=== PATIENT | male | born 1975 | race Caucasian/White ===

== ENCOUNTER 2020-04-09 08:43 | Outpatient (REF) | payer OTHER, SELFPAY ==
--- NOTE | 2020-04-09 | MR_ITS ---
EXAMINATION: MR HAND WITHOUT CONTRAST, RIGHT CLINICAL INFORMATION: Complex regional pain syndrome. COMPARISON: Radiographs dated 03/24/2010 TECHNIQUE: Multiplanar MR imaging was obtained through the right hand without contrast on a 1.5 Ada magnet. FINDINGS: At the 2nd, 3rd, and 4th MCP joints, there are small marginal osteophytes in addition to small foci of subchondral cystic change, favored to be degenerative in nature. Cartilage loss is suspected at the 3rd metacarpal head and, to a lesser extent, at the 2nd metacarpal head. Mild osteoarthritis is also suspected in the CMC joint and thumb interphalangeal joint, characterized by nonuniform chondral thinning and small marginal osteophytes. The other interphalangeal joints appear relatively well preserved, though mild degrees of osteoarthritis would be difficult to exclude on these images. There are no appreciable findings of erosions. No joint effusions or significant active periostitis. Joint capsules are normal in appearance. The ligaments appear intact. Intrinsic hand musculature is normal in signal intensity. Tendons are intact without tears, tendinosis, or tenosynovitis. There is scar tissue in the skin in the palmar aspect of the hand superficial to the flexor tendons to the long finger at the level of the metacarpals distally. No fluid collections. No discrete mass lesions are identified in this region. 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 No evidence of synovitis or active inflammation. No significant marrow signal abnormality to correlate with possible active complex regional pain syndrome. Scar tissue is suspected in the skin at the palmar aspect of the hand, superficial to the long finger flexor tendons.
== END 2020-04-09 08:44 | disposition home or self-care (01) ==
LOC: HO.MRI 08:43
PROVIDERS: Visit Provider Physician Assistant Medical
DX: G90.511 Complex regional pain syndrome I of right upper limb (principal)
CPT/HCPCS: 73218

== ENCOUNTER → 2020-04-14 09:39 | Outpatient (REF) | payer OTHER, SELFPAY ==
--- NOTE | 2020-04-14 | NM_ITS ---
EXAMINATION: NM THREE-PHASE BONE SCAN BOTH HANDS CLINICAL INFORMATION: Complex regional pain syndrome right hand. Right hand and wrist swelling and pain COMPARISON: None TECHNIQUE: Following intravenous administration of 35 mCi of 99m Tc MDP in left antecubital vein, three-phase bone scan of both hands were obtained. In addition whole body PET CT scan was obtained. FINDINGS: On first phase bone scan there is slight increased perfusion to left wrist. On second phase of bone scan there is symmetrical blood pool activity seen in both hands and wrists. On third phase bone scan no abnormal focal increased or decreased activity seen in either hand. On third phase whole body imaging there is no abnormal activity seen within the brain, neck, entire spine, chest or the pelvis. Both upper and lower extremities are unremarkable. NM/NM bone 3 phase IMPRESSION: Unremarkable three-phase bone scan both hands. Unremarkable whole body bone scan on third phase bone scan.
== END ==
LOC: HO.NUCMED 09:39
PROVIDERS: PCP Internal Medicine Medical Oncology; Visit Provider Physician Assistant Medical
DX: G90.511 Complex regional pain syndrome I of right upper limb (principal); G56.01 Carpal tunnel syndrome, right upper limb
CPT/HCPCS: 78315; A9503

== ENCOUNTER 2020-04-18 20:04 | Emergency (ER) | payer OTHER, SELFPAY ==
[2020-04-18 20:05] VITALS: BP 157/95; PULSE 89; RESP 18; TEMP 37.1; O2SAT 97; BMI 33.5
[2020-04-18 21:26] VITALS: BP 159/102; PULSE 88; RESP 16; O2SAT 98
--- NOTE | 2020-04-18 21:36 | ED_ITS ---
HPI - Headache General Chief Complaint: Headache Stated Complaint: High blood pressure Time Seen by Provider: 04/18/20 21:36 Source: patient Mode of arrival: ambulatory Limitations: no limitations History of Present Illness HPI Narrative: Patient has history of hypertension on hydralazine and Lopressor usually well controlled today since 930 patient noticed having gradual onset headache mostly in the occipital area at work checked his blood pressure was 175/120 at 10 am, later on blood pressure decreased to 150s but headache continues patient took his morning hydralazine and Lopressor. Patient denies any nausea/vomiting no weakness no focal deficit MD elicited complaint: headache Related Data Allergies Allergy/AdvReac Type Severity Reaction Status Date / Time No Known Allergies Allergy Unverified 01/24/20 15:15 Review of Systems Review of Systems: REVIEW OF SYSTEMS: Pertinent positives and negatives are stated above in the history. GEN: no fevers, chills, fatigue HEENT: no nasal congestion, sore throat, ear pain NEURO: no , dizziness, focal weakness PULM: no cough, shortness of breath CV: no chest pain, palpitations, LE edema ABD: no abdominal pain, nausea, vomiting, diarrhea : no dysuria, urgency, frequency SKIN: no rash ROS otherwise negative x 10 PMFSH Social History Social History Advance Directives: No Advance Directives Information Provided: Yes Physical Exam Vital Signs: Vital Signs: Last Vital Signs Temp 98.3 F 04/18/20 22:29 Pulse 86 04/18/20 22:29 Resp 22 H 04/18/20 22:29 BP 147/97 H 04/18/20 22:29 Pulse Ox 97 04/18/20 22:29 Body Mass Index 33.5 Appearance: Alert. Oriented X3. No acute distress. Eyes: Pupils equal, round and reactive to light. ENT: Pharynx normal. Neck: Normal inspection. Neck supple. CVS: Normal heart rate and rhythm. Pulses normal. Respiratory: No respiratory distress. Breath sounds normal. Abdomen: Soft and nontender. Skin: Skin warm and dry. Normal skin color. Normal skin turgor. Extremities: No lower extremity edema. Good range of movement Neuro: Oriented X 3. No motor deficit. No sensory deficit. MDM - Headache MDM Narrative Medical decision making narrative: Patient with gradual onset headache with history of headaches in the past but not that severe blood pressure elevated earlier but after arrival it was 157/95 patient denies any nausea vomiting head CT plain was negative lumbar puncture was tried but was traumatic 2 times as his back is very stiff will do CTA to rule out any aneurysm patient is unlikely subarachnoid bleed as onset is gradual and with a history of headaches Differential Diagnosis Differential diagnosis: Likely tension headache and subarachnoid hemorrhage Medical Records Attestation: I reviewed the patient's medical records. Lab Data Attestation: I reviewed the patient's lab results. Result diagrams: 04/18/20 22:28 04/18/20 22:28 Labs: Lab Results 04/18/20 04/18/20 04/18/20 Range/Units 22:28 22:28 22:28 WBC 9.8 (4.8-10.8) X10*3/uL RBC 4.95 (4.60-5.80) X10*6/uL Hgb 15.0 (14.0-18.0) g/dl Hct 43.8 (42-52) % MCV 88.5 (80-98) fL MCH 30.3 (27.0-33.0) pg MCHC 34.2 (31.0-36.0) g/dl RDW 12.3 (11.0-16.0) % Plt Count 240 (160-400) X10*3/uL MPV 11.8 (9.4-12.4) fL Immature Gran % (Auto) 0.3 (0.0-0.4) % Neut % (Auto) 49.5 (45-73) % Lymph % (Auto) 36.9 (20-40) % [place] % (Auto) 9.6 (2-11) % Eos % (Auto) 3.0 (0-4) % Baso % (Auto) 0.7 (0-2) % Lymph # (Auto) 3.6 (1.2-4.9) X10*3/uL [place] # (Auto) 0.9 (0.1-1.2) X10*3/uL Eos # (Auto) 0.3 (0.0-0.4) X10*3/uL Baso # (Auto) 0.1 (0.0-0.2) X10*3/uL Abs Immat Gran (auto) 0.03 (0.00-0.03) X10*3/uL Absolute Neuts (auto) 4.9 (2.0-8.3) X10*3/uL Absolute Nucleated RBC 0.000 (0.0-0.012) X10*3/uL Nucleated RBC % (auto) 0.0 (0.0-0.2) /100WBC PT 12.4 (10.8-13.0) SEC INR 1.0 (0.9-1.1) Sodium 139 (135-145) mmol/L Potassium 3.9 (3.3-5.1) mmol/l Chloride 102 (96-108) mmol/L Carbon Dioxide 27 (22-29) mmol/L Anion Gap 14 (12-20) BUN 15 (9-16) mg/dL Creatinine 1.19 (0.5-1.4) mg/dL Estim Creat Clear Calc 90.7 Estimated GFR > 60 Random Glucose 144 H (60-115) mg/dL Calcium 9.1 (8.4-10.2) mg/dL Troponin I High Sens (<3.5-35.0) ng/L COVID-19 (JULITO) (Negative) COVID-19 Clin Com 04/18/20 04/18/20 Range/Units 22:28 22:28 WBC (4.8-10.8) X10*3/uL RBC (4.60-5.80) X10*6/uL Hgb (14.0-18.0) g/dl Hct (42-52) % MCV (80-98) fL MCH (27.0-33.0) pg MCHC (31.0-36.0) g/dl RDW (11.0-16.0) % Plt Count (160-400) X10*3/uL MPV (9.4-12.4) fL Immature Gran % (Auto) (0.0-0.4) % Neut % (Auto) (45-73) % Lymph % (Auto) (20-40) % [place] % (Auto) (2-11) % Eos % (Auto) (0-4) % Baso % (Auto) (0-2) % Lymph # (Auto) (1.2-4.9) X10*3/uL [place] # (Auto) (0.1-1.2) X10*3/uL Eos # (Auto) (0.0-0.4) X10*3/uL Baso # (Auto) (0.0-0.2) X10*3/uL Abs Immat Gran (auto) (0.00-0.03) X10*3/uL Absolute Neuts (auto) (2.0-8.3) X10*3/uL Absolute Nucleated RBC (0.0-0.012) X10*3/uL Nucleated RBC % (auto) (0.0-0.2) /100WBC PT (10.8-13.0) SEC INR (0.9-1.1) Sodium (135-145) mmol/L Potassium (3.3-5.1) mmol/l Chloride (96-108) mmol/L Carbon Dioxide (22-29) mmol/L Anion Gap (12-20) BUN (9-16) mg/dL Creatinine (0.5-1.4) mg/dL Estim Creat Clear Calc Estimated GFR Random Glucose (60-115) mg/dL Calcium (8.4-10.2) mg/dL Troponin I High Sens 3.9 (<3.5-35.0) ng/L COVID-19 ([facility]O) Negative (Negative) COVID-19 Clin Com See Note
--- NOTE | 2020-04-18 21:41 | CT_ITS ---
EXAMINATION: CT HEAD WITHOUT CONTRAST CLINICAL INFORMATION: Headache with hypertension?sah COMPARISON: MRI dated 01/06/2012 TECHNIQUE: Contiguous axial imaging was performed from the skull base to vertex without intravenous administration of contrast. This CT examination was performed using dose optimization techniques as appropriate, variously including the following: *Automated exposure control *Adjustment of mA and/or kV according to patient size (this includes techniques or standardized protocols for targeted exams where dose is matched to indication/reason for exam; i.e. extremities or head) *Use of iterative reconstruction technique DLP: 830 mGy-cm FINDINGS: There is no evidence of acute intracranial hemorrhage or territorial infarction. No abnormal mass effect or midline shift is seen. Wilks to white matter differentiation is well preserved. No extra-axial fluid collections are identified. The ventricles are normal in size. There is no abnormal attenuation within the brain parenchyma. The osseous structures and soft tissues are normal. The mastoid air cells and visualized portions of the paranasal sinuses are well aerated. CT/CT head/brain wo con IMPRESSION: No acute intracranial pathology.
--- NOTE | 2020-04-18 22:19 | ECG_ITS ---
Test Reason : HEADACHE Blood Pressure : / mmHG Vent. Rate : 081 BPM Atrial Rate : 081 BPM P-R Int : 160 ms QRS Dur : 080 ms QT Int : 380 ms P-R-T Axes : 009 008 011 degrees QTc Int : 441 ms Normal sinus rhythm Cannot rule out Anterior infarct (cited on or before 18-APR-2020) Abnormal ECG When compared with ECG of 23-OCT-2018 20:50, No significant change was found Referred By: Qamar Jeter Electronically Signed By:HCI HENNING
[2020-04-18 22:29] VITALS: BP 147/97; PULSE 86; RESP 22; TEMP 36.8; O2SAT 97
[2020-04-18] MEDS: Acetaminophen 325 MG TABLET 650 MG PO (22:37)
[2020-04-18] MEDS: hydrALAZINE HCl 20 MG/ML VIAL 10 MG IVPUSH (22:38)
[2020-04-18 22:42] LABS: MANUAL DIFF FLAG NO
[2020-04-18 22:44] LABS: Basophils Absolute Auto 0.1 X10*3/uL (0.0-0.2); Basophils Percent Auto 0.7 % (0-2); Eosinophils Absolute Auto 0.3 X10*3/uL (0.0-0.4); Hematocrit 43.8 % (42-52); Imm Gran Abs Auto 0.03 X10*3/uL (0.00-0.03); Imm Gran Pct Auto 0.3 % (0.0-0.4); Lymphocytes Absolute Auto 3.6 X10*3/uL (1.2-4.9); Lymphocytes Percent Auto 36.9 % (20-40); Mean Corpuscular HGB Conc 34.2 g/dl (31.0-36.0); Mean Corpuscular Hemoglobin 30.3 pg (27.0-33.0); Mean Corpuscular Volume 88.5 fL (80-98); Mean Platelet Volume 11.8 fL (9.4-12.4); Monocytes Absolute Auto 0.9 X10*3/uL (0.1-1.2); Monocytes Percent Auto 9.6 % (2-11); Neutrophils Absolute Auto 4.9 X10*3/uL (2.0-8.3); Neutrophils Percent Auto 49.5 % (45-73); Platelet Count 240 X10*3/uL (160-400); Red Blood Count 4.95 X10*6/uL (4.60-5.80); Red Cell Distribution Width 12.3 % (11.0-16.0); White Blood Count 9.8 X10*3/uL (4.8-10.8)
[2020-04-18 22:50] LABS: Prothrombin Time 12.4 SEC (10.8-13.0)
[2020-04-18 23:06] LABS: Anion Gap 14 (12-20); Blood Urea Nitrogen 15 mg/dL (9-16); Calcium 9.1 mg/dL (8.4-10.2); Carbon Dioxide 27 mmol/L (22-29); Chloride 102 mmol/L (96-108); Creatinine Clr Calc Pharmacy 90.7; Estimated Glomerular Filt Rate > 60; Glucose Random 144 mg/dL (60-115); Potassium 3.9 mmol/l (3.3-5.1); Sodium 139 mmol/L (135-145)
[2020-04-18 23:11] LABS: Troponin-I High Sensitivity 3.9 ng/L (<3.5-35.0)
[2020-04-18 23:18] LABS: COVID-19 Test Negative (Negative); IDNOW Serial# 9DD0AD1C
[2020-04-18] MEDS: ondansetron HCL 4 MG/2 ML VIAL IVPUSH (23:25)
[2020-04-18] MEDS: Morphine Sulfate 4 MG/ML CARTRIDGE IVPUSH (23:26)
--- NOTE | 2020-04-19 00:04 | CT_ITS ---
EXAMINATION: CT ANGIOGRAM BRAIN, HEAD CLINICAL INFORMATION: Headache. Question of aneurysm. COMPARISON: CT head dated 04/18/2020 and MRI brain dated 05/14/2015 TECHNIQUE: Test bolus sequences followed by intravenous administration 85 mL of Omnipaque 350 intravenous contrast. Helical imaging was performed in the axial plane from the skull base to the vertex. Delayed postcontrast imaging of the head was also performed. The data was processed at the certified surgical technologist workstation for generation of MIP sequences. Three-dimensional volume rendered reformatted images were also generated at an offline 3-D workstation. This CT examination was performed using dose optimization techniques as appropriate, variously including the following: *Automated exposure control *Adjustment of mA and/or kV according to patient size (this includes techniques or standardized protocols for targeted exams where dose is matched to indication/reason for exam; i.e. extremities or head) *Use of iterative reconstruction technique DLP: 2820 mGy-cm FINDINGS: CTA HEAD: There is normal opacification of the major intracranial vessels. No acute proximal large vessel occlusion, or focal flow-limiting stenosis. There is a 3.3 x 2.8 x 1.9 mm aneurysm emanating from the inferior aspect of the left carotid terminus. No abnormal parenchymal enhancement or regional oligemia is visualized. HEAD (delayed): No intracranial mass, intercerebral edema, hemorrhage, or midline shift is evident. The ventricles and sulci are stable in size and configuration. No extra-axial collections are appreciated. No pathologic intracranial enhancement. The paranasal sinuses are well-aerated and clear. 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 No segmental occlusion or high-grade stenosis within the intracranial arterial vasculature
[2020-04-19] MEDS: iohexoL 350 MG/ML 100 ML INFUS..BTL 85 ML IV (00:31)
[2020-04-19] MEDS: Morphine Sulfate 4 MG/ML CARTRIDGE IVPUSH (01:04)
--- NOTE | 2020-04-19 01:09 | PC.NURSE ---
pt A&O, NO SOB OR CHEST PAIN. PT CONTINUES TO HAVE A HEADACHE. MEDICATED PER EMAR. MED GIVEN LATE DUE TO PT BEING IN CT-SCAN.
[2020-04-19 01:11] VITALS: BP 138/88; PULSE 75; RESP 16
[2020-04-19] MEDS: Ketorolac Tromethamine 30 MG/ML VIAL IVPUSH (02:21)
[2020-04-19] MEDS: Metoclopramide HCl 10 MG/2 ML VIAL IVPUSH (02:22)
[2020-04-19] MEDS: diphenhydrAMINE HCL 50 MG/ML VIAL 25 MG IVPUSH (02:22)
[2020-04-19] MEDS: 0.9 % Sodium Chloride 1,000 ML 999 ML IVCONT (02:30)
[2020-04-19 03:37] VITALS: RESP 16
== END 2020-04-19 03:44 | disposition home or self-care (01) ==
PROVIDERS: Emergency Provider Internal Medicine
DX: R51.9 Headache, unspecified (principal); I10 Essential (primary) hypertension; Z20.828 Contact with and (suspected) exposure to other viral communicable diseases; Z79.899 Other long term (current) drug therapy
CPT/HCPCS: 36415; 70450; 70496; 80048; 84484; 85025; 85610; 87635; 93005; 96361; 96374; 96375; 96376; 99284; J1200; J1885; J2270; J2405; J2765; Q9967

== ENCOUNTER 2020-07-22 07:23 | Outpatient (REF) | payer OTHER, SELFPAY ==
--- NOTE | ~2020-07-22 | XR_ITS ---
EXAMINATION: XR SHOULDER, RIGHT CLINICAL INFORMATION: Pain COMPARISON: None TECHNIQUE: Three views of the right shoulder. FINDINGS: Bone alignment is normal. No fracture or dislocation is seen. The glenohumeral joint is normal. There is arthritis at the acromioclavicular joint. Soft tissues are unremarkable. XR/XR shoulder RT min 2V IMPRESSION: Arthritis at the acromioclavicular joint.
== END 2020-07-22 07:24 | disposition home or self-care (01) ==
LOC: HO.HOSX 07:23
PROVIDERS: Visit Provider Orthopaedic Surgery
DX: M19.011 Primary osteoarthritis, right shoulder (principal); M89.8X1 Other specified disorders of bone, shoulder; S46.819A Strain of other muscles, fascia and tendons at shoulder and upper arm level, unspecified arm, initial encounter; X58.XXXA Exposure to other specified factors, initial encounter; Y93.9 Activity, unspecified; Y92.9 Unspecified place or not applicable; Y99.9 Unspecified external cause status
CPT/HCPCS: 73030

== ENCOUNTER 2020-10-24 07:34 | Outpatient (REF) | payer OTHER, SELFPAY ==
[2020-10-24 09:14] LABS: MANUAL DIFF FLAG NO
[2020-10-24 09:20] LABS: Basophils Absolute Auto 0.1 X10*3/uL (0.0-0.2); Basophils Percent Auto 1.3 % (0-2); Eosinophils Absolute Auto 0.3 X10*3/uL (0.0-0.4); Hematocrit 48.8 % (42-52); Hemoglobin 15.7 g/dl (14.0-18.0); Imm Gran Abs Auto 0.03 X10*3/uL (0.00-0.03); Imm Gran Pct Auto 0.5 % (0.0-0.4); Lymphocytes Absolute Auto 1.8 X10*3/uL (1.2-4.9); Lymphocytes Percent Auto 28.5 % (20-40); Mean Corpuscular HGB Conc 32.2 g/dl (31.0-36.0); Mean Corpuscular Hemoglobin 28.6 pg (27.0-33.0); Mean Corpuscular Volume 88.9 fL (80-98); Mean Platelet Volume 12.1 fL (9.4-12.4); Monocytes Absolute Auto 0.7 X10*3/uL (0.1-1.2); Neutrophils Absolute Auto 3.4 X10*3/uL (2.0-8.3); Neutrophils Percent Auto 53.7 % (45-73); Platelet Count 193 X10*3/uL (160-400); Red Blood Count 5.49 X10*6/uL (4.60-5.80); Red Cell Distribution Width 12.4 % (11.0-16.0); White Blood Count 6.4 X10*3/uL (4.8-10.8)
[2020-10-24 09:56] LABS: Alanine Aminotransferase 34 U/L (0-40); Albumin Level 4.1 g/dL (3.5-5.0); Alkaline Phosphatase 65 U/L (39-117); Anion Gap 12 (12-20); Aspartate Amino Transferase 22 U/L (5-37); Bilirubin Total 0.5 mg/dL (0.0-1.0); Blood Urea Nitrogen 17 mg/dL (9-16); Calcium 9.2 mg/dL (8.4-10.2); Carbon Dioxide 27 mmol/L (22-29); Chloride 105 mmol/L (96-108); Cholesterol 237 mg/dL; Estimated Glomerular Filt Rate > 60; Glucose Fasting 118 mg/dL (60-99); HDL Cholesterol 41 mg/dL; LDL Cholesterol Calculated 162 mg/dl; Potassium 4.4 mmol/L (3.3-5.1); Sodium 140 mmol/L (135-145); Total Protein 7.2 g/dL (6.5-8.0); Triglycerides 173 mg/dL
[2020-10-24 10:01] LABS: PSA,Total (Free>4and<10) 0.38 ng/mL (0.00-4.00)
== END 2020-10-24 07:35 | disposition home or self-care (01) ==
LOC: HO.LAB 07:34
PROVIDERS: PCP Internal Medicine Medical Oncology; Visit Provider Internal Medicine Medical Oncology
DX: Z00.00 Encounter for general adult medical examination without abnormal findings (principal); I10 Essential (primary) hypertension; E78.5 Hyperlipidemia, unspecified
CPT/HCPCS: 36415; 80053; 80061; 84153; 85025

== ENCOUNTER 2021-01-16 11:48 | Emergency (ER) | payer OTHER, SELFPAY ==
--- NOTE | 2021-01-16 | ECG_ITS ---
Test Reason : CP Blood Pressure : / mmHG Vent. Rate : 079 BPM Atrial Rate : 079 BPM P-R Int : 152 ms QRS Dur : 078 ms QT Int : 364 ms P-R-T Axes : 014 010 -01 degrees QTc Int : 417 ms Normal sinus rhythm Cannot rule out Anterior infarct (cited on or before 18-APR-2020) Abnormal ECG When compared with ECG of 18-APR-2020 22:23, No significant change was found Referred By: Generic ED Physician Electronically Signed By:PAOLA MARTINEZ
--- NOTE | ~2021-01-16 | XR_ITS ---
EXAMINATION: XR CHEST CLINICAL INFORMATION: Chest pain COMPARISON: 10/23/2018 TECHNIQUE: Frontal view of the chest was obtained. FINDINGS: Low lung volumes but no focal consolidation or mass. Normal pulmonary vascularity. No pleural effusion or pneumothorax. Normal heart size. Degenerative changes of the right acromioclavicular joint. XR/XR chest 1V IMPRESSION: Low lung volumes but no acute pulmonary disease.
[2021-01-16 11:51] VITALS: BP 177/104; PULSE 85; RESP 16; TEMP 37.1; O2SAT 97; BMI 33.6
[2021-01-16 12:20] LABS: MANUAL DIFF FLAG NO
[2021-01-16 12:26] LABS: Basophils Absolute Auto 0.1 X10*3/uL (0.0-0.2); Basophils Percent Auto 0.8 % (0-2); Eosinophils Absolute Auto 0.2 X10*3/uL (0.0-0.4); Eosinophils Percent Auto 2.3 % (0-4); Hematocrit 45.2 % (42-52); Hemoglobin 15.1 g/dl (14.0-18.0); Imm Gran Abs Auto 0.04 X10*3/uL (0.00-0.03); Imm Gran Pct Auto 0.5 % (0.0-0.4); Lymphocytes Absolute Auto 2.2 X10*3/uL (1.2-4.9); Lymphocytes Percent Auto 26.9 % (20-40); Mean Corpuscular HGB Conc 33.4 g/dl (31.0-36.0); Mean Corpuscular Hemoglobin 29.5 pg (27.0-33.0); Mean Corpuscular Volume 88.5 fL (80-98); Mean Platelet Volume 11.9 fL (9.4-12.4); Monocytes Absolute Auto 0.8 X10*3/uL (0.1-1.2); Monocytes Percent Auto 9.8 % (2-11); Neutrophils Percent Auto 59.7 % (45-73); Platelet Count 208 X10*3/uL (160-400); Red Blood Count 5.11 X10*6/uL (4.60-5.80); Red Cell Distribution Width 13.2 % (11.0-16.0); White Blood Count 8.3 X10*3/uL (4.8-10.8)
[2021-01-16 12:35] LABS: COVID-19 Test Negative (Negative); IDNOW Serial# 08D9AD1C
[2021-01-16 12:42] LABS: Anion Gap 15 (12-20); Blood Urea Nitrogen 15 mg/dL (9-16); Calcium 9.7 mg/dL (8.4-10.2); Carbon Dioxide 23 mmol/L (22-29); Chloride 105 mmol/L (96-108); Creatinine Clr Calc Pharmacy 84.5; Estimated Glomerular Filt Rate > 60; Glucose Random 105 mg/dL (60-115); Potassium 5.1 mmol/L (3.3-5.1); Sodium 138 mmol/L (135-145)
[2021-01-16 12:44] LABS: Troponin-I High Sensitivity < 3.5 ng/L (<3.5-35.0)
--- NOTE | 2021-01-16 14:19 | ED.CHESTPAIN ---
HPI - Chest Pain General Chief Complaint: Chest Pain Stated Complaint: CHEST PAIN Time Seen by Provider: 01/16/21 14:18 Source: patient Mode of arrival: ambulatory Limitations: no limitations History of Present Illness MD complaint: chest pain Onset (ago): day(s) (yesterday ) Timing of current episode: episodic Prior episodes: No Onset: during rest Pain location: left chest Pain radiation: none Severity: moderate Quality: burning Relieving factors: nothing Exacerbating factors: nothing Associated symptoms: dyspnea Treatment prior to arrival: none Related Data Home Medications Medication Instructions Recorded Confirmed atenolol 100 mg tablet mg PO 07/22/20 atorvastatin 20 mg tablet 20 mg PO DAILY 07/22/20 Previous Rx's Medication Instructions Recorded ibuprofen 800 mg tablet 800 mg PO TID PRN 30 Days #90 tab 07/22/20 Allergies Allergy/AdvReac Type Severity Reaction Status Date / Time No Known Allergies Allergy Verified 07/22/20 10:24 Review of Systems Review of Systems: Constitutional : No Weight loss, No Fever, No Chills ENT/Mouth : No sore throat, No Rhinorrhea Eyes: No Eye Pain, No Swelling Cardiovascular : pos Chest Pain, pos SOB, no Dyspnea on Exertion, No Orthopnea, No Edema, No Palpitations Respiratory : No Cough, No Sputum Gastrointestinal : no Nausea, No Vomiting, No Diarrhea, No abdominal Pain, No Hematochezia, No Melena Genitourinary : No Dysuria, No Urinary Frequency Musculoskeletal : No joint pain, No Myalgias, No Joint Swelling Skin : No Skin Lesions, No rash Neuro : No Weakness, No Numbness, No Dizziness, No Headache Psych : No Anxiety/Panic, No Depression Heme/Lymph: No Bruising, No Lymphadenopathy Endocrine : No Polyuria, No Polydipsia All other systems reviewed and are negative [facility] Past Medical History Attestation statement: The following information was validated with the patient. Medical History High cholesterol Hypertension Surgical History (Updated 07/22/20 @ 10:26 by KERRY Herrmann) History of carpal tunnel surgery of right wrist Family History Family History Mother No problems noted. Father No problems noted. 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 Oriented X3. No acute distress. Eyes: Pupils equal, round and reactive to light. ENT: Pharynx normal. Neck: Normal inspection. Neck supple. CVS: Normal heart rate and rhythm. Pulses normal. Respiratory: No respiratory distress. Breath sounds normal. Abdomen: Soft and non-tender. Skin: Skin warm and dry. Normal skin color. Normal skin turgor. Extremities: No lower extremity edema. No calf ttp Neuro: Oriented X 3. No motor deficit. No sensory deficit. 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 He is PERC negative. Seems atypical for ACS though he has had some event based off his poor R wave progression - he is aware. He is in no distress his pain is atypical for dissection - troponin x 2, CXR, EKG if negative start on ASA and refer to cardiology / PCP for outpatient stress test. Lab Data Result diagrams: 01/16/21 12:02 01/16/21 12:02 Labs: Lab Results 01/16/21 01/16/21 01/16/21 Range/Units 12:02 12:02 12:02 WBC 8.3 (4.8-10.8) X10*3/uL RBC 5.11 (4.60-5.80) X10*6/uL Hgb 15.1 (14.0-18.0) g/dl Hct 45.2 (42-52) % MCV 88.5 (80-98) fL MCH 29.5 (27.0-33.0) pg MCHC 33.4 (31.0-36.0) g/dl RDW 13.2 (11.0-16.0) % Plt Count 208 (160-400) X10*3/uL MPV 11.9 (9.4-12.4) fL Immature Gran % (Auto) 0.5 H (0.0-0.4) % Neut % (Auto) 59.7 (45-73) % Lymph % (Auto) 26.9 (20-40) % [place] % (Auto) 9.8 (2-11) % Eos % (Auto) 2.3 (0-4) % Baso % (Auto) 0.8 (0-2) % Lymph # (Auto) 2.2 (1.2-4.9) X10*3/uL [place] # (Auto) 0.8 (0.1-1.2) X10*3/uL Eos # (Auto) 0.2 (0.0-0.4) X10*3/uL Baso # (Auto) 0.1 (0.0-0.2) X10*3/uL Abs Immat Gran (auto) 0.04 H (0.00-0.03) X10*3/uL Absolute Neuts (auto) 5.0 (2.0-8.3) X10*3/uL Absolute Nucleated RBC 0.000 (0.0-0.012) X10*3/uL Nucleated RBC % (auto) 0.0 (0.0-0.2) /100WBC Sodium 138 (135-145) mmol/L Potassium 5.1 (3.3-5.1) mmol/L Chloride 105 (96-108) mmol/L Carbon Dioxide 23 (22-29) mmol/L Anion Gap 15 (12-20) BUN 15 (9-16) mg/dL Creatinine 1.28 (0.5-1.4) mg/dL Estim Creat Clear Calc 84.5 Estimated GFR > 60 Random Glucose 105 (60-115) mg/dL Calcium 9.7 (8.4-10.2) mg/dL Troponin I High Sens < 3.5 (<3.5-35.0) ng/L COVID-19 ([facility]) (Negative) COVID-19 Clin Com 01/16/21 01/16/21 Range/Units 12:02 14:47 WBC (4.8-10.8) X10*3/uL RBC (4.60-5.80) X10*6/uL Hgb (14.0-18.0) g/dl Hct (42-52) % MCV (80-98) fL MCH (27.0-33.0) pg MCHC (31.0-36.0) g/dl RDW (11.0-16.0) % Plt Count (160-400) X10*3/uL MPV (9.4-12.4) fL Immature Gran % (Auto) (0.0-0.4) % Neut % (Auto) (45-73) % Lymph % (Auto) (20-40) % [place] % (Auto) (2-11) % Eos % (Auto) (0-4) % Baso % (Auto) (0-2) % Lymph # (Auto) (1.2-4.9) X10*3/uL [place] # (Auto) (0.1-1.2) X10*3/uL Eos # (Auto) (0.0-0.4) X10*3/uL Baso # (Auto) (0.0-0.2) X10*3/uL Abs Immat Gran (auto) (0.00-0.03) X10*3/uL Absolute Neuts (auto) (2.0-8.3) X10*3/uL Absolute Nucleated RBC (0.0-0.012) X10*3/uL Nucleated RBC % (auto) (0.0-0.2) /100WBC Sodium (135-145) mmol/L Potassium (3.3-5.1) mmol/L Chloride (96-108) mmol/L Carbon Dioxide (22-29) mmol/L Anion Gap (12-20) BUN (9-16) mg/dL Creatinine (0.5-1.4) mg/dL Estim Creat Clear Calc Estimated GFR Random Glucose (60-115) mg/dL Calcium (8.4-10.2) mg/dL Troponin I High Sens < 3.5 (<3.5-35.0) ng/L COVID-19 (JULITO) Negative (Negative) COVID-19 Clin Com See Note ECG Data ECG #1: Attestation: I personally reviewed and interpreted this ECG as follows: ECG interpretation date: 01/16/21 ECG interpretation time: 14:22 Ischemic changes: acute STEMI Interpretation: Rate: 79 Rhythm: NSR [place]: left Normal P waves. Normal JOSE. Poor R wave progression ST T wave : normal no LINDSEY qTC: normal prior studies: no change from prior The study has been interpreted contemporaneously by me. . Discharge Plan Discharge Clinical Impression: Chest pain Qualifiers: Chest pain type: unspecified Qualified Code(s): R07.9 - Chest pain, unspecified Patient Disposition: Home, Self-Care Instructions: Chest Pain (ED) Additional Instructions: return to ED for any worsening symptoms or concerns take a baby 81mg ASA daily Prescriptions: No Action ibuprofen 800 mg tablet 800 mg PO TID PRN (Reason: pain) 30 Days Qty: 90 RF: 0 Referrals: Ramone Blevins MD [Primary Care Provider] - 2 days (needs outpatient stress test) Abelino Mohamud MD [Physician] - 1 week (call for chest pain and outpatient stress test) Stand Alone Forms: Work/School Release Interventions: ED Discharge Assessment Last Done: 01/16/21 15:26 Discharge Date/Time: 01/16/21 15:26
[2021-01-16 14:40] VITALS: BP 156/98; PULSE 70; RESP 18; O2SAT 99
[2021-01-16 15:17] LABS: Troponin-I High Sensitivity < 3.5 ng/L (<3.5-35.0)
== END 2021-01-16 15:26 | disposition home or self-care (01) ==
PROVIDERS: Emergency Provider Emergency Medicine; PCP Internal Medicine Medical Oncology
DX: R07.9 Chest pain, unspecified (principal); I10 Essential (primary) hypertension; Z20.822 Contact with and (suspected) exposure to COVID-19; Z79.899 Other long term (current) drug therapy
CPT/HCPCS: 36415; 71045; 80048; 84484; 85025; 87635; 93005; 99283; 99284

== ENCOUNTER 2021-09-22 08:17 | Day surgery (SDC) | payer OTHER, SELFPAY ==
[2021-09-16 13:36] VITALS: BMI 34.8
--- NOTE | 2021-09-21 09:15 | HO.ANESPROP2 ---
Documented by User: Maxine Rose NP 09/21/21 09:16 HPI - Anesthesia Eval Consult details Narrative: 46yo M for Upper Endoscopy and Colonoscopy [facility] Active Problems Active Problems: All Active Problems (Updated 09/16/21 @ 13:33 by Mary Price RN) Periscapular pain (Acute) Trapezius muscle strain (Acute) Past Medical History Medical History GERD (gastroesophageal reflux disease) High cholesterol Hypertension Family History Family History Mother No problems noted. Father No problems noted. 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[employer] Allergies Allergy/AdvReac Type Severity Reaction Status Date / Time No Known Allergies Allergy Verified 07/22/20 10:24 Home Medications Medication Instructions Recorded Confirmed Last Taken Type atenolol 100 mg tablet 100 mg PO BID 07/22/20 09/22/21 History gabapentin 300 mg capsule 300 mg PO DAILY 09/16/21 09/16/21 Unknown History pantoprazole 20 mg tablet,delayed 20 mg PO DAILY 09/16/21 09/16/21 Unknown History release rosuvastatin 20 mg tablet 20 mg PO DAILY 09/16/21 09/16/21 Unknown History lisinopril 5 mg PO DAILY 09/22/21 09/22/21 Unknown History Exam Exam Date and Time: September 21, 2021 0915 Height,Weight and Vital Signs: Height 5 ft 9 in Weight 107.048 kg Assessment and Plan Assessment Anesthesia Assessment: Chart Reviewed Documented by User: Lauren Correa MD 09/22/21 09:08 [facility] Active Problems Active Problems: All Active Problems (Updated 09/16/21 @ 13:33 by Mary Price RN) Periscapular pain (Acute) Trapezius muscle strain (Acute) ADONIS. On CPAP Past Medical History Medical History GERD (gastroesophageal reflux disease) High cholesterol Hypertension Family History Family History Mother No problems noted. Father No problems noted. Family history of problems with anesthesia: No Surgical History Surgical History History of carpal tunnel surgery of right wrist Hx of excision of mass History of Problems with Anesthesia: Yes (During carpal tunnel surgery, presumably under MAC, had to be woken up because he stopped breathing and anesthesia converted to GA) Social History Social History Alcohol intake: former Patient Tobacco Use Status: Current someday Tobacco user Tobacco use type: Cigarette Cigarettes Per Day: 5 Years Smoked: last smoked 2-3 weeks ago Use of substances other than those prescribed or required for medical reasons: No Are you DNR?: No Advance Directives: No Advance Directives Information Provided: Yes Current occupational status: employed 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[employer] Allergies Allergy/AdvReac Type Severity Reaction Status Date / Time No Known Allergies Allergy Verified 07/22/20 10:24 Home Medications Medication Instructions Recorded Confirmed Last Taken Type atenolol 100 mg tablet 100 mg PO BID 07/22/20 09/22/21 History gabapentin 300 mg capsule 300 mg PO DAILY 09/16/21 09/16/21 Unknown History pantoprazole 20 mg tablet,delayed 20 mg PO DAILY 09/16/21 09/16/21 Unknown History release rosuvastatin 20 mg tablet 20 mg PO DAILY 09/16/21 09/16/21 Unknown History lisinopril 5 mg PO DAILY 09/22/21 09/22/21 Unknown History Exam Height,Weight and Vital Signs: Height 5 ft 9 in Weight 107.048 kg Vital Signs Temp Pulse Resp BP Pulse Ox 09/22/21 09:04 98.5 F 61 17 145/99 H 95 Airway Mallampati Class: II (Large neck circumference ) TM Dist: >3cm Neck ROM: Full Loose/Missing/Broken Teeth: Yes (Broken crown top right ) Heart: RRR Lungs: CTAB Assessment and Plan Assessment Anesthesia Assessment: Anesthesia Plan Discussed Final Anesthetic Review Family History of Problems with Anesthesia: No History of Problems with Anesthesia: Yes (During carpal tunnel surgery, presumably under MAC, had to be woken up because he stopped breathing and anesthesia converted to GA) NPO: Yes ASA Class: III Final Preanesthetic Review: No Changes in Pt Med Stat, Meds/Allgs Chart Reviewed, Consent Obtained/Reviewed and Anes Risks/Benef Reviewed Patient Risk: Intermediate Procedure Risk: Low Assessment/Block/Sedation in SS: Assess/Block/Sedation-SS Anesthetic Plan Anesthetic Plan: MAC: Disposition: Standard PACU
[2021-09-22 08:29] VITALS: BMI 33.5
[2021-09-22 09:04] VITALS: BP 145/99; PULSE 61; RESP 17; TEMP 36.9; O2SAT 95
[2021-09-22] MEDS: Lactated Ringers 1,000 ML 100 ML IVCONT (09:07)
--- NOTE | 2021-09-22 09:16 | MHC.SHP ---
Pre-Procedural Eval Section A Date of Service: 09/22/21 Section B Chief Complaint: screening,reflux disease Details of Present Illness: see H&P no changes Relevant Family History (Specify if Yes): No Relevant Social History: None Present Medications: None Medical History: No relevant PMH History of Previous Operations: No relevant previous surgery Allergies: Allergies Allergy/AdvReac Type Severity Reaction Status Date / Time No Known Allergies Allergy Verified 07/22/20 10:24 Review of Systems Sugical H&P ROS: Negative: Constitution, Cardiovascular, Respiratory, Neurological, Psychiatric, Hem-Onc, Allergic/Immunologic, Gastrointestinal, Genitourinary, Musculoskeletal, Integumentary, Endocrine and Eyes/Ears/Nose/Throat Exam Surgical H&P Exam: Normal: HEENT, Normal: Heart, Normal: Lungs, Normal: Extremities, Normal: Abdomen, Normal: Skin and Normal: Neurological Plan Diagnosis/Plan: Unchanged I have reviewed the history and physical and performed a pertinent physical examination on my patient. No changes have occurred unless specified.
--- NOTE | 2021-09-22 09:55 | P.BOP_ITS ---
Brief Operative Note Date of Service: 09/22/21 Pre-op diagnosis: gerd, screening Post-op diagnosis: same Procedure: egd/colonoscopy Surgeon: Dayday Bryant Anesthesia: MAC Was an Process Design Engineer used for this Procedure?: No Estimated blood loss (mL): 5 Pathology: other (see req) Condition: stable Disposition: PACU
[2021-09-22 09:57] VITALS: BP 136/79; PULSE 80; RESP 16; TEMP 36.8; O2SAT 97
[2021-09-22 10:12] VITALS: BP 132/82; PULSE 70; RESP 18; O2SAT 97
[2021-09-22 10:26] VITALS: BP 157/98; PULSE 61; RESP 16; TEMP 36.8; O2SAT 97
--- NOTE | 2021-09-22 21:22 | OP_ITS ---
SURGEON: Dayday Bryant MD INDICATIONS: Colon cancer screening and gastroesophageal reflux disease. PREOPERATIVE DIAGNOSIS: POSTOPERATIVE DIAGNOSIS: PROCEDURE PERFORMED: ESTIMATED BLOOD LOSS: COMPLICATIONS: ANESTHESIA: ASSISTANTS: SPECIMENS: PROCEDURES PERFORMED: 1. Colonoscopy to the terminal ileum. 2. Upper endoscopy with biopsy. MEDICATIONS: Monitored anesthesia care. DESCRIPTION OF PROCEDURE: History and physical performed. The risks and benefits of the procedure were explained to the patient. Informed consent was obtained. The patient was placed in the left lateral decubitus position. A digital rectal exam was performed and was found to be normal. The Olympus pediatric video colonoscope was introduced into the rectum and advanced to the cecum without difficulty. The cecum was identified by transillumination, palpation, and identification of ileocecal valve. Examination was performed. The scope was removed. He was repositioned for upper endoscopy. The Olympus video gastroscope was introduced into the esophagus, stomach, and duodenum. Examination was performed. The scope was removed. He tolerated both procedures well and was taken to recovery area in stable condition. FINDINGS: Colonoscopy: The terminal ileum was examined and appeared normal. The visualized colonic mucosa was within normal limits without evidence of masses or ulcers. No polyps were identified. Retroflexed examination showed internal hemorrhoids. The quality of the prep was good. Upper endoscopy: 1. Esophagus: The esophagus was normal. There was no esophagitis. 2. Stomach: The stomach showed no evidence of masses, ulcers, or polyps. 3. Duodenum: The bulb and second portion were normal. Biopsies were obtained from the EG junction and antrum. IMPRESSION: 1. Normal screening colonoscopy. 2. Gastroesophageal reflux disease. RECOMMENDATIONS: 1. Follow up the biopsy results. 2. Repeat colonoscopy is recommended in 10 years for average risk individuals. MD SHARLENE Rondon/CHRISTEN / [id number]
== END 2021-09-22 11:04 | disposition home or self-care (01) ==
PROVIDERS: PCP Internal Medicine Medical Oncology; Visit Provider Internal Medicine Gastroenterology
PROC: (CPT 45378; principal; 2021-09-22 09:30)
DX: Z12.11 Encounter for screening for malignant neoplasm of colon (principal); K64.8 Other hemorrhoids; K21.9 Gastro-esophageal reflux disease without esophagitis; K22.70 Barrett's esophagus without dysplasia; I10 Essential (primary) hypertension; E78.5 Hyperlipidemia, unspecified; L30.9 Dermatitis, unspecified; Z79.899 Other long term (current) drug therapy; F17.210 Nicotine dependence, cigarettes, uncomplicated
CPT/HCPCS: 45378; 43239; 88305; 88342; J2250

== ENCOUNTER 2022-05-16 20:43 | Emergency (ER) | payer OTHER, SELFPAY ==
--- NOTE | ~2022-05-16 | XR_ITS ---
EXAMINATION: XR CHEST CLINICAL INFORMATION: Dyspnea. COMPARISON: Chest radiograph 01/16/2021. TECHNIQUE: Frontal view of the chest was obtained. FINDINGS: Normal appearance of the cardiomediastinal silhouette. Increased focal opacity in the medial right upper lobe in the region of the first sternochondral junction. Streaky opacities in the retrocardiac region. Otherwise, clear lungs. No pleural effusion or pneumothorax. No acute osseous abnormalities. The visualized upper abdomen is within normal limits. XR/XR chest 1V IMPRESSION: Increased asymmetric focal opacity in the region of the right first sternocostal junction. Uncertain if this represents projectional artifact from the osseous structures or an underlying airspace opacity/nodule. Recommend correlation with a chest CT. Streaky opacities in the retrocardiac region are in favor to represent subsegmental atelectasis.
--- NOTE | ~2022-05-16 | CT_ITS ---
EXAMINATION: CT HEAD WITHOUT CONTRAST CLINICAL INFORMATION: Headache. Elevated blood pressure. COMPARISON: 04/19/2020 TECHNIQUE: Contiguous axial imaging was performed from the skull base to vertex without intravenous contrast. This CT examination was performed using dose optimization techniques as appropriate, variously including the following: * Automated exposure control * Adjustment of mA and/or kV according to patient size (this includes techniques or standardized protocols for targeted exams where dose is matched to indication/reason for exam; i.e. extremities or head) Use of iterative reconstruction technique DLP: 733 mGy-cm. FINDINGS: There is no evidence of acute intracranial hemorrhage or territorial infarction. No abnormal mass effect or midline shift is seen. Wilks to white matter differentiation is well preserved. No extra-axial fluid collections are identified. No hydrocephalus. No significant volume loss. Patchy periventricular and deep white matter hypoattenuation is consistent with mild small vessel ischemic changes. The osseous structures and soft tissues are normal. Partial opacification of the left ethmoid air cells. The mastoid air cells and visualized portions of the paranasal sinuses are otherwise well aerated. CT/CT head/brain wo IV con IMPRESSION: No acute intracranial pathology.
[2022-05-16 20:50] VITALS: BP 170/117; PULSE 97; RESP 22; TEMP 36.6; O2SAT 97; BMI 34.0
--- NOTE | 2022-05-16 20:54 | ECG_ITS ---
Test Reason : DYSPNEA Blood Pressure : / mmHG Vent. Rate : 088 BPM Atrial Rate : 088 BPM P-R Int : 160 ms QRS Dur : 090 ms QT Int : 364 ms P-R-T Axes : 020 018 007 degrees QTc Int : 440 ms Normal sinus rhythm Normal ECG When compared with ECG of 16-JAN-2021 11:55, No significant change was found Referred By: Generic ED Physician Electronically Signed By:Michael Weiss
[2022-05-16 21:17] LABS: MANUAL DIFF FLAG NO
[2022-05-16 21:22] LABS: Basophils Absolute Auto 0.1 X10*3/uL (0.0-0.2); Basophils Percent Auto 1.1 % (0-2); Eosinophils Absolute Auto 0.5 X10*3/uL (0.0-0.4); Eosinophils Percent Auto 4.5 % (0-4); Hematocrit 43.3 % (42.0-52.0); Hemoglobin 14.1 g/dl (14.0-18.0); Imm Gran Abs Auto 0.02 X10*3/uL (0.00-0.03); Imm Gran Pct Auto 0.2 % (0.0-0.4); Lymphocytes Absolute Auto 2.9 X10*3/uL (1.2-4.9); Lymphocytes Percent Auto 27.2 % (20-40); Mean Corpuscular HGB Conc 32.6 g/dl (31.0-36.0); Mean Corpuscular Volume 88.9 fL (80.0-98.0); Mean Platelet Volume 10.8 fL (9.4-12.4); Monocytes Absolute Auto 1.2 X10*3/uL (0.1-1.2); Monocytes Percent Auto 11.1 % (2-11); Neutrophils Absolute Auto 5.9 x10*3/uL (2.0-8.3); Neutrophils Percent Auto 55.9 % (45-73); Platelet Count 223 X10*3/uL (160-400); Red Blood Count 4.87 X10*6/uL (4.60-5.80); Red Cell Distribution Width 11.9 % (11.0-16.0); White Blood Count 10.6 X10*3/uL (4.8-10.8)
[2022-05-16 21:44] LABS: Troponin-I High Sensitivity 4.1 ng/L (<3.5-35.0)
[2022-05-16 21:45] LABS: Alanine Aminotransferase 26 U/L (0-40); Albumin Level 4.4 g/dL (3.5-5.0); Alkaline Phosphatase 89 U/L (39-117); Anion Gap 12 (12-20); Aspartate Amino Transferase 19 U/L (5-37); Bilirubin Total 0.3 mg/dL (0.0-1.0); Blood Urea Nitrogen 15 mg/dL (9-16); Calcium 9.5 mg/dL (8.4-10.2); Carbon Dioxide 30 mmol/L (22-29); Chloride 103 mmol/L (96-108); Creatinine Clr Calc Pharmacy 77.6; Estimated Glomerular Filt Rate 55; Glucose Random 143 mg/dL (60-115); Potassium 4.1 mmol/L (3.3-5.1); Sodium 141 mmol/L (135-145); Total Protein 7.6 g/dL (6.5-8.0)
[2022-05-16 21:55] LABS: Influenza A PCR NEGATIVE (Negative); Influenza B PCR NEGATIVE (Negative); Resp Syncy Virus RNA Qual PCR NEGATIVE (Negative); SARS COV2 PCR INHOUSE NEGATIVE (Negative)
--- NOTE | 2022-05-16 21:59 | ED.GENADULT ---
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 During the ED interview patient is anxious about his upcoming surgery in 2 days and that is what is causing his low blood pressure, patient also is taking [id number] medication for coughing that also might have raising his blood pressure. Related Data Home Medications Medication Instructions Recorded Confirmed atenolol 100 mg tablet 100 mg PO BID 07/22/20 gabapentin 300 mg capsule 300 mg PO DAILY 09/16/21 09/16/21 pantoprazole 20 mg tablet,delayed 20 mg PO DAILY 09/16/21 09/16/21 release rosuvastatin 20 mg tablet 20 mg PO DAILY 09/16/21 09/16/21 lisinopril 5 mg PO DAILY 09/22/21 09/22/21 Previous Rx's Medication Instructions Recorded ibuprofen 800 mg tablet 800 mg PO TID PRN pain 30 days #90 07/22/20 tabs codeine 6.3 mg-guaifenesin 100 10 ml PO Q4-6H PRN cough #150 mL 05/17/22 mg/5 mL oral liquid lorazepam 1 mg tablet (Ativan) 1 mg PO BID PRN anxiety #4 tabs 05/17/22 lorazepam 1 mg tablet (Ativan) 1 mg PO BID PRN anxiety #4 tabs 05/17/22 Allergies Allergy/AdvReac Type Severity Reaction Status Date / Time No Known Allergies Allergy Verified 05/16/22 20:54 Review of Systems Review of Systems: All other systems are reviewed and are negative Constitutional: Reports as per HPI and Reports no additional constitutional complaints Eyes: Reports as per HPI and Reports no additional eye complaints Reports system reviewed and no additional complaints, except as documented Cardiovascular: Reports as per HPI and Reports no additional cardiovascular complaints Respiratory: Reports as per HPI and Reports no additional respiratory complaints Gastrointestinal: Reports as per HPI and Reports no additional gastrointestinal complaints Genitourinary: Reports no additional female genitourinary complaints Musculoskeletal: Reports no additional musculoskeletal complaints Skin/Breast: Reports system reviewed and no additional complaints, except as docu Psychiatric: Reports no additional psychiatric complaints Endocrine: Reports no additional endocrine complaints Hematologic/Lymphatic: Reports no additional hematologic/lymphatic complaints Allergic/Immunologic: Reports no additional allergic/immunologic complaints Reports system reviewed and no additional complaints, except as documented and Reports Abnormal speech present [facility] Past Medical History Medical History GERD (gastroesophageal reflux disease) High cholesterol Hypertension Surgical History History of carpal tunnel surgery of right wrist Hx of excision of mass Family History Family History Mother No problems noted. Father No problems noted. 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 Blood pressure normal. Heart rate normal. Respiration rate normal. Temperature normal. Oxygen saturation normal. Appearance: Alert. Oriented X3. No acute distress. Head: Normal external exam. Normocephalic. Atraumatic. No Aparicio signs noted. No raccoon eyes noted Eyes: PERRLA. EOMI. Conjunctiva and sclera normal. Eyelids normal. ENT: TM's Normal. Pharynx normal. Uvula midline. Moist mucous membranes. No trismus noted. No drooling noted. No muffled voice noted. Neck: Normal inspection. Neck supple. FROM. No adenopathy. Thyroid Normal. No meningeal signs. No neck mass noted. CVS: Normal heart rate and rhythm. Heart sound normal. No murmurs noted. Pulses normal throughout. Respiratory: No respiratory distress. Painless inspiration. Breath sounds normal. No wheezes/rales/rhonchi noted. Chest nontender. No accessory muscle usage noted or decreased air movement noted. Abdomen: Soft and nontender. Bowel sounds normal in all 4 quadrants. No distention noted. No organomegaly noted. No visible injury noted. Back: No CVA tenderness. Full range of motion noted. Skin: Skin warm and dry. Normal skin color. Normal skin turgor. No rashes/lesions/lacerations noted. Extremities: No lower extremity edema. Extremities exhibit normal range of motion. Extremities nontender. Neuro: Oriented X 3. Cranial nerve exam: II-XII are grossly intact No motor deficit. No sensory deficit. Reflexes normal. Course Course Course Narrative: High blood pressure and headache with normal neuro exam and unremarkable head CT, patient has history of and is sensation blood pressure controlled with 3 different medication patient feels anxious because the upcoming hand surgery patient feels better with Ativan. Reevaluation(s) Reevaluation #1: Headache is better blood pressure is under better control patient was asked to take his blood pressure medication when he gets home, will prescribe couple pills of Ativan to help anxiety before the surgery which seem overwhelming the patient and causing patient's symptoms. patient responded well to Ativan. Time: 23:58 Medications Administered Discontinued Medications Generic Name Dose Route Start Last Admin Trade Name Freq PRN Reason Stop Dose Admin Acetaminophen 650 mg 05/16/22 22:37 05/16/22 22:58 Acetaminophen 325 Mg Tablet PO 05/16/22 22:38 650 mg ONCE ONE Administration Guaifenesin/Codeine Phosphate 10 ml 05/16/22 21:57 05/16/22 22:22 Guaifen/Codeine Sf 200/20/10ml 10 Ml Liquid PO 05/16/22 21:58 10 ml ONCE ONE Administration Lorazepam 1 mg 05/16/22 21:57 05/16/22 22:22 Lorazepam 1 Mg Tablet PO 05/16/22 21:58 1 mg ONCE ONE Administration Medical Decision Making Differential Diagnosis Differential Diagnoses: The differential diagnosis associated with the presentation includes (Uncontrolled essential hypertension, hypertensive urgency, hypertensive emergency, anxiety, acute bronchitis and cough.) Lab Data MDM Lab Attestation statement: I reviewed the patient's lab results. 05/16/22 21:12 05/16/22 21:12 Labs: Lab Results 05/16/22 05/16/22 05/16/22 Range/Units 21:12 21:12 21:12 WBC 10.6 (4.8-10.8) X10*3/uL RBC 4.87 (4.60-5.80) X10*6/uL Hgb 14.1 (14.0-18.0) g/dl Hct 43.3 (42.0-52.0) % MCV 88.9 (80.0-98.0) fL MCH 29.0 (27.0-33.0) pg MCHC 32.6 (31.0-36.0) g/dl RDW 11.9 (11.0-16.0) % Plt Count 223 (160-400) X10*3/uL MPV 10.8 (9.4-12.4) fL Immature Gran % (Auto) 0.2 (0.0-0.4) % Neut % (Auto) 55.9 (45-73) % Lymph % (Auto) 27.2 (20-40) % [place] % (Auto) 11.1 H (2-11) % Eos % (Auto) 4.5 H (0-4) % Baso % (Auto) 1.1 (0-2) % Lymph # (Auto) 2.9 (1.2-4.9) X10*3/uL [place] # (Auto) 1.2 (0.1-1.2) X10*3/uL Eos # (Auto) 0.5 H (0.0-0.4) X10*3/uL Baso # (Auto) 0.1 (0.0-0.2) X10*3/uL Abs Immat Gran (auto) 0.02 (0.00-0.03) X10*3/uL Absolute Neuts (auto) 5.9 (2.0-8.3) x10*3/uL Absolute Nucleated RBC 0.000 (0.0-0.012) X10*3/uL Nucleated RBC % (auto) 0.0 (0.0-0.2) /100WBC Sodium 141 (135-145) mmol/L Potassium 4.1 (3.3-5.1) mmol/L Chloride 103 (96-108) mmol/L Carbon Dioxide 30 H (22-29) mmol/L Anion Gap 12 (12-20) BUN 15 (9-16) mg/dL Creatinine 1.37 (0.5-1.4) mg/dL Estim Creat Clear Calc 77.6 Estimated GFR 55 Random Glucose 143 H D (60-115) mg/dL Calcium 9.5 (8.4-10.2) mg/dL Total Bilirubin 0.3 (0.0-1.0) mg/dL AST 19 (5-37) U/L ALT 26 (0-40) U/L Alkaline Phosphatase 89 D (39-117) U/L Troponin I High Sens 4.1 (<3.5-35.0) ng/L Total Protein 7.6 (6.5-8.0) g/dL Albumin 4.4 (3.5-5.0) g/dL Influenza Type A (PCR) (Negative) Influenza Type B (PCR) (Negative) RSV RNA Qual (PCR) (Negative) SARS-CoV-2 RNA (RT-PCR) (Negative) 05/16/22 Range/Units 21:12 WBC (4.8-10.8) X10*3/uL RBC (4.60-5.80) X10*6/uL Hgb (14.0-18.0) g/dl Hct (42.0-52.0) % MCV (80.0-98.0) fL MCH (27.0-33.0) pg MCHC (31.0-36.0) g/dl RDW (11.0-16.0) % Plt Count (160-400) X10*3/uL MPV (9.4-12.4) fL Immature Gran % (Auto) (0.0-0.4) % Neut % (Auto) (45-73) % Lymph % (Auto) (20-40) % [place] % (Auto) (2-11) % Eos % (Auto) (0-4) % Baso % (Auto) (0-2) % Lymph # (Auto) (1.2-4.9) X10*3/uL [place] # (Auto) (0.1-1.2) X10*3/uL Eos # (Auto) (0.0-0.4) X10*3/uL Baso # (Auto) (0.0-0.2) X10*3/uL Abs Immat Gran (auto) (0.00-0.03) X10*3/uL Absolute Neuts (auto) (2.0-8.3) x10*3/uL Absolute Nucleated RBC (0.0-0.012) X10*3/uL Nucleated RBC % (auto) (0.0-0.2) /100WBC Sodium (135-145) mmol/L Potassium (3.3-5.1) mmol/L Chloride (96-108) mmol/L Carbon Dioxide (22-29) mmol/L Anion Gap (12-20) BUN (9-16) mg/dL Creatinine (0.5-1.4) mg/dL Estim Creat Clear Calc Estimated GFR Random Glucose (60-115) mg/dL Calcium (8.4-10.2) mg/dL Total Bilirubin (0.0-1.0) mg/dL AST (5-37) U/L ALT (0-40) U/L Alkaline Phosphatase (39-117) U/L Troponin I High Sens (<3.5-35.0) ng/L Total Protein (6.5-8.0) g/dL Albumin (3.5-5.0) g/dL Influenza Type A (PCR) NEGATIVE (Negative) Influenza Type B (PCR) NEGATIVE (Negative) RSV RNA Qual (PCR) NEGATIVE (Negative) SARS-CoV-2 RNA (RT-PCR) NEGATIVE (Negative) Independent Interpretation I performed an independent interpretation of an: EKG (Normal sinus rhythm at 88 beats per minutes, normal intervals, normal axis deviation, no ST-T changes, no significant change from old EKG.) and Plain X-Ray (No acute pathology.) Radiology Impression Discussion of test interpretation with radiology: I have reviewed the radiologist's reading. Discharge Plan Discharge Clinical Impression: Anxiety, Hypertension Patient Disposition: Home, Self-Care Instructions: Anxiety (ED) Prescriptions: New lorazepam [Ativan] 1 mg tablet 1 mg PO BID PRN (Reason: anxiety) Qty: 4 0RF codeine-guaifenesin 6.3-100 mg/5 mL liquid 10 ml PO Q4-6H PRN (Reason: cough) Qty: 150 0RF lorazepam [Ativan] 1 mg tablet 1 mg PO BID PRN (Reason: anxiety) Qty: 4 0RF No Action pantoprazole 20 mg Tablet,Delayed Release (Dr/Ec) 20 mg PO DAILY gabapentin 300 mg Capsule 300 mg PO DAILY rosuvastatin 20 mg Tablet 20 mg PO DAILY lisinopril 5 mg PO DAILY ibuprofen 800 mg tablet 800 mg PO TID PRN (Reason: pain) 30 Days Qty: 90 0RF Referrals: Ramone Blevins MD [Primary Care Provider] - Stand Alone Forms: Work/School Release
[2022-05-16] MEDS: LORazepam 1 MG TABLET PO (22:22)
[2022-05-16] MEDS: guaiFEN/Codeine SF 200/20/10ML 10 ML LIQUID PO (22:22)
[2022-05-16] MEDS: Acetaminophen 325 MG TABLET 650 MG PO (22:58)
[2022-05-16 23:34] VITALS: BP 166/102; PULSE 96; RESP 16; TEMP 36.6; O2SAT 98
== END 2022-05-17 00:12 | disposition home or self-care (01) ==
PROVIDERS: Emergency Provider Emergency Medicine; PCP Internal Medicine Medical Oncology
DX: R06.02 Shortness of breath (principal); I10 Essential (primary) hypertension; R51.9 Headache, unspecified; F17.210 Nicotine dependence, cigarettes, uncomplicated; Z20.822 Contact with and (suspected) exposure to COVID-19; Z20.828 Contact with and (suspected) exposure to other viral communicable diseases; Z71.6 Tobacco abuse counseling
CPT/HCPCS: 0241U; 36415; 70450; 71045; 80053; 84484; 85025; 93005; 99285

== ENCOUNTER 2022-06-14 12:06 | Outpatient (REF) | payer OTHER, SELFPAY | END 2022-06-14 12:07 | disposition home or self-care (01) | LOC: HO.LNP 12:06 | PROVIDERS: Visit Provider Internal Medicine Medical Oncology | DX: L08.9 Local infection of the skin and subcutaneous tissue, unspecified (principal); S60.851A Superficial foreign body of right wrist, initial encounter | CPT/HCPCS: 87070; 87077; 87186; 87205 ==

== ENCOUNTER 2022-09-24 06:09 | Outpatient (REF) | payer OTHER, SELFPAY ==
[2022-09-24 08:24] LABS: HBS Num1 > 1000.00 mIU/mL (0-7.99); HBc Num1 0.06 S/CO (0.00-0.79); HBsAGNum1 0.36 S/CO (0.00-0.99); HIV AB/AG Nonreactive (Nonreactive); HIV Num 1 0.06 S/CO (0.00-0.99); Hepatitis B Core Antibody Nonreactive (Nonreactive); Hepatitis B Surface Antigen Negative (Negative); ~HepC Num1 0.08 S/CO (0.00-0.79); ~Hepatitis A Antibody IgM Nonreactive (Nonreactive); ~Hepatitis B Surface Antibody REACTIVE (Nonreactive); ~Hepatitis C Antibody Nonreactive (Nonreactive)
== END 2022-09-24 06:10 | disposition home or self-care (01) ==
LOC: HO.LAB 06:09
PROVIDERS: PCP Internal Medicine Medical Oncology; Visit Provider Internal Medicine Medical Oncology
DX: Z20.6 Contact with and (suspected) exposure to human immunodeficiency virus [HIV] (principal); Z20.5 Contact with and (suspected) exposure to viral hepatitis
CPT/HCPCS: 36415; 86704; 86706; 86709; 86803; 87340; 87389

== ENCOUNTER → 2022-09-27 11:02 | Outpatient (BNVA) | payer OTHER, SELFPAY | PROVIDERS: PCP Internal Medicine Medical Oncology; Visit Provider Urology | DX: N48.89 Other specified disorders of penis (principal) | CPT/HCPCS: 51798 ==

== ENCOUNTER 2022-10-22 09:22 | Outpatient (REF) | payer OTHER, SELFPAY ==
[2022-10-22 13:04] LABS: HBS Num1 > 1000.00 mIU/mL (0-7.99); HBc Num1 0.05 S/CO (0.00-0.79); HBsAGNum1 0.41 S/CO (0.00-0.99); HIV AB/AG Nonreactive (Nonreactive); HIV Num 1 0.07 S/CO (0.00-0.99); Hepatitis A Antibody IgM 0.16 Index (0-0.79); Hepatitis B Core Antibody Nonreactive (Nonreactive); Hepatitis B Surface Antigen Negative (Negative); ~HepC Num1 0.06 S/CO (0.00-0.79); ~Hepatitis A Antibody IgM Nonreactive (Nonreactive); ~Hepatitis B Surface Antibody REACTIVE (Nonreactive); ~Hepatitis C Antibody Nonreactive (Nonreactive)
== END 2022-10-22 09:23 | disposition home or self-care (01) ==
LOC: HO.LAB 09:22
PROVIDERS: PCP Internal Medicine Medical Oncology; Visit Provider Internal Medicine Medical Oncology
DX: Z11.4 Encounter for screening for human immunodeficiency virus [HIV] (principal); Z20.6 Contact with and (suspected) exposure to human immunodeficiency virus [HIV]; Z20.5 Contact with and (suspected) exposure to viral hepatitis
CPT/HCPCS: 36415; 86704; 86706; 86709; 86803; 87340; 87389

== ENCOUNTER 2022-11-16 10:33 | Emergency (ER) | payer OTHER, SELFPAY ==
--- NOTE | ~2022-11-16 | XR_ITS ---
EXAMINATION: XR CHEST CLINICAL INFORMATION: Left anterior chest pain. COMPARISON: Chest 05/16/2022 TECHNIQUE: 2 views of the chest were obtained. FINDINGS: No significant abnormality is noted involving the heart, lungs, mediastinum, bony thorax or soft tissues. XR/XR chest 2V IMPRESSION: Unremarkable chest examination.
--- NOTE | 2022-11-16 10:35 | ECG_ITS ---
Test Reason : cp Blood Pressure : / mmHG Vent. Rate : 076 BPM Atrial Rate : 076 BPM P-R Int : 174 ms QRS Dur : 080 ms QT Int : 376 ms P-R-T Axes : 017 005 011 degrees QTc Int : 423 ms Normal sinus rhythm Anterior infarct , age undetermined Abnormal ECG When compared with ECG of 16-MAY-2022 21:01, No significant change was found Referred By: Generic ED Physician Electronically Signed By:SADI SAM MD
[2022-11-16 10:38] VITALS: BP 145/94; PULSE 74; RESP 16; TEMP 36.8; O2SAT 96; BMI 34.2
--- NOTE | 2022-11-16 10:49 | ED_ITS ---
HPI - Chest Pain General Chief Complaint: Chest Pain Stated Complaint: Chest pain Time Seen by Provider: 11/16/22 10:49 Source: patient Mode of arrival: ambulatory Limitations: no limitations History of Present Illness HPI narrative: 47-year-old male who presents emergency department for evaluation of left-sided chest pain. 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 Patient points to a small area on his left upper, anterior chest when asked to localize the pain. He states that the pain feels like a pressure-like sensation which comes on and then eases up, lasting approximately 5 seconds but recurring frequently. He had no other associated symptoms such as lightheadedness, dizziness, diaphoresis, nausea, vomiting, shortness of breath, radiation of the pain to his neck, jaw, arms or back. This is 1st episode of this type of pain. 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 When he got back to the fire station he checked his blood pressure twice and they were elevated at 150 3/99 and 163/101. Patient does have essential hypertension he states that he did take his morning medications and his systolic morning blood pressure was 138. Patient does take 3 medications for his hypertension including atenolol, amlodipine and lisinopril. Given his chest pain is elevated blood pressures, he was advised to go to the emergency department for evaluation. Patient states he has not been ill in any other way, he denied fever, chills, rhinorrhea, shortness of breath, dyspnea on exertion, cough. Related Data Home Medications Medication Instructions Recorded Confirmed atenolol 100 mg tablet 100 mg PO BID 07/22/20 gabapentin 300 mg capsule 300 mg PO DAILY 09/16/21 09/16/21 pantoprazole 20 mg tablet,delayed 20 mg PO DAILY 09/16/21 09/16/21 release rosuvastatin 20 mg tablet 20 mg PO DAILY 09/16/21 09/16/21 lisinopril 5 mg PO DAILY 09/22/21 09/22/21 emtricitabine 200 mg-tenofovir 1 tab PO DAILY 09/27/22 disoproxil fumarate 300 mg tablet raltegravir 400 mg tablet 400 mg PO BID 09/27/22 ([facility]) Previous Rx's Medication Instructions Recorded ibuprofen 800 mg tablet 800 mg PO TID PRN pain 30 days #90 07/22/20 tabs codeine 6.3 mg-guaifenesin 100 10 ml PO Q4-6H PRN cough #150 mL 05/17/22 mg/5 mL oral liquid lorazepam 1 mg tablet (Ativan) 1 mg PO BID PRN anxiety #4 tabs 05/17/22 lorazepam 1 mg tablet (Ativan) 1 mg PO BID PRN anxiety #4 tabs 05/17/22 Allergies Allergy/AdvReac Type Severity Reaction Status Date / Time No Known Allergies Allergy Verified 09/27/22 11:04 Review of Systems Review of Systems: Yes all other systems are reviewed and are negative [facility] Past Medical History [facility] Narrative: Past medical history: Hypertension, hyperlipidemia. Surgical history: Right wrist carpal tunnel release. Social history: He denies tobacco use. He drinks alcohol once a week. Denies drug use. Medical History GERD (gastroesophageal reflux disease) High cholesterol Hypertension Surgical History History of carpal tunnel surgery of right wrist Hx of excision of mass Family History Family History Mother No problems noted. Father No problems noted. 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 Physical Exam Vital Signs: Vital Signs: Last Vital Signs Temp 98.2 F 11/16/22 10:38 Pulse 68 11/16/22 13:32 Resp 14 11/16/22 13:32 BP 138/102 H 11/16/22 13:32 Pulse Ox 97 11/16/22 13:32 O2 Del Method Room Air 11/16/22 13:32 BMI result Body Mass Index 34.2 Const: General: cooperative and no acute distress Orien tation/consciousness: oriented to person and oriented to place Limitations: no limitations HEENT: Head: Yes normal to inspection, Yes normocephalic and Yes atraumatic Ears: external ears normal General nose exam: Normal external nose present Face and sinus: Yes normal facial exam Mouth: Normal oral and palatal mucosa present Throat: Yes posterior oropharynx normal Eyes: General: appearance normal, both eyes and all related structures Neck: Neck: Yes normal visual inspection, Yes no lymphadenopathy, Yes trachea midline and Yes supple Chest: Chest palpation & inspection: normal inspection of the chest and normal palpation of entire chest wall Resp: Effort & Inspection: normal respiratory effort and able to speak in complete sentences Auscultation: clear to auscultation bilaterally Cardio: Rate: regular rate Rhythm: regular rhythm Heart sounds: S1 normal heart sound present, S2 normal heart sound present and no murmurs GI: Inspection: Yes normal to inspection Palpation (GI): Soft to palpation, nontender and no guarding Auscultation: normal bowel sounds : General: Yes no CVA tenderness Back/Spine/Pelvis: Back: no CVA tenderness Skin: General skin exam: no rashes or lesions noted Neuro: General: oriented to person and oriented to place Cognition (Neuro): normal cognition Motor exam (neuro): 5/5 motor strength present throughout Extrem: General: Yes normal to inspection Psych: Appearance: grossly normal Speech and movement: Normal speech and movement present Affect: normal affect Attitude: cooperative Medications Administered Discontinued Medications Generic Name Dose Route Start Last Admin Trade Name Kwadwo PRN Reason Stop Dose Admin Acetaminophen 975 mg 11/16/22 11:18 11/16/22 11:37 Acetaminophen 325 Mg Tablet PO 11/16/22 11:19 975 mg ONCE STA Administration Aspirin 324 mg 11/16/22 11:18 11/16/22 11:37 Aspirin 81 Mg Tab.Chew PO 11/16/22 11:19 324 mg ONCE ONE Administration Ketorolac Tromethamine 30 mg 11/16/22 12:42 11/16/22 13:02 Ketorolac Tromethamine 15 Mg/Ml Vial IVPUSH 11/16/22 12:43 30 mg ONCE STA Administration Medical Decision Making Medical Decision Making MDM Narrative: 47-year-old male history of hypertension hyperlipidemia who presents emergency department for evaluation of left anterior chest pain which started this morning at 08:00 hours while he was at work, with minimal exertion. The pain is in a very defined small area of his chest, the pain is a pressure-like sensation which lasts 5 seconds but has been returning repeatedly and often. Pain is 7/10 at its worse with no significant associated symptoms. This is 1st episode of this type pain. Patient did document 2 elevated blood pressures at work and was advised to come to the emergency department for evaluation. Blood pressure in t he emergency department elevated 145/94. His exam was otherwise unremarkable. I ordered the following tests on the patient: CBC, CMP, PT/INR, PTT, troponin, chest x-ray x2, IV insertion. I also ordered cardiac and O2 saturation monitoring. Patient was given aspirin 324 mg to chew , Tylenol 975 mg orally and Toradol 30 mg IV 1532: The patient is feeling better at this time, he states he is pain-free Laboratory evaluation was unremarkable pain Times zero troponin was below detectable limits in 3 hour repeat troponin was also below detectable, this is reassuring suggesting that did not have myocardial injury as the cause of his chest pain Patient was advised to take ibuprofen and Tylenol for his pain. He was given a work note not return to work until , 11/18/2022. Differential Diagnosis Differential Diagnoses: The differential diagnosis associated with the presentation includes Differential diagnosis includes was not limited to myocardial infarction, myocardial ischemia, musculoskeletal pain, pneumothorax, pneumonia, electrolyte abnormality, anemia Admission/Observation Consideration of admission/observation: Escalation of care including admission/observation considered Lab Data MDM Lab Attestation statement: I reviewed the patient's lab results. My interpretation patient's laboratory evaluation is as follows: CBC and CMP were normal except for an elevated glucose of 132. First high sensitive troponin I was below detectable limits, 3 hour repeat was also below detectable limits. 11/16/22 11:33 11/16/22 11:33 Labs: Lab Results 11/16/22 11/16/22 11/16/22 Range/Units 11:33 11:33 11:33 WBC 7.8 (4.8-10.8) X10*3/uL RBC 5.00 (4.60-5.80) X10*6/uL Hgb 14.7 (14.0-18.0) g/dl Hct 43.9 (42.0-52.0) % MCV 87.8 (80.0-98.0) fL MCH 29.4 (27.0-33.0) pg MCHC 33.5 (31.0-36.0) g/dl RDW 12.3 (11.0-16.0) % Plt Count 202 (160-400) X10*3/uL MPV 11.3 (9.4-12.4) fL Immature Gran % (Auto) 0.3 (0.0-0.4) % Neut % (Auto) 60.6 (45-73) % Lymph % (Auto) 27.6 (20-40) % [place] % (Auto) 9.1 (2-11) % Eos % (Auto) 1.8 (0-4) % Baso % (Auto) 0.6 (0-2) % Lymph # (Auto) 2.2 (1.2-4.9) X10*3/uL [place] # (Auto) 0.7 (0.1-1.2) X10*3/uL Eos # (Auto) 0.1 (0.0-0.4) X10*3/uL Baso # (Auto) 0.1 (0.0-0.2) X10*3/uL Abs Immat Gran (auto) 0.02 (0.00-0.03) X10*3/uL Absolute Neuts (auto) 4.7 (2.0-8.3) x10*3/uL Absolute Nucleated RBC 0.000 (0.0-0.012) X10*3/uL Nucleated RBC % (auto) 0.0 (0.0-0.2) /100WBC PT 12.1 (10.0-13.1) SEC INR 1.1 (0.9-1.1) APTT 29.3 (26.0-36.4) SEC Sodium 137 (135-145) mmol/L Potassium 4.0 (3.3-5.1) mmol/L Chloride 106 (96-108) mmol/L Carbon Dioxide 21 L (22-29) mmol/L Anion Gap 14 (12-20) BUN 15 (9-16) mg/dL Creatinine 1.08 (0.5-1.4) mg/dL Estim Creat Clear Calc 98.7 Estimated GFR > 60 Random Glucose 132 H (60-115) mg/dL Calcium 9.7 (8.4-10.2) mg/dL Total Bilirubin 0.6 (0.0-1.0) mg/dL AST 29 (5-37) U/L ALT 49 H (0-40) U/L Alkaline Phosphatase 70 (39-117) U/L Troponin I High Sens (<3.5-35.0) ng/L Total Protein 7.9 (6.5-8.0) g/dL Albumin 4.2 (3.5-5.0) g/dL 11/16/22 11/16/22 Range/Units 11:33 14:36 WBC (4.8-10.8) X10*3/uL RBC (4.60-5.80) X10*6/uL Hgb (14.0-18.0) g/dl Hct (42.0-52.0) % MCV (80.0-98.0) fL MCH (27.0-33.0) pg MCHC (31.0-36.0) g/dl RDW (11.0-16.0) % Plt Count (160-400) X10*3/uL MPV (9.4-12.4) fL Immature Gran % (Auto) (0.0-0.4) % Neut % (Auto) (45-73) % Lymph % (Auto) (20-40) % [place] % (Auto) (2-11) % Eos % (Auto) (0-4) % Baso % (Auto) (0-2) % Lymph # (Auto) (1.2-4.9) X10*3/uL [place] # (Auto) (0.1-1.2) X10*3/uL Eos # (Auto) (0.0-0.4) X10*3/uL Baso # (Auto) (0.0-0.2) X10*3/uL Abs Immat Gran (auto) (0.00-0.03) X10*3/uL Absolute Neuts (auto) (2.0-8.3) x10*3/uL Absolute Nucleated RBC (0.0-0.012) X10*3/uL Nucleated RBC % (auto) (0.0-0.2) /100WBC PT (10.0-13.1) SEC INR (0.9-1.1) APTT (26.0-36.4) SEC Sodium (135-145) mmol/L Potassium (3.3-5.1) mmol/L Chloride (96-108) mmol/L Carbon Dioxide (22-29) mmol/L Anion Gap (12-20) BUN (9-16) mg/dL Creatinine (0.5-1.4) mg/dL Estim Creat Clear Calc Estimated GFR Random Glucose (60-115) mg/dL Calcium (8.4-10.2) mg/dL Total Bilirubin (0.0-1.0) mg/dL AST (5-37) U/L ALT (0-40) U/L Alkaline Phosphatase (39-117) U/L Troponin I High Sens < 2.7 < 2.7 (<3.5-35.0) ng/L Total Protein (6.5-8.0) g/dL Albumin (3.5-5.0) g/dL Independent Interpretation I performed an independent interpretation of an: EKG Interpretation: My independent interpretation patient's 12 EKG done at 10:41 hours is as follow s: Normal sinus rhythm with a rate of 76, normal IA interval, QRS duration QTC interval, inverted T-wave in lead 3 and V1, poor R-wave progression from V1 to V3. Compared to EKG dated 05/16/2022 the inverted T-wave in 3 is old, inverted T- wave in V1 is new. The patient has small R-waves V1 through V3 which are consistent with today's EKG suggesting that is not had any acute/subacute anterior wall MO. My independent interpretation patient's two view chest x-ray is as follows: No acute disease Radiology Impression Discussion of test interpretation with radiology: I have reviewed the radiologist's reading. Radiologist Impression: XR chest 2V IMPRESSION: Unremarkable chest examination. Dictated By:Zafar Guardado MD Independent Historian Clinical information obtained from an independent historian. History obtained from or confirmed by: Spouse Prescription Management I considered prescription management with: Pain Medication Chronic Conditions Patient?s care impacted by: Hypertension Discharge Plan Discharge Clinical Impression: Chest pain Prescriptions: No Action pantoprazole 20 mg Tablet,Delayed Release (Dr/Ec) 20 mg PO DAILY gabapentin 300 mg Capsule 300 mg PO DAILY rosuvastatin 20 mg Tablet 20 mg PO DAILY lisinopril 5 mg PO DAILY lorazepam [Ativan] 1 mg tablet 1 mg PO BID PRN (Reason: anxiety) Qty: 4 0RF codeine-guaifenesin 6.3-100 mg/5 mL liquid 10 ml PO Q4-6H PRN (Reason: cough) Qty: 150 0RF lorazepam [Ativan] 1 mg tablet 1 mg PO BID PRN (Reason: anxiety) Qty: 4 0RF atenolol 100 mg tablet 100 mg PO BID ibuprofen 800 mg tablet 800 mg PO TID PRN (Reason: pain) 30 Days Qty: 90 0RF Isentress 400 mg tablet 400 mg PO BID emtricitabine-tenofovir (TDF) 200-300 mg tablet 1 tab PO DAILY
--- NOTE | 2022-11-16 11:00 | PC.NURSE ---
pt aox4, coming from work via [employer] work connection after left sided chest pain since this morning and elevated BP. Pt reports recent significant work stressors ([employer]) and reports anxiety because of it. EKG done, radiation monitor on (NSR). pt speaking with doctor now.
--- OUTSIDE RECORDS SUMMARY | 2022-11-16 11:21 | XMS_ITS | Continuity of Care Document ---
Author Name Unknown Organization [facility] mushtaq Address [address] [place] [address] [address] [place] [address]- Care Team Providers Care Muck Boss Name Role Phone Flor SAINI ([place])Beka Primary Care Physician [place] [facility] [place] 07/02/22 - 07/09/22 [facility] [address] [place], [place] [address] Attending Physician: Rob Ching MD Referring Physician: Flor SAINI ([place]) Beka Allergies, Adverse Reactions, Alerts No Known Allergies Medications Amlodipine By Mouth, Daily, 0 Refills, Maintenance, 11/25/21 14:03:00 EDT, Partial fill upon patient request if the prescription is for a schedule II opioid drug. Start Date: 11/25/21 Status: Ordered Atenolol By Mouth, Daily, 0 Refills, Maintenance, 11/25/21 14:03:00 EDT, Partial fill upon patient request if the prescription is for a schedule II opioid drug. Start Date: 11/25/21 Status: Ordered benzonatate 200 mg oral capsule 0 Refills, Maintenance, 05/18/22 8:28:00 EST, Partial fill upon patient request if the prescriptionis for a schedule II opioid drug. Start Date: 05/18/22 Status: Ordered Lisinopril By Mouth, Daily, 0 Refills, Maintenance, 11/25/21 14:02:00 EDT, Partial fill upon patient request if the prescription is for a schedule II opioid drug. Start Date: 11/25/21 Status: Ordered LORazepam 1 mg oral tablet 0 Refills, Maintenance, 05/18/22 8:28:00 EST, Partial fill upon patient request if the prescriptionis for a schedule II opioid drug. Start Date: 05/18/22 Status: Ordered Pantoprazole Daily, 0 Refills, Maintenance, 05/13/22 13:05:00 EST Start Date: 05/13/22 Status: Ordered pregabalin 25 mg oral capsule 1 capsule = 25 mg, By Mouth, 3 times a day, 0 Refills, Maintenance, 05/18/22 8:30:00 EST, Partial fill upon patient request if the prescription is for a schedule II opioid drug. Start Date: 05/18/22 Status: Ordered Rosuvastatin By Mouth, Daily, 0 Refills, Maintenance, 11/25/21 14:08:00 EDT, Partial fill upon patient request if the prescription is for a schedule II opioid drug. Start Date: 11/25/21 Status: Ordered Problem List Condition Confirmation Course Effective Dates Status Health St atus Informant Obese class I Confirmed Active Vital Signs Most recent to oldest [Reference Range]: 1 Height 175.26 cm (07/02/22 10:15 AM) Pulse Rate [55-90 bpm] 65 bpm (07/02/22 10:15 AM) Blood Pressure [90-138/55-84 mm Hg] 134/ 94mm Hg (07/02/22 10:15 AM) Blood pressure sites Arm, left (07/02/22 10:15 AM) Social History Social History Type Response Tobacco Use: 4 or less cigar ettes(less than 1/4 pack)/day in last 30 days. Sex Patient Care team information Care Team Personnel Name: Flor SAINI ([place]) , Beka [place] Position: Reference Physician Member Role: PCP Address: Address: [address] [place] [phone] [place] Care Team Related Persons Name: EDUAR ALTMAN Address: [address] [place] [address]
--- OUTSIDE RECORDS SUMMARY | 2022-11-16 11:21 | XMS_ITS | Continuity of Care Document ---
Author Name Unknown Organization [facility] Address [address] [place] [address] [address] [place] [address]- Care Team Providers Care Machine Ii Trimmer Name Role Phone Flor SAINI ([place]), Beka [place] Primary Care Physician [place] [facility] [place]04[place]22 - 07/08/22 [facility] [address] [place], [place] [address] Attending Physician: Not on Staff, Attending MD Allergies, Adverse Reactions, Alerts No Known Allergies [...] atus Informant Obese class I Confirmed Active Social History Social History Type Response Tobacco Use: 4 or less cigar ettes(less than 1/4 pack)/day in last 30 days. Sex Patient Care team information Care Team Personnel Name: Flor SAINI ([place]) , Beka [place] Position: Reference Physician Member Role: PCP Address: Address: [address] [place] [phone] [place] Care Team Related Persons Name: EDUAR ALTMAN Address: home [address] [place] [address]
--- OUTSIDE RECORDS SUMMARY | 2022-11-16 11:21 | XMS_ITS | Continuity of Care Document ---
Author Name Unknown Organization [facility] mushtaq Address [address] [place] [address] [address] [place] [address]- Care Team Providers Care Supervisor Tree Trimming Name Role Phone Flor SAINI ([place]), Beka [place] Primary Care Physician Encounter [facility] [place] Date(s): 03/11/22 - 04/10/22 [facility] [address] [place], [place] [address] Attending Physician: AdmSharda morrell Admitting Physician: AdmtrSharda Referring Physician: Admtr, Ar8 Allergies, Adverse Reactions, Alerts No Known Allergies [...] opioid drug. Start Date: 11/25/21 Status: Ordered Gabapentin By Mouth, 0 Refills, Maintenance, 11/25/21 14:02:00 EDT, Partial fill upon patient request if the prescription is for a schedule II opioid drug. Start Date: 11/25/21 Status: Ordered Lisinopril By Mouth, Daily, 0 Refills, Maintenance, 11/25/21 14:02:00 EDT, Partial fill upon patient request if the prescription is for a schedule II opioid drug. Start Date: 11/25/21 Status: Ordered Rosuvastatin By Mouth, Daily, 0 [...] information Care Team Personnel Name: Flor SAINI ([place]) , Beka [place] Position: Reference Physician Member Role: PCP Address: Address: [address] [place] [phone] [place] Care Team Related Persons Name: EDUAR ALTMAN Address: home [address] [place] [address]
--- OUTSIDE RECORDS SUMMARY | 2022-11-16 11:21 | XMS_ITS | Continuity of Care Document ---
Author Name Unknown Organization [facility] Address [address] [place] [address] [address] [place] [address]- Care Team Providers Care Orientor Name Role Phone Flor SAINI ([place]), Beka [place] Primary Care Physician Encounter [facility] [place] Date(s): 06/02/22 - 08/11/22 [facility] [address] [place], [place] [address] Attending Physician: Rob Ching MD Allergies, Adverse Reactions, Alerts No Known [...] Reference Physician Member Role: PCP Address: Address: [address] [place] [phone] [place] Care Team Related Persons Name: EDUAR ALTMAN Address: home [address] [place] [address]
--- OUTSIDE RECORDS SUMMARY | 2022-11-16 11:21 | XMS_ITS | Continuity of Care Document ---
Author Name Unknown Organization [facility] Address [address] [place] [address] [address] [place] [address]- Care Team Providers Care Poem Writer Name Role Phone Flor SAINI ([place]), Beka [place] Primary Care Physician [place] [facility] [place] 05/31/22 - 06/07/22 [facility] [address] [place], [place] [address] Attending Physician: Demetrius Elam MD Allergies, Adverse Reactions, Alerts No Known [...] oldest [Reference Range]: 1 Height 175.26 cm (05/31/22 2:00 PM) Social History Social History Type Response Tobacco Use: 4 or less cigar ettes(less than 1/4 pack)/day in last 30 days. Sex Patient Care team information Care Team Personnel Name: Flor SAINI ([place]) , Beka [place] Position: Reference Physician Member Role: PCP Address: Address: [address] [place] [phone] [place] Care Team Related Persons Name: EDUAR ALTMAN Address: home [address] [place] [address]
--- OUTSIDE RECORDS SUMMARY | 2022-11-16 11:21 | XMS_ITS | Continuity of Care Document ---
Author Name Unknown Organization [facility] mushtaq Address [address] [place] [address] [address] [place] [address]- Care Team Providers Care Electrical Instrument Technician Name Role Phone Flor SAINI ([place]), Beka [place] Primary Care Physician [place] [facility] [place]22 [facility] [address] [place], [place] [address] Allergies, Adverse Reactions, Alerts No Known Allergies [...] 30 days. Sex Patient Care team information Personnel Name: Flor SAINI ([place]) , Beka [place] Address: Address: [address] [place] [phone] [place]
--- OUTSIDE RECORDS SUMMARY | 2022-11-16 11:21 | XMS_ITS | Continuity of Care Document ---
Author Name Unknown Organization [facility] mus[facility] Address [address] [place] [address] [address] [place] [address]- Care Team Providers Care Hotel Recreational Facilities Manager Name Role Phone Flor SAINI ([place])Beka Primary Care Physician Encounter [facility] [place] Date(s): 03/11/22 - 03/18/22 [facility] [address] [place], [place] [address] Attending Physician: Rob Ching MD Referring Physician: Flor SAINI ([place]) Beka Allergies, Adverse Reactions, Alerts No Known [...] oldest [Reference Range]: 1 Height 175.26 cm (03/11/22 10:31 AM) Pulse Rate [55-90 bpm] 77 bpm (03/11/22 10:31 AM) Blood Pressure [90-138/55-84 mm Hg] 149/ 104mm Hg *H* (03/11/22 10:31 AM) Blood pressure sites Arm, left (03/11/22 10:31 AM) Social History Social History Type Response Tobacco Use: 4 or less cigar ettes(less than 1/4 pack)/day in last 30 days. Sex Patient Care team information Care Team Personnel Name: Flor SAINI ([place]) , Beka [place] Position: Reference Physician Member Role: PCP Address: Address: [address] [place] [phone] [place] Care Team Related Persons Name: ANUPAMA EDUAR Address: [address] [place] [address]
--- OUTSIDE RECORDS SUMMARY | 2022-11-16 11:21 | XMS_ITS | Continuity of Care Document ---
Author Name Unknown Organization [facility] Address [address] [place] [address] [address] [place] [address]- Care Team Providers Care Marriage Therapist Name Role Phone Flor SAINI ([place]), Beka [place] Primary Care Physician Encounter [facility] Date(s): 10/13/21 - 11/12/21 [facility] [address] [place], [place] [address] Allergies, Adverse Reactions, Alerts No Known Allergies
--- OUTSIDE RECORDS SUMMARY | 2022-11-16 11:21 | XMS_ITS | Continuity of Care Document ---
Author Name Unknown Organization [facility] Address [address] [place] [address] [address] [place] [address]- Care Team Providers Care Manager Pe Name Role Phone Flor SAINI ([place]), Beka [place] Primary Care Physician En[place] [facility] [place] Date(s): 07/02/22 - 08/01/22 [facility] [address] [place], [place] [address] Attending Physician: Sharda Golden Admitting Physician: Sharda Golden Referring Physician: AdmtrSharda Allergies, Adverse Reactions, Alerts No Known Allergies [...] information Care Team Personnel Name: Flor SAINI ([place]) , Beka [place] Position: Reference Physician Member Role: PCP Address: Address: [address] [place] [phone] [place] Care Team Related Persons Name: EDUAR ALTMAN Address: home [address] [place] [address]
--- OUTSIDE RECORDS SUMMARY | 2022-11-16 11:21 | XMS_ITS | Continuity of Care Document ---
Author Name Unknown Organization [facility] Address [address] [place] [address] [address] [place] [address]- Care Team Providers Care Embossing Machine Operator Helper Name Role Phone Flor SAINI ([place]), Beka [place] Primary Care Physician En[place] [facility] [place](s): 03/22/22 - 05/26/22 [facility] [address] [place], [place] [address] Attending Physician: Rob Ching [...] information Care Team Personnel Name: Flor SAINI ([place]) , Beka [place] Position: Reference Physician Member Role: PCP Address: Address: [address] [place] [phone] [place] Care Team Related Persons Name: EDUAR ALTMAN Address: home [address] [place] [address]
--- OUTSIDE RECORDS SUMMARY | 2022-11-16 11:21 | XMS_ITS | Continuity of Care Document ---
Author Name Unknown Organization [facility] Address [address] [place] [address] [address] [place] [address]- Care Team Providers Care Helicopter Repairer Name Role Phone Flor SAINI ([place]), Beka [place] Primary Care Physician [place] [facility] [place] 06/14/22 - 07/14/22 [facility] [address] [place], [place] [address] Allergies, Adverse Reactions, Alerts No Known Allergies [...] information Care Team Personnel Name: Flor SAINI (LA) , Beka [place] Position: Reference Physician Member Role: PCP Address: Address: [address] [place] [phone] [place] Care Team Related Persons Name: EDUAR ALTMAN Address: home [address] [place] [address]
--- OUTSIDE RECORDS SUMMARY | 2022-11-16 11:22 | XMS_ITS | Continuity of Care Document ---
Author Name Unknown Organization [facility] Address [address] [place] [address] [address] [place] [address]- Care Team Providers Care Civil Design Technician Name Role Phone Flor SAINI ([place])Beka Primary Care Physician En[place] [facility] [place] Date(s): 11/25/21 - 12/02/21 [facility] [address] [place], [place] [address] Attending Physician: Rob Ching MD Referring Physician: Flor SAINI ([place]) Beka Allergies, Adverse Reactions, Alerts No Known [...] Date: 11/25/21 Status: Ordered Problem List Condition Effective Dates Status Health Status Inform ant Obese class I(Confirmed) Active Vital Signs Most recent to oldest [Reference Range]: 1 Height 175.26 cm (11/25/21 9:34 AM) Weight 104.09 kg (11/25/21 9:34 AM) Body Mass Index [18.5-24.99] 33.89 *>HHI* (11/25/21 9:34 AM) Temperature [96.8-100.4 DegF] 98.6 DegF (11/25/21 9:34 AM) Temperature Route Temporal (11/25/21 9:34 AM) Weight Obtained Via Standing scale (11/25/21 9:34 AM) Social History Social History Type Response Tobacco Use: 4 or less cigar ettes(less than 1/4 pack)/day in last 30 days. Sex
--- OUTSIDE RECORDS SUMMARY | 2022-11-16 11:22 | XMS_ITS | Continuity of Care Document ---
Author Name Unknown Organization [facility] Address [address] [place] [address] [address] [place] [address]- Care Team Providers Care Supervisor Metal Hanging Name Role Phone Flor SAINI ([place]), Beka [place] Primary Care Physician [place] [facility] [place] 04/22/22 - 05/22/22 [facility] [address] [place], [place] [address] Allergies, Adverse Reactions, Alerts [...] information Care Team Personnel Name: Flor SAINI ([place]) , Beka [place] Position: Reference Physician Member Role: PCP Address: Address: [address] [place] [phone] [place] Care Team Related Persons Name: EDUAR ALTMAN Address: home [address] [place] [address]
--- OUTSIDE RECORDS SUMMARY | 2022-11-16 11:22 | XMS_ITS | Continuity of Care Document ---
Author Name Unknown Organization [facility] Address [address] [place] [address] [address] [place] [address]- Care Team Providers Care Marzipan Maker Name Role Phone Flor SAINI ([place]), Beka [place] Primary Care Physician [place] [facility] [place] - 07/01/[address] [place] [address]- Allergies, Adverse Reactions, Alerts No Known Allergies [...] information Care Team Personnel Name: Flor SAINI ([place]) , Beka [place] Position: Reference Physician Member Role: PCP Address: Address: [address] [place] [phone] [place] Care Team Related Persons Name: EDUAR ALTMAN Address: home [address] [place] [address]
--- OUTSIDE RECORDS SUMMARY | 2022-11-16 11:22 | XMS_ITS | Continuity of Care Document ---
Author Name Unknown Organization [facility] Address [address] [place] [address] [address] [place] [address]- Care Team Providers Care Loading Rack Supervisor Name Role Phone Flor SAINI ([place]), Beka [place] Primary Care Physician [place] [facility] [place] 05/12/22 [facility] [address] [place], [place] [address] Attending Physician: Rob Ching MD Allergies, Adverse [...] oldest [Reference Range]: 1 Height 175.26 cm (05/05/22 8:42 AM) Weight 104 kg (05/05/22 8:42 AM) Body Mass Index [18.5-24.99 kg/m2] 33.86 kg/m2 *>HHI* (05/05/22 8:42 AM) Social History Social History Type Response Tobacco Use: 4 or less cigar ettes(less than 1/4 pack)/day in last 30 days. Sex Patient Care team information Care Team Personnel Name: Flor SAINI ([place]) , Beka [place] Position: Reference Physician Member Role: PCP Address: Address: [address] [place] [phone] [place] Care Team Related Persons Name: EDUAR ALTMAN Address: home [address] [place] [address]
--- OUTSIDE RECORDS SUMMARY | 2022-11-16 11:22 | XMS_ITS ---
Author Name Dayday Bryant Jr Address [address] [place] [address] Organization [facility] Address [address] [place] [address] Care Team Providers Care Supervisor Taping Name Role Phone Dayday Bryant Jr Unavailable [phone] PROBLEMS Type Condition ICD9-CM Code [id number] Code Onset Dates Condition Status SNOMED Code Problem Gastroesophageal reflux disease, unspecified whether esophagitis present K21.9 Active [id number] Problem Gastroesophageal reflux K21.9 Active Problem Colon cancer screening Z12.11 Active [id number] ALLERGIES No Known Allergies ENCOUNTERS Encounter Location Date Diagnosis [facility] [address] [facility] [address] [place] [phone] September, [facility] [place] Out[facility] [address] [place], [place] [id number] September, Colon cancer screening Z12.11 and Gastroesophageal reflux K21.9 [facility] [address] [place] [phone] Aug, Gastroesophageal reflux disease, unspecified whether esophagitis present K21.9 and Colon cancer screening Z12.11 IMMUNIZATIONS Vaccine Route Administration Date Status Influenza Unknown 2021 Administered SOCIAL HISTORY Qualifiers Date Current Smoker REASON FOR REFERRAL FUNCTIONAL STATUS PLAN OF CARE Activity Details VITAL SIGNS Weight 236 lbs 2021-08-13 Height 69 in 2021-08-13 BMI 34.85 kg/m2 2021-08-13 Temperature 96.0 degrees Fahrenheit Blood pressure systolic 000 mm Hg Blood pressure diastolic 00 mm Hg 2021-08 MEDICATIONS Medication Instructions Dosage Frequency Start Date End Date Duration Status MiraLax (colon prep) 8.3 ounce ((238) grams orally begin at 5:00 p.m. the day before the procedure mixed with Gatorade or Crystal Light Aug, 1 day Active amLODIPine Besy-Benazepril HCl 5-10 MG as directed Active Rosuvastatin Calcium 20 MG Orally Once a day 1 tablet 24h 30 day(s) Active Atenolol-Chlorth alidone 100-25 MG Orally Once a day 1 tablet 24h 30 day(s) Active Pantoprazole Sodium 20 MG Orally Once a day 1 tablet 24h 30 day(s) Active Gabapentin 300 MG Orally Once a day 1 capsule 24h 30 day(s) Active PROCEDURES Procedure Date Ordered Result Body Site UPPER GI ENDOSCOPY, BIOPSY September 22, 2021 DIAGNOSTIC COLONOSCOPY September 22, 2021 RESULTS Name Result Date Reference Range Pathology 2021-09-22 REASON FOR VISIT pathology, gerd,screening, Patient presents today for colon screening , AND GERD Insurance Providers Health Insurance Type Health Plan Insurance Address Health Plan Insurance Phone Health Plan Insurance Name Health Plan Coverage Dates Member ID Patient Relationship to Subscriber Patient Address Patient Phone Patient Name Patient Date of Subscriber ID Subscriber Name Subscriber Date of Group No [place] [employer] [address] [facility] [id number] [place] [employer] self SOFÍA ALTMAN [id number]
--- OUTSIDE RECORDS SUMMARY | 2022-11-16 11:22 | XMS_ITS | Continuity of Care Document ---
Author Name Unknown Organization [facility] Address [address] [place] [address] [address] [place] [address]- Care Team Providers Care Finance Specialist Name Role Phone Flor SAINI ([place]), Beka [place] Primary Care Physician Encounter [facility] [place] Date(s): 06/15/22 - 07/15/22 [facility] [address] [place], [place] [address] Allergies, Adverse Reactions, Alerts No Known [...] Physician Member Role: PCP Address: Address: [address] [place] [phone] [place] Care Team Related Persons Name: EDUAR ALTMAN Address: home [address] [place] [address]
--- OUTSIDE RECORDS SUMMARY | 2022-11-16 11:22 | XMS_ITS | Continuity of Care Document ---
Author Name Unknown Organization [facility] Address [address] [place] [address] [address] [place] [address]- Care Team Providers Care Grout Pump Operator Name Role Phone Flor SAINI ([place]), Beka [place] Primary Care Physician [facility] [place] Date(s): 11/25/21 - 12/25/21 [facility] [address] [place], [place] [address] Attending Physician: Sharda Golden Admitting Physician: AdmSharda morrell Referring Physician: Admtr ArLalita Allergies, Adverse Reactions, Alerts No Known Allergies [...] Status Inform ant Obese class I(Confirmed) Active Social History Social History Type Response Tobacco Use: 4 or less cigar ettes(less than 1/4 pack)/day in last 30 days. Sex
[2022-11-16] MEDS: Acetaminophen 325 MG TABLET 975 MG PO (11:37)
[2022-11-16] MEDS: Aspirin 81 MG TAB.CHEW 324 MG PO (11:37)
[2022-11-16 11:39] LABS: MANUAL DIFF FLAG NO
--- NOTE | 2022-11-16 11:39 | PC.NURSE ---
labs drawn, medicated per jul. NSR on monitor
[2022-11-16 11:41] LABS: Basophils Absolute Auto 0.1 X10*3/uL (0.0-0.2); Basophils Percent Auto 0.6 % (0-2); Eosinophils Absolute Auto 0.1 X10*3/uL (0.0-0.4); Eosinophils Percent Auto 1.8 % (0-4); Hematocrit 43.9 % (42.0-52.0); Hemoglobin 14.7 g/dl (14.0-18.0); Imm Gran Abs Auto 0.02 X10*3/uL (0.00-0.03); Imm Gran Pct Auto 0.3 % (0.0-0.4); Lymphocytes Absolute Auto 2.2 X10*3/uL (1.2-4.9); Lymphocytes Percent Auto 27.6 % (20-40); Mean Corpuscular HGB Conc 33.5 g/dl (31.0-36.0); Mean Corpuscular Hemoglobin 29.4 pg (27.0-33.0); Mean Corpuscular Volume 87.8 fL (80.0-98.0); Mean Platelet Volume 11.3 fL (9.4-12.4); Monocytes Absolute Auto 0.7 X10*3/uL (0.1-1.2); Monocytes Percent Auto 9.1 % (2-11); Neutrophils Absolute Auto 4.7 x10*3/uL (2.0-8.3); Neutrophils Percent Auto 60.6 % (45-73); Platelet Count 202 X10*3/uL (160-400); Red Cell Distribution Width 12.3 % (11.0-16.0); White Blood Count 7.8 X10*3/uL (4.8-10.8)
[2022-11-16 11:51] LABS: INTERNATIONAL NORM RATIO 1.1 (0.9-1.1); Prothrombin Time 12.1 SEC (10.0-13.1)
[2022-11-16 11:54] LABS: Alanine Aminotransferase 49 U/L (0-40); Albumin Level 4.2 g/dL (3.5-5.0); Alkaline Phosphatase 70 U/L (39-117); Anion Gap 14 (12-20); Aspartate Amino Transferase 29 U/L (5-37); Bilirubin Total 0.6 mg/dL (0.0-1.0); Blood Urea Nitrogen 15 mg/dL (9-16); Calcium 9.7 mg/dL (8.4-10.2); Carbon Dioxide 21 mmol/L (22-29); Chloride 106 mmol/L (96-108); Creatinine Clr Calc Pharmacy 98.7; Estimated Glomerular Filt Rate > 60; Glucose Random 132 mg/dL (60-115); Partial Thromboplastin Time 29.3 SEC (26.0-36.4); Sodium 137 mmol/L (135-145); Total Protein 7.9 g/dL (6.5-8.0)
[2022-11-16 12:03] LABS: Troponin-I High Sensitivity < 2.7 ng/L (<3.5-35.0)
[2022-11-16] MEDS: Ketorolac Tromethamine 15 MG/ML VIAL 30 MG IVPUSH (13:02)
[2022-11-16 13:32] VITALS: BP 138/102; PULSE 68; RESP 14; O2SAT 97
[2022-11-16 15:04] LABS: Troponin-I High Sensitivity < 2.7 ng/L (<3.5-35.0)
== END 2022-11-16 16:16 | disposition home or self-care (01) ==
PROVIDERS: Emergency Provider Emergency Medicine Emergency Medical Services; PCP Internal Medicine Medical Oncology
DX: R07.9 Chest pain, unspecified (principal); I10 Essential (primary) hypertension; E78.5 Hyperlipidemia, unspecified; F17.210 Nicotine dependence, cigarettes, uncomplicated; Z79.899 Other long term (current) drug therapy
CPT/HCPCS: 36415; 71046; 80053; 84484; 85025; 85610; 85730; 93005; 96374; 99284; 99285; J1885

== ENCOUNTER → 2022-11-16 10:35 | Outpatient (BNV) | payer OTHER, SELFPAY | PROVIDERS: Emergency Provider Emergency Medicine Emergency Medical Services; PCP Internal Medicine Medical Oncology; Visit Provider Internal Medicine Cardiovascular Disease | DX: R94.31 Abnormal electrocardiogram [ECG] [EKG] (principal) | CPT/HCPCS: 93010 ==

== ENCOUNTER 2023-09-28 08:05 | Outpatient (REF) | payer OTHER, SELFPAY ==
[2023-09-28 08:29] LABS: MANUAL DIFF FLAG NO
[2023-09-28 08:52] LABS: Basophils Absolute Auto 0.1 X10*3/uL (0.0-0.2); Basophils Percent Auto 0.9 % (0-2); Eosinophils Absolute Auto 0.2 X10*3/uL (0.0-0.4); Hematocrit 41.7 % (42.0-52.0); Hemoglobin 13.5 g/dl (14.0-18.0); Imm Gran Abs Auto 0.04 X10*3/uL (0.00-0.03); Imm Gran Pct Auto 0.5 % (0.0-0.4); Lymphocytes Absolute Auto 2.6 X10*3/uL (1.2-4.9); Lymphocytes Percent Auto 32.1 % (20-40); Mean Corpuscular HGB Conc 32.4 g/dl (31.0-36.0); Mean Corpuscular Hemoglobin 29.3 pg (27.0-33.0); Mean Corpuscular Volume 90.7 fL (80.0-98.0); Mean Platelet Volume 11.3 fL (9.4-12.4); Monocytes Percent Auto 12.3 % (2-11); Neutrophils Absolute Auto 4.1 x10*3/uL (2.0-8.3); Neutrophils Percent Auto 51.2 % (45-73); Platelet Count 195 X10*3/uL (160-400); Red Cell Distribution Width 12.7 % (11.0-16.0); White Blood Count 7.9 X10*3/uL (4.8-10.8)
[2023-09-28 09:25] LABS: Alanine Aminotransferase 53 U/L (0-40); Albumin Level 4.3 g/dL (3.5-5.0); Alkaline Phosphatase 88 U/L (39-117); Anion Gap 12 (12-20); Aspartate Amino Transferase 25 U/L (5-37); Bilirubin Total 0.3 mg/dL (0.0-1.0); Blood Urea Nitrogen 20 mg/dL (9-16); Calcium 9.6 mg/dL (8.4-10.2); Carbon Dioxide 28 mmol/L (22-29); Chloride 106 mmol/L (96-108); Cholesterol 144 mg/dL (<200); Estimated Glomerular Filt Rate > 60; Glucose Fasting 149 mg/dL (60-99); HDL Cholesterol 36 mg/dL (>40); LDL Cholesterol Calculated 67 mg/dL (<100); Potassium 4.1 mmol/L (3.3-5.1); Sodium 142 mmol/L (135-145); Total Protein 7.5 g/dL (6.5-8.0); Triglycerides 207 mg/dL (<150)
[2023-10-03 15:48] LABS: Testosterone, Total 264 ng/dL (250-1100)
== END 2023-09-28 08:06 | disposition home or self-care (01) ==
LOC: HO.LAB 08:05
PROVIDERS: PCP Internal Medicine Medical Oncology; Visit Provider Internal Medicine Medical Oncology
DX: N48.9 Disorder of penis, unspecified (principal); E78.5 Hyperlipidemia, unspecified; N52.9 Male erectile dysfunction, unspecified; E11.9 Type 2 diabetes mellitus without complications
CPT/HCPCS: 36415; 80053; 80061; 84403; 85025

== ENCOUNTER 2023-11-30 09:04 | Outpatient (REF) | payer BC, SELFPAY ==
[2023-11-30 09:27] LABS: MANUAL DIFF FLAG NO
[2023-11-30 10:40] LABS: Basophils Absolute Auto 0.1 X10*3/uL (0.0-0.2); Eosinophils Absolute Auto 0.2 X10*3/uL (0.0-0.4); Eosinophils Percent Auto 2.6 % (0-4); Hematocrit 46.3 % (42.0-52.0); Imm Gran Abs Auto 0.03 X10*3/uL (0.00-0.03); Imm Gran Pct Auto 0.4 % (0.0-0.4); Lymphocytes Absolute Auto 2.8 X10*3/uL (1.2-4.9); Mean Corpuscular HGB Conc 32.4 g/dl (31.0-36.0); Mean Corpuscular Hemoglobin 29.2 pg (27.0-33.0); Mean Corpuscular Volume 90.1 fL (80.0-98.0); Monocytes Absolute Auto 0.7 X10*3/uL (0.1-1.2); Monocytes Percent Auto 8.8 % (2-11); Neutrophils Absolute Auto 4.1 x10*3/uL (2.0-8.3); Neutrophils Percent Auto 52.2 % (45-73); Platelet Count 231 X10*3/uL (160-400); Red Blood Count 5.14 X10*6/uL (4.60-5.80); White Blood Count 7.9 X10*3/uL (4.8-10.8)
[2023-11-30 11:13] LABS: Estimated Average Glucose 140 mg/dL; Hemoglobin A1c % 6.5 % (<6.0)
[2023-11-30 12:18] LABS: Alanine Aminotransferase 40 U/L (0-40); Albumin Level 4.5 g/dL (3.5-5.0); Alkaline Phosphatase 76 U/L (39-117); Anion Gap 14 (12-20); Aspartate Amino Transferase 23 U/L (5-37); Bilirubin Total 0.5 mg/dL (0.0-1.0); Blood Urea Nitrogen 21 mg/dL (9-16); Calcium 9.6 mg/dL (8.4-10.2); Carbon Dioxide 27 mmol/L (22-29); Chloride 105 mmol/L (96-108); Cholesterol 149 mg/dL (<200); Estimated Glomerular Filt Rate > 60; Glucose Fasting 121 mg/dL (60-99); HDL Cholesterol 38 mg/dL (>40); LDL Cholesterol Calculated 90 mg/dL (<100); Potassium 4.5 mmol/L (3.3-5.1); Sodium 141 mmol/L (135-145); Triglycerides 108 mg/dL (<150)
== END 2023-11-30 09:05 | disposition home or self-care (01) ==
LOC: HO.LAB 09:04
PROVIDERS: PCP Internal Medicine Medical Oncology; Visit Provider Internal Medicine Medical Oncology
DX: E78.5 Hyperlipidemia, unspecified (principal); E66.01 Morbid (severe) obesity due to excess calories; E11.9 Type 2 diabetes mellitus without complications
CPT/HCPCS: 36415; 80053; 80061; 83036; 85025

== ENCOUNTER 2024-02-20 09:42 | Outpatient (REF) | payer BC, SELFPAY ==
--- NOTE | ~2024-02-20 | XR_ITS ---
EXAMINATION: XR CHEST CLINICAL INFORMATION: Chest pain COMPARISON: 11/16/22 TECHNIQUE: 2 views of the chest were obtained. FINDINGS: No significant abnormality is noted involving the heart, lungs, mediastinum, bony thorax or soft tissues. XR/XR chest 2V IMPRESSION: Unremarkable examination. Electronically signed by: Sander Mcknight MD 03/12/2024 02:05 PM [facility]
== END 2024-02-20 09:43 | disposition home or self-care (01) ==
LOC: HO.XRAY 09:42
PROVIDERS: PCP Internal Medicine Medical Oncology; Visit Provider Internal Medicine Medical Oncology
DX: R07.9 Chest pain, unspecified (principal)
CPT/HCPCS: 71046

== ENCOUNTER 2024-06-19 12:35 | Outpatient (REF) | payer BC, SELFPAY ==
[2024-06-19 12:53] LABS: MANUAL DIFF FLAG NO
[2024-06-19 13:30] LABS: Basophils Absolute Auto 0.1 X10*3/uL (0.0-0.2); Basophils Percent Auto 0.6 % (0-2); Eosinophils Absolute Auto 0.2 X10*3/uL (0.0-0.4); Eosinophils Percent Auto 1.9 % (0-4); Hemoglobin 15.6 g/dl (14.0-18.0); Imm Gran Abs Auto 0.02 X10*3/uL (0.00-0.03); Imm Gran Pct Auto 0.2 % (0.0-0.4); Lymphocytes Absolute Auto 2.7 X10*3/uL (1.2-4.9); Lymphocytes Percent Auto 28.8 % (20-40); Mean Corpuscular HGB Conc 32.5 g/dl (31.0-36.0); Mean Corpuscular Hemoglobin 29.3 pg (27.0-33.0); Mean Corpuscular Volume 90.1 fL (80.0-98.0); Mean Platelet Volume 11.6 fL (9.4-12.4); Monocytes Percent Auto 10.2 % (2-11); Neutrophils Absolute Auto 5.4 x10*3/uL (2.0-8.3); Neutrophils Percent Auto 58.3 % (45-73); Platelet Count 210 X10*3/uL (160-400); Red Blood Count 5.33 X10*6/uL (4.60-5.80); Red Cell Distribution Width 12.3 % (11.0-16.0); White Blood Count 9.3 X10*3/uL (4.8-10.8)
--- OUTSIDE RECORDS SUMMARY | 2024-06-19 13:38 | XMS_ITS | Encounter Summary ---
Author Name [facility] [place] [facility] [place] Address [address] [place] [address] Care Team Providers Care Bruise Trimmer Name Role Phone YANCYSONIA Primary Care Provider Unavailkaycee e Insurance Providers: All historical and current Section Date Range: From patient's date of to the date document was created. This section includes the names of all active insurance providers for the patient. Insurance Provider Type of Coverage Plan Name Start of Policy Coverage End of Policy Coverage Group Number Member ID Insurance Provider's Telephone Number Policy Huitron's Name Patient's Relationship to [facility] May 09, 2023 [id number] [phone] JAMAAL ALTMAN SE PATIENT [place] PRESCRIPT ION [facility] Nov 07, 2023 [id number] [phone] SOFÍA ALTMAN JR PATIENT [place] PREFERRED PROVIDER ORGANIZAT ION (PPO) [facility] Nov 06, 2016 [id number] JAMAAL ALTMAN SE PATIENT [employer] POINT OF SERVICE [facility] Nov 06, 2016 [id number] [phone] JAMAAL ALTMAN SE PATIENT CIGNA BEHAVIORAL HEALTH MENTAL HEALTH [facility] Nov 06, 2016 [id number] JAMAAL ALTMAN SE PATIENT [facility] Nov 06, 2016 [id number] [address] ALTMAN SE PATIENT [facility] Nov 06, 2009 [id number] JAMAAL ALTMAN SE PATIENT Selected Encounter This section includes the information on record at [place] for the Encounter. Date/Time Encounter Type Encounter Description Reason Provider Source Feb 03, 2024 09:00 AM PSYTX W PT 45 MINUTES [facility] - IND ICD-10-CM F43.12 Post-traumatic stress disorder, chronic WEISMOORE,MATTIE E IHE Encounter Template Text not used by [place] Assessments - Encounter Diagnoses This section includes the primary and secondary diagnoses documented for the Encounter. Date/Time Primary/Secondary Diagnosis Diagnosis Name Provider Source Feb 16, 2024 07:18 AM PRIMARY Post-traumatic stress disorder, chronic WEISMOORE,MATTIE E [place] [facility] [place] [facility] Feb 16, 2024 07:18 AM SECONDARY Major depressive disorder, recurrent, unspecified WEISMOORE,MATTIE E [place] [facility] [place] [facility] Plan of Treatment: Future Appointments (+ 6 months) and Future Tests (+/- 45 days) The Plan of Treatment section includes future care activities for the patient from all [place] treatmentfacilities. This section includes future appointments and future orders which are active, pending or scheduled. Future Appointments This section includes appointments that were scheduled to occur 6 months from the date of the Encounter, up to a maximum of 20 appointments. The data comes from all [place] treatment facilities. Appointment Date/Time Appointment Type Appointme nt Facility Name Feb 17, 2024 09:00 AM AMBULATORY [place]ATRY [place] [facility] [place] [facility] Feb 28, 2024 08:00 AM AMBULATORY [place]ICINE [place] [facility] [place] [facility] Mar 16, 2024 08:30 AM AMBULATORY [place] [facility] [place] [facility] Apr 27, 2024 08:30 AM AMBULATORY - [place]CHIATRY [place] [facility] [place] [facility] May 31, 2024 10:30 AM [facility] [place] [facility] Jun 28, 2024 10:30 AM [facility]ULATORY [facility] [place] [facility] Jul 05, 2024 09:00 AM [facility]ULATORY [facility]INE [facility] [place] [facility] Jul 06, 2024 08:30 AM AMBULATORY - PS[facility]IATRY [facility] [place] Jul 06, 2024 09:00 AM AMBULATORY [facility] MEDICINE [facility] [place] [facility] Jul 13, 2024 08:30 AM AMBULATORY - PS[facility]CHIATRY [facility] Jul 20, 2024 08:30 AM AMBULATORY - [facility]IATRY [facility] [place] [facility] Jul 27, 2024 08:30 AM AMBULATORY - PS[facility]CHIATRY [facility] [place] [facility] Lab Results: +/- 30 days of the encounter This section includes the Chemistry and Hematology Lab Results on record with [facility] for the patient. Radiology Reports and Pathology Reports are provided separately, in subsequent sections. Lab Results This section contains the Chemistry/Hematology Results that were resulted 30 days before or 30 daysafter the date of the Encounter. Date/Time Source Result Type Result - Unit Interpretation Reference Range Comment Feb 23, 2024 09:43 AM [place] [facility] [place] [facility] VITAMIN D (25-OH) Specimen Type: SERUM No comment entered. Ordering Provider: SADIE MORSE Report Released Date/Time: Jul 26, 2023 09:13 AM Reporting Lab: [place] [facility] [place] [address] [address] Performing Lab: [place] [facility] [place] [address] [address] VITAMIN D (25-OH) 30 ng/mL 20-50 Feb 23, 2024 09:43 AM [place] [facility] [place] [facility] MAGNESIUM Specimen Type: SERUM No comment entered. Ordering Provider: SADIE MORSE Report Released Date/Time: Jul 26, 2023 09:13 AM Reporting Lab: [place] [facility] [place] [address] [address] Performing Lab: [place] [facility] [place] [address] [address] MAGNESIUM 1.9 mg/dL 1.6-2.6 Feb 23, 2024 09:43 AM [facility] [place] [facility] CALCIUM Specimen Type: SERUM No comment entered. Ordering Provider: SADIE MORSE Report Released Date/Time: Jul 26, 2023 09:13 AM Reporting Lab: [place] [facility] [place] [facility] [address] [facility] [address] Performing Lab: [place] [facility] [place] [facility] [address] [facility] [address] CALCIUM 9.5 mg/dL 8.5-10.2 Feb 23, 2024 09:43 AM [facility] [place] [facility] PO4 Specimen Type: SERUM No comment entered. Ordering Provider: SADIE MORSE Report Released Date/Time: Jul 26, 2023 09:13 AM Reporting [facility]: [facility] [place] [address] [address] Performing Lab: [place] [facility] [place] [facility] [address] [facility] [address] PO4 3.2 mg/dL 2.5-5.0 Feb 23, 2024 09:43 AM [facility] PTH INTACT Specimen Type: SERUM No comment entered. Ordering Provider: SADIE MORSE Report Released Date/Time: Jul 26, 2023 09:13 AM Reporting Lab: [facility] [place] [address] [address] Performing Lab: [place] [facility] [place] [facility] [address] [facility] [address] PTH INTACT 45.0 pg/mL 10-65 Feb 23, 2024 09:43 AM [facility] [place] [facility] ALKALINE PHOSPHATASE Specimen Type: SERUM No comment entered. Ordering Provider: SADIE MORSE Report Released Date/Time: Jul 26, 2023 09:13 AM Reporting Lab: [facility] [place] [facility] [address] [facility] [address] Performing Lab: [place] [facility] [place] [address] [address] ALKALINE PHOSPHATASE 75 U/L 40-150 Feb 23, 2024 09:43 AM [facility] ALBUMIN Specimen Type: SERUM No comment entered. Ordering Provider: SADIE MORSE Report Released Date/Time: Jul 26, 2023 09:13 AM Reporting Lab: [facility] [address] [facility] [address] Performing Lab: [facility] [address] [facility] [address] ALBUMIN 4.1 g/dL 3.5-5.0 Feb 23, 2024 09:43 AM [facility] MICROALBUMIN CREATININE RATIO PANEL Specimen Type: URINE No comment entered. Ordering Provider: SADIE MORSE Report Released Date/Time: Jul 26, 2023 09:13 AM Reporting Lab: [facility] [address] [address] Performing Lab: [facility] [address] [facility] [address] MICROALBUMIN/C REATININE RATIO 11.5 mg/g 0-29.9 MICROALBUMIN,Q UANTITATIVE 1.8 mg/dL RR UNAVAIL CREATININE URINE 156.12 mg/dL Feb 23, 2024 09:43 AM [facility] LIPID PANEL, NON FASTING Specimen Type: SERUM No comment entered. Ordering Provider: SADIE MORSE Report Released Date/Time: Jul 26, 2023 09:13 AM Reporting Lab: [facility] [address] [facility] [address] Performing Lab: [facility] [address] [address] CHOLESTEROL 190 mg/dL TRIGLYCERIDE 99 mg/dL 0-150 LDL calculated 125 mg/dL 0-129 CHOL/HDL 4.2 HDL CHOLESTEROL 45 mg/dL 40-60 Feb 23, 2024 09:43 AM [facility] BASIC METABOLIC PANEL (non-fasting) Specimen Type: SERUM No comment entered. Ordering Provider: SADIE MORSE Report Released Date/Time: Jul 26, 2023 09:13 AM Reporting Lab: [facility] [place] [address] [address] Performing Lab: [facility] [address] [address] UREA NITROGEN 18 mg/dL 7-25 GLUCOSE 149 mg/dL H 65-100 SODIUM 139 mmol/L 135-145 POTASSIUM 4.4 mmol/L 3.5-5.0 CHLORIDE 104 mmol/L 100-110 CO2 26 meq/L 20-30 CREATININE, Serum 1.12 mg/dL 0.50-1.40 eGFR(CKD-EPI 2020) 80 mL/min >60 Feb 23, 2024 09:43 AM [facility] FERRITIN Specimen Type: SERUM No comment entered. Ordering Provider: SADIE MORSE Report Released Date/Time: Jan 31, 2024 09:44 AM Reporting Lab: [facility] [address] [address] Performing Lab: [facility] [address] [address] FERRITIN 275 ng/mL 20-300 Feb 23, 2024 09:43 AM [facility] IRON & TIBC PANEL Specimen Type: SERUM No comment entered. Ordering Provider: SADIE MORSE Report Released Date/Time: Jan 31, 2024 09:44 AM Reporting Lab: [facility] [address] [address] Performing Lab: [facility] [address] [address] TIBC 385 ug/dL 204-475 IRON 105 ug/dL 40-160 Transferrin Saturation 27.2 20.0-50.0 Transferrin (TRF) 292 mg/dL 200-360 Feb 23, 2024 09:43 AM [facility] CBC Specimen Type: BLOOD No comment entered. Ordering Provider: SADIE MORSE Report Released Date/Time: Jan 31, 2024 09:44 AM Reporting Lab: [facility]ITAL[facility] [address] [address] Performing Lab: [facility] [place] [facility] [address] [facility] [address] WBC 7.44 10*3/uL 4.50-11.00 RBC 5.25 10*6/uL 4.23-5.66 HGB 15.1 g/dL 12.8-17 HCT 45.4 39.2-50.4 MCV 86.5 fL 82-99 MCHC 33.3 g/dL 30.8-35.1 PLT 208 10*3/uL 140-360 RDW-CV 12.6 12.0-16.0 MCH 28.8 pg 26.2-32.6 Social History: Smoking Status (Most current) and Tobacco Use (All prior to encounter date) This section includes the most current, and the historical, smoking and tobacco- related health factors from the [place] facility where the Encounter took place. Current Smoking Status This section includes the most current smoking, or tobacco-related health factor, from the [place] facility where the Encounter took place. Date/Time Current Smoking Status Comment [facility] Jun 08, 2023 09:30 AM VA-TOBACCO USER EVERY DAY [place] [facility] Tobacco Use History This section includes a history of the smoking, or tobacco-related health factors, that were collected on or before the date of the Encounter. The data comes from the [place] facility where the Encounter took place. Date/Time Smoking Status/Tobac co Use Comment Facility Jun 08, 2023 09:30 AM VA-TOBACCO USE ADVICE [place] [facility] [place] [facility] Jun 08, 2023 09:30 AM VA-TOBACCO USE PRODUCTION FINISHER NO [place] [facility] [place] [facility] Jun 08, 2023 09:30 AM VA-TOBACCO USE MED NO [facility] [place] [facility] Jun 08, 2023 09:30 AM VA-TOBACCO USE [place] 30 MIN OF WAKEUP [place] [facility] [place] [facility] Jun 08, 2023 09:30 AM VA-TOBACCO USER EVERY DAY [place] [facility] [place] [facility] Jun 23, 2022 09:00 AM VA-TOBACCO FORMER USER [place] [facility] [place] [facility] Jun 23, 2022 09:00 AM VA-TOBACCO QUIT < 1 YEAR [place] [facility] [place] [facility] May 18, 2021 11:00 AM VA-TOBACCO USE > 15 LESS THAN 30 YEARS [facility] [place] [facility] May 18, 2021 11:00 AM VA-TOBACCO USE ADVICE [facility] [place] [facility] May 18, 2021 11:00 AM VA-TOBACCO USE PRODUCTION FINISHER NO [facility] [place] [facility] May 18, 2021 11:00 AM VA-TOBACCO USE MED NO [facility] [place] [facility] May 18, 2021 11:00 AM VA-TOBACCO USE [place] 30 MIN OF WAKEUP [facility] [place] [facility] May 18, 2021 11:00 AM VA-TOBACCO USER SOME DAYS [facility] [place] [facility] Jul 31, 2018 08:47 AM VA-TOBACCO DOESNT USE WI 30 MIN WAKEUP [facility] [place] [facility] Jul 31, 2018 08:47 AM VA-TOBACCO USE > 15 LESS THAN 30 YEARS [facility] [place] [facility] Jul 31, 2018 08:47 AM VA-TOBACCO USE ADVICE [facility] [place] [facility] Jul 31, 2018 08:47 AM VA-TOBACCO USE PRODUCTION FINISHER NO [facility] [place] [facility] Jul 31, 2018 08:47 AM VA-TOBACCO USE MED NO [facility] [place] [facility] Jul 31, 2018 08:47 AM VA-TOBACCO USER SOME DAYS [facility] [place] [facility] Jan 30, 2018 09:19 AM QUIT TOBACCO USE IN PAST YEAR a month ago [facility] [place] [facility] Jul 28, 2017 09:31 AM CURRENT SMOKER 2 cigarettes per day [facility] [place] [facility] Dec 08, 2016 08:49 AM CURRENT SMOKER [facility] [place] [facility] Dec 08, 2016 08:49 AM V1-PT NOT INTERESTED IN QUIT TOBACCO USE [facility] [place] [facility] Jun 11, 2016 10:00 AM CURRENT SMOKER [facility] [place] [facility] Dec 10, 2015 10:39 AM V1-PT NOT INTERESTED IN QUIT TOBACCO USE [facility] [place] [facility] Feb 06, 2015 08:34 AM CURRENT SMOKER 1 1/2 Packs per week [facility] Feb 06, 2015 08:34 AM V1-PT NOT INTERESTED IN QUIT TOBACCO USE [facility] Jul 04, 2013 09:37 AM CURRENT SMOKER pack per week [facility] Jun 24, 2011 08:10 AM V1-PT DECLINES REF TO TOBACCO CESS PRGM [facility] Jun 24, 2011 08:10 AM V1-PT READY TO QUIT TOBACCO USE [facility] Mar 31, 2011 10:12 AM V1-PT DECLINES REF TO TOBACCO CESS PRGM [facility] Mar 31, 2011 10:12 AM V1-PT DECLINES TOBACCO CESSATION MEDS [facility] Mar 31, 2011 10:12 AM V1-PT NOT INTERESTED IN QUIT TOBACCO USE [facility] September 25, 2010 11:03 AM CURRENT SMOKER [facility] September 25, 2010 11:03 AM QUIT TOBACCO USE IN PAST YEAR [facility] Encounter Notes: All associated encounter notes This section contains the clinical notes associated to the Encounter. Date/Time Encounter Note(s) Provider Source Feb 03, 2024 09:58 AM PSYCHOLOGY NOTE: LOCAL TITLE: PSYCHOLOGY NOTE STANDARD TITLE: PSYCHOLOGY NOTE DATE OF NOTE: FEB 03, 2024@09:58 ENTRY DATE: FEB 03, 2024@09:58:59 AUTHOR: NOHEMI MACKEY COSIGNER: URGENCY: STATUS: COMPLETED [facility] Individual Therapy Note Procedure: The patient was seen for a 50-minute F2F individual psychotherapy session focused on treatment of symptoms PTSD and depression. [place] identified with 2 identifiers: [X] Patient Name [X] Visual recognition The Outpatient Individual Psychotherapy Services Agreement was reviewed with this provider on 02/03/2024. Agreed to weekly therapy utilizing aspects of CBT and ACT to cope with recent unexpected life events before re-considering trauma- focused therapy. Problem: Difficulty managing PTSD and depressive symptoms Objectives: 1) will engage in individual, weekly psychotherapy to increase his ability to tolerate distressing emotional experiences and to engage in behaviors that are consistent with his values. 2) [place] will learn about and consider trauma-focused therapy to directly address PTSD symptoms if/when clinically appropriate. Progress: [place] spoke about recent interactions and further information learned related to his investing in an intimate relationship with another person. connected with emotional responses, his personal values, and his needs. He considered how he has been setting limits and taking care of himself as well as ways in which he is considering the perspectives of others. committed to continue to invest in listening to his needs and values as well as allowing safe space for his emotional reactions. Assessment: arrived on time for session and was dressed appropriately with appropriate hygiene. He maintained appropriate eye contact and was alert. spoke clearly and coherently. His thoughts were linear and related. His affect was congruent to content and appropriate in range. There was no evidence of AH/VH or delusions. There was no evidence of SI or HI. was reminded of emergency resources through this [facility] and the [facility] number. Thus, current assessment of risk for suicide and homicide is low. DSM 5 Diagnostic Impressions: PTSD, Chronic Major Depressive Disorder, recurrent Plan: 's next visit is scheduled for Saturday, February 10, 2024 at 9am F2F ~~~ PCT Psychotherapy Tracking Today's psychotherapy session was part of a standardized episode of Other PTSD Psychotherapy (e.g. supportive therapy): Other: flexible mix of CBT/ACT/trauma processing /es/ Nohemi Mackey, PhD Clinical Psychologist, [facility] Signed: 02/03/2024 11:52 NOHEMI MACKEY [place] [facility]
--- OUTSIDE RECORDS SUMMARY | 2024-06-19 13:39 | XMS_ITS ---
Author Name [facility] [place] Address [address] [place] [address] Care Team Providers Care Staple Side Laster Name Role Phone PANCHO HAINESA Primary Care Provider Unavailkaycee barton Insurance Providers: All historical and current Section Date Range: From patient's date of to the date document was created. This section includes the names of all active insurance providers for the patient. Insurance Provider Type of Coverage Plan Name Start of Policy Coverage End of Policy Coverage Group Number Member ID Insurance Provider's Telephone Number Policy Huitron's Name Patient's Relationship to Policy Huitron BCBS [facility] CE ORGANIZAT ION [facility] FIRE DEPT May 09, 2023 [id number] [phone] JAMAAL ALTMAN SE PATIENT [place] PRESCRIPT ION [place] Nov 07, 2023 [id number] [phone] SOFÍA ALTMAN JR PATIENT SILVERNA PREFERRED PROVIDER ORGANIZAT ION (PPO) [facility] Nov 06, 2016 [id number] [phone] JAMAAL ALTMAN SE PATIENT CIGNA POINT OF SERVICE [facility] Nov 06, 2016 [id number] JAMAAL ALTMAN SE PATIENT CIGNA BEHAVIORAL HEALTH MENTAL HEALTH [facility] Nov 06, 2016 [id number] JAMAAL ALTMAN SE PATIENT [facility] PRES[facility]ON [facility] Nov 06, 2016 [id number] JAMAAL ALTMAN SE PATIENT [facility] ORGAN Nov 06, 2009 [id number] JAMAAL ALTMAN SE PATIENT Selected Encounter This section includes the information on record at [place] for the Encounter. Date/Time Encounter Type Encounter Description Reason Pro vider Source September 16, 2023 09:00 AM Outpatient Encounter [facility] Encounter Template Text not used by [place] Plan of Treatment: Future Appointments (+ 6 months) and Future Tests (+/- 45 days) The Plan of Treatment section includes future care activities for the patient from all [place] treatmentfacilities. This section includes future appointments and future orders which are active, pending or scheduled. Future Appointments This section includes appointments that were scheduled to occur 6 months from the date of the Encounter, up to a maximum of 20 appointments. The data comes from all [place] treatment facilities. Appointment Date/Time Appointment Type Appointme nt Facility Name September 22, 2023 09:00 AM AMBULATORY [facility]IATRY [facility] [place] [facility] October 06, 2023 09:00 AM AMBULATORY [facility]IATRY [facility] [place] [facility] Oct 28, 2023 09:00 AM AMBULATORY - PS[facility]CHIATRY [facility] [place] [facility] Nov 24, 2023 09:30 AM AMBULATORY - MEDICINE [facility] [place] [facility] Nov 25, 2023 09:00 AM AMBULATORY - PS[facility]CHIATRY [facility] [place] [facility] Dec 02, 2023 09:00 AM AMBULATORY - PS[facility]CHIATRY [facility] [place] [facility] Dec 08, 2023 09:00 AM AMBULATORY - REHAB MEDICIN E [facility] [place] [facility] Dec 09, 2023 09:00 AM AMBULATORY - PS[facility]CHIATRY [facility] [place] [facility] Dec 16, 2023 08:30 AM AMBULATORY - MEDICINE [facility] [place] [facility] Dec 23, 2023 09:00 AM AMBULATORY - PS[facility]CHIATRY [facility] [place] [facility] Jan 06, 2024 09:00 AM AMBULATORY - PS[facility]CHIATRY [facility] [place] [facility] Jan 20, 2024 09:00 AM AMBULATORY - PSYCHIATRY [facility] [place] [facility] Feb 03, 2024 09:00 AM AMBULATORY - PS[facility]CHIATRY [facility] [place] [facility] Feb 17, 2024 09:00 AM AMBULATORY - PS[facility]CHIATRY [facility] [place] [facility] Feb 28, 2024 08:00 AM AMBULATORY - MEDICINE [place] [facility] [place] [facility] Mar 16, 2024 08:30 AM AMBULATORY - PSYCHIATRY [place] [facility] [place] [facility] Social History: Smoking Status (Most current) and Tobacco Use (All prior to encounter date) This section includes the most current, and the historical, smoking and tobacco- related health factors from the [place] facility where the Encounter took place. Current Smoking Status This section includes the most current smoking, or tobacco-related health factor, from the [place] facility where the Encounter took place. Date/Time Current Smoking Status Comment Facil it Jun 08, 2023 09:30 AM VA-TOBACCO USE [place] 30 [facility] Tobacco Use History This section includes a history of the smoking, or tobacco-related health factors, that were collected on or before the date of the Encounter. The data comes from the [place] facility where the Encounter took place. Date/Time Smoking Status/Tobac co Use Comment Facility Jun 08, 2023 09:30 AM VA-TOBACCO USE ADVICE [place] [facility] [place] [facility] Jun 08, 2023 09:30 AM VA-TOBACCO USE PERMANENT MOLD SUPERVISOR NO [facility] [place] [facility] Jun 08, 2023 09:30 AM VA-TOBACCO USE MED NO [place] [facility] [place] [facility] Jun 08, 2023 09:30 AM VA-TOBACCO USE WI 30 MIN OF WAKEUP [place] [facility] [place] [facility] Jun 08, 2023 09:30 AM VA-TOBACCO USER EVERY DAY [facility] [place] [facility] Jun 23, 2022 09:00 AM VA-TOBACCO FORMER USER [facility] [place] [facility] Jun 23, 2022 09:00 AM VA-TOBACCO QUIT < 1 YEAR [facility] [place] [facility] May 18, 2021 11:00 AM VA-TOBACCO USE > 15 LESS THAN 30 YEARS [facility] [place] [facility] May 18, 2021 11:00 AM VA-TOBACCO USE ADVICE [facility] [place] [facility] May 18, 2021 11:00 AM VA-TOBACCO USE PERMANENT MOLD 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 NO [facility] [place] [facility] May 18, 2021 11:00 AM VA-TOBACCO USE MED NO [facility] [place] [facility] May 18, 2021 11:00 AM VA-TOBACCO USE WI 30 MIN OF WAKEUP [place] [facility] [place] [facility] May 18, 2021 11:00 AM VA-TOBACCO USER SOME DAYS [facility] [place] [facility] Jul 31, 2018 08:47 AM VA-TOBACCO DOESNT USE WI 30 MIN WAKEUP [place] [facility] [place] [facility] Jul 31, 2018 08:47 AM VA-TOBACCO USE > 15 LESS THAN 30 YEARS [facility] [place] [facility] Jul 31, 2018 08:47 AM VA-TOBACCO USE ADVICE [place] [facility] [place] [facility] Jul 31, 2018 08:47 AM VA-TOBACCO USE PERMANENT MOLD 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 NO [place] [facility] [place] [facility] Jul 31, 2018 08:47 AM VA-TOBACCO USE MED NO [place] [facility] [place] [facility] Jul 31, 2018 08:47 AM VA-TOBACCO USER SOME DAYS [facility] [place] [facility] Jan 30, 2018 09:19 AM QUIT TOBACCO USE IN PAST YEAR a month ago [facility] [place] [facility] Jul 28, 2017 09:31 AM CURRENT SMOKER 2 cigarettes per day [facility] [place] [facility] Dec 08, 2016 08:49 AM CURRENT SMOKER [facility] [place] [facility] Dec 08, 2016 08:49 AM V1-PT NOT INTERESTED IN QUIT TOBACCO USE [facility] [place] [facility] Jun 11, 2016 10:00 AM CURRENT SMOKER [facility] [place] [facility] Dec 10, 2015 10:39 AM V1-PT NOT INTERESTED IN QUIT TOBACCO USE [facility] [place] [facility] Feb 06, 2015 08:34 AM CURRENT SMOKER 1 1/2 Packs per week [facility] Feb 06, 2015 08:34 AM V1-PT NOT INTERESTED IN QUIT TOBACCO USE [facility] Jul 04, 2013 09:37 AM CURRENT SMOKER pack per week [facility] Jun 24, 2011 08:10 AM V1-PT DECLINES REF TO TOBACCO CESS PRGM [facility] Jun 24, 2011 08:10 AM V1-PT READY TO QUIT TOBACCO USE [facility] Mar 31, 2011 10:12 AM V1-PT DECLINES REF TO TOBACCO CESS PRGM [facility] Mar 31, 2011 10:12 AM V1-PT DECLINES TOBACCO CESSATION MEDS [facility] Mar 31, 2011 10:12 AM V1-PT NOT INTERESTED IN QUIT TOBACCO USE [facility] September 25, 2010 11:03 AM CURRENT SMOKER [facility] September 25, 2010 11:03 AM QUIT TOBACCO USE IN PAST YEAR [facility] Encounter Notes: All associated encounter notes This section contains the clinical notes associated to the Encounter. Date/Time Encounter Note(s) Provider Source September 16, 2023 09:18 AM ADMINISTRATIVE NOT E: LOCAL TITLE: ADMINISTRATIVE NOTE STANDARD TITLE: ADMINISTRATIVE NOTE DATE OF NOTE: SEPTEMBER 16, 2023@09:18 ENTRY DATE: SEPTEMBER 16, 2023@09:18:37 AUTHOR: NOHEMI MACKEY EXP COSIGNER: URGENCY: STATUS: COMPLETED [place] cancelled today's individual therapy appointment via [employer] given an unexpected work conflict. Called and spoke to him. Expressed understanding and encouraged him to call insurance writer directly when cancelling as she is not alerted through that system. Confirmed he plans to attend appointment scheduled for next week. No evidence of imminent risk. thanked insurance writer for the call. /ever/ Nohemi Mackey, PhD Clinical Psychologist, [facility] Signed: 09/16/2023 09:20 NOHEMI MACKEY [facility]
--- OUTSIDE RECORDS SUMMARY | 2024-06-19 13:39 | XMS_ITS | Encounter Summary ---
Author Name [facility] [place] Address [address] [place] [address] Care Team Providers Care Spinner Hand Name Role Phone YANCYSONIA Primary Care Provider [...] Huitron's Name Patient's Relationship to Policy [facility] FIRE DEPT May 09, 2023 [id number] JAMAAL ALTMAN SE PATIENT [place] PRESCRIPT ION BCBS [facility] Nov 07, 2023 [id number] SOFÍA ALTMAN JR PATIENT SILVERNA PREFERRED PROVIDER ORGANIZAT ION (PPO) [facility] Nov 06, 2016 [id number] JAMAAL ALTMAN SE PATIENT CIGNA POINT OF SERVICE [facility] Nov 06, 2016 [id number] [phone] JAMAAL ALTMAN SE PATIENT CIGNA BEHAVIORAL HEALTH MENTAL HEALTH [facility] Nov 06, 2016 [id number] JAMAAL ALTMAN SE PATIENT [facility] PRESCRIPT ION [facility] Nov 06, 2016 [id number] JAMAAL ALTMAN SE PATIENT [facility]GAN Nov 06, 2009 [id number] JAMAAL ALTMAN SE PATIENT Selected Encounter This section includes the information on record at [place] for the Encounter. Date/Time Encounter Type Encounter Description Reason Provider Source Nov 25, 2023 09:00 AM PSYTX W PT 30 MINUTES [facility] - IND ICD-10-CM F43.12 Post-traumatic stress disorder, chronic MATTIE MACKEY IHMemo Encounter Template Text not used by [place] Assessments - Encounter Diagnoses This section includes the primary and secondary diagnoses documented for the Encounter. Date/Time Primary/Secondary Diagnosis Diagnosis Name Provider Source Dec 28, 2023 12:06 PM PRIMARY Post-traumatic stress disorder, chronic MATTIE MACKEY [place] [facility] [place] [facility] Plan of Treatment: Future Appointments (+ 6 months) and Future Tests (+/- 45 days) The Plan of Treatment section includes future care activities for the patient from all [place] treatmentfacilities. This section includes future appointments and future orders which are active, pending or scheduled. Future Appointments This section includes appointments that were scheduled to occur 6 months from the date of the Encounter, up to a maximum of 20 appointments. The data comes from all [place] treatment facilities. Appointment Date/Time Appointment Type Appointme nt Facility Name Dec 02, 2023 09:00 AM AMBULATORY - PS[place]CHIATRY [place] [facility] [place] [facility] Dec 08, 2023 09:00 AM AMBULATORY - REHAB MEDICIN E [facility] [place] [facility] Dec 09, 2023 09:00 AM AMBULATORY - PSYCHIATRY [place] [facility] [place] [facility] Dec 16, 2023 08:30 AM AMBULATORY - MEDICINE [place] [facility] [place] [facility] Dec 23, 2023 09:00 AM AMBULATORY - PSYCHIATRY [place] [facility] [place] [facility] Jan 06, 2024 09:00 AM [facility] Jan 20, 2024 09:00 AM [facility] Feb 03, 2024 09:00 AM AMBULATORY - [facility] Feb 17, 2024 09:00 AM AMBULATORY - PS[place]CHIATRY [place] [facility] [place] [facility] Feb 28, 2024 08:00 AM AMBULATORY - MEDICINE [facility] Mar 16, 2024 08:30 AM AMBULATORY - [facility]CHIATRY [facility] Apr 27, 2024 08:30 AM AMBULATORY - PSYCHIATRY [facility] Active, Pending, and Scheduled Orders This section includes a listing of several types of active, pending, and scheduled orders, including clinic medications orders, diagnostic test orders, procedure orders and consult orders; where the start date of the order is 45 days before the date of the Encounter or 45 days after the date of theEncounter. The data comes from all [place] treatment facilities. Test Date/Time Test Type Test Details Facility Name Nov 09, 2023 12:00 AM Laboratory - Chemistry Order BASIC METABOLIC PANEL (fasting) BLOOD (SST[facility]SERUM) [facility] Nov 09, 2023 12:00 AM Laboratory - Chemistry Order HEMOGLOBIN A1C PANEL BLOOD (LAV-BLOOD) [facility] Nov 09, 2023 12:00 AM Laboratory - Chemistry Order LIPID PANEL FASTING BLOOD (SST-SERUM) [facility] Social History: Smoking Status (Most current) and Tobacco Use (All prior to encounter date) This section includes the most current, and the historical, smoking and tobacco- related health factors from the [place] facility where the Encounter took place. Current Smoking Status This section includes the most current smoking, or tobacco-related health factor, from the [place] facility where the Encounter took place. Date/Time Current Smoking Status Comment Josr mylesy Jun 08, 2023 09:30 AM VA-TOBACCO USER EVERY DAY [facility] Tobacco Use History This section includes a history of the smoking, or tobacco-related health factors, that were collected on or before the date of the Encounter. The data comes from the [place] facility where the Encounter took place. 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 [facility] [place] [facility] Jun 08, 2023 09:30 AM VA-TOBACCO USE MED NO [facility] [place] [facility] Jun 08, 2023 09:30 AM VA-TOBACCO USE WI 30 MIN OF WAKEUP [facility] [place] [facility] Jun 08, 2023 09:30 AM VA-TOBACCO USER EVERY DAY [facility] [place] [facility] Jun 23, 2022 09:00 AM VA-TOBACCO FORMER USER [facility] [place] [facility] Jun 23, 2022 09:00 AM VA-TOBACCO QUIT < 1 YEAR [facility] [place] [facility] May 18, 2021 11:00 AM VA-TOBACCO USE > 15 LESS THAN 30 YEARS [place] [facility] [facility] May 18, 2021 11:00 AM VA-TOBACCO USE ADVICE [facility] [place] [facility] May 18, 2021 11:00 AM 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 [facility] [place] [facility] May 18, 2021 11:00 AM VA-TOBACCO USE MED NO [facility] [place] [facility] May 18, 2021 11:00 AM VA-TOBACCO USE WI 30 MIN OF WAKEUP [place] [facility] [facility] May 18, 2021 11:00 AM VA-TOBACCO USER SOME DAYS [facility] [place] [facility] Jul 31, 2018 08:47 AM VA-TOBACCO DOESNT USE WI 30 MIN WAKEUP [facility] [place] [facility] Jul 31, 2018 08:47 AM VA-TOBACCO USE > 15 LESS THAN 30 YEARS [facility] [place] [facility] Jul 31, 2018 08:47 AM VA-TOBACCO USE ADVICE [facility] [place] [facility] Jul 31, 2018 08:47 AM 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 [facility] [place] [facility] Jul 31, 2018 08:47 AM VA-TOBACCO USE MED NO [facility] [place] [facility] Jul 31, 2018 08:47 AM VA-TOBACCO USER SOME DAYS [facility] [place] [facility] Jan 30, 2018 09:19 AM QUIT TOBACCO USE IN PAST YEAR a month ago [facility] [place] [facility] Jul 28, 2017 09:31 AM CURRENT SMOKER 2 cigarettes per day [facility] [place] [facility] Dec 08, 2016 08:49 AM CURRENT SMOKER [facility] [place] [facility] Dec 08, 2016 08:49 AM V1-PT NOT INTERESTED IN QUIT TOBACCO USE [facility] [place] [facility] Jun 11, 2016 10:00 AM CURRENT SMOKER [facility] [place] [facility] Dec 10, 2015 10:39 AM V1-PT NOT INTERESTED IN QUIT TOBACCO USE [facility] [place] [facility] Feb 06, 2015 08:34 AM CURRENT SMOKER 1 1/2 Packs per week [facility] [place] [facility] Feb 06, 2015 08:34 AM V1-PT NOT INTERESTED IN QUIT TOBACCO USE [facility] [place] [facility] Jul 04, 2013 09:37 AM CURRENT SMOKER pack per week [facility] [place] [facility] Jun 24, 2011 08:10 AM V1-PT DECLINES REF TO TOBACCO CESS PRGM [facility] [place] [place] [facility] Jun 24, 2011 08:10 AM V1-PT READY TO QUIT TOBACCO USE [facility] [place] [facility] Mar 31, 2011 10:12 AM V1-PT DECLINES REF TO TOBACCO CESS PRGM [facility] [place] [facility] Mar 31, 2011 10:12 AM V1-PT DECLINES TOBACCO CESSATION MEDS [facility] [place] [facility] Mar 31, 2011 10:12 AM V1-PT NOT INTERESTED IN QUIT TOBACCO USE [facility] [place] [facility] September 25, 2010 11:03 AM CURRENT SMOKER [facility] [place] [facility] September 25, 2010 11:03 AM QUIT TOBACCO USE [facility] PAST [facility] [place] [facility] Encounter Notes: All associated encounter notes This section contains the clinical notes associated to the Encounter. Date/Time Encounter Note(s) Provider Source Nov 25, 2023 09:29 AM PSYCHOLOGY NOTE: LOCAL TITLE: PSYCHOLOGY NOTE STANDARD TITLE: PSYCHOLOGY NOTE DATE OF NOTE: NOV 25, 2023@09:29 ENTRY DATE: NOV 25, 2023@09:29:06 AUTHOR: NOHEMI MACKEY COSIGNER: URGENCY: STATUS: COMPLETED Outpatient [facility] Clinic Individual Therapy Note Procedure: The patient was seen for a 18-minute F2F individual psychotherapy session focused on treatment of symptoms PTSD and depression. Sunbury identified with 2 identifiers: [X] Patient Name [X] Visual recognition The Outpatient Individual Psychotherapy Services Agreement was reviewed with this provider on 10/28/2023. Agreed to meet for 12 weekly individual therapy appointments utilizing Cognitive Processing Therapy to process childhood trauma. Problem: Difficulty managing PTSD and depressive symptoms Objectives: 1) will engage in individual, weekly psychotherapy to increase his ability to tolerate distressing emotional experiences and to engage in behaviors that are consistent with his values. 2) Sunbury will learn about and consider trauma-focused therapy to directly address PTSD symptoms if/when clinically appropriate. Progress: indicated he was feeling ill following the shingles vaccine yesterday, thus agreed to an abbreviated session today. Sunbury discussed his reaction and how he will care for himself rather than push through the day given the extent of physical symptoms he is experiencing. Agreed that in the future, will call to cancel when feeling this ill as an important act of self- care, while also validating his investment in the thereapeutic process. Sunbury spoke about his concern for his mother given recent behaviors of calling repeatedly while he was away on a camping trip with his . Sunbury considered how he approached this and how he wants to do so moving forward, encompassing both his pain about their past interactions and his concerns about her well-being. committed to prioritize caring for himself today and in the next week. Agreed to begin CPT in next session. Assessment: Benigno arrived on time for session and was dressed appropriately with appropriate hygiene. He maintained appropriate eye contact and was alert. Sunbury spoke clearly and coherently. His thoughts were linear and related. His affect was congruent to content and appropriate in range. There was no evidence of AH/VH or delusions. There was no evidence of SI or HI. Benigno was reminded of emergency resources through this [place] and the Veterans Crisis Line number. Thus, current assessment of risk for suicide and homicide is low. DSM 5 Diagnostic Impressions: PTSD, Chronic Major Depressive Disorder, recurrent Plan: Sunbury's next visit is scheduled for Saturday, December 02, 2023 at 9am F2F. ~~~ PCT Psychotherapy Tracking Today's psychotherapy session was part of a standardized episode of Other PTSD Psychotherapy (e.g. supportive therapy): Other: CBT /es/ Nohemi Mackey, PhD Clinical Psychologist, [facility] Health Clinic Signed: 11/25/2023 09:33 NOHEMI MACKEY [place] [facility]
--- OUTSIDE RECORDS SUMMARY | 2024-06-19 13:39 | XMS_ITS | Encounter Summary ---
Author Name [facility] [facility] [place] Address [address] [place] [address] Care Team Providers Care Toll Transmission Worker Name Role Phone YANCYSONIA Primary Care Provider [...] Huitron's Name Patient's Relationship to Policy [facility]GAN[facility] FIRE DEPT May 09, 2023 [id number] JAMAAL ALTMAN SE PATIENT [place] PRESCRIPT ION BCBS [facility] Nov 07, 2023 [id number] [phone] SOFÍA ALTMAN JR PATIENT S[place] PREFERRED PROVIDER ORGANIZAT ION (PPO) [facility] Nov 06, 2016 [id number] JAMAAL ALTMAN SE PATIENT [employer]IGNA POINT OF SERVICE [facility] Nov 06, 2016 [id number] 0001 JAMAAL ALTMAN SE PATIENT [facility] BEHAVIORAL HE[facility] MENTAL HEALTH [facility] Nov 06, 2016 [id number] 0001 JAMAAL ALTMAN SE PATIENT [facility] Nov 06, 2016 [id number] JAMAAL ALTMAN SE PATIENT [facility] ORGAN Nov 06, 2009 [id number] JAMAAL ALTMAN SE PATIENT Selected Encounter This section includes the information on record at [place] for the Encounter. Date/Time Encounter Type Encounter Description Reason Provider Source Feb 17, 2024 09:00 AM PSYTX W PT 45 MINUTES [facility] [place] ICD-10-CM F43.12 Post-traumatic stress disorder, chronic WEISMOORE,MATTIE E IHE Encounter Template Text not used by [place] Assessments - Encounter Diagnoses This section includes the primary and secondary diagnoses documented for the Encounter. Date/Time Primary/Secondary Diagnosis Diagnosis Name Provider Source Mar 04, 2024 12:10 PM PRIMARY Post-traumatic stress disorder, chronic WEISMOORE,MATTIE E [place] [facility] [place] [facility] Mar 04, 2024 12:10 PM SECONDARY Major depressive disorder, recurrent, unspecified WEISMOORE,MATTIE E IN CNT [facility] [place] [facility] Plan of Treatment: Future Appointments (+ 6 months) and Future Tests (+/- 45 days) The Plan of Treatment section includes future care activities for the patient from all [place] treatmentfacilities. This section includes future appointments and future orders which are active, pending or scheduled. Future Appointments This section includes appointments that were scheduled to occur 6 months from the date of the Encounter, up to a maximum of 20 appointments. The data comes from all [place] treatment facilities. Appointment Date/Time Appointment Type Appointme nt Facility Name Feb 28, 2024 08:00 AM AMBULATORY - [facility]IC[facility] [place] [facility] Mar 16, 2024 08:30 AM AMBULATORY - PSYCHIATRY [place] [facility] [place] [facility] Apr 27, 2024 08:30 AM AMBULATORY - PSYCHIATRY [place] [facility] [place] [facility] May 31, 2024 10:30 AM AMBULATORY - [facility] [place] [facility] Jun 28, 2024 10:30 AM AMBULATORY - [...] AMBULATORY - PSYCHIATRY [place] [facility] [place] [facility] Lab Results: +/- 30 days of the [...] Range Comment Feb 23, 2024 09:43 AM [facility] VITAMIN D (25-[place]) Specimen Type: SERUM No comment entered. Ordering Provider: SADIE MORSE Report Released Date/Time: Jul 26, 2023 09:13 AM Reporting Lab: [facility] [place] [facility] [address] [facility] [address] Performing Lab: [facility] [place] [place] [address] [address] VITAMIN D (25-OH) 30 ng/mL 20-50 Feb 23, 2024 09:43 AM [facility] CALCIUM Specimen Type: SERUM No comment entered. Ordering Provider: SADIE MORSE Report Released Date/Time: Jul 26, 2023 09:13 AM Reporting Lab: [facility] [place] [place] [facility] [address] [facility] [address] Performing Lab: [facility] [address] [address] CALCIUM 9.5 mg/dL 8.5-10.2 Feb 23, 2024 09:43 AM [facility] MAGNESIUM Specimen Type: SERUM No comment entered. Ordering Provider: SADIE MORSE Report Released Date/Time: Jul 26, 2023 09:13 AM Reporting Lab: [facility] [place] [facility] [address] [facility] [address] Performing Lab: [facility] [place] [facility] [address] [facility] [address] MAGNESIUM 1.9 mg/dL 1.6-2.6 Feb 23, 2024 09:43 AM [facility] [place] [facility] PO4 Specimen Type: SERUM No comment entered. Ordering Provider: SADIE MORSE Report Released Date/Time: Jul 26, 2023 09:13 AM Reporting Lab: [facility] [place] [place] [facility] [address] [facility] [address] Performing Lab: [facility] [place] [facility] [address] [facility] [address] PO4 3.2 mg/dL 2.5-5.0 Feb 23, 2024 09:43 AM [facility] PTH INTACT Specimen Type: SERUM No comment entered. Ordering Provider: SADIE MORSE Report Released Date/Time: Jul 26, 2023 09:13 AM Reporting Lab: [facility] [place] [facility] [address] [facility] [address] Performing Lab: [facility] [place] [facility] [address] [facility] [address] PTH INTACT 45.0 pg/mL -65 Feb 23, 2024 09:43 AM [facility] ALBUMIN Specimen Type: SERUM No comment entered. Ordering Provider: SADIE MORSE Report Released Date/Time: Jul 26, 2023 09:13 AM Reporting Lab: [facility] [place] [place] [facility] [address] [facility] [address] Performing Lab: [facility] [address] [facility] [address] ALBUMIN 4.1 g/dL 3.5-5.0 Feb 23, 2024 09:43 AM [facility] ALKALINE PHOSPHATASE Specimen Type: SERUM No comment entered. Ordering Provider: SADIE MORSE Report Released Date/Time: Jul 26, 2023 09:13 AM Reporting Lab: [facility] [place] [place] [facility] [address] [facility] [address] Performing Lab: [facility]ITALRSH[facility]ALS HOSPITALN [facility] [address] [facility] [address] ALKALINE PHOSPHATASE 75 U/L 40-150 Feb 23, 2024 09:43 AM [facility] FERRITIN Specimen Type: SERUM No comment entered. Ordering Provider: SADIE MORSE Report Released Date/Time: Jan 31, 2024 09:44 AM Reporting Lab: [facility]ITALRSH[facility]OSPITALN [facility]USE[facility] [address] [facility] [address] Performing Lab: [facility] CENTERUSE[address] [address] FERRITIN 275 ng/mL 20-300 Feb 23, 2024 09:43 AM [facility] MICROALBUMIN CREATININE RATIO PANEL Specimen Type: URINE No comment entered. Ordering Provider: SADIE MORSE Report Released Date/Time: Jul 26, 2023 09:13 AM Reporting Lab: [facility]ITALN [facility]ENTER[facility] [address] [facility] [address] Performing Lab: [facility]ITALN [facility]ENTERUSETS [address] [address] MICROALBUMIN/C REATININE RATIO 11.5 mg/g 0-29.9 MICROALBUMIN,Q UANTITATIVE 1.8 mg/dL RR UNAVAIL CREATININE URINE 156.12 mg/dL Feb 23, 2024 09:43 AM [facility] LIPID PANEL, NON FASTING Specimen Type: SERUM No comment entered. Ordering Provider: SADIE MORSE Report Released Date/Time: Jul 26, 2023 09:13 AM Reporting Lab: [facility]ITAL[facility] WESTTRN [facility]ENTER[facility] [address] [facility] [address] Performing Lab: [facility]ITALRSHOALS HOSPITALN [facility]ENTERUSETS [address] [address] CHOLESTEROL 190 mg/dL TRIGLYCERIDE 99 mg/dL 0-150 LDL calculated 125 mg/dL 0-129 CHOL/HDL 4.2 HDL CHOLESTEROL 45 mg/dL 40-60 Feb 23, 2024 09:43 AM [facility] IRON & TIBC PANEL Specimen Type: SERUM No comment entered. Ordering Provider: SADIE MORSE Report Released Date/Time: Jan 31, 2024 09:44 AM Reporting Lab: [facility] [address] [facility] [address] Performing Lab: [facility] [address] [facility] [address] TIBC 385 ug/dL 204-475 IRON 105 ug/dL 40-160 Transferrin Saturation 27.2 20.0-50.0 Transferrin (TRF) 292 mg/dL 200-360 Feb 23, 2024 09:43 AM [facility] BASIC METABOLIC PANEL (non-fasting) Specimen Type: SERUM No comment entered. Ordering Provider: SADIE MORSE Report Released Date/Time: Jul 26, 2023 09:13 AM Reporting Lab: [facility] [address] [facility] [address] Performing Lab: [address] [address] UREA NITROGEN 18 mg/dL 7-25 GLUCOSE 149 mg/dL H 65-100 SODIUM 139 mmol/L 135-145 POTASSIUM 4.4 mmol/L 3.5-5.0 CHLORIDE 104 mmol/L 100-110 CO2 26 meq/L 20-30 CREATININE, Serum 1.12 mg/dL 0.50-1.40 eGFR(CKD-EPI 2020) 80 mL/min >60 Feb 23, 2024 09:43 AM [facility] CBC Specimen Type: BLOOD No comment entered. Ordering Provider: SADIE MORSE Report Released Date/Time: Jan 31, 2024 09:44 AM Reporting Lab: [facility] [address] [facility] [address] Performing Lab: [address] [address] WBC 7.44 10*3/uL 4.50-11.00 RBC 5.25 10*6/uL [...] and tobacco- related health factors from the [place] facility where the Encounter took place. Current Smoking Status This section includes the most current smoking, or tobacco-related health factor, from the [place] facility where the Encounter took place. Date/Time Current Smoking Status Comment [facility] Jun 08, 2023 09:30 AM VA-TOBACCO USER EVERY DAY IN [place] [facility] Tobacco Use History This section includes a history of the smoking, or tobacco-related health factors, that were collected on or before the date of the Encounter. The data comes from the [place] facility where the Encounter took place. Date/Time Smoking Status/Tobac co Use Comment Facility Jun 08, 2023 09:30 AM VA-TOBACCO USE ADVICE IN [place] [facility] Jun 08, 2023 09:30 AM VA-TOBACCO USE COMPUTATOR NO [facility] [place] [facility] Jun 08, 2023 09:30 AM VA-TOBACCO USE MED NO IN [place] [place] [facility] Jun 08, 2023 09:30 AM VA-TOBACCO USE WI 30 MIN OF WAKEUP IN [facility] [place] [facility] Jun 08, 2023 09:30 AM VA-TOBACCO USER EVERY DAY [facility] [place] [facility] Jun 23, 2022 09:00 AM VA-TOBACCO FORMER USER [facility] [place] [facility] Jun 23, 2022 09:00 AM VA-TOBACCO QUIT < 1 YEAR [facility] [place] [facility] May 18, 2021 11:00 AM VA-TOBACCO USE > 15 LESS THAN 30 YEARS IN [facility] [place] [facility] May 18, 2021 11:00 AM VA-TOBACCO USE ADVICE [facility] [place] [facility] May 18, 2021 11:00 AM VA-TOBACCO USE COMPUTATOR NO [facility] [place] [facility] May 18, 2021 11:00 AM VA-TOBACCO USE MED NO [facility] [place] [facility] May 18, 2021 11:00 AM VA-TOBACCO USE WI 30 MIN OF WAKEUP [facility] [place] [facility] May 18, 2021 11:00 AM VA-TOBACCO USER SOME DAYS [facility] [place] [facility] Jul 31, 2018 08:47 AM VA-TOBACCO DOESNT USE WI 30 MIN WAKEUP IN [facility] [place] [facility] Jul 31, 2018 08:47 AM VA-TOBACCO USE > 15 LESS THAN 30 YEARS [facility] [place] [facility] Jul 31, 2018 08:47 AM VA-TOBACCO USE ADVICE [facility] [place] [facility] Jul 31, 2018 08:47 AM VA-TOBACCO USE COMPUTATOR NO [facility] [place] [facility] Jul 31, 2018 08:47 AM VA-TOBACCO USE MED NO [facility] [place] [facility] Jul 31, 2018 08:47 AM VA-TOBACCO USER SOME DAYS [facility] [place] [facility] Jan 30, 2018 09:19 AM QUIT TOBACCO USE IN PAST YEAR a month ago [facility] [place] [facility] Jul 28, 2017 09:31 AM CURRENT SMOKER 2 cigarettes per day [facility] [place] [facility] Dec 08, 2016 08:49 AM CURRENT SMOKER [facility] [place] [facility] Dec 08, 2016 08:49 AM V1-PT NOT INTERESTED IN QUIT TOBACCO USE [facility] [place] [facility] Jun 11, 2016 10:00 AM CURRENT SMOKER [facility] [place] [facility] Dec 10, 2015 10:39 AM V1-PT NOT INTERESTED IN QUIT TOBACCO USE [facility] [place] [facility] Feb 06, 2015 08:34 AM CURRENT SMOKER 1 1/2 Packs per week [facility] [place] [facility] Feb 06, 2015 08:34 AM V1-PT NOT INTERESTED IN QUIT TOBACCO USE [facility] Jul 04, 2013 09:37 AM CURRENT SMOKER pack per week [facility] Jun 24, 2011 08:10 AM V1-PT DECLINES REF TO TOBACCO CESS PRGM [facility] Jun 24, 2011 08:10 AM V1-PT READY TO QUIT TOBACCO USE [facility] Mar 31, 2011 10:12 AM V1-PT DECLINES REF TO TOBACCO CESS PRGM [facility] Mar 31, 2011 10:12 AM V1-PT DECLINES TOBACCO CESSATION MEDS [facility] Mar 31, 2011 10:12 AM V1-PT NOT INTERESTED IN QUIT TOBACCO USE [facility] September 25, 2010 11:03 AM CURRENT SMOKER [facility] September 25, 2010 11:03 AM QUIT TOBACCO USE IN PAST YEAR [facility] Encounter Notes: All associated encounter notes This section contains the clinical notes associated to the Encounter. Date/Time Encounter Note(s) Provider Source Feb 17, 2024 09:59 AM PSYCHOLOGY NOTE: LOCAL TITLE: PSYCHOLOGY NOTE STANDARD TITLE: PSYCHOLOGY NOTE DATE OF NOTE: FEB 17, 2024@09:59 ENTRY DATE: FEB 17, 2024@09:59:32 AUTHOR: NOHEMI MACKEY COSIGNER: URGENCY: STATUS: COMPLETED [facility] Individual Therapy Note Procedure: The patient was seen for a 50-minute F2F individual psychotherapy session focused on treatment of symptoms PTSD and depression. identified with 2 identifiers: [X] Patient Name [...] that are consistent with his values. 2) will learn about and consider trauma-focused therapy to directly address PTSD symptoms if/when clinically appropriate. Progress: spoke about recent interactions with his and his choice to spontaneously take a camping trip last week. [place] considered what he needed from that experience and what he learned through reflection. [place] reflection upon the pain related to his 's infidelity and his personal values. He discussed his choice to invest in strengthening his marriage. [place] committed to continue to invest in listening [...] emergency resources through this [facility] and the [facility] number. Thus, current assessment of risk for suicide and homicide is low. DSM 5 Diagnostic Impressions: PTSD, Chronic Major Depressive Disorder, recurrent Plan: [place]'s next visit is scheduled for Friday, March 01, 2024 at 9am F2F ~~~ PCT Psychotherapy Tracking Today's psychotherapy session was part of a standardized episode of Other PTSD Psychotherapy (e.g. supportive therapy): Other: mix of CBT/ACT /es/ Nohemi Mackey, PhD Clinical Psychologist, [facility] Signed: 02/17/2024 10:11 NOHEMI MACKEY IN [facility]
--- OUTSIDE RECORDS SUMMARY | 2024-06-19 13:39 | XMS_ITS ---
Author Name Department of Vetera ns Affairs (MD) Organization Department of Veter[facility] Affairs ([place]) Address [address] [place] [address] Care Team Providers Care Skein Yarn Dyer Name Role Phone PANCHO HAINESA Primary Care [...] Name Patient's Relationship to Policy Huitron BCBS [facility] CE ORGANIZAT ION [facility] FIRE DEPT May 09, 2023 [id number] [phone] JAMAAL ALTMAN SE PATIENT [place] PRESCRIPT ION [place] Nov 07, 2023 [id number] [phone] SOFÍA ALTMAN JR PATIENT SILVERNA PREFERRED PROVIDER ORGANIZAT ION (PPO) [facility] Nov 06, 2016 [id number] [phone] JAMAAL ALTMAN SE PATIENT CIGNA POINT OF SERVICE [facility] Nov 06, 2016 [id number] 0001 JAMAAL ALTMAN SE PATIENT [employer] BEHAVIORAL HEALTH MENTAL HEALTH [facility] Nov 06, 2016 [id number] 0001 JAMAAL ALTMAN SE PATIENT CIGNA PHARMACY PRESCRIPT ION [facility] Nov 06, 2016 [id number] JAMAAL ALTMAN SE PATIENT [facility] ORGAN Nov 06, 2009 [id number] JAMAAL ALTMAN SE PATIENT Selected Encounter This section includes the information on record at MD for the Encounter. Date/Time Encounter Type Encounter Description Reason Pro vider Source Apr 20, 2024 08:30 AM Outpatient Encounter [facility] Encounter Template Text not used by MD Plan of Treatment: Future Appointments (+ 6 months) and Future Tests (+/- 45 days) The Plan of Treatment section includes future care activities for the patient from all MD treatmentfacilities. This section includes future appointments and future orders which are active, pending or scheduled. Future Appointments This section includes appointments that were scheduled to occur 6 months from the date of the Encounter, up to a maximum of 20 appointments. The data comes from all MD treatment facilities. Appointment Date/Time Appointment Type Appointme nt Facility Name Apr 27, 2024 08:30 AM AMBULATORY - PSYCHIATRY [facility] [place] [facility] May 31, 2024 10:30 AM AMBULATORY - MEDICINE [facility] [place] [facility] Jun 28, 2024 10:30 AM AMBULATORY - MEDICINE [facility] [place] [facility] Jul 05, 2024 09:00 AM AMBULATORY - MEDICINE [facility] [place] [facility] Jul 06, 2024 08:30 AM AMBULATORY - PSYCHIATRY [facility] [place] [facility] Jul 06, 2024 09:00 AM AMBULATORY - MEDICINE [facility] [place] [facility] Jul 13, 2024 08:30 AM AMBULATORY - PSYCHIATRY [facility] [place] [facility] Jul 20, 2024 08:30 AM AMBULATORY - PSYCHIATRY [facility] [place] [facility] Jul 27, 2024 08:30 AM AMBULATORY - PSYCHIATRY [facility] [place] [facility] September 13, 2024 01:30 PM AMBULATORY - MEDICINE [facility] [place] [facility] Active, Pending, and Scheduled Orders This section includes a listing of several types of active, pending, and scheduled orders, including clinic medications orders, diagnostic test orders, procedure orders and consult orders; where the start date of the order is 45 days before the date of the Encounter or 45 days after the date of theEncounter. The data comes from all MD treatment facilities. Test Date/Time Test Type Test Details Facility Name May 31, 2024 10:51 AM Consult Order [facility] Cons Textiles And Clothing Teacher's Choice [facility] [place] [facility] May 31, 2024 11:15 AM Consult Order PHARMACY/N HM OUTPT Cons [employer] Teacher's Choice [facility] [place] [facility] Social History: Smoking Status (Most current) and Tobacco Use (All prior to encounter date) This section includes the most current, and the historical, smoking and tobacco- related health factors from the MD facility where the Encounter took place. Current Smoking Status This section includes the most current smoking, or tobacco-related health factor, from the VA facility where the Encounter took place. Date/Time Current Smoking Status Comment [facility] it Jun 08, 2023 09:30 AM [facility] Tobacco Use History This section includes a history of the smoking, or tobacco-related health factors, that were collected on or before the date of the Encounter. The data comes from the MD facility where the Encounter took place. Date/Time Smoking Status/Tobac co Use Comment Facility Jun 08, 2023 09:30 AM VA-TOBACCO USE ADVICE [facility] [place] [facility] Jun 08, 2023 09:30 AM VA-TOBACCO USE HAT MODEL NO MD [facility] [place] [facility] Jun 08, 2023 09:30 AM VA-TOBACCO USE MED NO MD [facility] [place] [facility] Jun 08, 2023 09:30 AM VA-TOBACCO USE WI 30 MIN OF WAKEUP [facility] [place] [facility] Jun 08, 2023 09:30 AM VA-TOBACCO USER EVERY DAY [facility] [place] [facility] Jun 23, 2022 09:00 AM VA-TOBACCO FORMER USER [facility] [place] [facility] Jun 23, 2022 09:00 AM VA-TOBACCO QUIT < 1 YEAR [facility] [place] [facility] May 18, 2021 11:00 AM VA-TOBACCO USE > 15 LESS THAN 30 YEARS [facility] [place] [facility] May 18, 2021 11:00 AM VA-TOBACCO USE ADVICE [facility] [place] [facility] May 18, 2021 11:00 AM VA-TOBACCO USE HAT MODEL NO [facility] [place] [facility] May 18, 2021 11:00 AM VA-TOBACCO USE MED NO [facility] [place] [facility] May 18, 2021 11:00 AM VA-TOBACCO USE WI 30 MIN OF WAKEUP [facility] [place] [facility] May 18, 2021 11:00 AM VA-TOBACCO USER SOME DAYS [facility] [place] [facility] Jul 31, 2018 08:47 AM VA-TOBACCO DOESNT USE WI 30 MIN WAKEUP [facility] [place] [facility] Jul 31, 2018 08:47 AM VA-TOBACCO USE > 15 LESS THAN 30 YEARS [facility] [place] [facility] Jul 31, 2018 08:47 AM VA-TOBACCO USE ADVICE MD [facility] [place] [facility] Jul 31, 2018 08:47 AM VA-TOBACCO USE HAT MODEL NO MD [facility] [place] [facility] Jul 31, 2018 08:47 AM VA-TOBACCO USE MED NO [facility] [place] [facility] Jul 31, 2018 08:47 AM VA-TOBACCO USER SOME DAYS [facility] [place] [facility] Jan 30, 2018 09:19 AM QUIT TOBACCO USE IN PAST YEAR a month ago [facility] [place] [facility] Jul 28, 2017 09:31 AM CURRENT SMOKER 2 cigarettes per day [facility] [place] [facility] Dec 08, 2016 08:49 AM CURRENT SMOKER [facility] [place] [facility] Dec 08, 2016 08:49 AM V1-PT NOT INTERESTED IN QUIT TOBACCO USE [facility] [place] [facility] Jun 11, 2016 10:00 AM CURRENT SMOKER [facility] [place] [facility] Dec 10, 2015 10:39 AM V1-PT NOT INTERESTED IN QUIT TOBACCO USE [facility] Feb 06, 2015 08:34 AM CURRENT SMOKER 1 1/2 Packs per week [facility] Feb 06, 2015 08:34 AM V1-PT NOT INTERESTED IN QUIT TOBACCO USE [facility] Jul 04, 2013 09:37 AM CURRENT SMOKER pack per week [facility] Jun 24, 2011 08:10 AM V1-PT DECLINES REF TO TOBACCO CESS PRGM [facility] Jun 24, 2011 08:10 AM V1-PT READY TO QUIT TOBACCO USE [facility] Mar 31, 2011 10:12 AM V1-PT DECLINES REF TO TOBACCO CESS PRGM [facility] Mar 31, 2011 10:12 AM V1-PT DECLINES TOBACCO CESSATION MEDS [facility] Mar 31, 2011 10:12 AM V1-PT NOT INTERESTED IN QUIT TOBACCO USE [facility] September 25, 2010 11:03 AM CURRENT SMOKER [facility] September 25, 2010 11:03 AM QUIT TOBACCO USE IN PAST YEAR [facility] Encounter Notes: All associated encounter notes This section contains the clinical notes associated to the Encounter. Date/Time Encounter Note(s) Provider Source Apr 20, 2024 08:36 AM ADMINISTRATIVE NOT E: LOCAL TITLE: ADMINISTRATIVE NOTE STANDARD TITLE: ADMINISTRATIVE NOTE DATE OF NOTE: APR 20, 2024@08:36 ENTRY DATE: APR 20, 2024@08:37:02 AUTHOR: NOHEMI MACKEY EXP COSIGNER: URGENCY: STATUS: COMPLETED Saw that [place] cancelled the appointment for this morning. Called and spoke with him. He apologized for an unexpected work conflict. Agreed to meet next week on Tuesday, April 27, 2024 at 8:30am F2F. Also discussed appointment scheduling and agreed to plan for May. No evidence of immminent risk. [place] thanked rfp writer for the call. /ever/ Nohemi Mackey, PhD Clinical Psychologist, [facility] Signed: 04/20/2024 08:38 NOHEMI MACKEY [facility]
--- OUTSIDE RECORDS SUMMARY | 2024-06-19 13:39 | XMS_ITS ---
Author Name [facility] [place] Organization [place] Address [address] [place] [address] Care Team Providers Care Police Officer Name Role Phone PANCHO HAINESA Primary Care [...] Name Patient's Relationship to Policy Huitron BCBS [facility] CE ORGANIZAT ION [facility] FIRE DEPT May 09, 2023 [id number] JAMAAL ALTMAN SE PATIENT [place] PRESCRIPT ION [place] Nov 07, 2023 [id number] [phone] SOFÍA ALTMAN JR PATIENT SILVERNA PREFERRED PROVIDER ORGANIZAT ION (PPO) [facility] Nov 06, 2016 [id number] [phone] JAMAAL ALTMAN SE PATIENT CIGNA POINT OF SERVICE [facility] Nov 06, 2016 [id number] 0001 JAMAAL ALTMAN SE PATIENT CIGNA BEHAVIORAL HEALTH MENTAL HEALTH [facility] Nov 06, 2016 [id number] JAMAAL ALTMAN SE PATIENT CIGNA PHARMACY PRESCRIPT ION [facility] Nov 06, 2016 [id number] JAMAAL ALTMAN SE PATIENT [facility] ORGAN Nov 06, 2009 [id number] JAMAAL ALTMAN SE PATIENT Selected Encounter This section includes the information on record at PA for the Encounter. Date/Time Encounter Type Encounter Description Reason Pro vider Source May 22, 2024 11:37 AM Outpatient Encounter [facility] Encounter Template Text not used by PA Plan of Treatment: Future Appointments (+ 6 months) and Future Tests (+/- 45 days) The Plan of Treatment section includes future care activities for the patient from all PA treatmentfacilities. This section includes future appointments and future orders which are active, pending or scheduled. Future Appointments This section includes appointments that were scheduled to occur 6 months from the date of the Encounter, up to a maximum of 20 appointments. The data comes from all PA treatment facilities. Appointment Date/Time Appointment Type Appointme nt Facility Name May 31, 2024 10:30 AM AMBULATORY - MEDICINE [facility] [place] [facility] Jun 28, 2024 10:30 AM AMBULATORY - MEDICINE [facility] [place] [facility] Jul 05, 2024 09:00 AM AMBULATORY - MEDICINE [facility] [place] [facility] Jul 06, 2024 08:30 AM AMBULATORY - PSYCHIATRY [facility] [place] [facility] Jul 06, 2024 09:00 AM AMBULATORY - MEDICINE [facility] [place] [facility] Jul 13, 2024 08:30 AM AMBULATORY - PSYCHIATRY [facility] [place] [facility] Jul 20, 2024 08:30 AM AMBULATORY - PSYCHIATRY [facility] [place] [facility] Jul 27, 2024 08:30 AM AMBULATORY - PSYCHIATRY [facility] [place] [facility] September 13, 2024 01:30 PM AMBULATORY - MEDICINE [facility] [place] [facility] Active, Pending, and Scheduled Orders This section includes a listing of several types of active, pending, and scheduled orders, including clinic medications orders, diagnostic test orders, procedure orders and consult orders; where the start date of the order is 45 days before the date of the Encounter or 45 days after the date of theEncounter. The data comes from all PA treatment facilities. Test Date/Time Test Type Test Details Facility Name May 31, 2024 10:51 AM Consult Order [facility] Cons Environmental Field Professional's Choice [facility] May 31, 2024 11:15 AM Consult Order PHARMACY/N HM OUTPT Cons Environmental Field Professional's Choice [facility] Lab Results: +/- 30 days of the encounter This section includes the Chemistry and Hematology Lab Results on record with PA for the patient. Radiology Reports and Pathology Reports are provided separately, in subsequent sections. Lab Results This section contains the Chemistry/Hematology Results that were resulted 30 days before or 30 daysafter the date of the Encounter. Date/Time Source Result Type Result - Unit Interpretation Reference Range Comment May 23, 2024 09:30 AM [facility] HEMOGLOBIN A1C PANEL Specimen Type: BLOOD Comment: Values obtained from A1C measurements can vary. For atypical A1C assays, a reported value of 7.0 could actually be between 6.72 and 7.28 if measured by a reference method. A reported value of 9.0 could actually be between 8.73 and 9.27. Ref: http://www.ngs p.org/CAPdata. asp Ordering Provider: SONIA HAINES Report Released Date/Time: May 17, 2024 12:47 PM Reporting Lab: [address] [id number] Performing Lab: [address] [address] HEMOGLOBIN A1C 7.1 H 4.0-5.6 May 23, 2024 09:30 AM [facility] BASIC METABOLIC PANEL (non-fasting) Specimen Type: SERUM No comment entered. Ordering Provider: SONIA HAINES Report Released Date/Time: May 18, 2024 11:38 AM Reporting Lab: [address] [id number] Performing Lab: [place] [facility] [place] [facility] [address] [address] UREA NITROGEN 16 mg/dL 7-25 GLUCOSE 174 mg/dL H 65-100 SODIUM 139 mmol/L 135-145 POTASSIUM 4.3 mmol/L 3.5-5.0 CHLORIDE 103 mmol/L 100-110 CO2 24 meq/L 20-30 CREATININE, Serum 1.15 mg/dL 0.50-1.40 eGFR(CKD-EPI 2020) 77 mL/min >60 Social History: Smoking Status (Most current) and Tobacco Use (All prior to encounter date) This section includes the most current, and the historical, smoking and tobacco- related health factors from the PA facility where the Encounter took place. Current Smoking Status This section includes the most current smoking, or tobacco-related health factor, from the PA facility where the Encounter took place. Date/Time Current Smoking Status Comment [facility] Jun 08, 2023 09:30 AM VA-TOBACCO USER EVERY DAY [facility] Tobacco Use History This section includes a history of the smoking, or tobacco-related health factors, that were collected on or before the date of the Encounter. The data comes from the PA facility where the Encounter took place. Date/Time Smoking Status/Tobac co Use Comment Facility Jun 08, 2023 09:30 AM VA-TOBACCO USE ADVICE [facility] [place] [facility] Jun 08, 2023 09:30 AM VA-TOBACCO USE CAR AUDIO INSTALLER NO [facility] [place] [facility] Jun 08, 2023 09:30 AM VA-TOBACCO USE MED NO [facility] [place] [facility] Jun 08, 2023 09:30 AM VA-TOBACCO USE WI 30 MIN OF WAKEUP [facility] [place] [facility] Jun 08, 2023 09:30 AM VA-TOBACCO USER EVERY DAY [facility] [place] [facility] Jun 23, 2022 09:00 AM VA-TOBACCO FORMER USER [facility] [place] [facility] Jun 23, 2022 09:00 AM VA-TOBACCO QUIT < 1 YEAR [facility] [place] [facility] May 18, 2021 11:00 AM VA-TOBACCO USE > 15 LESS THAN 30 YEARS [facility] [place] [facility] May 18, 2021 11:00 AM VA-TOBACCO USE ADVICE [facility] [place] [facility] May 18, 2021 11:00 AM VA-TOBACCO USE CAR AUDIO INSTALLER NO [facility] [place] [facility] May 18, 2021 11:00 AM VA-TOBACCO USE MED NO [facility] [place] [facility] May 18, 2021 11:00 AM VA-TOBACCO USE WI 30 MIN OF WAKEUP [facility] [place] [facility] May 18, 2021 11:00 AM VA-TOBACCO USER SOME DAYS [facility] [place] [facility] Jul 31, 2018 08:47 AM VA-TOBACCO DOESNT USE WI 30 MIN WAKEUP [facility] [place] [facility] Jul 31, 2018 08:47 AM VA-TOBACCO USE > 15 LESS THAN 30 YEARS [facility] [place] [facility] Jul 31, 2018 08:47 AM VA-TOBACCO USE ADVICE [facility] [place] [facility] Jul 31, 2018 08:47 AM VA-TOBACCO USE CAR AUDIO INSTALLER NO [facility] [place] [facility] Jul 31, 2018 08:47 AM VA-TOBACCO USE MED NO [facility] [place] [facility] Jul 31, 2018 08:47 AM VA-TOBACCO USER SOME DAYS [facility] [place] [facility] Jan 30, 2018 09:19 AM QUIT TOBACCO USE IN PAST YEAR a month ago [facility] [place] [facility] Jul 28, 2017 09:31 AM CURRENT SMOKER 2 cigarettes per day [facility] [place] [facility] Dec 08, 2016 08:49 AM CURRENT SMOKER [facility] [place] [facility] Dec 08, 2016 08:49 AM V1-PT NOT INTERESTED IN QUIT TOBACCO USE [facility] [place] [facility] Jun 11, 2016 10:00 AM CURRENT SMOKER [facility] [place] [facility] Dec 10, 2015 10:39 AM V1-PT NOT INTERESTED IN QUIT TOBACCO USE [facility] [place] [facility] Feb 06, 2015 08:34 AM CURRENT SMOKER 1 1/2 Packs per week [facility] [place] [facility] Feb 06, 2015 08:34 AM V1-PT [...] the Encounter. Date/Time Encounter Note(s) Provider Source May 22, 2024 11:37 AM ADMINISTRATIVE NOT E: LOCAL TITLE: ADMINISTRATIVE NOTE STANDARD TITLE: ADMINISTRATIVE NOTE DATE OF NOTE: MAY 22, 2024@11:37 ENTRY DATE: MAY 22, 2024@11:37:54 AUTHOR: JEMIMA WALL EXP COSIGNER: URGENCY: STATUS: COMPLETED Care Tech left voicemail message informing that his appointment with BOOGIE/KAREEM/JAY/MARCELLA on 05/25/2024 at 0830 has been cancelled by clinic. was also reminded of his follow-up appointment on 06/01/2024 @ 0830. Letter sent. Thank you. 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 SEXUAL TRAUMA/WOMEN'S PSYCHOLOGIST for JEMIMA DE [facility]
--- OUTSIDE RECORDS SUMMARY | 2024-06-19 13:39 | XMS_ITS | Encounter Summary ---
Author Name [place] Address [address] [place] [address] Care Team Providers Care Sand Technologist Name Role Phone YANCYSONIA Primary Care Provider [...] Huitron's Name Patient's Relationship to Policy [facility] FIRE DEPT May 09, 2023 [id number] JAMAAL ALTMAN SE PATIENT [place] PRESCRIPT ION BCBS [facility] Nov 07, 2023 [id number] SOFÍA ALTMAN JR PATIENT SILVERNA PREFERRED PROVIDER ORGANIZAT ION (PPO) [facility] Nov 06, 2016 [id number] 0001 JAMAAL ALTMAN SE PATIENT CIGNA POINT OF SERVICE [facility] Nov 06, 2016 [id number] 0001 JAMAAL ALTMAN SE PATIENT CIGNA BEHAVIORAL HEALTH MENTAL HEALTH [facility] Nov 06, 2016 [id number] 0001 JAMAAL ALTMAN SE PATIENT [facility] PRES[facility]ON [facility] Nov 06, 2016 [id number] JAMAAL ALTMAN SE PATIENT [facility] ORGAN Nov 06, 2009 [id number] JAMAAL ALTAMN SE PATIENT Selected Encounter This section includes the information on record at [place] for the Encounter. Date/Time Encounter Type Encounter Description Reason Provider Source Oct 28, 2023 09:00 AM PSYTX W PT 45 MINUTES [facility] - IND ICD-10-CM F43.12 Post-traumatic stress disorder, chronic WEISMOORE,MATTIE E IHE Encounter Template Text not used by [place] Assessments - Encounter Diagnoses This section includes the primary and secondary diagnoses documented for the Encounter. Date/Time Primary/Secondary Diagnosis Diagnosis Name Provider Source Nov 24, 2023 04:14 PM PRIMARY Post-traumatic stress disorder, chronic WEISMOORE,MATTIE E [facility] [place] [facility] Nov 24, 2023 04:14 PM SECONDARY Major depressive disorder, recurrent, unspecified WEISMOORE,MATTIE E [facility] Plan of Treatment: Future Appointments (+ 6 months) and Future Tests (+/- 45 days) The Plan of Treatment section includes future care activities for the patient from all [place] treatmentfacilities. This section includes future appointments and future orders which are active, pending or scheduled. Future Appointments This section includes appointments that were scheduled to occur 6 months from the date of the Encounter, up to a maximum of 20 appointments. The data comes from all [place] treatment facilities. Appointment Date/Time Appointment Type Appointme nt Facility Name Nov 24, 2023 09:30 AM AMBULATORY - MEDICINE [facility] [place] [facility] Nov 25, 2023 09:00 AM AMBULATORY - PSYCHIATRY [place] [facility] [place] [facility] Dec 02, 2023 09:00 AM [facility] Dec 08, 2023 09:00 AM AMBULATORY - REHAB [facility]ICIN E [facility] Dec 09, 2023 09:00 AM AMBULATORY - PSYCHIATRY [facility] [place] [facility] Dec 16, 2023 08:30 AM AMBULATORY - MEDICINE [facility] [place] [facility] Dec 23, 2023 09:00 AM AMBULATORY - PSYCHIATRY [facility] [place] [facility] Jan 06, 2024 09:00 AM AMBULATORY - PSYCHIATRY [facility] [place] [facility] Jan 20, 2024 09:00 AM AMBULATORY - PSYCHIATRY [facility] [place] [facility] Feb 03, 2024 09:00 AM AMBULATORY - PSYCHIATRY [facility] [place] [facility] Feb 17, 2024 09:00 AM AMBULATORY - PSYCHIATRY [place] [facility] [place] [facility] Feb 28, 2024 08:00 AM AMBULATORY - MEDICINE [place] C [facility] [place] [facility] Mar 16, 2024 08:30 AM AMBULATORY - PSYCHIATRY [place] [facility] [place] [facility] Apr 27, 2024 08:30 AM AMBULATORY - PSYCHIATRY [place] [facility] [place] [facility] Active, Pending, and Scheduled Orders This section includes a listing of several types of active, pending, and scheduled orders, including clinic medications orders, diagnostic test orders, procedure orders and consult orders; where the start date of the order is 45 days before the date of the Encounter or 45 days after the date of theEncounter. The data comes from all [place] treatment [facility]. Test Date/Time Test Type Test Details Facility Name Nov 09, 2023 12:00 AM Laboratory - Chemistry Order BASIC METABOLIC PANEL (fasting) BLOOD (SST-SERUM) [facility] [place] [facility] Nov 09, 2023 12:00 AM Laboratory - Chemistry Order LIPID PANEL FASTING BLOOD (SST-SERUM) [facility] [place] [facility] Nov 09, 2023 12:00 AM Laboratory - Chemistry Order HEMOGLOBIN A1C PANEL BLOOD (LAV-BLOOD) [facility] Social History: Smoking Status (Most current) and Tobacco Use (All prior to encounter date) This section includes the most current, and the historical, smoking and tobacco- related health factors from the [place] facility where the Encounter took place. Current Smoking Status This section includes the most current smoking, or tobacco-related health factor, from the [place] facility where the Encounter took place. Date/Time Current Smoking Status Comment [facility] it Jun 08, 2023 09:30 AM VA-TOBACCO USER EVERY DAY [place] [facility] [facility] Tobacco Use History This section includes a history of the smoking, or tobacco-related health factors, that were collected on or before the date of the Encounter. The data comes from the [place] facility where the Encounter took place. Date/Time Smoking Status/Tobac co Use Comment Facility Jun 08, 2023 09:30 AM VA-TOBACCO USE ADVICE [facility] [place] [facility] Jun 08, 2023 09:30 AM VA-TOBACCO USE AUDIO TECHNICIAN NO [facility] [place] [facility] Jun 08, 2023 09:30 AM VA-TOBACCO USE MED NO [place] [facility] [place] [facility] Jun 08, 2023 09:30 AM VA-TOBACCO USE WI 30 MIN OF WAKEUP [place] [facility] [place] [facility] Jun 08, 2023 09:30 AM VA-TOBACCO USER EVERY DAY [facility] [place] [facility] Jun 23, 2022 09:00 AM VA-TOBACCO FORMER USER [facility] [place] [facility] Jun 23, 2022 09:00 AM VA-TOBACCO QUIT < 1 YEAR [facility] [place] [facility] May 18, 2021 11:00 AM VA-TOBACCO USE > 15 LESS THAN 30 YEARS [facility] [place] [facility] May 18, 2021 11:00 AM VA-TOBACCO USE ADVICE [facility] [place] [facility] May 18, 2021 11:00 AM VA-TOBACCO USE AUDIO TECHNICIAN NO [facility] [place] [facility] May 18, 2021 11:00 AM VA-TOBACCO USE MED NO [place] [facility] [place] [facility] May 18, 2021 11:00 AM VA-TOBACCO USE WI 30 MIN OF WAKEUP [facility] [place] [facility] May 18, 2021 11:00 AM VA-TOBACCO USER SOME DAYS [place] [facility] [place] [facility] Jul 31, 2018 08:47 AM VA-TOBACCO DOESNT USE WI 30 MIN WAKEUP [place] [facility] [place] [facility] Jul 31, 2018 08:47 AM VA-TOBACCO USE > 15 LESS THAN 30 YEARS [place] [facility] [place] [facility] Jul 31, 2018 08:47 AM VA-TOBACCO USE ADVICE [facility] [place] [facility] Jul 31, 2018 08:47 AM VA-TOBACCO USE AUDIO TECHNICIAN NO [place] [facility] [place] [facility] Jul 31, 2018 08:47 AM VA-TOBACCO USE MED NO [facility] [place] [place] [facility] Jul 31, 2018 08:47 AM VA-TOBACCO USER SOME DAYS [place] [facility] [place] [facility] Jan 30, 2018 09:19 AM QUIT TOBACCO USE IN PAST YEAR a month ago [facility] [place] [facility] Jul 28, 2017 09:31 AM CURRENT SMOKER 2 cigarettes per day [place] [facility] [place] [facility] Dec 08, 2016 08:49 AM CURRENT SMOKER [facility] [place] [facility] Dec 08, 2016 08:49 AM V1-PT NOT INTERESTED IN QUIT TOBACCO USE [facility] [place] [facility] Jun 11, 2016 10:00 AM CURRENT SMOKER [place] [facility] [place] [facility] Dec 10, 2015 10:39 AM V1-PT NOT INTERESTED IN QUIT TOBACCO USE [facility] [place] [facility] Feb 06, 2015 08:34 AM CURRENT SMOKER 1 1/2 Packs per week [place] [facility] [place] [facility] Feb 06, 2015 08:34 AM V1-PT NOT INTERESTED IN QUIT TOBACCO USE [place] [facility] [place] [facility] Jul 04, 2013 09:37 AM CURRENT SMOKER pack per week [place] [facility] [place] [facility] Jun 24, 2011 08:10 AM V1-PT DECLINES REF TO TOBACCO CESS [facility] [place] [facility] Jun 24, 2011 08:10 AM V1-PT READY TO QUIT TOBACCO USE [place] [facility] [place] [facility] Mar 31, 2011 10:12 AM V1-PT DECLINES REF TO TOBACCO CESS PRGM [place] [facility] [place] [facility] Mar 31, 2011 10:12 AM V1-PT DECLINES TOBACCO CESSATION MEDS [place] [facility] [place] [facility] Mar 31, 2011 10:12 AM V1-PT NOT INTERESTED IN QUIT TOBACCO USE [facility] September 25, 2010 11:03 AM CURRENT SMOKER [facility] September 25, 2010 11:03 AM QUIT TOBACCO USE IN PAST YEAR [facility] Encounter Notes: All associated encounter notes This section contains the clinical notes associated to the Encounter. Date/Time Encounter Note(s) Provider Source Oct 28, 2023 10:04 AM PSYCHOLOGY NOTE: LOCAL TITLE: PSYCHOLOGY NOTE STANDARD TITLE: PSYCHOLOGY NOTE DATE OF NOTE: OCT 28, 2023@10:04 ENTRY DATE: OCT 28, 2023@10:04:22 AUTHOR: NOHEMI MACKEY COSIGNER: URGENCY: STATUS: COMPLETED Outpatient [facility] Individual Therapy Note Procedure: The patient was seen for a 50-minute F2F individual psychotherapy session focused on treatment of symptoms PTSD and depression. Orange identified with 2 identifiers: [X] Patient Name [X] Visual recognition The Outpatient Individual Psychotherapy Services Agreement was reviewed with this provider on 10/28/2023. Agreed to meet for 12 weekly individual therapy appointments utilizing Cognitive Processing Therapy to process childhood trauma. Problem: Difficulty managing PTSD and depressive symptoms Objectives: 1) Orange will engage in individual, weekly psychotherapy to increase his ability to tolerate distressing emotional experiences and to engage in behaviors that are consistent with his values. 2) Orange will learn about and consider trauma-focused therapy to directly address PTSD symptoms if/when clinically appropriate. Progress: Orange spoke about his recent experiences with his mother. He reflected on the pain he feels related to her behaviors and his hopes to feel cared about and treated with the same kindness she extends to other family members. considered how her behavior may not change and that he needs to further process what happened in order to move forward in his life. spoke about his upcoming schedule and work related stressors, requesting to begin CPT in next session. Agreed to do so. Orange committed to prioritize studying for a work exam that will potentially advance his career. Assessment: Orange arrived on time for session and was [...] emergency resources through this [facility] and the Veterans Crisis Line number. Thus, current assessment of risk for suicide and homicide is low. DSM 5 Diagnostic Impressions: PTSD, Chronic Major Depressive Disorder, recurrent Plan: 's next visit is scheduled for November at 2pm F2F. ~~~ PCT Psychotherapy Tracking Today's psychotherapy session was part of a standardized episode of Other PTSD Psychotherapy (e.g. supportive therapy): Other: CBT with plan to start CPT in next session /es/ Nohemi Mackey, PhD Clinical Psychologist, Mental Health Clinic Signed: 10/28/2023 10:12 NOHEMI MACKEY [place] [facility]L [facility]
--- OUTSIDE RECORDS SUMMARY | 2024-06-19 13:39 | XMS_ITS | Encounter Summary ---
Author Name [place] Address [address] [place] [address] Care Team Providers Care Repairer General Name Role Phone PANCHO HAINESA Primary Care [...] Name Patient's Relationship to Policy Huitron BCBS [facility] CE ORGANIZAT ION [facility] FIRE DEPT May 09, 2023 [id number] JAMAAL ALTMAN SE PATIENT [place] PRESCRIPT ION [place] Nov 07, 2023 [id number] [phone] SOFÍA ALTMAN JR PATIENT SILVERNA PREFERRED PROVIDER ORGANIZAT ION (PPO) [facility] Nov 06, 2016 [id number] [phone] JAMAAL ALTMAN SE PATIENT CIGNA POINT OF SERVICE [facility] Nov 06, 2016 [id number] JAMAAL ALTMAN SE PATIENT CIGNA BEHAVIORAL HEALTH MENTAL HEALTH [facility] Nov 06, 2016 [id number] 0001 JAMAAL ALTMAN SE PATIENT [facility] PRESCRIPT ION [facility] Nov 06, 2016 [id number] JAMAAL ALTMAN SE PATIENT [facility] ORGAN Nov 06, 2009 [id number] JAMAAL ALTMAN SE PATIENT Selected Encounter This section includes the information on record at [place] for the Encounter. Date/Time Encounter Type Encounter Description Reason Pro vider Source Jun 08, 2024 08:30 AM Outpatient Encounter [facility] Encounter Template Text not used by [place] Plan of Treatment: Future Appointments (+ 6 months) and Future Tests (+/- 45 days) The Plan of Treatment section includes future care activities for the patient from all [place] treatmentfacilities. This section includes future appointments and future orders which are active, pending or scheduled. Future Appointments This section includes appointments that were scheduled to occur 6 months from the date of the Encounter, up to a maximum of 20 appointments. The data comes from all [place] treatment facilities. Appointment Date/Time Appointment Type Appointme nt Facility Name Jun 28, 2024 10:30 AM AMBULATORY - MEDICINE [place] [facility] Jul 05, 2024 09:00 AM AMBULATORY - MEDICINE [place] C [place] [facility] Jul 06, 2024 08:30 AM AMBULATORY - PSYCHIATRY [place] [facility] [place] [facility] Jul 06, 2024 09:00 AM AMBULATORY - MEDICINE [place] C [place] [facility] Jul 13, 2024 08:30 AM AMBULATORY - PSYCHIATRY [place] [facility] [place] [facility] Jul 20, 2024 08:30 AM AMBULATORY - PSYCHIATRY [facility] [place] [facility] Jul 27, 2024 08:30 AM AMBULATORY - PSYCHIATRY [place] [facility] [place] [facility] September 13, 2024 01:30 PM AMBULATORY - MEDICINE [place] C [facility] [facility] Nov 29, 2024 09:00 AM AMBULATORY - MEDICINE [place] C [place] [facility] Active, Pending, and Scheduled Orders This section includes a listing of several types of active, pending, and scheduled orders, including clinic medications orders, diagnostic test orders, procedure orders and consult orders; where the start date of the order is 45 days before the date of the Encounter or 45 days after the date of theEncounter. The data comes from all [place] treatment facilities. 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 Radiology Reports and Pathology Reports are provided separately, in subsequent sections. Lab Results This section contains the Chemistry/Hematology Results that were resulted 30 days before or 30 daysafter the date of the Encounter. Date/Time Source Result Type Result - Unit Interpretation Reference Range Comment May 23, 2024 09:30 AM [facility] HEMOGLOBIN A1C PANEL Specimen Type: BLOOD Comment: [...] May 17, 2024 12:47 PM Reporting Lab: [address] [id number] Performing Lab: [address] [address] HEMOGLOBIN A1C 7.1 H 4.0-5.6 May 23, 2024 09:30 AM [facility] BASIC METABOLIC PANEL (non-fasting) Specimen Type: SERUM No comment entered. Ordering Provider: SNOIA HAINES Report Released Date/Time: May 18, 2024 11:38 AM Reporting Lab: [address] [address] Performing Lab: [place] [facility] [address] [facility] [address] UREA NITROGEN 16 mg/dL 7-25 GLUCOSE 174 [...] and tobacco- related health factors from the [place] facility where the Encounter took place. Current Smoking Status This section includes the most current smoking, or tobacco-related health factor, from the [place] facility where the Encounter took place. Date/Time Current Smoking Status Comment [facility] May 31, 2024 10:30 AM VA-TOBACCO USE [place] RY DAY CIGARETTES [place] [facility] Tobacco Use History This section includes a history of the smoking, or tobacco-related health factors, that were collected on or before the date of the Encounter. The data comes from the [place] facility where the Encounter took place. Date/Time Smoking Status/Tobac co Use Comment Facility May 31, 2024 10:30 AM VA-TOBACCO USE EVERY DAY CIGARETTES [place] [facility] Jun 08, 2023 09:30 AM VA-TOBACCO USE > 15 LESS THAN 30 YEARS [place] [facility] [facility] Jun 08, 2023 09:30 AM VA-TOBACCO USE ADVICE [place] [facility] [facility] Jun 08, 2023 09:30 AM VA-TOBACCO USE SATELLITE INSTALLER NO [place] [facility] [facility] Jun 08, 2023 09:30 AM VA-TOBACCO USE MED NO [place] [facility] Jun 08, 2023 09:30 AM VA-TOBACCO USE [place] 30 MIN OF WAKEUP [place] [facility] Jun 08, 2023 09:30 AM VA-TOBACCO USER EVERY DAY [place] [facility] [facility] Jun 23, 2022 09:00 AM VA-TOBACCO FORMER USER [place] [facility] [place] [facility] Jun 23, 2022 09:00 AM VA-TOBACCO QUIT < 1 YEAR [place] [facility] [place] [facility] May 18, 2021 11:00 AM VA-TOBACCO USE > 15 LESS THAN 30 YEARS [place] [facility] [place] [facility] May 18, 2021 11:00 AM VA-TOBACCO USE ADVICE [place] [facility] [place] [facility] May 18, 2021 11:00 AM VA-TOBACCO USE SATELLITE INSTALLER NO [facility] [facility] May 18, 2021 11:00 AM VA-TOBACCO USE MED NO [place] [facility] [place] [facility] May 18, 2021 11:00 AM VA-TOBACCO USE [place] 30 MIN OF WAKEUP [place] [facility] May 18, 2021 11:00 AM VA-TOBACCO USER SOME DAYS [place] [facility] [place] [facility] Jul 31, 2018 08:47 AM VA-TOBACCO DOESNT USE [place] 30 MIN WAKEUP [place] [facility] Jul 31, 2018 08:47 AM VA-TOBACCO USE > 15 LESS THAN 30 YEARS [place] [facility] [place] [facility] Jul 31, 2018 08:47 AM VA-TOBACCO USE ADVICE [place] [facility] [facility] Jul 31, 2018 08:47 AM VA-TOBACCO USE 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 INSTALLER NO [place] [facility] Jul 31, 2018 08:47 AM VA-TOBACCO USE MED NO [place] [facility] Jul 31, 2018 08:47 AM VA-TOBACCO USER SOME DAYS [place] [facility] [place] [facility] Jan 30, 2018 09:19 AM QUIT TOBACCO USE IN PAST YEAR a month ago [place] [facility] [place] [facility] Jul 28, 2017 09:31 AM CURRENT SMOKER 2 cigarettes per day [facility] [facility] Dec 08, 2016 08:49 AM CURRENT SMOKER [facility] [facility] Dec 08, 2016 08:49 AM V1-PT NOT INTERESTED IN QUIT TOBACCO USE [facility] [place] [facility] Jun 11, 2016 10:00 AM CURRENT SMOKER [place] [facility] [facility] Dec 10, 2015 10:39 AM V1-PT NOT INTERESTED IN QUIT TOBACCO USE [facility] Feb 06, 2015 08:34 AM CURRENT SMOKER 1 1/2 Packs per week [facility] Feb 06, 2015 08:34 AM V1-PT NOT INTERESTED IN QUIT TOBACCO USE [facility] Jul 04, 2013 09:37 AM CURRENT SMOKER pack per week [facility] Jun 24, 2011 08:10 AM V1-PT DECLINES REF TO TOBACCO CESS PRGM [facility] Jun 24, 2011 08:10 AM V1-PT READY TO QUIT TOBACCO USE [facility] Mar 31, 2011 10:12 AM V1-PT DECLINES REF TO TOBACCO CESS PRGM [facility] Mar 31, 2011 10:12 AM V1-PT DECLINES TOBACCO CESSATION MEDS [facility] Mar 31, 2011 10:12 AM V1-PT NOT INTERESTED IN QUIT TOBACCO USE [facility] September 25, 2010 11:03 AM CURRENT SMOKER [facility] September 25, 2010 11:03 AM QUIT TOBACCO USE IN PAST YEAR [facility] Encounter Notes: All associated encounter notes This section contains the clinical notes associated to the Encounter. Date/Time Encounter Note(s) Provider Source Jun 14, 2024 09:31 AM ADMINISTRATIVE NOT E: LOCAL TITLE: ADMINISTRATIVE NOTE STANDARD TITLE: ADMINISTRATIVE NOTE DATE OF NOTE: JUN 14, 2024@09:31 ENTRY DATE: JUN 14, 2024@09:31:21 AUTHOR: ONHEMI MACKEY EXP COSIGNER: URGENCY: STATUS: COMPLETED Called and spoke to to reschedule individual therapy appointments given signwriter's unexpected FMLA. indicated a preference to resume in a few weeks F2F rather than sooner appointments given caretaking for his mother. Agreed to four weekly individual therapy appointments F2F on Fridays at 8:30am beginning 07/06/24. No evidence of imminent risk. Confirmed has signwriter's phone number and will call to reschedule if needed. thanked signwriter for the call. /ever/ Nohemi Mackey, PhD Clinical Psychologist, Mental Health Clinic Signed: 06/14/2024 09:32 NOHEMI MACKEY [place] [facility] [facility]
--- OUTSIDE RECORDS SUMMARY | 2024-06-19 13:39 | XMS_ITS ---
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 Name Role Phone Ramone Blevins Primary Care Provider Allergies Allergen (clinical drug ingredient) Drug/Non Drug Allergy documented on EMR Reaction Allergy Type Onset Date Status No Known Drug Allergy Unknown Drug Allergy Active Reason For Referral Reason consult and treatmen t severe left arm and hand pain Diagnosis 1 Pain of left upper e xtremity (M79.602) Diagnosis 2 Hand pain, left (M79 .642) Referral Organization Ramone Blevins III, MD Referring Provider First Name Ramone Referring Provider Last Name Felicity Referring Provider Speciality Internal M edicine Referred Provider [facility] [place] Referred Provider Specialty Physical Med icine General Notes Bebe Aguilar CMA 06/19 09:33:37 AM > ref/demo/progress [facility] Referral Priority Routine REASON FOR VISIT Left arm pain x 6 days, Bilateral hand pain x 2 weeks, Left shoulder pain projects down the back x 6 days Medications Medication SIG (Take, Route, Frequency, Duration) Notes Start Date End Date Status Atenolol 100 MG 1 tablet Orally Twic e a day BIB Active Mounjaro 2.5 MG/0.5ML as directed Subcutaneous weeky disp one months supply please 05/21/2024 Active Pantoprazole Sodium 40 MG 1 tablet Orally Once a day 03/11/2020 Active Rosuvastatin Calcium 20 MG 1 tablet Orally Once a day Active metFORMIN HCl 500 MG 2 tablet in the morning Orally Twice a day Active Benzonatate 200 MG 1 capsule Orally Three times a day 10/20/2023 Active Social History Tobacco Use: Social History Observation Description Date Details (start date - stop date) Never Smoker NA - NA Sex Assigned At : Social History Observation Description Sex Assigned At Male Tobacco Use/Smoking Question Answer Notes Patient is a nonsmoker Alcohol Screen Question Answer Notes Did you have a drink containing alcohol in the p ast year? No Points 0 Interpretation Negative Problems Problem Type SNOMED Code ICD Code Onset Dates Problem Status W/U Status Risk Notes Problem [id number] Left arm pain (M79.602 ) Active confirmed The cause is unclear. I have referred him to physiatry for definitive diagnosis and recommendations patient's for treatment. Vital Signs Temperature 98.2 degrees Fahrenheit 06/18/19 25 Blood pressure systolic 139 mm Hg 06/18/19 25 Blood pressure diastolic 76 mm Hg 025 Heart Rate 65 /min 06/18/2024 Height 58 in 06/18/2024 Weight 236 lbs 06/18/2024 BMI 49.32 kg/m2 06/18/2024 Encounters Encounter Location Date Provider Diagnosis Ramone Blevins III, MD [address] [place] [address] [place] [address] 06/18/2024 Ramone Blevins Left arm pain M79.60 2 ; Hyperlipidemia, unspecified E78.5 ; Sciatica, unspecified laterality M54.30 ; Essential hypertension I10 ; Sleep apnea G47.30 and Morbid obesity E66.01 Assessments Encounter Date Diagnosis (ICD Code) Assessment Notes Treatment Notes Treatment Clinical Notes 06/18/2024 Left arm pain (ICD-10 - M79.602) The cause is unclear. I have referred him to physiatry for definitive diagnosis and recommendations patient's for treatment. 06/18/2024 Hyperlipidemia, unspecified (ICD-10 - E78.5) The most recent fasting lipid profile shows good control of his lipids. No change in his medications was necessary today.He was unable to have blood work prior to today and will have it done in the next week. 06/18/2024 Sciatica, unspecified laterality (ICD-10 - M54.30) His sciatica has not been bothering him lately and no change in his regimen is necessary. 06/18/2024 Essential hypertension (ICD-10 - I10) His blood pressure has been stable and current medications was continued without change. 06/18/2024 Sleep apnea (ICD-10 - G47.30) He is not using the CPAP. He says it makes a=no significant difference in the quality of his day. [facility]. 06/18/2024 Morbid obesity (ICD-10 - E66.01) He has lost 4 pounds. She continues to lose weight at this rate he will do well. We discussed the use of injectable semaglutide at length. Plan Of Treatment Medication Medication Name Sig Start Date Stop Date Notes Atenolol 100 MG 1 tablet Orally Twic e a day BIB Mounjaro 2.5 MG/0.5ML as directed Subcutaneous weeky 05/21/2024 disp one months supply please Pantoprazole Sodium 40 MG 1 tablet Orally Once a day 03/11/2020 Rosuvastatin Calcium 20 MG 1 tablet Orally Once a day metFORMIN HCl 500 MG 2 tablet in the mor eloy Orally Twice a day Benzonatate 200 MG 1 capsule Orally Thr ee times a day 10/20/2023 Referrals Referral Date Details 06/18/2024 06/18/2024, consult and treatment severe left arm and hand pain, [facility] Next Appt Details Follow Up: 14 day recheck, I n two weeks, Reason: OV no tests, To monitor the patient's left hand and arm pain Provider Name:Ramone Blevins, 07/02/2024 03:45:00 PM, [address] [place] [address] [address], [place], [address], Provider Name:Ramone Blevins, 09/28/2024 10:00:00 AM, [address] [place] [address] [address], [place], [address], Progress Notes * Robby GUZMAN JrDOB: [birth year] (49 yo M)Acc No.[id number]:06/18/2024 Progress Notes Patient:?Robby GUZMAN Jr Provider:?Ramone Blevins MD :[id number]???Age:49 Y???Sex:Male Jax e:06/18/2024 Address:[address] [place] [address] [address] [id number] Subjective: * Chief Complaints: * ???Left arm pain x 6 daysBil ateral hand pain x 2 weeksLeft shoulder pain projects down the back x 6 days * HPI: ???COVID-19 Screening:?Questions?Have you had any new onset fever, chills, cough, congestion, sore throat, shortness of breath, muscle aches??No ???:?The patient, a 49-year-old male, presented with severe pain in his left hand and arm, which he has been experiencing for the past week. The pain has been constant and has increased in intensity, causing significant discomfort. The patient reported that the pain is located in his palm and runs up his arm to his elbow. He also reported some pain in his shoulder blade area. The patient has been using a brace for relief. He has not sustained any injury to his hand or arm and is unsure of the cause of the pain. The patient also reported that his right hand is weak, which has led him to use his left hand more frequently. He believes this could be contributing to his current symptoms. The patient has been dealing with issues in his left hand for some time and has sought treatment through the [place]. However, he has not found relief from his symptoms. Pain Scale is 10. He does not wish to continue therapy at the [facility].? He has? requested a referral to another facility. I have referred him to [facility] in [place], [place]. * ROS:?General/Constitutional:?Admits?pain,?Left arm from dorsum of hand to shoulder.?Chills?denies.?Fatigue?admits.?Fever?denies.?ENT:?Decreased hearing?denies.?Respiratory:?Cough?denies.?Cardiovascular:?Chest pain with exertion?denies.?Dyspnea on exertion?denies.?Shortness of breath?denies.?Gastrointestinal:?Constipation?occasional.?Decreased appetite?denies.?Diarrhea?denies.?Heartburn?occasional.?Nausea?denies.?Rectal bleeding?denies.?Vomiting?denies.?Hematology:?bruising?denies.?petechiae?denies.?Swollen glands?none have been noted.?Genitourinary:?Frequent urination?once a night.?Musculoskeletal:?Muscle aches?Left arm.?Painful joints?denies.?Sciatica?denies.?Weakness?denies.?Skin:?Itching?denies.?Rash?denies.?Skin lesion(s)?denies.?Neurologic:?Difficulty speaking?denies.?Dizziness?denies.?Headache?denies.?Low back pain?denies.?Psychiatric:?Depressed mood?denies.? * Medical History:? * Surgical History:?Carpal manolo el release, Right hand Upper endoscopy [facility] Dayday Manny negative olonoscopy [facility] Manny negative 2Carpal tunel, right hand 05/2022No history * Hospitalization/Major Diagno stic Procedure:?No history * Family History:?Father: kirstie e 62 yrs, stomach ulcer, myocardial infarction, epilepsy, vascular stent in place.?Mother: alive 56 yrs, unknown.?5 brother(s) , 2 sister(s) - healthy. 1 son(s) - healthy. .? He is not aware of any family history of substance use disorder or addiction or mental illness. 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 Smoking: The patient admitted to smoking when he is stressed. * Medications:?TakingBenzonata te 200 MG Capsule 1 capsule Orally Three times a day metFORMIN HCl 500 MG Tablet 2 tablet in the morning Orally Twice a day Rosuvastatin Calcium 20 MG Tablet 1 tablet Orally Once a day Atenolol 100 MG Tablet 1 tablet Orally Twice a day , Notes to Pharmacist: BIBPantoprazole Sodium 40 MG Tablet Delayed Release 1 tablet Orally Once a day Mounjaro 2.5 MG/0.5ML Solution Auto-injector as directed Subcutaneous rell , stop date 11/05/2024, Notes to Pharmacist: disp one months supply pleaseMedication List reviewed and reconciled with the patientTaking Benzonatate 200 MG Capsule 1 capsule Orally Three times a day Taking metFORMIN HCl 500 MG Tablet 2 tablet in the morning Orally Twice a day Taking Rosuvastatin Calcium 20 MG Tablet 1 tablet Orally Once a day Taking Atenolol 100 MG Tablet 1 tablet Orally Twice a day , Notes to Pharmacist: BIBTaking Pantoprazole Sodium 40 MG Tablet Delayed Release 1 tablet Orally Once a day Taking Mounjaro 2.5 MG/0.5ML Solution Auto-injector as directed Subcutaneous rell , stop date 11/05/2024, Notes to Pharmacist: disp one months supply pleaseMedication List reviewed and reconciled with the patient * Allergies:?No Known Drug All ergyno[Allergies Verified] Objective: * Vitals:?Ht: 58, Wt: 236, BMI :49.32, BP: 139/76, HR: 65, Temp: 98.2, Ht-cm: 147.32, Wt-k.05. * Examination: ???General Examination: ?GENERAL APPEARANCE:?pleasant, well nourished, well developed, in no acute distress, calm and relaxed, morbidly obese, man.?HEAD:?atraumatic, normocephalic.?EYES:?eomi, perrla, anicteric, conjugate.?EARS:?normal.?NOSE:?septum intact.?ORAL CAVITY:?normal, unremarkable.?NECK/THYROID:?no jugular venous distention, no carotid bruit, thyroid normal.?LYMPH NODES:?no enlarged lymph nodes,spleen normal.?SKIN:?no suspicious lesions, anicteric.?HEART:?no clicks, gallops, murmurs, or rubs, regular rhythm, S1, S2 normal, no s3, or vascular bruits.?LUNGS:?clear to auscultation .?BREASTS:??no masses palpable bilaterally.?ABDOMEN:?bowel sounds normal, no ascites, no organomegaly, no mass, morbid obesity.?RECTAL EXAM:?not examined.?MUSCULOSKELETAL:?Pain to range of motion of left wrist elbow and shoulder, range of motion of the strength normal,, No pain is generated by range of motion of the neck.?PERIPHERAL PULSES:?normal.?NEUROLOGIC:?alert and oriented, cranial nerves 2-12 grossly intact, deep tendon reflexes 2+ symmetrical, motor strength normal upper and lower extremities, sensory exam intact.?PSYCH:?alert, oriented.? Assessment: * Assessment: 1.?Left arm pain - M79.602 ( Primary)???Notes :The cause is unclear.? I have referred him to physiatry for definitive diagnosis and recommendations patient's for treatment.???2.?Hyperlipidemia, unspecified - E78.5???Notes :The most recent fasting lipid profile shows good control of his lipids. No change in his medications was necessary today.He was unable to have blood work prior to today and will have it done in the next week.???3.?Sciatica, unspecified laterality - M54.30???Notes :His sciatica has not been bothering him lately and no change in his regimen is necessary.???4.?Essential hypertension - I10???Notes :His blood pressure has been stable and current medications was continued without change.???5.?Sleep apnea - G47.30???Notes :He is not using the CPAP. He says it makes a=no significant difference in the quality of his day. [facility]???6.?Morbid obesity - E66.01???Notes :He has lost 4 pounds. She continues to lose weight at this rate he will do well. We discussed the use of injectable semaglutide at length.??? Plan: * Treatment: * Procedure Codes:? * Preventive Medicine:? ??Counseling:?Care goal follow-up plan:?Counseling for abnormal BMI given?Yes ?Above Normal BMI Follow-up?Dietary management education, guidance, and counseling, Dietary needs education, Exercise promotion: strength training, Exercise promotion: stretching, Feeding regime, Giving encouragement to exercise, Lifestyle education regarding diet, Nutrition / feeding management, Nutrition therapy, Prescribed activity/exercise education, Prescribed diet education, Prescribed dietary intake, Special diet education, Weight monitoring , Intervention, Order not done: Medical or Other reason not done * Follow Up:?14 day recheck, I n two weeks (Reason: OV no tests, To monitor the patient's left hand and arm pain) * Images: * Sign off status: Completed true * Provider:?Ramone Blevins MD Date:?06/09 Generated for Riddhi bryan/Kristopher/eTransmitting on:?06/19/2024 01:39 PM EST History and Physical Notes * HPI (History of Present Illness) Category Sub-Category Detail Notes COVID-19 Screening Questions Have you had any new onset fever, chills, cough, congestion, sore throat, shortness of breath, muscle aches?: No Examination Category Sub-Category Detail Notes General Examination GENERAL APPEARANCE: pleasant , well nourished, well developed, in no acute distress, calm and relaxed, morbidly obese, man HEAD: atraumatic, normocep halic EYES: eomi, perrla, anicte baldo, conjugate EARS: normal NOSE: septum intact NECK/THYROID: no jugular venous di stention, no carotid bruit, thyroid normal HEART: no clicks, gallops, murmurs, or rubs, regular rhythm, S1, S2 normal, no s3, or vascular bruits LUNGS: clear to auscultatio n ABDOMEN: bowel sounds normal, no ascites, no organomegaly, no mass, morbid obesity NEUROLOGIC: alert and oriented, cranial nerves 2-12 grossly intact, deep tendon reflexes 2+ symmetrical, motor strength normal upper and lower extremities, sensory exam intact SKIN: no suspicious lesion s, anicteric PERIPHERAL PULSES: normal BREASTS: no masses palpable b ilaterally MUSCULOSKELETAL: Pain to range of mot ion of left wrist elbow and shoulder, range of motion of the strength normal,, No pain is generated by range of motion of the neck LYMPH NODES: no enlarged lymph no chalino,spleen normal RECTAL EXAM: not examined PSYCH: alert, oriented ORAL CAVITY: normal, unremarkable Consultation Request Notes Referral Date Referring Provider Referred Provider Not ever 06/18/2024 [facility] left [facility] and hand pain
--- OUTSIDE RECORDS SUMMARY | 2024-06-19 13:39 | XMS_ITS | Encounter Summary ---
Author Name [facility] [place] [facility] [place] Address [address] [place] [address] Care Team Providers Care Podiatry Teacher Name Role Phone YANCYSONIA Primary Care Provider [...] Huitron's Name Patient's Relationship to Policy Huitron BCCOX [place] CE ORGANIZAT ION [facility] DEPT May 09, 2023 [id number] JAMAAL ALTMAN SE PATIENT [place] PRESCRIPT ION BCBS [facility] Nov 07, 2023 [id number] [phone] SOFÍA ALTMNA JR PATIENT SIL[place]NA PREFERRED PROVIDER ORGANIZAT ION (PPO) [facility] Nov 06, 2016 [id number] JAMAAL ALTMAN SE PATIENT CIGNA POINT OF SERVICE [facility] Nov 06, 2016 [id number] JAMAAL ALTMAN SE PATIENT [facility] MENTAL HEALTH [facility] Nov 06, 2016 [id number] JAMAAL ALTMAN SE PATIENT [facility] Nov 06, 2016 [id number] JAMAAL ALTMAN SE PATIENT [facility]GAN Nov 06, 2009 [id number] JAMAAL ALTMAN SE PATIENT Selected Encounter This section includes the information on record at CT for the Encounter. Date/Time Encounter Type Encounter Description Reason Provider Source Jun 24, 2023 09:00 AM PSYTX W PT 30 MINUTES [facility] - IND ICD-10-CM F43.12 Post-traumatic stress disorder, chronic WEISMOORE,MATTIE E IHE Encounter Template Text not used by CT Assessments - Encounter Diagnoses This section includes the primary and secondary diagnoses documented for the Encounter. Date/Time Primary/Secondary Diagnosis Diagnosis Name Provider Source Jul 09, 2023 09:18 AM PRIMARY Post-traumatic stress disorder, chronic WEISMOORE,MATTIE E [facility] [place] [facility] Jul 09, 2023 09:18 AM SECONDARY Major depressive disorder, recurrent, unspecified WEISMOORE,MATTIE E [facility] [place] [facility] Plan of Treatment: Future Appointments (+ 6 months) and Future Tests (+/- 45 days) The Plan of Treatment section includes future care activities for the patient from all CT treatmentfacilities. This section includes future appointments and future orders which are active, pending or scheduled. Future Appointments This section includes appointments that were scheduled to occur 6 months from the date of the Encounter, up to a maximum of 20 appointments. The data comes from all CT treatment facilities. Appointment Date/Time Appointment Type Appointme nt Facility Name Jul 11, 2023 11:30 AM AMBULATORY - REHAB MEDICIN E [facility] [place] [facility] Jul 12, 2023 01:00 PM AMBULATORY - REHAB MEDICIN E [facility] [place] [facility] Jul 15, 2023 09:00 AM AMBULATORY - PSYCHIATRY [facility] [place] [facility] Jul 22, 2023 09:00 AM AMBULATORY - PSYCHIATRY [facility] [place] [facility] Jul 22, 2023 11:30 AM AMBULATORY - REHAB MEDICIN E [facility] [place] [facility] Jul 26, 2023 09:00 AM AM[facility]ULATORY [facility] MEDICINE [facility] [place] [facility] Aug 05, 2023 09:00 AM AMBULATORY - PSYCHIATRY [facility] [place] Aug 11, 2023 09:45 AM [facility]ULATORY [facility] MEDICINE [facility] [place] [facility] Aug 11, 2023 11:00 AM AMBULATORY - PSYCHIATRY [facility] [place] Sep 06, 2023 09:00 AM AMBULATORY - REHAB MEDICIN E [facility] [place] [facility] September 08, 2023 11:00 AM AMBULATORY - PSYCHIATRY [facility] [place] [facility] September 22, 2023 09:00 AM AMBULATORY - PSYCHIATRY [facility] [place] October 06, 2023 09:00 AM AMBULATORY - PSYCHIATRY [facility] [place] [facility] Oct 28, 2023 09:00 AM AMBULATORY - PSYCHIATRY [facility] [place] [facility] Nov 24, 2023 09:30 AM AM[facility]ULATORY [facility] MEDICINE [facility] [place] [facility] Nov 25, 2023 09:00 AM AMBULATORY - PSYCHIATRY [facility] [place] [facility] Dec 02, 2023 09:00 AM AMBULATORY - PS[facility]CHIATRY [facility] [place] [facility] Dec 08, 2023 09:00 AM AMBULATORY - REHAB MEDICIN E [facility] [place] [facility] Dec 09, 2023 09:00 AM AMBULATORY - PSYCHIATRY [facility] [place] [facility] Dec 16, 2023 08:30 AM AMBULATORY - MEDICINE [facility] [place] [facility] Lab Results: +/- 30 days [...] Result - Unit Interpretation Reference Range Comment Jul 19, 2023 08:44 AM [facility] [place] [facility] MICROALBUMIN CREATININE RATIO PANEL Specimen Type: URINE No comment entered. Ordering Provider: SADIE MORSE Report Released Date/Time: Jul 15, 2023 01:11 PM Reporting Lab: [address] [address] Performing Lab: [address] [address] MICROALBUMIN/C REATININE RATIO 5.0 mg/g 0-29.9 MICROALBUMIN,Q UANTITATIVE 1.4 mg/dL RR UNAVAIL CREATININE URINE 281.21 mg/dL Jul 19, 2023 08:38 AM [facility] IRON & TIBC PANEL Specimen Type: SERUM No comment entered. Ordering Provider: SADIE MORSE Report Released Date/Time: Jul 04, 2023 08:48 AM Reporting Lab: [address] [address] Performing Lab: [address] [address] TIBC 345 ug/dL 204-475 IRON 119 ug/dL 40-160 Transferrin Saturation 34.5 20.0-50.0 Jul 19, 2023 08:38 AM [facility] FERRITIN Specimen Type: SERUM No comment entered. Ordering Provider: SADIE MORSE Report Released Date/Time: Jul 04, 2023 08:48 AM Reporting Lab: [address] [address] Performing Lab: [address] [address] FERRITIN 339 ng/mL H 20-300 Jul 19, 2023 08:38 AM [facility] BASIC METABOLIC PANEL (non-fasting) Specimen Type: SERUM No comment entered. Ordering Provider: SADIE MORSE Report Released Date/Time: Jul 04, 2023 08:48 AM Reporting Lab: [address] [address] Performing Lab: [address] [place] [address] UREA NITROGEN 17 mg/dL 7-25 GLUCOSE 138 mg/dL H 65-100 SODIUM 139 mmol/L 135-145 POTASSIUM 4.2 mmol/L 3.5-5.0 CHLORIDE 103 mmol/L 100-110 CO2 25 meq/L 20-30 CREATININE, Serum 1.19 mg/dL 0.50-1.40 eGFR(CKD-EPI 2020) 74 mL/min >60 Jul 19, 2023 08:38 AM [facility] CBC Specimen Type: BLOOD No comment entered. Ordering Provider: SADIE MORSE Report Released Date/Time: Jul 04, 2023 08:48 AM Reporting Lab: [address] [address] Performing Lab: [address] [address] WBC 9.57 10*3/uL 4.50-11.00 RBC 5.03 10*6/uL 4.23-5.66 HGB 14.6 g/dL 12.8-17 HCT 44.5 39.2-50.4 MCV 88.5 fL 82-99 MCHC 32.8 g/dL 30.8-35.1 PLT 233 10*3/uL 140-360 RDW-CV 12.3 12.0-16.0 MCH 29.0 pg 26.2-32.6 Jun 24, 2023 10:15 AM [facility] MICROALBUMIN CREATININE RATIO PANEL Specimen Type: URINE No comment entered. Ordering Provider: SADIE MORSE Report Released Date/Time: Jun 07, 2023 09:51 AM Reporting Lab: [address] [address] Performing Lab: [address] [address] MICROALBUMIN/C REATININE RATIO 5.4 mg/g 0-29.9 MICROALBUMIN,Q UANTITATIVE 0.8 mg/dL RR UNAVAIL CREATININE URINE 148.98 mg/dL Jun 07, 2023 09:36 AM [facility] PTH INTACT Specimen Type: SERUM No comment entered. Ordering Provider: SADIE MORSE Report Released Date/Time: Dec 29, 2022 10:59 AM Reporting Lab: [facility] [place] [facility] [address] [facility] [address] Performing Lab: [facility] [place] [facility] [address] [facility] [address] PTH INTACT 62.5 pg/mL 10-65 Jun 07, 2023 09:36 AM [facility] [place] [facility] PO4 Specimen Type: SERUM No comment entered. Ordering Provider: SADIE MORSE Report Released Date/Time: Dec 29, 2022 10:59 AM Reporting Lab: [facility] [place] [facility] [address] [facility] [address] Performing Lab: [facility] [place] [facility] [address] [facility] [address] PO4 3.4 mg/dL 2.5-5.0 Jun 07, 2023 09:36 [facility] CHOLESTEROL Specimen Type: SERUM No comment entered. Ordering Provider: SADIE MORSE Report Released Date/Time: Dec 29, 2022 10:59 AM Reporting Lab: [facility] [place] [facility] [address] [facility] [address] Performing Lab: [facility] [place] [facility] [address] [facility] [address] CHOLESTEROL 263 mg/dL H Jun 07, 2023 09:36 AM [facility] HDL CHOLESTEROL Specimen Type: SERUM No comment entered. Ordering Provider: SADIE MORSE Report Released Date/Time: Dec 29, 2022 10:59 AM Reporting Lab: [facility] [place] [facility] [address] [facility] [address] Performing Lab: [facility] [place] [facility] [address] [facility] [address] HDL CHOLESTEROL 37 mg/dL L 40-60 Jun 07, 2023 09:36 AM [facility] [place] [facility] VITAMIN D (25-OH) Specimen Type: SERUM No comment entered. Ordering Provider: SADIE MORSE Report Released Date/Time: Dec 29, 2022 10:59 AM Reporting Lab: [address] [address] Performing Lab: [address] [address] VITAMIN D (25-OH) 26 ng/mL 20-50 Jun 07, 2023 09:36 AM [facility] MAGNESIUM Specimen Type: SERUM No comment entered. Ordering Provider: SADIE MORSE Report Released Date/Time: Dec 29, 2022 10:59 AM Reporting Lab: [address] [address] Performing Lab: [address] [address] MAGNESIUM 1.9 mg/dL 1.6-2.6 Jun 07, 2023 09:36 AM [facility] CALCIUM Specimen Type: SERUM No comment entered. Ordering Provider: SADIE MORSE Report Released Date/Time: Dec 29, 2022 10:59 AM Reporting Lab: [address] [address] Performing Lab: [address] [address] CALCIUM 9.7 mg/dL 8.5-10.2 Jun 07, 2023 09:36 AM [facility] BASIC METABOLIC PANEL (non-fasting) Specimen Type: SERUM No comment entered. Ordering Provider: SADIE MORES Report Released Date/Time: Dec 29, 2022 10:59 AM Reporting Lab: [address] [address] Performing Lab: [address] [address] UREA NITROGEN 15 mg/dL 7-25 GLUCOSE 145 mg/dL H 65-100 SODIUM 139 mmol/L 135-145 POTASSIUM 4.5 mmol/L 3.5-5.0 CHLORIDE 102 mmol/L 100-110 CO2 27 meq/L 20-30 CREATININE, Serum 1.20 mg/dL 0.50-1.40 eGFR(CKD-EPI 2020) 73 mL/min >60 Jun 07, 2023 09:35 AM [facility] FERRITIN Specimen Type: SERUM No comment entered. Ordering Provider: SADIE MORSE Report Released Date/Time: Jun 06, 2023 01:31 PM Reporting Lab: [facility] [address] Performing Lab: [facility] [address] FERRITIN 352 ng/mL H 20-300 Jun 07, 2023 09:35 AM [facility] IRON & TIBC PANEL Specimen Type: SERUM No comment entered. Ordering Provider: SADIE MORSE Report Released Date/Time: Jun 06, 2023 01:31 PM Reporting Lab: [facility] [address] [facility]forming [facility]: [facility] [address] TIBC 335 ug/dL 204-475 IRON 72 ug/dL 40-160 Transferrin Saturation 21.5 20.0-50.0 Jun 07, 2023 09:35 AM [facility] CBC Specimen Type: BLOOD No comment entered. Ordering Provider: SADIE MORSE Report Released Date/Time: Jun 06, 2023 01:31 PM Reporting Lab: [facility] [address] Performing Lab: [facility] [address] WBC 8.63 10*3/uL 4.50-11.00 RBC 5.26 10*6/uL 4.23-5.66 HGB 15.1 g/dL 12.8-17 HCT 46.9 39.2-50.4 MCV 89.2 fL 82-99 MCHC 32.2 g/dL 30.8-35.1 PLT 249 10*3/uL 140-360 RDW-CV 12.4 12.0-16.0 MCH 28.7 pg 26.2-32.6 Social History: Smoking Status (Most current) and Tobacco Use (All prior to encounter date) This section includes the most current, and the historical, smoking and tobacco- related health factors from the CT facility where the Encounter took place. Current Smoking Status This section includes the most current smoking, or tobacco-related health factor, from the [place] facility where the Encounter took place. Date/Time Current Smoking Status Comment Facil it Jun 08, 2023 09:30 AM VA-TOBACCO USER EVERY DAY [facility] [place] [facility] Tobacco Use History This section includes a history of the smoking, or tobacco-related health factors, that were collected on or before the date of the Encounter. The data comes from the [place] facility where the Encounter took place. Date/Time Smoking Status/Tobac co Use Comment Facility Jun 08, 2023 09:30 AM VA-TOBACCO USE ADVICE [facility] [place] [facility] Jun 08, 2023 09:30 AM VA-TOBACCO USE DEVELOPMENT ARCHITECT NO [facility] [place] [facility] Jun 08, 2023 09:30 AM VA-TOBACCO USE MED NO [facility] [place] [facility] Jun 08, 2023 09:30 AM VA-TOBACCO USE WI [address] [facility] [place] [facility] Jun 08, 2023 09:30 AM VA-TOBACCO USER EVERY DAY [facility] [place] [facility] Jun 23, 2022 09:00 AM VA-TOBACCO FORMER USER [facility] [place] [facility] Jun 23, 2022 09:00 AM VA-TOBACCO QUIT < 1 YEAR [facility] [place] [facility] May 18, 2021 11:00 AM VA-TOBACCO USE > 15 LESS THAN 30 YEARS [facility] [place] [facility] May 18, 2021 11:00 AM VA-TOBACCO USE ADVICE [facility] [place] [facility] May 18, 2021 11:00 AM VA-TOBACCO USE DEVELOPMENT ARCHITECT NO [facility] [place] [facility] May 18, 2021 11:00 AM VA-TOBACCO USE MED NO [facility] [place] [facility] May 18, 2021 11:00 AM VA-TOBACCO USE [place] [address] [facility] [place] [facility] May 18, 2021 11:00 AM VA-TOBACCO USER SOME DAYS [facility] [place] [facility] Jul 31, 2018 08:47 AM VA-TOBACCO DOESNT USE WI [address] [facility] [place] [facility] Jul 31, 2018 08:47 AM VA-TOBACCO USE > [address]ESS THAN [address] [facility] [place] [facility] Jul 31, 2018 08:47 AM [facility] [place] [facility] Jul 31, 2018 08:47 AM VA-TOBACCO USE DEVELOPMENT ARCHITECT NO [facility] [place] [facility] Jul 31, 2018 08:47 AM VA-TOBACCO USE MED NO [facility] [place] [facility] Jul 31, 2018 08:47 AM VA-TOBACCO USER SOME DAYS [facility] [place] [facility] Jan 30, 2018 09:19 AM QUIT TOBACCO USE IN PAST YEAR a month ago [facility] [place] [facility] Jul 28, 2017 09:31 AM CURRENT SMOKER [address] [facility] [place] [facility] Dec 08, 2016 08:49 AM CURRENT SMOKER [facility] [place] [facility] Dec 08, 2016 08:49 AM V1-PT NOT INTERESTED IN QUIT TOBACCO USE [facility] [place] [facility] Jun 11, 2016 10:00 AM CURRENT SMOKER [facility] [place] [facility] Dec 10, 2015 10:39 AM V1-PT NOT INTERESTED IN QUIT TOBACCO USE [facility] [place] [facility] Feb 06, 2015 08:34 AM CURRENT SMOKER 1 1/[address] [facility] [place] [facility] Feb 06, 2015 08:34 AM V1-PT NOT INTERESTED IN QUIT TOBACCO USE [facility] [place] [facility] Jul 04, 2013 09:37 AM CURRENT SMOKER pack per week [facility] [place] [facility] Jun 24, 2011 08:10 AM V1-PT DECLINES REF TO TOBACCO CESS PRGM [facility] [place] [facility] Jun 24, 2011 08:10 AM V1-PT READY TO QUIT TOBACCO USE [facility] Mar 31, 2011 10:12 AM V1-PT DECLINES REF TO TOBACCO CESS PRGM [facility] Mar 31, 2011 10:12 AM V1-PT DECLINES TOBACCO CESSATION MEDS [facility] Mar 31, 2011 10:12 AM V1-PT NOT INTERESTED IN QUIT TOBACCO USE [facility] September 25, 2010 11:03 AM CURRENT SMOKER [facility] September 25, 2010 11:03 AM QUIT TOBACCO USE IN PAST YEAR [facility] Encounter Notes: All associated encounter notes This section contains the clinical notes associated to the Encounter. 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 He expressed understanding and requested to meet on Tuesday, July 15, 2023 at 9am F2F. Agreed to do so. No evidence of imminent risk. Thanked him for his flexibility. /ever/ Nohemi Mackey, PhD Clinical Psychologist, [facility] Signed: 07/06/2023 14:43 NOHEMI MACKEY [facility] Jun 24, 2023 09:39 AM PSYCHOLOGY NOTE: LOCAL TITLE: PSYCHOLOGY NOTE STANDARD TITLE: PSYCHOLOGY NOTE DATE OF NOTE: JUN 24, 2023@09:39 ENTRY DATE: JUN 24, 2023@09:39:16 AUTHOR: NOHEMI MACKEY EXP DAYNAIGNER: URGENCY: STATUS: COMPLETED [facility] Individual Therapy Note Procedure: The patient was seen for a 30-minute F2F individual psychotherapy session focused on treatment of symptoms PTSD and depression. The Outpatient Individual Psychotherapy Services Agreement was initiated with this provider on 10/21/2022. Agreed to meet for 12 weekly individual therapy appointments to understand treatment goals and develop a treatment plan. Problem: Difficulty managing PTSD and depressive symptoms Objectives: 1) will engage in individual, weekly psychotherapy to increase his ability to tolerate distressing emotional experiences and to engage in behaviors that are consistent with his values. 2) will learn about and consider trauma-focused therapy to directly address PTSD symptoms if/when clinically appropriate. Progress: [facility] indicated he needed to meet for only 30 minutes given a conflicting medical appointment this morning. [facility] spoke about ongoing stressors in his relationship with his , considering his values and his choices. He discussed his needs for intimacy and connection. [facility] committed to consider ways of being kind to himself and to his between now and next session given context of stressors. Assessment: arrived on time for session and [...] PTSD, Chronic Major Depressive Disorder, recurrent Plan: [facility]'s next visit is scheduled for Tuesday, July 11, 2023 at 9:30am F2F. /ever/ Nohemi Mackey, PhD Clinical Psychologist, [facility] Signed: 06/24/2023 09:[address] [facility]
--- OUTSIDE RECORDS SUMMARY | 2024-06-19 13:39 | XMS_ITS ---
Author Name [facility] [place] [facility] [place] Address [address] [place] [address] Care Team Providers Care Surveillance Officer Name Role Phone YANCY SONIA Primary Care Provider Unavailkaycee barton Insurance Providers: [...] Huitron's Name Patient's Relationship to Policy Huitron [facility] CE ORGANIZAT ION [facility] FIRE DEPT May 09, 2023 [id number] JAMAAL ALTMAN SE PATIENT [place] PRESCRIPT ION [facility] Nov 07, 2023 [id number] [phone] SOFÍA ALTMAN JR PATIENT [employer] PREFERRED PROVIDER ORGANIZAT ION (PPO) [facility] Nov 06, 2016 [id number] [phone] JAMAAL ALTMAN SE PATIENT [employer] POINT OF SERVICE [facility] Nov 06, 2016 [id number] JAMAAL ALTMAN SE PATIENT [employer] BEHAVIORAL HEALTH MENTAL HEALTH [facility] Nov 06, 2016 [id number] ALTMANJAMAAL PATIENT [facility] PRESCRIPT ION [facility] Nov 06, 2016 [id number] JAMAAL ALTMAN SE PATIENT [facility] Nov 06, 2009 [id number] [phone] JAMAAL ALTMAN PATIENT Selected Encounter This section includes the information on record at [place] for the Encounter. Date/Time Encounter Type Encounter Description Reason Provider Source Jun 24, 2023 09:30 AM GIRMA MDLTY 1+ULTRASOUND EA 15 OCCUPATIONAL THERAPY ICD-10-CM M79.642 Pain in left hand IRENE GUAMAN IHE Encounter Template Text not used by [place] Assessments - Encounter Diagnoses This section includes the primary and secondary diagnoses documented for the Encounter. Date/Time Primary/Secondary Diagnosis Diagnosis Name Provider Source Jul 09, 2023 09:32 AM PRIMARY Pain in left hand KATHE GUAMANLIE E [place] [facility] [place] [facility] Plan of Treatment: Future Appointments (+ 6 months) and Future Tests (+/- 45 days) The Plan of Treatment section includes future care activities for the patient from all [place] treatmentfacilities. This section includes future appointments and future orders which are active, pending or scheduled. Future Appointments This section includes appointments that were scheduled to occur 6 months from the date of the Encounter, up to a maximum of 20 appointments. The data comes from all [place] treatment facilities. Appointment Date/Time Appointment Type Appointme nt Facility Name Jul 11, 2023 11:30 AM AMBULATORY - [facility] Jul 12, 2023 01:00 PM AMBULATORY - REHAB MEDICIN E [facility] Jul 15, 2023 09:00 AM AMBULATORY - PSYCHIATRY [facility] [place] Jul 22, 2023 09:00 AM AMBULATORY - PS[facility]CHIATRY [facility] [place] Jul 22, 2023 11:30 AM AMBULATORY - REHAB MEDICIN E [facility] Jul 26, 2023 09:00 AM AMBULATORY - [...] AMBULATORY - PSYCHIATRY [facility] Oct 28, 2023 09:00 AM AMBULATORY - PSYCHIATRY [facility] Nov 24, 2023 09:30 AM [facility] Nov 25, 2023 09:00 AM AMBULATORY - PS[facility]IATRY [facility] Dec 02, 2023 09:00 AM AMBULATORY - PS[facility]CHIATRY [facility] Dec 08, 2023 09:00 AM AMBULATORY - REHAB MEDICIN E [facility] Dec 09, 2023 09:00 AM AMBULATORY - PSYCHIATRY [facility] Dec 16, 2023 08:30 AM AMBULATORY - MEDICINE [facility] Lab Results: +/- 30 days of the encounter This section includes the Chemistry and Hematology Lab Results on record with [place] for the patient. Radiology Reports and Pathology [...] Jul 15, 2023 01:11 PM Reporting Lab: [facility] [address] [facility] [address] Performing Lab: [facility] [address] [facility] [address] MICROALBUMIN/C REATININE RATIO 5.0 mg/g 0-29.9 MICROALBUMIN,Q UANTITATIVE 1.4 mg/dL RR UNAVAIL CREATININE URINE 281.21 mg/dL Jul 19, 2023 08:38 AM [facility] IRON & TIBC PANEL Specimen Type: SERUM No comment entered. Ordering Provider: SADIE MORSE Report Released Date/Time: Jul 04, 2023 08:48 AM Reporting Lab: [address] [address] Performing Lab: [address] [address] TIBC 345 ug/dL 204-475 IRON 119 ug/dL 40-160 Transferrin Saturation 34.5 20.0-50.0 Jul 19, 2023 08:38 AM [facility] FERRITIN Specimen Type: SERUM No comment entered. Ordering Provider: SADIE MORSE Report Released Date/Time: Jul 04, 2023 08:48 AM Reporting Lab: [facility] [address] [facility] [address] Performing Lab: [address] [address] FERRITIN 339 ng/mL H 20-300 Jul 19, 2023 08:38 AM [facility] BASIC METABOLIC PANEL (non-fasting) Specimen Type: SERUM No comment entered. Ordering Provider: SADIE MORSE Report Released Date/Time: Jul 04, 2023 08:48 AM Reporting Lab: [address] [address] Performing Lab: [address] [address] UREA NITROGEN 17 mg/dL 7-25 GLUCOSE 138 mg/dL H 65-100 SODIUM 139 mmol/L 135-145 POTASSIUM 4.2 mmol/L 3.5-5.0 CHLORIDE 103 mmol/L 100-110 CO2 25 meq/L 20-30 CREATININE, Serum 1.19 mg/dL 0.50-1.40 eGFR(CKD-EPI 2020) 74 mL/min >60 Jul 19, 2023 08:38 AM [facility] CBC Specimen Type: BLOOD No comment entered. Ordering Provider: SADIE MORSE Report Released Date/Time: Jul 04, 2023 08:48 AM Reporting Lab: [facility] [place] [facility] [address] [facility] [address] Performing Lab: [facility] [address] [facility] [address] WBC 9.57 10*3/uL 4.50-11.00 RBC 5.03 10*6/uL 4.23-5.66 HGB 14.6 g/dL 12.8-17 HCT 44.5 39.2-50.4 MCV 88.5 fL 82-99 MCHC 32.8 g/dL 30.8-35.1 PLT 233 10*3/uL 140-360 RDW-CV 12.3 12.0-16.0 MCH 29.0 pg 26.2-32.6 Jun 24, 2023 10:15 AM [facility] MICROALBUMIN CREATININE RATIO PANEL Specimen Type: URINE No comment entered. Ordering Provider: SADIE MORSE Report Released Date/Time: Jun 07, 2023 09:51 AM Reporting Lab: [facility] [place] [facility] [address] [facility] [address] Performing Lab: [facility] [address] [facility] [address] MICROALBUMIN/C REATININE RATIO 5.4 mg/g 0-29.9 MICROALBUMIN,Q UANTITATIVE 0.8 mg/dL RR UNAVAIL CREATININE URINE 148.98 mg/dL Jun 07, 2023 09:36 AM [facility] PTH INTACT Specimen Type: SERUM No comment entered. Ordering Provider: SADIE MORSE Report Released Date/Time: Dec 29, 2022 10:59 AM Reporting Lab: [facility] [place] [facility] [address] [facility] [address] Performing Lab: [facility] [place] [facility] [address] [facility] [address] PTH INTACT 62.5 pg/mL 10-65 Jun 07, 2023 09:36 AM [facility] [place] [facility] PO4 Specimen Type: SERUM No comment entered. Ordering Provider: SADIE MORSE Report Released Date/Time: Dec 29, 2022 10:59 AM Reporting Lab: [facility] [place] [facility] [address] [facility] [address] Performing Lab: [place] [facility] [place] [facility] [address] [facility] [address] PO4 3.4 mg/dL 2.5-5.0 Jun 07, 2023 09:36 AM [facility] [place] [facility] CHOLESTEROL Specimen Type: SERUM No comment entered. Ordering Provider: SADIE MORSE Report Released Date/Time: Dec 29, 2022 10:59 AM Reporting Lab: [facility] [place] [facility] [address] [facility] [address] Performing Lab: [place] [facility] [place] [address] [address] CHOLESTEROL 263 mg/dL H Jun 07, 2023 09:36 AM [facility] HDL CHOLESTEROL Specimen Type: SERUM No comment entered. Ordering Provider: SADIE MORSE Report Released Date/Time: Dec 29, 2022 10:59 AM Reporting Lab: [facility] [place] [facility] [address] [facility] [address] Performing Lab: [facility] [place] [address] [address] HDL CHOLESTEROL 37 mg/dL L 40-60 Jun 07, 2023 09:36 AM [place] [facility] [place] [facility] MAGNESIUM Specimen Type: SERUM No comment entered. Ordering Provider: SADIE MORSE Report Released Date/Time: Dec 29, 2022 10:59 AM Reporting Lab: [place] [facility] [place] [address] [address] Performing Lab: [facility] [address] [facility] [address] MAGNESIUM 1.9 mg/dL 1.6-2.6 Jun 07, 2023 09:36 AM [facility] VITAMIN D (25-OH) Specimen Type: SERUM No comment entered. Ordering Provider: SADIE MORSE Report Released Date/Time: Dec 29, 2022 10:59 AM Reporting Lab: [facility] [address] [facility] [address] Performing Lab: [address] [address] VITAMIN D (25-OH) 26 ng/mL 20-50 Jun 07, 2023 09:36 AM [facility] CALCIUM Specimen Type: SERUM No comment entered. Ordering Provider: SADIE MORSE Report Released Date/Time: Dec 29, 2022 10:59 AM Reporting Lab: [facility] [address] [facility] [address] Performing Lab: [address] [address] CALCIUM 9.7 mg/dL 8.5-10.2 Jun 07, 2023 09:36 AM [facility] BASIC METABOLIC PANEL (non-fasting) Specimen Type: SERUM No comment entered. Ordering Provider: SADIE MORSE Report Released Date/Time: Dec 29, 2022 10:59 AM Reporting Lab: [address] [address] Performing Lab: [address] [address] UREA NITROGEN 15 mg/dL 7-25 GLUCOSE 145 mg/dL H 65-100 SODIUM 139 mmol/L 135-145 POTASSIUM 4.5 mmol/L 3.5-5.0 CHLORIDE 102 mmol/L 100-110 CO2 27 meq/L 20-30 CREATININE, Serum 1.20 mg/dL 0.50-1.40 eGFR(CKD-EPI 2020) 73 mL/min >60 Jun 07, 2023 09:35 AM [facility] FERRITIN Specimen Type: SERUM No comment entered. Ordering Provider: SADIE MORSE Report Released Date/Time: Jun 06, 2023 01:31 PM Reporting Lab: [address] [address] Performing Lab: [address] [address] FERRITIN 352 ng/mL H 20-300 Jun 07, 2023 09:35 AM [facility] IRON & TIBC PANEL Specimen Type: SERUM No comment entered. Ordering Provider: SADIE MORSE Report Released Date/Time: Jun 06, 2023 01:31 PM Reporting Lab: [address] [address] Performing Lab: [address] [address] TIBC 335 ug/dL 204-475 IRON 72 ug/dL 40-160 Transferrin Saturation 21.5 20.0-50.0 Jun 07, 2023 09:35 AM [facility] CBC Specimen Type: BLOOD No comment entered. Ordering Provider: SADIE MORSE Report Released Date/Time: Jun 06, 2023 01:31 PM Reporting Lab: [address] [address] Performing Lab: [address] [address] WBC 8.63 10*3/uL 4.50-11.00 RBC 5.26 10*6/uL [...] and tobacco- related health factors from the [place] facility where the Encounter took place. Current Smoking Status This section includes the most current smoking, or tobacco-related health factor, from the [place] facility where the Encounter took place. Date/Time Current Smoking Status Comment Josr it Jun 08, 2023 09:30 AM VA-TOBACCO USER EVERY DAY [place] [facility] [place] [facility] Tobacco Use History This section includes a history of the smoking, or tobacco-related health factors, that were collected on or before the date of the Encounter. The data comes from the [place] facility where the Encounter took place. 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 NO [facility] [place] [facility] Jun 08, 2023 09:30 AM VA-TOBACCO USE MED NO [facility] [place] [facility] Jun 08, 2023 09:30 AM VA-TOBACCO USE WI 30 MIN OF WAKEUP [facility] [place] [facility] Jun 08, 2023 09:30 AM VA-TOBACCO USER EVERY DAY [facility] [place] [facility] Jun 23, 2022 09:00 AM VA-TOBACCO FORMER USER [facility] [place] [facility] Jun 23, 2022 09:00 AM VA-TOBACCO QUIT < 1 YEAR [facility] [place] [facility] May 18, 2021 11:00 AM VA-TOBACCO USE > 15 LESS THAN 30 YEARS [facility] [place] [facility] May 18, 2021 11:00 AM VA-TOBACCO USE ADVICE [facility] [place] [facility] May 18, 2021 11:00 AM VA-TOBACCO USE CUSTOMER RETENTION REPRESENTATIVE NO [facility] [place] [facility] May 18, 2021 11:00 AM VA-TOBACCO USE MED NO [facility] [place] [facility] May 18, 2021 11:00 AM VA-TOBACCO USE WI 30 MIN OF WAKEUP [facility] [place] [facility] May 18, 2021 11:00 AM VA-TOBACCO USER SOME DAYS [facility] [place] [facility] Jul 31, 2018 08:47 AM VA-TOBACCO DOESNT USE WI 30 MIN WAKEUP [place] [facility] [place] [facility] Jul 31, 2018 08:47 AM VA-TOBACCO USE > 15 LESS THAN 30 YEARS [place] [facility] [place] [facility] Jul 31, 2018 08:47 AM [facility]ACCO [facility] [place] [facility] Jul 31, 2018 08:47 AM VA-TOBACCO USE CUSTOMER RETENTION REPRESENTATIVE NO [place] [facility] [place] [facility] Jul 31, 2018 08:47 AM VA-TOBACCO USE MED NO [facility] [place] [facility] Jul 31, 2018 08:47 AM VA-TOBACCO USER SOME DAYS [facility] [place] [facility] Jan 30, 2018 09:19 AM QUIT TOBACCO USE IN PAST YEAR a month ago [facility] [place] [facility] Jul 28, 2017 09:31 AM CURRENT SMOKER 2 cigarettes per day [facility] [place] [facility] Dec 08, 2016 08:49 AM CURRENT SMOKER [facility] [place] [facility] Dec 08, 2016 08:49 AM V1-PT NOT INTERESTED IN QUIT TOBACCO USE [facility] [place] [facility] Jun 11, 2016 10:00 AM CURRENT SMOKER [facility] [place] [facility] Dec 10, 2015 10:39 AM V1-PT NOT INTERESTED IN QUIT TOBACCO USE [place] [facility] [place] [facility] Feb 06, 2015 08:34 AM CURRENT SMOKER 1 1/2 Packs per week [facility] [place] [facility] Feb 06, 2015 08:34 AM V1-PT NOT INTERESTED IN QUIT TOBACCO USE [facility] [place] [facility] Jul 04, 2013 09:37 AM CURRENT SMOKER pack per week [facility] [place] [facility] Jun 24, 2011 08:10 AM V1-PT DECLINES REF TO TOBACCO CESS PRGM [place] [facility] [place] [facility] Jun 24, 2011 08:10 AM V1-PT READY TO QUIT TOBACCO USE [facility] [place] [facility] Mar 31, 2011 10:12 AM V1-PT DECLINES REF TO TOBACCO CESS PRGM [facility] Mar 31, 2011 10:12 AM V1-PT DECLINES TOBACCO CESSATION MEDS [facility] Mar 31, 2011 10:12 AM V1-PT NOT INTERESTED IN QUIT TOBACCO USE [facility] September 25, 2010 11:03 AM CURRENT SMOKER [facility] September 25, 2010 11:03 AM QUIT TOBACCO USE IN PAST YEAR [facility] Encounter Notes: All associated encounter notes This section contains the clinical notes associated to the Encounter. Date/Time Encounter Note(s) Provider Source Jun 24, 2023 09:34 AM OCCUPATIONAL THERAPY NOTE: LOCAL TITLE: OCCUPATIONAL THERAPY STANDARD TITLE: OCCUPATIONAL THERAPY NOTE DATE OF NOTE: JUN 24, 2023@09:34 ENTRY DATE: JUN 24, 2023@09:34:20 AUTHOR: IRENE GUAMAN COSIGNER: URGENCY: STATUS: COMPLETED Initial Evaluation date: Dec Progress Note Date: Treatment #: 18 Treatment time: 30 minutes Diagnosis: Pain in left Hand(ICD-10-CM M79.642) Provider: Flor ALSTON Treatment Precautions: Patient identified by full name and date of SUBJECTIVE: Pt reports that his new job allows him to rest his hands. They aren't as painful and they don't get swollen as often. He is waiting to hear about being scheduled for his surgery. Pain Level: 7/10 OBJECTIVE: THERAPEUTIC EXERCISE: MINUTES: MANUAL THERAPY: *mob/FDM to thenar musculature/first dorsal interosseous MINUTES: 15 THERAPEUTIC DYNAMIC ACTIVITIES: MINUTES: NEUROMUSCULAR EDUCATION: MINUTES: OTHER: MINUTES: MODALITIES: *US 1.4 w/cm2 continuous wave, large sound head over L thenar musculature/first dorsal interosseous MINUTES: 8 [] Contraindication screen completed prior to modality [] Skin intact pre/post SELF CARE/EDUCATION: MINUTES: Patient education was provided for all aspects of care during this clinical encounter. ASSESSMENT: Pt tolerated tx well this date. still awaiting appointment for CTR. tightness noted throughout first dorsal interosseous. performed flexor retinaculum stretch as well; pt reported feeling improved following tx. PLAN: Continue w/ POC; modify tx as needed. Pt to return in two weeks. Pt is in agreement w/ POC. /ever/ Irene Guaman, MS OTR/L, T Occupational Therapist Signed: 06/24/2023 13:52 IRENE GUAMAN [facility]
--- OUTSIDE RECORDS SUMMARY | 2024-06-19 13:40 | XMS_ITS ---
Author Name [facility] Organization [facility] [place] Address [address] [place] [address] Care Team Providers Care Commercial Fisherman Name Role Phone PANCHO HAINESA Primary Care [...] Name Patient's Relationship to Policy Huitron [facility]BS [facility] CE ORGANIZAT ION [facility] FIRE DEPT May 09, 2023 [id number] JAMAAL ALTMAN SE PATIENT CAREMARK PRESCRIPT ION [employer] OF [place] Nov 07, 2023 [id number] [phone] SOFÍA ALTMAN JR PATIENT SIL[place] PREFERRED PROVIDER ORGANIZAT ION (PPO) [facility] Nov 06, 2016 [id number] [phone] JAMAAL ALTMAN SE PATIENT [employer] POINT OF SERVICE [facility] Nov 06, 2016 [id number] JAMAAL ALTMAN SE PATIENT [employer] BEHAVIORAL HEALTH MENTAL HEALTH [facility] Nov 06, 2016 [id number] [phone] JAMAAL ALTMAN SE PATIENT [employer] PHARMACY PRESCRIPT ION [facility] Nov 06, 2016 [id number] JAMAAL ALTMAN SE PATIENT [facility] ORGAN Nov 06, 2009 [id number] JAMAAL ALTMAN SE PATIENT Selected Encounter This section includes the information on record at OR for the Encounter. Date/Time Encounter Type Encounter Description Reason Pro vider Source Feb 10, 2024 09:00 AM Outpatient Encounter [facility] Encounter Template Text not used by OR Plan of Treatment: Future Appointments (+ 6 months) and Future Tests (+/- 45 days) The Plan of Treatment section includes future care activities for the patient from all OR treatmentfacilities. This section includes future appointments and future orders which are active, pending or scheduled. Future Appointments This section includes appointments that were scheduled to occur 6 months from the date of the Encounter, up to a maximum of 20 appointments. The data comes from all [place] treatment facilities. Appointment Date/Time Appointment Type Appointme nt Facility Name Feb 17, 2024 09:00 AM AMBULATORY - PS[facility]CHIATRY [facility] [place] [facility] Feb 28, 2024 08:00 AM AMBULATORY - MEDICINE [facility] [place] [facility] Mar 16, 2024 08:30 AM AMBULATORY - PSYCHIATRY [facility] [place] [facility] Apr 27, 2024 08:30 AM AMBULATORY - PSYCHIATRY [facility] [place] [facility] May 31, 2024 10:30 AM AMBULATORY - MEDICINE [facility] [place] [facility] Jun 28, 2024 10:30 AM AMBULATORY - MEDICINE [facility] [place] [facility] Jul 05, 2024 09:00 AM AMBULATORY - MEDICINE [facility] [place] [facility] Jul 06, 2024 08:30 AM AMBULATORY - PSYCHIATRY [facility] [place] [facility] Jul 06, 2024 09:00 AM AMBULATORY - MEDICINE [facility] [place] [facility] Jul 13, 2024 08:30 AM AMBULATORY - PSYCHIATRY [facility] [place] [facility] Jul 20, 2024 08:30 AM AMBULATORY - PSYCHIATRY [place] [facility] [place] [facility] Jul 27, 2024 08:30 AM [facility] Lab Results: +/- 30 days of [...] Range Comment Feb 23, 2024 09:43 AM [facility] [place] [facility] VITAMIN D (25-[place]) Specimen Type: SERUM No comment entered. Ordering Provider: SADIE MORSE Report Released Date/Time: Jul 26, 2023 09:13 AM Reporting Lab: [facility] [place] [facility] [address] [facility] [address] Performing Lab: [facility] [place] [facility] [address] [facility] [address] [phone] VITAMIN D (25-OH) 30 ng/mL 20-50 Feb 23, 2024 09:43 AM [facility] PO4 Specimen Type: SERUM No comment entered. Ordering Provider: SADIE MORSE Report Released Date/Time: Jul 26, 2023 09:13 AM Reporting Lab: [facility] [place] [facility] [address] [facility] [address] Performing Lab: [place] [facility] [place] [facility] [address] [facility] [address] PO4 3.2 mg/dL 2.5-5.0 Feb 23, 2024 09:43 AM [facility] PTH INTACT Specimen Type: SERUM No comment entered. Ordering Provider: SADIE MORSE Report Released Date/Time: Jul 26, 2023 09:13 AM Reporting Lab: [place] [facility] [place] [facility] [address] [facility] [address] Performing Lab: [place] [facility] [place] [address] [address] PTH INTACT 45.0 pg/mL 10-65 Feb 23, 2024 09:43 AM [facility] MAGNESIUM Specimen Type: SERUM No comment entered. Ordering Provider: SADIE MORSE Report Released Date/Time: Jul 26, 2023 09:13 AM Reporting Lab: [facility] [place] [facility] [address] [facility] [address] Performing Lab: [facility] [place] [facility] [address] [address] [address] MAGNESIUM 1.9 mg/dL 1.6-2.6 Feb 23, 2024 09:43 AM [facility] CALCIUM Specimen Type: SERUM No comment entered. Ordering Provider: SADIE MORSE Report Released Date/Time: Jul 26, 2023 09:13 AM Reporting Lab: [facility] [address] [address] Performing Lab: [facility] [address] [address] CALCIUM 9.5 mg/dL 8.5-10.2 Feb 23, 2024 09:43 AM [facility] ALBUMIN Specimen Type: SERUM No comment entered. Ordering Provider: SADIE MORSE Report Released Date/Time: Jul 26, 2023 09:13 AM Reporting Lab: [facility] [address] [address] Performing Lab: [facility] [address] [address] ALBUMIN 4.1 g/dL 3.5-5.0 Feb 23, 2024 09:43 AM [facility] ALKALINE PHOSPHATASE Specimen Type: SERUM No comment entered. Ordering Provider: SADIE MORSE Report Released Date/Time: Jul 26, 2023 09:13 AM Reporting Lab: [facility] [place] [facility] [address] [facility] [address] Performing Lab: [facility] [address] [address] ALKALINE PHOSPHATASE 75 U/L 40-150 Feb 23, 2024 09:43 AM [facility] MICROALBUMIN CREATININE RATIO PANEL Specimen Type: URINE No comment entered. Ordering Provider: SADIE MORSE Report Released Date/Time: Jul 26, 2023 09:13 AM Reporting Lab: [facility] [address] [address] Performing Lab: [address] [address] MICROALBUMIN/C REATININE RATIO 11.5 mg/g 0-29.9 MICROALBUMIN,Q UANTITATIVE 1.8 mg/dL RR UNAVAIL CREATININE URINE 156.12 mg/dL Feb 23, 2024 09:43 AM [facility] BASIC METABOLIC PANEL (non-fasting) Specimen Type: SERUM No comment entered. Ordering Provider: SADIE MORSE Report Released Date/Time: Jul 26, 2023 09:13 AM Reporting Lab: [address] [address] Performing Lab: [address] [address] UREA NITROGEN 18 mg/dL 7-25 GLUCOSE 149 mg/dL H 65-100 SODIUM 139 mmol/L 135-145 POTASSIUM 4.4 mmol/L 3.5-5.0 CHLORIDE 104 mmol/L 100-110 CO2 26 meq/L 20-30 CREATININE, Serum 1.12 mg/dL 0.50-1.40 eGFR(CKD-EPI 2020) 80 mL/min >60 Feb 23, 2024 09:43 AM [facility] FERRITIN Specimen Type: SERUM No comment entered. Ordering Provider: SADIE MORSE Report Released Date/Time: Jan 31, 2024 09:44 AM Reporting Lab: [address] [address] Performing Lab: [address] [address] FERRITIN 275 ng/mL 20-300 Feb 23, 2024 09:43 AM [facility] LIPID PANEL, NON FASTING Specimen Type: SERUM No comment entered. Ordering Provider: SADIE MORSE Report Released Date/Time: Jul 26, 2023 09:13 AM Reporting Lab: [address] [address] Performing Lab: [address] [address] CHOLESTEROL 190 mg/dL TRIGLYCERIDE 99 mg/dL 0-150 LDL calculated 125 mg/dL 0-129 CHOL/HDL 4.2 HDL CHOLESTEROL 45 mg/dL 40-60 Feb 23, 2024 09:43 AM [facility] IRON & TIBC PANEL Specimen Type: SERUM No comment entered. Ordering Provider: SADIE MORSE Report Released Date/Time: Jan 31, 2024 09:44 AM Reporting Lab: [address] [address] Performing Lab: [address] [address] TIBC 385 ug/dL 204-475 IRON 105 ug/dL 40-160 Transferrin Saturation 27.2 20.0-50.0 Transferrin (TRF) 292 mg/dL 200-360 Feb 23, 2024 09:43 AM [facility] CBC Specimen Type: BLOOD No comment entered. Ordering Provider: SADIE MORSE Report Released Date/Time: Jan 31, 2024 09:44 AM Reporting Lab: [address] [address] Performing Lab: [address] [address] WBC 7.44 10*3/uL 4.50-11.00 RBC 5.25 10*6/uL [...] and tobacco- related health factors from the OR facility where the Encounter took place. Current Smoking Status This section includes the most current smoking, or tobacco-related health factor, from the OR facility where the Encounter took place. Date/Time Current Smoking Status Comment Merged With [facility] it Jun 08, 2023 09:30 AM VA-TOBACCO USER EVERY DAY [facility] [place] [facility] Tobacco Use History This section includes a history of the smoking, or tobacco-related health factors, that were collected on or before the date of the Encounter. The data comes from the OR facility where the Encounter took place. Date/Time Smoking Status/Tobac co Use Comment Facility Jun 08, 2023 09:30 AM VA-TOBACCO USE ADVICE [facility] [place] [facility] Jun 08, 2023 09:30 AM VA-TOBACCO USE E MARKETING SPECIALIST NO [facility] [place] [facility] Jun 08, 2023 09:30 AM VA-TOBACCO USE MED NO [facility] [place] [facility] Jun 08, 2023 09:30 AM VA-TOBACCO USE [place] 30 MIN OF WAKEUP [facility] [place] [facility] Jun 08, 2023 09:30 AM VA-TOBACCO USER EVERY DAY [facility] [place] [facility] Jun 23, 2022 09:00 AM VA-TOBACCO FORMER USER [facility] [place] [facility] Jun 23, 2022 09:00 AM VA-TOBACCO QUIT < 1 YEAR [facility] [place] [facility] May 18, 2021 11:00 AM VA-TOBACCO USE > 15 LESS THAN 30 YEARS [facility] [place] [facility] May 18, 2021 11:00 AM VA-TOBACCO USE ADVICE [facility] [place] [facility] May 18, 2021 11:00 AM VA-TOBACCO USE E MARKETING SPECIALIST NO [facility] [place] [facility] May 18, 2021 11:00 AM VA-TOBACCO USE MED NO [facility] [place] [facility] May 18, 2021 11:00 AM VA-TOBACCO USE [place] 30 MIN OF WAKEUP [facility] [place] [facility] May 18, 2021 11:00 AM VA-TOBACCO USER SOME DAYS [facility] [place] [facility] Jul 31, 2018 08:47 AM VA-TOBACCO DOESNT USE WI 30 MIN WAKEUP [facility] [place] [facility] Jul 31, 2018 08:47 AM VA-TOBACCO USE > 15 LESS THAN 30 YEARS [facility] [place] [facility] Jul 31, 2018 08:47 AM VA-TOBACCO USE ADVICE [place] [facility] [place] [facility] Jul 31, 2018 08:47 AM VA-TOBACCO USE E MARKETING SPECIALIST NO [facility] [place] [facility] Jul 31, 2018 08:47 AM VA-TOBACCO USE MED NO [place] [facility] [place] [facility] Jul 31, 2018 08:47 AM VA-TOBACCO USER SOME DAYS [facility] [place] [facility] Jan 30, 2018 09:19 AM QUIT TOBACCO USE IN PAST YEAR a month ago [facility] [place] [facility] Jul 28, 2017 09:31 AM CURRENT SMOKER 2 cigarettes per day [facility] [place] [facility] Dec 08, 2016 08:49 AM CUR[facility]MOKER [facility] [place] [facility] Dec 08, 2016 08:49 AM V1-PT NOT INTERESTED IN QUIT TOBACCO USE [facility] [place] [facility] Jun 11, 2016 10:00 AM CURRENT SMOKER [facility] [place] [facility] Dec 10, 2015 10:39 AM V1-PT NOT INTERESTED IN QUIT TOBACCO USE [facility] [place] [facility] Feb 06, 2015 08:34 AM CURRENT SMOKER 1 1/2 Packs per week [facility] [place] [facility] Feb 06, 2015 08:34 AM V1-PT NOT INTERESTED IN QUIT TOBACCO USE [facility] [place] [facility] Jul 04, 2013 09:37 AM CURRENT SMOKER pack per week [facility] [place] [facility] Jun 24, 2011 08:10 AM V1-PT DECLINES REF TO TOBACCO CESS [facility] [place] [facility] Jun 24, 2011 08:10 AM V1-PT READY TO QUIT [facility]BACCO [facility] Mar 31, 2011 10:12 AM V1-PT DECLINES REF TO TOBACCO CESS PR[facility] Mar 31, 2011 10:12 AM V1-PT DECLINES TOBACCO CESSATION MEDS [facility] Mar 31, 2011 10:12 AM V1-PT NOT INTERESTED IN QUIT TOBACCO USE [facility] September 25, 2010 11:03 AM CURRENT SMOKER [facility] September 25, 2010 11:03 AM QUIT TOBACCO USE IN PAST YEAR [facility] Encounter Notes: All associated encounter notes This section contains the clinical notes associated to the Encounter. Date/Time Encounter Note(s) Provider Source Feb 10, 2024 08:59 AM ADMINISTRATIVE NOT E: LOCAL TITLE: ADMINISTRATIVE NOTE STANDARD TITLE: ADMINISTRATIVE NOTE DATE OF NOTE: FEB 10, 2024@08:59 ENTRY DATE: FEB 10, 2024@08:59:26 AUTHOR: NOHEMI MACKEY EXP COSIGNER: URGENCY: STATUS: COMPLETED Received notice that [place] cancelled today's individual therapy appointment due to an unexpected camping trip for self care. Called and spoke him. Expressed understanding and appreciation for the notice. Confirmed he plans to attend next week. No evidence of imminent risk. thanked junior technical writer for understanding. /ever/ Nohemi Mackey, PhD Clinical Psychologist, [facility] Signed: 02/10/2024 09:00 NOHEMI MACKEY [facility]
--- OUTSIDE RECORDS SUMMARY | 2024-06-19 13:40 | XMS_ITS ---
Author Name [facility] [place] [facility] [place] [facility] [facility] [place] Address [address] [place] [address] Care Team Providers Care Diving Supervisor Name Role Phone PANCHO HAINESA Primary Care [...] Name Patient's Relationship to Policy [facility] CE ORGANIZAT ION [facility] FIRE DEPT May 09, 2023 [id number] JAMAAL ALTMAN SE PATIENT [place] PRESCRIPT ION [facility] [place] Nov 07, 2023 [phone] SOFÍA ALTMAN JR PATIENT S[place] PREFERRED PROVIDER ORGANIZAT ION (PPO) [facility] Nov 06, 2016 [id number] [phone] JAMAAL ALTMAN SE PATIENT [employer] POINT OF SERVICE [facility] Nov 06, 2016 [id number] [id number] JAMAAL ALTMAN SE PATIENT [facility] Nov 06, 2016 [id number] [phone] JAMAAL ALTMAN SE PATIENT [facility] PRES[facility] Nov 06, 2016 [id number] JAMAAL ALTMAN SE PATIENT [facility] Nov 06, 2009 [id number] JAMAAL ALTMAN SE PATIENT Selected Encounter This section includes the information on record at [place] for the Encounter. Date/Time Encounter Type Encounter Description Reason Pro vider Source Sep 02, 2023 09:00 AM Outpatient Encounter [facility] Encounter Template Text not used by [place] Plan of Treatment: Future Appointments (+ 6 months) and Future Tests (+/- 45 days) The Plan of Treatment section includes future care activities for the patient from all [place] treatmentfacilities. This section includes future appointments and future orders which are active, pending or scheduled. Future Appointments This section includes appointments that were scheduled to occur 6 months from the date of the Encounter, up to a maximum of 20 appointments. The data comes from all [place] treatment facilities. Appointment Date/Time Appointment Type Appointme nt Facility Name Sep 06, 2023 09:00 AM AMBULATORY - [facility] [place] [facility] September 08, 2023 11:00 AM AMBULATORY - PSYCHIATRY [facility] [place] [facility] September 22, 2023 09:00 AM AMBULATORY - PS[facility]IATRY [facility] [place] [facility] October 06, 2023 09:00 AM AMBULATORY - PS[facility] [place] [facility] Oct 28, 2023 09:00 AM AMBULATORY [facility] [place] [facility] Nov 24, 2023 09:30 AM [facility]ULAT[facility]IC[facility] [place] [facility] Nov 25, 2023 09:00 AM AMBULATORY - PS[facility] [place] [facility] Dec 02, 2023 09:00 AM AMBULATORY [facility] [place] [facility] Dec 08, 2023 09:00 AM AMBULATORY - REHAB MEDICIN E [facility] [place] [facility] Dec 09, 2023 09:00 AM AMBULATORY [facility] PS[facility] [place] [facility] Dec 16, 2023 08:30 AM [facility] [place] [facility] Dec 23, 2023 09:00 AM AMBULATORY [facility] PS[facility] [place] [facility] Jan 06, 2024 09:00 AM AMBULATORY [facility] PS[facility] [place] [facility] Jan 20, 2024 09:00 AM AMBULATORY - PS[facility]ATRY [facility] [place] [facility] Feb 03, 2024 09:00 AM AMBULATORY [facility] PS[facility] [place] [facility] Feb 17, 2024 09:00 AM AMBULATORY [facility] [place] [facility] Feb 28, 2024 08:00 AM [place] [facility] [place] [facility] Social History: Smoking Status (Most current) and Tobacco Use (All prior to encounter date) This section includes the most current, and the historical, smoking and tobacco- related health factors from the [place] facility where the Encounter took place. Current Smoking Status This section includes the most current smoking, or tobacco-related health factor, from the [place] facility where the Encounter took place. Date/Time Current Smoking Status Comment [facility] Jun 08, 2023 09:30 AM VA-TOBACCO USER EVERY [facility] Tobacco Use History This section includes a history of the smoking, or tobacco-related health factors, that were collected on or before the date of the Encounter. The data comes from the [place] facility where the Encounter took place. Date/Time Smoking Status/Tobac co Use Comment Facility Jun 08, 2023 09:30 AM VA-TOBACCO USE ADVICE [facility] [place] [facility] Jun 08, 2023 09:30 AM VA-TOBACCO USE PROPERTY CLERK NO [facility] [place] [facility] Jun 08, 2023 09:30 AM VA-TOBACCO USE MED NO [facility] [place] [facility] Jun 08, 2023 09:30 AM VA-TOBACCO USE WI 30 MIN OF WAKEUP [facility] [place] [facility] Jun 08, 2023 09:30 AM VA-TOBACCO USER EVERY DAY [facility] [place] [facility] Jun 23, 2022 09:00 AM VA-TOBACCO FORMER USER [facility] [place] [facility] Jun 23, 2022 09:00 AM VA-TOBACCO QUIT < 1 YEAR [facility] [place] [facility] May 18, 2021 11:00 AM VA-TOBACCO USE > 15 LESS THAN 30 YEARS [facility] [place] [facility] May 18, 2021 11:00 AM VA-TOBACCO USE ADVICE [facility] [place] [facility] May 18, 2021 11:00 AM VA-TOBACCO USE PROPERTY CLERK NO [facility] [place] [facility] May 18, 2021 11:00 AM VA-TOBACCO USE MED NO [facility] [place] [facility] May 18, 2021 11:00 AM VA-TOBACCO USE [place] 30 MIN OF WAKEUP [facility] [place] [facility] May 18, 2021 11:00 AM VA-TOBACCO USER SOME DAYS [facility] [place] [facility] Jul 31, 2018 08:47 AM VA-TOBACCO DOESNT USE WI 30 MIN WAKEUP [facility] [place] [facility] Jul 31, 2018 08:47 AM VA-TOBACCO USE > 15 LESS THAN 30 YEARS [facility] [place] [facility] Jul 31, 2018 08:47 AM VA-TOBACCO USE ADVICE [facility] [place] [facility] Jul 31, 2018 08:47 AM VA-TOBACCO USE PROPERTY CLERK NO [place] [facility] [place] [facility] Jul 31, 2018 08:47 AM VA-TOBACCO USE MED NO [facility] [place] [facility] Jul 31, 2018 08:47 AM VA-TOBACCO USER SOME DAYS [facility] [place] [facility] Jan 30, 2018 09:19 AM QUIT TOBACCO USE IN PAST YEAR a month ago [facility] [place] [facility] Jul 28, 2017 09:31 AM CURRENT SMOKER 2 cigarettes per day [facility] [place] [facility] Dec 08, 2016 08:49 AM CURRENT SMOKER [facility] [place] [facility] Dec 08, 2016 08:49 AM V1-PT NOT INTERESTED IN QUIT TOBACCO USE [facility] [place] [facility] Jun 11, 2016 10:00 AM CURRENT SMOKER [facility] Dec 10, 2015 10:39 AM V1-PT NOT INTERESTED IN QUIT TOBACCO USE [facility] Feb 06, 2015 08:34 AM CURRENT SMOKER 1 1/2 Packs per week [facility] Feb 06, 2015 08:34 AM V1-PT NOT INTERESTED IN QUIT TOBACCO USE [facility] Jul 04, 2013 09:37 AM CURRENT SMOKER pack per week [facility] Jun 24, 2011 08:10 AM V1-PT DECLINES REF TO TOBACCO CESS PRGM [facility] Jun 24, 2011 08:10 AM V1-PT READY TO QUIT TOBACCO USE [facility] Mar 31, 2011 10:12 AM V1-PT DECLINES REF TO TOBACCO CESS PRGM [facility] Mar 31, 2011 10:12 AM V1-PT DECLINES TOBACCO CESSATION MEDS [facility] Mar 31, 2011 10:12 AM V1-PT NOT INTERESTED IN QUIT TOBACCO USE [facility] September 25, 2010 11:03 AM CURRENT SMOKER [facility] September 25, 2010 11:03 AM QUIT TOBACCO USE IN PAST YEAR [facility] Encounter Notes: All associated encounter notes This section contains the clinical notes associated to the Encounter. Date/Time Encounter Note(s) Provider Source Sep 02, 2023 09:22 AM ADMINISTRATIVE NOT E: LOCAL TITLE: ADMINISTRATIVE NOTE STANDARD TITLE: ADMINISTRATIVE NOTE DATE OF NOTE: SEP 02, 2023@09:22 ENTRY DATE: SEP 02, 2023@09:22:43 AUTHOR: NOHEMI MACKEY EXP COSIGNER: URGENCY: STATUS: COMPLETED Called and spoke to Wallace as principal technical writer saw he cancelled today's appointment. Wallace indicated that he is unexpectedly not able to meet due to work activities. Expressed understanding and appreciation for the notice. Confirmed the next appointment day and time. No evidence of imminent risk. Wallace thanked principal technical writer for the call. /ever/ Nohemi Mackye, PhD Clinical Psychologist, [facility] Signed: 09/02/2023 09:32 NOHEMI MACKEY [facility]
--- OUTSIDE RECORDS SUMMARY | 2024-06-19 13:40 | XMS_ITS | Encounter Summary ---
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 Name Role Phone YANCYSONIA Primary Care Provider [...] Huitron's Name Patient's Relationship to Policy [facility] FIRE DEPT May 09, 2023 [id number] JAMAAL ALTMAN SE PATIENT [place] PRESCRIPT ION [facility] Nov 07, 2023 [id number] SOFÍA ALTMAN JR PATIENT S[place] PREFERRED PROVIDER ORGANIZAT ION (PPO) [facility] Nov 06, 2016 [id number] JAMAAL ALTMAN SE PATIENT CIGNA POINT OF SERVICE [facility] Nov 06, 2016 [id number] JAMAAL ALTMAN SE PATIENT CIGNA BEHAVIORAL HEALTH MENTAL HEALTH [facility] Nov 06, 2016 [id number] JAMAAL ALTMAN SE PATIENT [facility] PRES[facility]ON [facility] Nov 06, 2016 [id number] JAMAAL ALTMAN SE PATIENT [facility] Nov 06, 2009 [id number] JAMAAL ALMTAN SE PATIENT Selected Encounter This section includes the information on record at [place] for the Encounter. Date/Time Encounter Type Encounter Description Reason Provider Source Dec 09, 2023 09:00 AM PSYTX W PT 60 MINUTES [facility] - IND ICD-10-CM F43.12 Post-traumatic stress disorder, chronic WEISMOORE,MATTIE E IHE Encounter Template Text not used by [place] Assessments - Encounter Diagnoses This section includes the primary and secondary diagnoses documented for the Encounter. Date/Time Primary/Secondary Diagnosis Diagnosis Name Provider Source Jan 10, 2024 12:58 PM PRIMARY Post-traumatic stress disorder, chronic WEISMOORE,MATTIE E [facility] Jan 10, 2024 12:58 PM SECONDARY Major depressive disorder, recurrent, unspecified WEISMOORE,MATTIE E [facility] Plan of Treatment: Future Appointments (+ 6 months) and Future Tests (+/- 45 days) The Plan of Treatment section includes future care activities for the patient from all [place] treatmentfacilities. This section includes future appointments and future orders which are active, pending or scheduled. Future Appointments This section includes appointments that were scheduled to occur 6 months from the date of the Encounter, up to a maximum of 20 appointments. The data comes from all [place] treatment facilities. Appointment Date/Time Appointment Type Appointme nt Facility Name Dec 16, 2023 08:30 AM AMBULATORY - MEDICINE [facility] Dec 23, 2023 09:00 AM [facility] [place] [facility] Jan 06, 2024 09:00 AM [facility] Jan 20, 2024 09:00 AM AM[facility] Feb 03, 2024 09:00 AM AMBULATORY - PSYCHIATRY [facility] Feb 17, 2024 09:00 AM [facility] Feb 28, 2024 08:00 AM AMBULATORY - MEDICINE [facility] Mar 16, 2024 08:30 AM [facility] Apr 27, 2024 08:30 AM AMBULATORY PSYCHIATRY [facility] May 31, 2024 10:30 AM AMBULATORY - MEDICINE [facility] Active, Pending, and Scheduled Orders This section includes a listing of several types of active, pending, and scheduled orders, including clinic medications orders, diagnostic test orders, procedure orders and consult orders; where the start date of the order is 45 days before the date of the Encounter or 45 days after the date of theEncounter. The data comes from all [facility]. Test Date/Time Test Type Test Details Facility Name Nov 09, 2023 12:00 AM Laboratory - Chemistry Order LIPID PANEL FASTING BLOOD (SST-SERUM) [facility] Nov 09, 2023 12:00 AM Laboratory - Chemistry Order BASIC METABOLIC PANEL (fasting) BLOOD (SST-SERUM) [facility] Nov 09, 2023 12:00 AM Laboratory - Chemistry Order HEMOGLOBIN A1C PANEL BLOOD (LAV-BLOOD) [facility] Social History: Smoking Status (Most current) and Tobacco Use (All prior to encounter date) This section includes the most current, and the historical, smoking and tobacco- related health factors from the [place] facility where the Encounter took place. Current Smoking Status This section includes the most current smoking, or tobacco-related health factor, from the [place] facility where the Encounter took place. Date/Time Current Smoking Status Comment Josr march Jun 08, 2023 09:30 AM VA-TOBACCO USER EVERY DAY [facility] Tobacco Use History This section includes a history of the smoking, or tobacco-related health factors, that were collected on or before the date of the Encounter. The data comes from the [place] facility where the Encounter took place. 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 [facility] [place] [facility] Jun 08, 2023 09:30 AM VA-TOBACCO USE MED NO [facility] [place] [facility] Jun 08, 2023 09:30 AM VA-TOBACCO USE WI 30 MIN OF WAKEUP [facility] [place] [facility] Jun 08, 2023 09:30 AM VA-TOBACCO USER EVERY DAY [facility] [place] [facility] Jun 23, 2022 09:00 AM VA-TOBACCO FORMER USER [facility] [place] [facility] Jun 23, 2022 09:00 AM VA-TOBACCO QUIT < 1 YEAR [facility] [place] [facility] May 18, 2021 11:00 AM VA-TOBACCO USE > 15 LESS THAN 30 YEARS [facility] [place] [facility] May 18, 2021 11:00 AM VA-TOBACCO USE ADVICE [facility] [place] [facility] May 18, 2021 11:00 AM 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 [facility] [place] [facility] May 18, 2021 11:00 AM VA-TOBACCO USE MED NO [facility] [place] [facility] May 18, 2021 11:00 AM VA-TOBACCO USE WI 30 MIN OF WAKEUP [place] [facility] [place] [facility] May 18, 2021 11:00 AM VA-TOBACCO USER SOME DAYS [facility] [place] [facility] Jul 31, 2018 08:47 AM VA-TOBACCO DOESNT USE WI 30 MIN WAKEUP [facility] [place] [facility] Jul 31, 2018 08:47 AM VA-TOBACCO USE > 15 LESS THAN 30 YEARS [facility] [place] [facility] Jul 31, 2018 08:47 AM VA-TOBACCO USE ADVICE [facility] [place] [facility] Jul 31, 2018 08:47 AM 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 [facility] [place] [facility] Jul 31, 2018 08:47 AM VA-TOBACCO USE MED NO [facility] [place] [facility] Jul 31, 2018 08:47 AM VA-TOBACCO USER SOME DAYS [facility] [place] [facility] Jan 30, 2018 09:19 AM QUIT TOBACCO USE IN PAST YEAR a month ago [place] [facility] [place] [facility] Jul 28, 2017 09:31 AM CURRENT SMOKER 2 cigarettes per day [facility] [place] [facility] Dec 08, 2016 08:49 AM CURRENT SMOKER [facility] [place] [facility] Dec 08, 2016 08:49 AM V1-PT NOT INTERESTED IN QUIT TOBACCO USE [facility] [place] [facility] Jun 11, 2016 10:00 AM CURRENT SMOKER [facility] [place] [facility] Dec 10, 2015 10:39 AM V1-PT NOT INTERESTED IN QUIT TOBACCO USE [place] [facility] [place] [facility] Feb 06, 2015 08:34 AM CURRENT SMOKER 1 1/2 Packs per week [facility] [place] [facility] Feb 06, 2015 08:34 AM V1-PT NOT INTERESTED IN QUIT TOBACCO USE [facility] [place] [facility] Jul 04, 2013 09:37 AM CURRENT SMOKER pack per week [facility] [place] [facility] Jun 24, 2011 08:10 AM V1-PT DECLINES REF TO TOBACCO CESS PRGM [facility] [place] [facility] Jun 24, 2011 08:10 AM V1-PT READY TO QUIT TOBACCO USE [facility] [place] [facility] Mar 31, 2011 10:12 AM V1-PT DECLINES REF TO TOBACCO CESS [facility] [place] [facility] Mar 31, 2011 10:12 AM V1-PT DECLINES TOBACCO CESSATION MEDS [facility] [place] [facility] Mar 31, 2011 10:12 AM V1-PT NOT INTERESTED IN QUIT TOBACCO USE [facility] [place] [facility] September 25, 2010 11:03 AM CURRENT SMOKER [facility] [place] [facility] September 25, 2010 11:03 AM QUIT TOBACCO USE IN PAST YEAR [facility] [place] [facility] Encounter Notes: All associated encounter notes This section contains the clinical notes associated to the Encounter. Date/Time Encounter Note(s) Provider Source Dec 09, 2023 04:10 PM PSYCHOLOGY NOTE: LOCAL TITLE: PSYCHOLOGY NOTE STANDARD TITLE: PSYCHOLOGY NOTE DATE OF NOTE: DEC 09, 2023@16:10 ENTRY DATE: DEC 09, 2023@16:10:41 AUTHOR: NOHEMI MACKEY COSIGNER: URGENCY: STATUS: COMPLETED PSYCHOLOGY NOTE Has ADDENDA IP Individual Therapy Note Procedure: The patient was seen for a 60-minute F2F individual psychotherapy session focused on treatment of symptoms PTSD and depression. [place] identified with 2 identifiers: [X] Patient Name [X] Visual recognition The Outpatient Individual Psychotherapy Services Agreement was reviewed with this provider on 12/09/2023. Agreed to discuss next steps in upcoming appointments as expressed doubt about his ability to commit to CPT at this time given an unexpected work-related training for the next 2 months. Problem: Difficulty managing PTSD and depressive symptoms Objectives: 1) [place] will engage in individual, weekly psychotherapy to increase his ability to tolerate distressing emotional experiences and to engage in behaviors that are consistent with his values. 2) [place] will learn about and consider trauma-focused therapy to directly address PTSD symptoms if/when clinically appropriate. Progress: [place] apologized for not writing the impact statement and spoke about several unexpected events in his week, including being asked to take a class to advance his career and his planning a trip next week to [place]. [place] spoke about his priorities and needs. He also discussed the impact of past trauma on his sense of self and desire to be alive. Agreed to discuss further what is able to commit to in next session. Assessment: [place] arrived on time for session and was dressed appropriately with appropriate hygiene. He maintained appropriate eye contact and was alert. [place] spoke clearly and coherently. His thoughts were linear and related. His affect was congruent to content and appropriate in range. There was no evidence of AH/VH or delusions. There was no evidence of SI or HI. [place] was reminded of emergency resources through this [facility] and the [facility] Crisis Line number. Thus, current assessment of risk for suicide and homicide is low. DSM 5 Diagnostic Impressions: PTSD, Chronic Major Depressive Disorder, recurrent Plan: [place]'s next visit is scheduled for Saturday, December 16, 2023 at 9am F2F. [place] committed to complete self-report questionnaires weekly, requesting they be sent via text and email on at 5pm. ~~~ PCT Psychotherapy Tracking Today's psychotherapy session was part of a standardized episode of Other PTSD Psychotherapy (e.g. supportive therapy): Other: CBT /ever/ Nohemi Mackey, PhD Clinical Psychologist, [facility] Signed: 12/09/2023 16:14 12/13/2023 ADDENDUM STATUS: COMPLETED Called and spoke to regarding scheduling to clarify after last appointment. He indicated he cannot meet this week and requested that the next appointment be on Saturday, December 23, 2023 at 9am F2F. /ever/ Nohemi Mackey, PhD Clinical Psychologist, [facility] Signed: 12/13/2023 15:17 NOHEMI MACKEY [place] [facility] [place] [facility] Dec 09, 2023 08:24 AM MENTAL HEALTH DIAG NOSTIC STUDY NOTE: LOCAL TITLE: MENTAL HEALTH DIAGNOSTIC STUDY STANDARD TITLE: MENTAL HEALTH DIAGNOSTIC STUDY NOTE DATE OF NOTE: DEC 09, 2023@08:24:23 ENTRY DATE: DEC 09, 2023@08:24:23 AUTHOR: NOHEMI MACKEY EXP COSIGNER: URGENCY: STATUS: COMPLETED Assessments were sent to the via text/email. These assessments were completed by SOFÍA ALTMAN JR on their own device on 12/09/2023 6:46:17 AM. PATIENT HEALTH QUESTIONNAIRE-9 (PHQ-9) The patient reported some symptoms of depression; symptoms are not consistent with a major depressive episode. Patient reported being bothered by the following over the last 2 weeks: 1. Little interest or pleasure: Several Days 2. Feeling down, depressed or hopeless: Not at all 3. Trouble sleeping: More than half the days 4. Tired, low energy: More than half the days 5. Poor appetite, over-eating: Not at all 6. Feelings of failure, guilt: Not at all 7. Trouble concentrating: Not at all 8. Motor retardation, agitation: Not at all 9. Thoughts better off /hurting self: Not at all PHQ-9 total score = 5 1-4 = minimal symptoms 5-9= mild symptoms 10-14= moderate symptoms 15-19= moderately severe symptoms 20-27= severe depressive symptoms The patient stated that the depressive symptoms made it somewhat difficult to work, take care of things at home, or get along with others. PHQ-9 Total Score (past 180 days): 12/09/2023 5 12/02/2023 14 PTSD CHECKLIST (PCL-5) - WEEKLY Patient reported being bothered by the following over the past week: 1. Disturbing memories: Moderately 2. Disturbing dreams: Quite a bit 3. Re-experiencing events: Moderately 4. Cued distress: Quite a bit 5. Cued physical symptoms: Moderately 6. Avoiding internal reminders: Moderately 7. Avoiding external reminders: Moderately 8. Trouble with recall: A little bit 9. Negative beliefs: A little bit 10. Blaming self/others: Moderately 11. Negative feelings: Moderately 12. Loss of interest: Moderately 13. Feeling distant from others: Moderately 14. Feeling numb: Moderately 15. Feeling irritable: A little bit 16. Reckless behavior: Not at all 17. Being super-alert : Moderately 18. Feeling easily startled: Not at all 19. Difficulty concentrating: Moderately 20. Trouble sleeping: Quite a bit PCL-5 total score = 36 This measure assesses an individual's perception of the distress associated with possible PTSD symptoms. It is not used to diagnose PTSD. Symptoms are rated from 0-4 in terms of distress they cause the individual. Scores that are greater than or equal to 31-33 suggest that the may meet the criteria for a PTSD diagnosis. However, it is important to use caution when using this cutoff since it is possible for some Veterans with scores lower than 31-33 to meet criteria for PTSD. Additional testing using a structured diagnostic interview, such as the Clinician Administered PTSD Scale for DSM-5, is recommended to confirm diagnostic status. /ever/ Nohemi Mackey, PhD Clinical Psychologist, [facility] Signed: 12/09/2023 16:10 NOHEMI MACKEY [place] [facility]
--- OUTSIDE RECORDS SUMMARY | 2024-06-19 13:40 | XMS_ITS ---
Author Name [facility] [place] [facility] [place] Address [address] [place] [address] Care Team Providers Care Software Verification Engineer Name Role Phone SONIA HAINES Primary Care Provider Unavailkaycee barton Insurance Providers: [...] Huitron's Name Patient's Relationship to Policy Huitron [facility] CE [facility]GANIZAT ION [facility] FIRE DEPT May 09, 2023 [id number] JAMAAL ALTMAN SE PATIENT CAREMARK PRESCRIPT ION BCBS [facility] Nov 07, 2023 [id number] [phone] SOFÍA ALTMAN JR PATIENT [facility] PREFERRED PROVIDER ORGANIZAT ION (PPO) [facility] Nov 06, 2016 [id number] [phone] JAMAAL ALTMAN SE PATIENT [employer] POINT OF SERVICE [facility] Nov 06, 2016 [id number] JAMAAL ALTMAN SE PATIENT [facility] Nov 06, 2016 [id number] JAMAAL ALTMAN SE PATIENT [facility] PRESCRIPT ION [facility] Nov 06, 2016 [id number] JAMAAL ALTMAN SE PATIENT [facility] Nov 06, 2009 [id number] JAMAAL ALTMAN SE PATIENT Selected Encounter This section includes the information on record at [place] for the Encounter. Date/Time Encounter Type Encounter Description Reason Pro vider Source Jul 05, 2023 09:30 AM Outpatient Encounter RENAL/NEPHROL(EXCEPT DIALYSIS) IHE Encounter Template Text not used by [place] Plan of Treatment: Future Appointments (+ 6 months) and Future Tests (+/- 45 days) The Plan of Treatment section includes future care activities for the patient from all [place] treatmentfacilities. This section includes future appointments and future orders which are active, pending or scheduled. Future Appointments This section includes appointments that were scheduled to occur 6 months from the date of the Encounter, up to a maximum of 20 appointments. The data comes from all [place] treatment facilities. Appointment Date/Time Appointment Type Appointme nt Facility Name Jul 11, 2023 11:30 AM [facility]BULAT[facility] [place] [facility] Jul 12, 2023 01:00 PM AMBULATORY - [facility] [place] [facility] Jul 15, 2023 09:00 AM AMBULATORY - PSYCHIATRY [facility] [place] [facility] Jul 22, 2023 09:00 AM AMBULATORY [facility]CHIATRY [facility] [place] [facility] Jul 22, 2023 11:30 AM AMBULATORY - [facility] MEDICIN [facility] [place] [facility] Jul 26, 2023 09:00 AM [facility]AT[facility]IC[facility] [place] [facility] Aug 05, 2023 09:00 AM AMBULATORY [facility] PS[facility]CHIATRY [facility] [place] [facility] Aug 11, 2023 09:45 AM AM[facility]ULATORY [facility] MEDICINE [facility] [place] [facility] Aug 11, 2023 11:00 AM AMBULATORY - PS[facility]IATRY [facility] [place] [facility] Sep 06, 2023 09:00 AM AMBULATORY - REHAB MEDICIN E [facility] [place] [facility] September 08, 2023 11:00 AM AMBULATORY [facility] PS[facility]IATRY [facility] [place] [facility] September 22, 2023 09:00 AM [facility] [place] [facility] October 06, 2023 09:00 AM AMBULAT[facility] [place] [facility] Oct 28, 2023 09:00 AM AMBULATORY [facility] PS[facility]IATRY [facility] [place] [facility] Nov 24, 2023 09:30 AM AMBULATORY [facility] MEDICINE [facility] [place] [facility] Nov 25, 2023 09:00 AM AMBULATORY - PS[facility]CHIATRY [facility] [place] [facility] Dec 02, 2023 09:00 AM AMBULATORY [facility] PS[facility]IATRY [facility] [place] [facility] Dec 08, 2023 09:00 AM AMBULATORY - REHAB MEDICIN E [facility] [place] [facility] Dec 09, 2023 09:00 AM AMBULATORY [facility] PS[facility]CHIATRY [facility] [place] [facility] Dec 16, 2023 08:30 AM AMBULATORY [facility] MEDICINE [facility] [place] [facility] Lab Results: +/- 30 days of the encounter This section includes the Chemistry and Hematology Lab Results on record with [place] for the patient. Radiology Reports and Pathology Reports are provided separately, in subsequent sections. Lab Results This section contains the Chemistry/Hematology Results that were resulted 30 days before or 30 daysafter the date of the Encounter. Date/Time Source Result Type Result - Unit Interpretation Reference Range Comment Jul 19, 2023 08:44 AM [place] [facility] [place] [facility] MICROALBUMIN CREATININE RATIO PANEL Specimen Type: URINE No comment entered. Ordering Provider: SADIE MORSE Report Released Date/Time: Jul 15, 2023 01:11 PM Reporting Lab: [facility] [place] [facility] [address] [address] Performing Lab: [place] [facility] [place] [facility] [address] [facility] [address] MICROALBUMIN/C REATININE RATIO 5.0 mg/g 0-29.9 MICROALBUMIN,Q UANTITATIVE 1.4 mg/dL RR UNAVAIL CREATININE URINE 281.21 mg/dL Jul 19, 2023 08:38 AM [facility] IRON & TIBC PANEL Specimen Type: SERUM No comment entered. Ordering Provider: SADIE MORSE Report Released Date/Time: Jul 04, 2023 08:48 AM Reporting Lab: [address] [address] Performing Lab: [address] [address] TIBC 345 ug/dL 204-475 IRON 119 ug/dL 40-160 Transferrin Saturation 34.5 20.0-50.0 Jul 19, 2023 08:38 AM [facility] FERRITIN Specimen Type: SERUM No comment entered. Ordering Provider: SADIE MORSE Report Released Date/Time: Jul 04, 2023 08:48 AM Reporting Lab: [address] [address] Performing Lab: [address] [address] FERRITIN 339 ng/mL H 20-300 Jul 19, 2023 08:38 AM [facility] BASIC METABOLIC PANEL (non-fasting) Specimen Type: SERUM No comment entered. Ordering Provider: SADIE MORSE Report Released Date/Time: Jul 04, 2023 08:48 AM Reporting Lab: [address] [address] Performing Lab: [address] [address] UREA NITROGEN 17 mg/dL 7-25 GLUCOSE 138 mg/dL H 65-100 SODIUM 139 mmol/L 135-145 POTASSIUM 4.2 mmol/L 3.5-5.0 CHLORIDE 103 mmol/L 100-110 CO2 25 meq/L 20-30 CREATININE, Serum 1.19 mg/dL 0.50-1.40 eGFR(CKD-EPI 2020) 74 mL/min >60 Jul 19, 2023 08:38 AM [facility] CBC Specimen Type: BLOOD No comment entered. Ordering Provider: SADIE MORSE Report Released Date/Time: Jul 04, 2023 08:48 AM Reporting Lab: [facility] [address] [address] Performing Lab: [facility] [address] [address] [address] WBC 9.57 10*3/uL 4.50-11.00 RBC 5.03 10*6/uL 4.23-5.66 HGB 14.6 g/dL 12.8-17 HCT 44.5 39.2-50.4 MCV 88.5 fL 82-99 MCHC 32.8 g/dL 30.8-35.1 PLT 233 10*3/uL 140-360 RDW-CV 12.3 12.0-16.0 MCH 29.0 pg 26.2-32.6 Jun 24, 2023 10:15 AM [facility] MICROALBUMIN CREATININE RATIO PANEL Specimen Type: URINE No comment entered. Ordering Provider: SADIE MORSE Report Released Date/Time: Jun 07, 2023 09:51 AM Reporting Lab: [facility] [address] [address] Performing Lab: [facility] [address] [address] MICROALBUMIN/C REATININE RATIO 5.4 mg/g 0-29.9 MICROALBUMIN,Q UANTITATIVE 0.8 mg/dL RR UNAVAIL CREATININE URINE 148.98 mg/dL Jun 07, 2023 09:36 AM [facility] [employer] [facility] PO4 Specimen Type: SERUM No comment entered. Ordering Provider: SADIE MORSE Report Released Date/Time: Dec 29, 2022 10:59 AM Reporting Lab: [facility] [address] [address] Performing Lab: [facility] [address] [address] PO4 3.4 mg/dL 2.5-5.0 Jun 07, 2023 09:36 AM [facility] [employer] [facility] PTH INTACT Specimen Type: SERUM No comment entered. Ordering Provider: SADIE MORSE Report Released Date/Time: Dec 29, 2022 10:59 AM Reporting Lab: [place] [facility] [place] [facility] [address] [address] Performing Lab: [place] [facility] [place] [facility] [address] [address] PTH INTACT 62.5 pg/mL 10-65 Jun 07, 2023 09:36 AM [facility] HDL CHOLESTEROL Specimen Type: SERUM No comment entered. Ordering Provider: SADIE MORSE Report Released Date/Time: Dec 29, 2022 10:59 AM Reporting Lab: [facility] [place] [address] [address] Performing Lab: [facility] [place] [address] [address] HDL CHOLESTEROL 37 mg/dL L 40-60 Jun 07, 2023 09:36 AM [facility] CHOLESTEROL Specimen Type: SERUM No comment entered. Ordering Provider: SADIE MORSE Report Released Date/Time: Dec 29, 2022 10:59 AM Reporting Lab: [facility] [place] [address] [address] Performing Lab: [facility] [place] [address] [address] CHOLESTEROL 263 mg/dL H Jun 07, 2023 09:36 AM [facility] VITAMIN D (25-[place]) Specimen Type: SERUM No comment entered. Ordering Provider: SADIE MORSE Report Released Date/Time: Dec 29, 2022 10:59 AM Reporting Lab: [facility] [place] [address] [address] Performing Lab: [facility] [place] [place] [address] [address] VITAMIN D (25-[place]) 26 ng/mL 20-50 Jun 07, 2023 09:36 AM [facility] MAGNESIUM Specimen Type: SERUM No comment entered. Ordering Provider: SADIE MORSE Report Released Date/Time: Dec 29, 2022 10:59 AM Reporting Lab: [place] [facility] [place] [facility] [address] [address] [address] Performing Lab: [place] [facility] [place] [address] [address] MAGNESIUM 1.9 mg/dL 1.6-2.6 Jun 07, 2023 09:36 AM [facility] [place] [facility] CALCIUM Specimen Type: SERUM No comment entered. Ordering Provider: SADIE MORSE Report Released Date/Time: Dec 29, 2022 10:59 AM Reporting Lab: [facility] [place] [address] [address] Performing Lab: [place] [facility] [place] [address] [address] CALCIUM 9.7 mg/dL 8.5-10.2 Jun 07, 2023 09:36 AM [facility] [place] [place] [facility] BASIC METABOLIC PANEL (non-fasting) Specimen Type: SERUM No comment entered. Ordering Provider: SADIE MORSE Report Released Date/Time: Dec 29, 2022 10:59 AM Reporting Lab: [facility] [place] [place] [address] [address] Performing Lab: [place] [facility] [place] [address] [address] UREA NITROGEN 15 mg/dL 7-25 GLUCOSE 145 mg/dL H 65-100 SODIUM 139 mmol/L 135-145 POTASSIUM 4.5 mmol/L 3.5-5.0 CHLORIDE 102 mmol/L 100-110 CO2 27 meq/L 20-30 CREATININE, Serum 1.20 mg/dL 0.50-1.40 eGFR(CKD-EPI 2020) 73 mL/min >60 Jun 07, 2023 09:35 AM [facility] [place] [place] [facility] FERRITIN Specimen Type: SERUM No comment entered. Ordering Provider: SADEI MORSE Report Released Date/Time: Jun 06, 2023 01:31 PM Reporting Lab: [place] [facility] [place] [address] [address] Performing Lab: [place] [facility] [place] [facility] [address] [address] FERRITIN 352 ng/mL H 20-300 Jun 07, 2023 09:35 AM [facility] IRON & TIBC PANEL Specimen Type: SERUM No comment entered. Ordering Provider: SADIE MORSE Report Released Date/Time: Jun 06, 2023 01:31 PM Reporting Lab: [facility] [address] [address] Performing Lab: [facility]ITAL[facility] [address] [address] TIBC 335 ug/dL 204-475 IRON 72 ug/dL 40-160 Transferrin Saturation 21.5 20.0-50.0 Jun 07, 2023 09:35 AM [facility] CBC Specimen Type: BLOOD No comment entered. Ordering Provider: SADIE MORSE Report Released Date/Time: Jun 06, 2023 01:31 PM Reporting Lab: [facility]ITALTR[facility] [address] [address] Performing Lab: [facility] [address] [address] WBC 8.63 10*3/uL 4.50-11.00 RBC 5.26 10*6/uL [...] and tobacco- related health factors from the [place] facility where the Encounter took place. Current Smoking Status This section includes the most current smoking, or tobacco-related health factor, from the [place] facility where the Encounter took place. Date/Time Current Smoking Status Comment Josr march Jun 08, 2023 09:30 AM VA-TOBACCO USER EVERY DAY [facility] [place] [facility] Tobacco Use History This section includes a history of the smoking, or tobacco-related health factors, that were collected on or before the date of the Encounter. The data comes from the [place] facility where the Encounter took place. Date/Time Smoking Status/Tobac co Use Comment Facility Jun 08, 2023 09:30 AM VA-TOBACCO USE ADVICE [place] [facility] [facility] Jun 08, 2023 09:30 AM VA-TOBACCO USE ADMISSION NURSE NO [facility] [place] [facility] Jun 08, 2023 09:30 AM VA-TOBACCO USE MED NO [facility] [place] [facility] Jun 08, 2023 09:30 AM VA-TOBACCO USE [place] 30 MIN OF WAKEUP [place] [facility] [facility] Jun 08, 2023 09:30 AM VA-TOBACCO USER EVERY DAY [place] [facility] [place] [facility] Jun 23, 2022 09:00 AM VA-TOBACCO FORMER USER [place] [facility] [facility] Jun 23, 2022 09:00 AM VA-TOBACCO QUIT < 1 YEAR [facility] [place] [facility] May 18, 2021 11:00 AM VA-TOBACCO USE > 15 LESS THAN 30 YEARS [place] [facility] [place] [facility] May 18, 2021 11:00 AM VA-TOBACCO USE ADVICE [place] [facility] [place] [facility] May 18, 2021 11:00 AM VA-TOBACCO USE ADMISSION NURSE NO [place] [facility] [place] [facility] May 18, 2021 11:00 AM VA-TOBACCO USE MED NO [facility] [place] [facility] May 18, 2021 11:00 AM VA-TOBACCO USE [place] 30 MIN OF WAKEUP [place] [facility] [facility] May 18, 2021 11:00 AM VA-TOBACCO USER SOME DAYS [facility] [place] [facility] Jul 31, 2018 08:47 AM VA-TOBACCO DOESNT USE [place] 30 MIN WAKEUP [place] [facility] [facility] Jul 31, 2018 08:47 AM VA-TOBACCO USE > 15 LESS THAN 30 YEARS [place] [facility] [place] [facility] Jul 31, 2018 08:47 AM VA-TOBACCO USE ADVICE [facility] [place] [facility] Jul 31, 2018 08:47 AM VA-TOBACCO USE ADMISSION NURSE NO [facility] [place] [facility] Jul 31, 2018 08:47 AM VA-TOBACCO USE MED NO [facility] [place] [facility] Jul 31, 2018 08:47 AM VA-TOBACCO USER SOME DAYS [facility] [place] [facility] Jan 30, 2018 09:19 AM QUIT TOBACCO USE IN PAST YEAR a month ago [place] [facility] [facility] Jul 28, 2017 09:31 AM CURRENT SMOKER 2 cigarettes per day [place] [facility] [place] [facility] Dec 08, 2016 08:49 AM CURRENT SMOKER [facility] [place] [facility] Dec 08, 2016 08:49 AM V1-PT NOT INTERESTED IN QUIT TOBACCO USE [facility] [place] [facility] Jun 11, 2016 10:00 AM CURRENT SMOKER [facility] [place] [facility] Dec 10, 2015 10:39 AM V1-PT NOT INTERESTED IN QUIT TOBACCO USE [facility] [place] [facility] Feb 06, 2015 08:34 AM CURRENT SMOKER 1 1/2 Packs per week [facility] [place] [facility] Feb 06, 2015 08:34 AM V1-PT NOT INTERESTED IN QUIT TOBACCO USE [facility] [place] [place] [facility] Jul 04, 2013 09:37 AM CURRENT SMOKER pack per week [facility] [place] [facility] Jun 24, 2011 08:10 AM V1-PT DECLINES REF TO TOBACCO CESS PR[facility] [place] [facility] Jun 24, 2011 08:10 AM V1-PT READY TO QUIT TOBACCO USE [place] [facility] [place] [facility] Mar 31, 2011 10:12 AM V1-PT DECLINES REF TO TOBACCO CESS PRGM [place] [facility] [place] [facility] Mar 31, 2011 10:12 AM V1-PT DECLINES TOBACCO CESSATION MEDS [place] [facility] [place] [facility] Mar 31, 2011 10:12 AM V1-PT NOT INTERESTED IN QUIT TOBACCO USE [facility] [place] [facility] September 25, 2010 11:03 AM CURRENT SMOKER [facility] [place] [facility] September 25, 2010 11:03 AM QUIT TOBACCO USE IN PAST YEAR [place] [facility]
--- OUTSIDE RECORDS SUMMARY | 2024-06-19 13:40 | XMS_ITS | Clinical Summary ---
Author Organization [facility] Address [address] [place] [address] Care Team Providers Care Bell Clerk Name Role Phone Unavailable Primary Care Provider Unavailabl e Social History Tobacco Use Types Packs/Day Years Used Date Smoking Tobacco: Never Assessed Sex and Gender Information Value Date Recorded Sex Assigned at Not on file Legal Sex Male 5:04 AM EST Gender Identity Not on file Sexual Orientation Not on file Plan of Treatment Health Maintenance Due Date Last Done Comments DTaP,Tdap,and Td Vaccines (1 - Tdap) 02/26/1980 Hepatitis B Vaccines (1 of 3 - 19+ 3-dose series) 02/26/1992 Pneumococcal Vaccine: 50+ Ye ars (1 of 1 - PCV) 2023 Zoster Vaccines (1 of 2) 2023 COVID-19 Vaccine (1 - 2023-2 5 season) 2024 Influenza Vaccine (#1) 2024 HIB Vaccines Aged Out No longer eligi ble based on patient's age to complete this topic HPV Vaccines Aged Out No longer eligi ble based on patient's age to complete this topic Hepatitis A Vaccines Aged Out No long er eligible based on patient's age to complete this topic IPV Vaccines Aged Out No longer eligi ble based on patient's age to complete this topic MMR Vaccines Aged Out No longer eligi ble based on patient's age to complete this topic Meningococcal ACWY Vaccine Aged Out N o longer eligible based on patient's age to complete this topic Meningococcal B Vacine Aged Out No lo nger eligible based on patient's age to complete this topic Pneumococcal Vaccine: Pediat rics (0 to 5 Years) and At-Risk Patients (6 to 64 Years) Aged Out No longer eligible b ased on patient's age to complete this topic RSV Immunization Patients Un lela 20 months Aged Out No longer eligible b ased on patient's age to complete this topic Varicella Vaccines Aged Out No longer eligible based on patient's age to complete this topic
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
--- OUTSIDE RECORDS SUMMARY | 2024-06-19 13:41 | XMS_ITS | Patient Health Record ---
Author Organization [facility] Address [address] [place] [address] Care Team Providers Care Discotheque Dancer Name Role Phone Flor SAINI, Beka Primary Care Provider Unavail able Dayday Bryant Jr Unavailable Ramone Blevins MD Unavailable ALLERGIES No Known Allergies REASON FOR REFERRAL No Information MEDICATIONS Medication SIG (Take, Route, Frequency, Duration) Notes Start Date End Date Status Rosuvastatin Calcium 20 MG 1 tablet Oral ly Once a day for 30 day(s) Active Pantoprazole Sodium 20 MG 1 tablet Orall y Once a day for 30 day(s) Active MiraLax (colon prep) 8.3 ounce ((238) grams mixed with Gatorade or Crystal Light orally begin at 5:00 p.m. the day before the procedure for 1 day 08/13/2021 Active amLODIPine Besy-Benazepril HCl 5-10 MG as directed Orally Active Gabapentin 300 MG 1 capsule Orally Onc e a day for 30 day(s) Active Atenolol-Chlorthalidone 100-25 MG 1 tablet Orally Once a day for 30 day(s) Active IMMUNIZATIONS Vaccine Route Administration Date Status Comme nts Influenza Unknown 2021 Administered SOCIAL HISTORY Tobacco Use: Social History Observation Description Date Details (start date - stop date) Current Smoker NA - NA Sex Assigned At : Social History Observation Description Sex Assigned At Unknown Tobacco Use/Smoking Question Answer Notes Patient is a current smoker How many cigarettes a day do you smoke? 5 or les s Alcohol Screen Question Answer Notes Did you have a drink contain ing alcohol in the past year? Yes How often did you have a dri nk containing alcohol in the past year? 2 to 4 times a month (2 points) How many drinks did you have on a typical day when you were drinking in the past year? 1 or 2 drinks (0 point) How often did you have 6 or more drinks on one occasion in the past year? Less than monthly (1 point) Points 3 Interpretation Negative PROBLEMS Problem Type ICD Code Onset Dates Problem Status W/U Status Risk SNOMED Code Notes Problem Gastroesophageal reflux disease, unspecified whether esophagitis present (K21.9) Active confirmed 711399059 Problem Colon cancer screening (Z12.11) Active confirmed [id number] Problem Gastroesophageal reflux (K21.9) Active confirmed Esophageal reflux finding (639204813) PLAN OF TREATMENT Future Test Test Name Order Date UPPER GI ENDOSCOPY 08/13/2021 COLONOSCOPY 08/13/2021 Insurance Providers Payer Name Payer Address Payer Phone Subscriber Number Group Number Insured Name Patient Relationship to Insured Coverage Start Date Coverage End Date [facility] [employer] [address] [place] [id number] SOFÍA ALTMAN Self - patient is the insured MEDICAL (GENERAL) HISTORY Medical History History ICD Code Hypertension Hyperlipidemia Eczema Gastroesophageal reflux disease Surgical History Surgery Date(Month/Year) right hand
--- OUTSIDE RECORDS SUMMARY | 2024-06-19 13:41 | XMS_ITS | Encounter Summary ---
Author Name [facility] [place] [facility] [place] [facility] [place] Address [address] [place] [address] Care Team Providers Care Classroom Aide Name Role Phone YANCYSONIA Primary Care Provider Unavailkaycee barton Insurance Providers: [...] Name Patient's Relationship to Policy Huitron BCBS [facility] CE ORGANIZAT ION [facility] FIRE DEPT May 09, 2023 [id number] JAMAAL ALTMAN SE PATIENT [employer] PRESCRIPT ION [place] Nov 07, 2023 [id number] SOFÍA ALTMAN JR PATIENT SIL[place] PREFERRED PROVIDER ORGANIZAT ION (PPO) [facility] Nov 06, 2016 [id number] [phone] JAMAAL ALTMAN SE PATIENT [employer] POINT OF SERVICE [facility] Nov 06, 2016 [id number] JAMAAL ALTMAN SE PATIENT [employer] BEHAVIORAL HEALTH MENTAL HE[facility] Nov 06, 2016 [id number] JAMAAL ALTMAN SE PATIENT [facility] PRESCRIPT ION [facility] Nov 06, 2016 [id number] JAMAAL ALTMAN SE PATIENT [facility] ORGAN Nov 06, 2009 [id number] JAMAAL ALTMAN SE PATIENT Selected Encounter This section includes the information on record at [place] for the Encounter. Date/Time Encounter Type Encounter Description Reason Pro vider Source May 22, 2024 09:42 AM Outpatient Encounter PRIMARY CARE/MEDICINE IHE Encounter Template Text not used by [place] Plan of Treatment: Future Appointments (+ 6 [...] 31, 2024 10:30 AM AM[place]UL[place]IC[place] [facility] [place] [facility] Jun 28, 2024 10:30 AM AMBULATORY [place]IC[place] [facility] [place] [facility] Jul 05, 2024 09:00 AM AMBULATORY [place]ICINE [place] [facility] [place] [facility] Jul 06, 2024 08:30 AM AMBULATORY - [facility]CHIATRY [facility] [place] [facility] Jul 06, 2024 09:00 AM AMBULATORY [place]ICINE [place] [facility] [place] [facility] Jul 13, 2024 08:30 AM AMBULATORY - PS[facility]CHIATRY [facility] [place] [facility] Jul 20, 2024 08:30 AM AMBULATORY - PSYCHIATRY [facility] [place] [facility] Jul 27, 2024 08:30 AM AMBULATORY - PS[facility]CHIATRY [facility] [place] [facility] September 13, 2024 01:30 PM AMBULATORY [place]ICINE [place] [facility] [place] [facility] Active, Pending, and Scheduled Orders This section includes a listing of several types of active, pending, and scheduled orders, including clinic medications orders, diagnostic test orders, procedure orders and consult orders; where the start date of the order is 45 days before the date of the Encounter or 45 days after the date of theEncounter. The data comes from all [place] treatment facilities. Test Date/Time Test Type Test Details Facility Name May 31, 2024 10:51 AM Consult Order [facility] Cons [facility] May 31, 2024 11:15 AM Consult Order PHARMACY/N HM OUTPT Cons [facility] Lab Results: +/- 30 days [...] Range Comment May 23, 2024 09:30 AM [facility] HEMOGLOBIN A1C PANEL Specimen Type: [...] May 17, 2024 12:47 PM Reporting Lab: [address] [address] Performing Lab: [address] [address] HEMOGLOBIN A1C 7.1 H 4.0-5.6 May 23, 2024 09:30 AM [facility] BASIC METABOLIC PANEL (non-fasting) Specimen Type: SERUM No comment entered. Ordering Provider: SONIA HAINES Report Released Date/Time: May 18, 2024 11:38 AM Reporting Lab: [address] [address] Performing Lab: [facility] [place] [facility] [address] [facility] [facility] [id number] UREA NITROGEN 16 mg/dL 7-25 GLUCOSE 174 [...] took place. Date/Time Current Smoking Status Comment [facility] Jun 08, 2023 09:30 AM VA-TOBACCO USER EVERY DAY [place] [facility] [place] [facility] Tobacco Use History This section includes a history of the smoking, or tobacco-related health factors, that were collected on or before the date of the Encounter. The data comes from the [place] facility where the Encounter took place. Date/Time Smoking Status/Tobac co Use Comment Facility Jun 08, 2023 09:30 AM VA-TOBACCO USE ADVICE [place] [facility] [place] [facility] Jun 08, 2023 09:30 AM VA-TOBACCO USE MOOSE HUNTER NO [place] [facility] [place] [facility] Jun 08, 2023 09:30 AM VA-TOBACCO USE MED NO [place] [facility] [place] [facility] Jun 08, 2023 09:30 AM VA-TOBACCO USE WI 30 MIN OF WAKEUP [place] [facility] [place] [facility] Jun 08, 2023 09:30 AM VA-TOBACCO USER EVERY DAY [facility] [place] [facility] Jun 23, 2022 09:00 AM VA-TOBACCO FORMER USER [place] [facility] [place] [facility] Jun 23, 2022 09:00 AM VA-TOBACCO QUIT < 1 YEAR [place] [facility] [place] [facility] May 18, 2021 11:00 AM VA-TOBACCO USE > 15 LESS THAN 30 YEARS [facility] [place] [facility] May 18, 2021 11:00 AM VA-TOBACCO USE ADVICE [facility] [place] [facility] May 18, 2021 11:00 AM VA-TOBACCO USE MOOSE HUNTER NO [facility] [place] [facility] May 18, 2021 11:00 AM VA-TOBACCO USE MED NO [facility] [place] [facility] May 18, 2021 11:00 AM VA-TOBACCO USE [place] 30 MIN OF WAKEUP [place] [facility] [place] [facility] May 18, 2021 11:00 AM VA-TOBACCO USER SOME DAYS [facility] [place] [facility] Jul 31, 2018 08:47 AM VA-TOBACCO DOESNT USE WI 30 MIN WAKEUP [place] [facility] [place] [facility] Jul 31, 2018 08:47 AM VA-TOBACCO USE > 15 LESS THAN 30 YEARS [facility] [place] [facility] Jul 31, 2018 08:47 AM VA-TOBACCO USE ADVICE [facility] [place] [facility] Jul 31, 2018 08:47 AM VA-TOBACCO USE MOOSE HUNTER NO [facility] [place] [facility] Jul 31, 2018 08:47 AM VA-TOBACCO USE MED NO [facility] [place] [facility] Jul 31, 2018 08:47 AM VA-TOBACCO USER SOME DAYS [facility] [place] [facility] Jan 30, 2018 09:19 AM QUIT TOBACCO USE IN PAST YEAR a month ago [facility] [place] [facility] Jul 28, 2017 09:31 AM CURRENT SMOKER 2 cigarettes per day [facility] [place] [facility] Dec 08, 2016 08:49 AM CURRENT SMOKER [facility] [place] [facility] Dec 08, 2016 08:49 AM V1-PT NOT INTERESTED IN QUIT TOBACCO USE [facility] [place] [facility] Jun 11, 2016 10:00 AM CURRENT SMOKER [facility] [place] [facility] Dec 10, 2015 10:39 AM V1-PT NOT INTERESTED IN QUIT TOBACCO USE [facility] [place] [facility] Feb 06, 2015 08:34 AM CURRENT SMOKER 1 1/2 Packs per week [facility] [place] [facility] Feb 06, 2015 08:34 AM V1-PT NOT INTERESTED IN QUIT TOBACCO USE [facility] Jul 04, 2013 09:37 AM CURRENT SMOKER pack per week [facility] Jun 24, 2011 08:10 AM V1-PT DECLINES REF TO TOBACCO CESS PRGM [facility] Jun 24, 2011 08:10 AM V1-PT READY TO QUIT TOBACCO USE [facility] Mar 31, 2011 10:12 AM V1-PT DECLINES REF TO TOBACCO CESS PRGM [facility] Mar 31, 2011 10:12 AM V1-PT DECLINES TOBACCO CESSATION MEDS [facility] Mar 31, 2011 10:12 AM V1-PT NOT INTERESTED IN QUIT TOBACCO USE [facility] September 25, 2010 11:03 AM CURRENT SMOKER [facility] September 25, 2010 11:03 AM QUIT TOBACCO USE IN PAST YEAR [facility] Encounter Notes: All associated encounter notes This section contains the clinical notes associated to the Encounter. Date/Time Encounter Note(s) Provider Source May 22, 2024 09:42 AM ADMINISTRATIVE NOTE: LOCAL TITLE: ADMINISTRATIVE NOTE STANDARD TITLE: ADMINISTRATIVE NOTE DATE OF NOTE: MAY 22, 2024@09:42 ENTRY DATE: MAY 22, 2024@09:42:27 AUTHOR: BASILIA CEDILLO EXP COSIGNER: URGENCY: STATUS: COMPLETED AMSA CALLED ON THE TELEPHONE TO INFORM OF UPCOMING APPT AND THAT LABWORK IS NEEDED,HOWEVER THE CALL WAS NOT ANSWERED AND A MESSAGE WAS LEFT ON VOICEMAIL DESCRIBING UPCOMING APPOINTMENT DETAILS. /ever/ BASILIA CEDILLO AMSA Signed: 05/22/2024 09:42 BASILIA CEDILLO [facility]
--- OUTSIDE RECORDS SUMMARY | 2024-06-19 13:41 | XMS_ITS ---
Author Name [facility] [place] [facility] [place] [facility] [place] Address [address] [place] [address] Care Team Providers Care Property Disposal Manager Name Role Phone SONIA HAINES Primary Care [...] Huitron's Name Patient's Relationship to Policy Huitron [facility] CE ORGANIZAT ION [facility] FIRE DEPT May 09, 2023 [id number] [phone] JAMAAL ALTMAN SE PATIENT [place] PRESCRIPT ION BCBS [facility] Nov 07, 2023 [id number] [phone] SOFÍA ALTMAN JR PATIENT GAETANO PREFERRED PROVIDER ORGANIZAT ION (PPO) [facility] Nov 06, 2016 [id number] [phone] JAMAAL ALTMAN SE PATIENT CIGNA POINT OF SERVICE [facility] Nov 06, 2016 [id number] 0001 JAMAAL ALTMAN SE PATIENT [facility] Nov 06, 2016 [id number] 0001 JAAMAL ALTMAN SE PATIENT CIGNA PHARMACY PRESCRIPT ION [facility] Nov 06, 2016 [id number] JAMAAL ALTMAN SE PATIENT [facility] Nov 06, 2009 [id number] JAMAAL ALTMAN SE PATIENT Selected Encounter This section includes the information on record at [place] for the Encounter. Date/Time Encounter Type Encounter Description Reason Provider Source May 31, 2024 10:30 AM OFFICE O/P EST HI 40 MIN PRIMARY CARE/MEDICINE ICD-10-CM E11.9 Type 2 diabetes mellitus without complications FURCOLO,SONIA IHE Encounter Template Text not used by [place] Assessments - Encounter Diagnoses This section includes the primary and secondary diagnoses documented for the Encounter. Date/Time Primary/Secondary Diagnosis Diagnosis Name Provider Source Jun 18, 2024 09:50 AM PRIMARY Type 2 diabetes mellitus without complications FURCOLO,SONIA [facility] [place] [facility] Jun 18, 2024 09:50 AM SECONDARY Carpal tunnel syndrome, unspecified upper limb FURCOLO,SONIA [facility] [place] [facility] Jun 18, 2024 09:50 AM SECONDARY Essential (primary) hypertension FURCOLO,SONIA [facility] [place] [facility] Jun 18, 2024 09:50 AM SECONDARY Major depressive disorder, recurrent, unspecified FURCOLO,SONIA [facility] [place] [facility] Jun 18, 2024 09:50 AM SECONDARY Nicotine dependence, cigarettes, uncomplicated FURCOLO,SONIA [facility] [place] [facility] Jun 18, 2024 09:50 AM SECONDARY Obstructive sleep apnea (adult) (pediatric) FURCOLO,SONIA [facility] [place] [facility] Jun 18, 2024 09:50 AM SECONDARY Post-traumatic stress disorder, chronic FURCOLO,SONIA [facility] [place] [facility] Jun 18, 2024 09:50 AM SECONDARY Pure hypercholesterolem ia, unspecified FURCOLO,SONIA [facility] [place] [facility] Plan of Treatment: Future Appointments (+ 6 months) and Future Tests (+/- 45 days) The Plan of Treatment section includes future care activities for the patient [facility] [place] [facility] This section includes future appointments and future orders which are active, pending or scheduled. Future Appointments This section includes appointments that were scheduled to occur 6 months from the date of the Encounter, up to a maximum of 20 appointments. The data comes from all [facility]. Appointment Date/Time Appointment Type Appointme nt Facility Name Jun 28, 2024 10:30 AM AMBULATORY - MEDICINE [place] [facility] [place] [facility] Jul 05, 2024 09:00 AM AMBULATORY MEDICINE [place] [facility] [place] [facility] Jul 06, 2024 08:30 AM [facility] Jul 06, 2024 09:00 AM AMBULATORY MEDICINE [place] [facility] [place] [facility] Jul 13, 2024 08:30 AM AMBULATORY PSYCHIATRY [place] [facility] [place] [facility] Jul 20, 2024 08:30 AM AMBULATORY PSYCHIATRY [place] [facility] [place] [facility] Jul 27, 2024 08:30 AM AMBULATORY PSYCHIATRY [place] [facility] [place] [facility] September 13, 2024 01:30 PM AMBULATORY - MEDICINE [facility] Active, Pending, and Scheduled Orders This section includes a listing of several types of active, pending, and scheduled orders, including clinic medications orders, diagnostic test orders, procedure orders and consult orders; where the start date of the order is 45 days before the date of the Encounter or 45 days after the date of theEncounter. The data comes from all [facility]. Test Date/Time Test Type Test Details Facility Name May 31, 2024 10:51 AM Consult Order COMMUNITY CARE-[facility]THO GENERAL Cons Community Recreation Coordinator[facility] May 31, 2024 11:15 AM Consult Order PHARMACY/N HM OUTPT Cons Community Recreation Coord[facility] Lab Results: +/- 30 days of the encounter This section includes the Chemistry and Hematology Lab Results on record with [place] for the patient. Radiology Reports and Pathology Reports are provided separately, in subsequent sections. Lab Results This section contains the Chemistry/Hematology Results that were resulted 30 days before or 30 daysafter the date of the Encounter. Date/Time Source Result Type Result - Unit Interpretation Reference Range Comment May 23, 2024 09:30 AM [facility] HEMOGLOBIN A1C PANEL Specimen Type: BLOOD [...] May 17, 2024 12:47 PM Reporting Lab: [address] [address] Performing Lab: [address] [address] HEMOGLOBIN A1C 7.1 H 4.0-5.6 May 23, 2024 09:30 AM [facility] BASIC METABOLIC PANEL (non-fasting) Specimen Type: SERUM No comment entered. Ordering Provider: SONIA HAINES Report Released Date/Time: May 18, 2024 11:38 AM Reporting Lab: [address] [id number] Performing Lab: [address] [address] UREA NITROGEN 16 mg/dL 7-25 GLUCOSE 174 mg/dL H 65-100 SODIUM 139 mmol/L 135-145 POTASSIUM 4.3 mmol/L 3.5-5.0 CHLORIDE 103 mmol/L 100-110 CO2 24 meq/L 20-30 CREATININE, Serum 1.15 mg/dL 0.50-1.40 eGFR(CKD-EPI 2020) 77 mL/min >60 Vital Signs: All taken on the encounter date This section contains inpatient and outpatient Vital Signs collected on the date of the Encounter. Date/Time Temperature Pulse Blood Pressure Respiratory Rate SP02 Pain Height Weight Body Mass Index Source May 31, 2024 10:35 AM 98.8 64 156/104 16 98 10 237 35 [facility] Social History: Smoking Status (Most current) and Tobacco Use (All prior to encounter date) This section includes the most current, and the historical, smoking and tobacco- related health factors from the [place] facility where the Encounter took place. Current Smoking Status This section includes the most current smoking, or tobacco-related health factor, from the [place] facility where the Encounter took place. Date/Time Current Smoking Status Comment Josr myles May 31, 2024 10:30 AM VA-TOBACCO USE [place] RY DAY CIGARETTES [place] [facility] Tobacco Use History This section includes a history of the smoking, or tobacco-related health factors, that were collected on or before the date of the Encounter. The data comes from the [place] facility where the Encounter took place. Date/Time Smoking Status/Tobac co Use Comment Facility May 31, 2024 10:30 AM VA-TOBACCO USE EVERY DAY CIGARETTES [facility] [place] [facility] Jun 08, 2023 09:30 AM VA-TOBACCO USE > 15 LESS THAN 30 YEARS [place] [facility] [place] [facility] Jun 08, 2023 09:30 AM VA-TOBACCO USE ADVICE [place] [facility] [place] [facility] Jun 08, 2023 09:30 AM VA-TOBACCO USE CHOCOLATIER NO [facility] [place] [facility] Jun 08, 2023 09:30 AM VA-TOBACCO USE MED NO [facility] [place] [facility] Jun 08, 2023 09:30 AM VA-TOBACCO USE WI 30 MIN OF WAKEUP [place] [facility] [place] [facility] Jun 08, 2023 09:30 AM VA-TOBACCO USER EVERY DAY [facility] [place] [facility] Jun 23, 2022 09:00 AM VA-TOBACCO FORMER USER [facility] [place] [facility] Jun 23, 2022 09:00 AM VA-TOBACCO QUIT < 1 YEAR [facility] [place] [facility] May 18, 2021 11:00 AM VA-TOBACCO USE > 15 LESS THAN 30 YEARS [facility] [place] [facility] May 18, 2021 11:00 AM VA-TOBACCO USE ADVICE [facility] [place] [facility] May 18, 2021 11:00 AM VA-TOBACCO USE CHOCOLATIER NO [facility] [place] [facility] May 18, 2021 11:00 AM VA-TOBACCO USE MED NO [facility] [place] [facility] May 18, 2021 11:00 AM VA-TOBACCO USE WI 30 MIN OF WAKEUP [place] [facility] [place] [facility] May 18, 2021 11:00 AM VA-TOBACCO USER SOME DAYS [facility] [place] [facility] Jul 31, 2018 08:47 AM VA-TOBACCO DOESNT USE WI 30 MIN WAKEUP [place] [facility] [place] [facility] Jul 31, 2018 08:47 AM VA-TOBACCO USE > 15 LESS THAN 30 YEARS [facility] [place] [facility] Jul 31, 2018 08:47 AM VA-TOBACCO USE ADVICE [place] [facility] [place] [facility] Jul 31, 2018 08:47 AM VA-TOBACCO USE CHOCOLATIER NO [place] [facility] [place] [facility] Jul 31, 2018 08:47 AM VA-TOBACCO USE MED NO [place] [facility] [place] [facility] Jul 31, 2018 08:47 AM VA-TOBACCO USER SOME DAYS [facility] [place] [facility] Jan 30, 2018 09:19 AM QUIT TOBACCO USE IN PAST YEAR a month ago [place] [facility] [place] [facility] Jul 28, 2017 09:31 AM CURRENT SMOKER 2 cigarettes per day [facility] [place] [facility] Dec 08, 2016 08:49 AM CURRENT SMOKER [facility] [place] [facility] Dec 08, 2016 08:49 AM V1-PT NOT INTERESTED IN QUIT TOBACCO USE [facility] [place] [facility] Jun 11, 2016 10:00 AM CURRENT SMOKER [facility] [place] [facility] Dec 10, 2015 10:39 AM V1-PT NOT INTERESTED IN QUIT TOBACCO USE [facility] [place] [facility] Feb 06, 2015 08:34 AM CURRENT SMOKER 1 1/2 Packs per week [facility] [place] [facility] Feb 06, 2015 08:34 AM V1-PT NOT INTERESTED IN QUIT TOBACCO USE [facility] [place] [facility] Jul 04, 2013 09:37 AM CURRENT SMOKER pack per week [facility] [place] [facility] Jun 24, 2011 08:10 AM V1-PT DECLINES REF TO TOBACCO CESS [facility] Jun 24, 2011 08:10 AM V1-PT READY TO QUIT TOBACCO USE [facility] Mar 31, 2011 10:12 AM V1-PT DECLINES REF TO TOBACCO CESS [facility] Mar 31, 2011 10:12 AM V1-PT DECLINES TOBACCO CESSATION MEDS [facility] Mar 31, 2011 10:12 AM V1-PT NOT INTERESTED IN QUIT TOBACCO USE [facility] September 25, 2010 11:03 AM CURRENT SMOKER [facility] September 25, 2010 11:03 AM QUIT TOBACCO USE IN PAST YEAR [facility] Encounter Notes: All associated encounter notes This section contains the clinical notes associated to the Encounter. Date/Time Encounter Note(s) Provider Source May 31, 2024 10:31 AM PREVENTIVE MEDICIN E NURSING NOTE: LOCAL TITLE: CLINICAL REMINDERS/NURSING STANDARD TITLE: PREVENTIVE MEDICINE NURSING NOTE DATE OF NOTE: MAY 31, 2024@10:31 ENTRY DATE: MAY 31, 2024@10:32:01 AUTHOR: AMANDA GARDNER EXP COSIGNER: URGENCY: STATUS: COMPLETED Advance Directive Screen MH AD: Patient has an up-to-date Advance Directive at an outside, non-nc facility and was asked to forward a copy to his/her clinician. Comment: blank va form provided to the Tobacco Use Screening: The patient smokes cigarettes every day. The patient states they have smoked for the following number of years: # of years: 20 Average number of packs/day over the entire time patient smoked: Packs/day: one pack lasts about two weeks, 1-2 ciggarettes a day The patient has never used other types of tobacco. Alcohol Use Screen (AUDIT-C): Alcohol Screen: SCREEN FOR ALCOHOL (AUDIT-C) An alcohol screening test (AUDIT-C) was negative (score=2). 1. How often did you have a drink containing alcohol in the past year? Consider a drink to be a 12 ounce can or bottle of regular beer, 8 ounces of malt liquor, a 5 ounce glass of table wine, or a 1.5 ounce shot of liquor (like scotch, gin, or vodka). Two to four times a month 2. How many drinks containing alcohol did you have on a typical day when you were drinking in the past year? One or two drinks 3. How often did you have six or more drinks on one occasion in the past year? Never Sexual Orientation: The patient thinks of their sexual orientation as: Straight or Heterosexual COVID-19 Immunization: Refused Moderna Monovalent COVID-19 vaccine Immunization: COVID-19 (MODERNA), MRNA, LNP-S, PF, 50 MCG/0.5 ML (AGES 12+ YEARS) Refusal Reason: PATIENT DECISION Patient refuses all immunization(s) in the COVID-19 group Date Documented: 05/31/24 10:34 Influenza Immunization: The patient has received the seasonal influenza vaccine for the current season at another location. Documented: INFLUENZA, UNSPECIFIED FORMULATION Historical Date Administered: Feb 15, 2024 Series: Complete Outside Location: Outside Healthcare Provider Information Source: FROM PATIENT'S RECALL /ever/ AMANDA GARDNER LPN License Practical Nurse Signed: 05/31/2024 10:35 AMANDA GARDNER [place] [facility] May 31, 2024 10:22 AM PHYSICIAN NOTE: LOCAL TITLE: MD NOTE STANDARD TITLE: PHYSICIAN NOTE DATE OF NOTE: MAY 31, 2024@10:22 ENTRY DATE: MAY 31, 2024@10:22:22 AUTHOR: SONIA HAINES EXP COSIGNER: URGENCY: STATUS: COMPLETED ANUPAMAKATHRYN JR is a 49 year old MALE who is being seen today in primary care for routine follow up. ==== CARE TEAM ==== Community Primary Care Provider: [place] Specialists: Community Specialists: ortho- Dr. Jessie Puente, previously Dr. 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 Type 2 diabetes mellitus in obese 2. Posttraumatic stress disorder 3. Carpal tunnel syndrome 4. Sleep apnea 5. Major depressive disorder 6. Erectile dysfunction (SNOMED CT 028297698) 7. Smoking (SNOMED CT 880922525) smokes 2 cigs/day 8. Degeneration of intervertebral disc 9. Hypertension (SNOMED CT 88025819) 10. Hyperlipidemia (SNOMED CT 76633763) 11. 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 Alcohol Use: socially, never problematic Tobacco Use: currently smokes 1 pack every 10 years x 24 years Exercise: physically active ==== ALLERGIES ==== GABAPENTIN, NORTRIPTYLINE ==== MEDICATIONS ==== Active and Recently Outpatient Medications (excluding Supplies): Active Outpatient Medications Status 1) ACCU-CHEK GUIDE (GLUCOSE) TEST STRIP USE 1 STRIP TO TEST ACTIVE BLOOD SUGARS DIRECTED BY PROVIDER 2) DICLOFENAC NA 1% TOP GEL APPLY 2 GRAMS TOPICALLY FOUR TIMES ACTIVE A DAY FOR OSTEOARTHRITIS - USE DOSING CARD PROVIDED IN BOX 3) LISINOPRIL 5MG TAB TAKE THREE TABLETS BY MOUTH ONCE DAILY TO ACTIVE CONTROL BLOOD PRESSURE Indication: FOR HIGH BLOOD PRESSURE 4) METFORMIN HCL 500MG 24HR SA TAB TAKE TWO TABLETS BY MOUTH ACTIVE ONCE DAILY Indication: FOR TYPE 2 DIABETES MELLITUS 5) PANTOPRAZOLE NA 40MG EC TAB TAKE ONE TABLET BY MOUTH EVERY ACTIVE MORNING 30 MINUTES BEFORE BREAKFAST 6) PREGABALIN 225MG ORAL CAP TAKE ONE CAPSULE BY MOUTH TWICE ACTIVE DAILY Indication: FOR NERVE PAIN 7) ROSUVASTATIN CA 20MG TAB TAKE ONE TABLET BY MOUTH ONCE DAILY ACTIVE NOTE DOSE Indication: FOR HIGH CHOLESTEROL Inactive Outpatient Medications Status 1) LIDOCAINE 5% OINT APPLY MODERATE AMOUNT TOPICALLY TWICE DAILY Indication: FOR NERVE PAIN Active Non-VA Medications Status 1) Non-VA ATENOLOL 100MG TAB 100MG BY MOUTH TWICE DAILY ACTIVE 9 Total Medications ==== REVIEW OF SYMPTOMS ==== POSITIVE FOR: chronic hand pain NEGATIVE FOR: CONSTITUTION: no weight loss/gain, fatigue, fevers, night sweats HEENT: no vision problems, hearing loss,swallowing difficulties, sinus pain CV: no chest pain, palpitations, dyspnea on exertion, orthopnea RESP: no cough, shortness of breath, wheezing GI: no abdominal pain, N/V/D, constipation, blood in stool, normal appetite : no urinary frequency, nocturia, hematuria MUSC: no joint pain, joint swelling, muscle aches NEURO: no headaches, dizziness, memory loss, tremor, weakness PSYCH: no depression, anxiety, suicidal or homicidal thoughts SKIN: no rash, new skin lesions ==== PHYSICAL EXAM ==== Vitals: - - - - - - - B/P: 156/104 (05/31/2024 10:35) pulse: 64 (05/31/2024 10:35) resp: 16 (05/31/2024 10:35) temp: 98.8 F [37.1 C] (05/31/2024 10:35) Ht: 69 in [175.3 cm] (06/08/2023 09:18) Wgt: 237 lb [107.50 kg] (05/31/2024 10:35) BMI: BMI: 35.1 Exam: - - - - - - - General: A&O x 3, no acute distress, normal affect and mood Neck: normal thyroid, normal carotids- no bruits CV: RRR S1S2, no murmur Resp: LCTA bilat, no wheezing, rales or rhonchi Neuro: grossly intact, no visible tremor, normal memory and speech Extremities: normal movement of extremities, normal gait, normal strength no LE edema ==== RECENT LABS ==== Collection DT Specimen Test Name Result Units Ref Range 05/23/2024 09:30 BLOOD !! HEMOGLOBIN A1C 7.1 H % 4.0 - 5.6 05/23/2024 09:30 SERUM CREATININE, Serum 1.15 mg/dL 0.50 - 1.40 eGFR(CKD-EPI 2020 77 mL/min Ref: >=60 SODIUM 139 mmol/L 135 - 145 POTASSIUM 4.3 mmol/L 3.5 - 5.0 CHLORIDE 103 mmol/L 100 - 110 CO2 24 mEq/L 20 - 30 UREA NITROGEN 16 mg/dL 7 - 25 GLUCOSE 174 H mg/dL 65 - 100 HEMOGLOBIN A1C TREND Collection DT Spec HGBA1c 05/23/2024 09:30 BLOOD 7.1 H 12/24/2022 09:02 BLOOD 6.8 H 03/31/2011 12:14 BLOOD 5.6 ==== ASSESSMENT AND PLAN ==== Active problems - Computerized Problem List is the source for the followin. Type 2 diabetes mellitus in obese- metformin making him more hungry. recommend starting empagliflozin 2. Posttraumatic stress disorder 3. Carpal tunnel syndrome 4. Sleep apnea 5. Contracture of joint of right hand S/p surgery 2017 in [facility]- previously referreed to Dr. Puente- needs follow-up 6. Major depressive disorder 7. Erectile dysfunction (SNOMED CT 983577257) 8. Smoking (SNOMED CT 811506000) smokes 2 cigs/day 9. Other specified idiopathic peripheral neuropathy 10. Other chronic Pain 11. Degeneration of intervertebral disc 12. Hypertension (SNOMED CT 84354294)- on atenolol 100 and lisinopril 15 mg. elevated BP- recommend increasing lisinopril to 20 mg daily 13. Hyperlipidemia (SNOMED CT 30237556) 14. Obesity (SNOMED CT 260319522) ==== HEALTH MAINTENANCE ==== Colonoscopy (due at age 43) Abdominal Aortic Aneurysm Screening - due at age 63 if smoker/prev smoker Prostate screening - due at age 55 Tetanus: due every 10 years Pneumonia Vacccine: Flu Vaccine: due yearly Covid Vaccine: due yearly ==== FOLLOW UP ==== f/u in 1 mo with RN for BP recheck f/u in 6 mo with labs VISIT TYPE: a HIGH complexity visit where 60 minutes was spent in direct patient care, review of records and documentation. /ever/ Priti DAVISO. PHYSICIAN Signed: 06/02/2024 20:03 [facility]IA HAINES [facility]
--- OUTSIDE RECORDS SUMMARY | 2024-06-19 13:41 | XMS_ITS ---
Author Organization Ramone Blevins III, MD Address [address] [place] [address] Care Team Providers Care Oil Speculator Name Role Phone Ramone Blevins Primary Care Provider Allergies Allergen (clinical drug ingredient) Drug/Non Drug Allergy documented on EMR Reaction Allergy Type Onset Date Status No Known Drug Allergy Unknown Drug Allergy Active REASON FOR VISIT Cervical radiculopathy, Sleep apnea, Hyperlipidemia, Back pain, Hypertension, Diabetes, Morbid obesity Medications Medication SIG (Take, Route, Frequency, Duration) Notes Start Date End Date Status Mounjaro 2.5 MG/0.5ML as directed Subcutaneous weeky for 28 days disp one months supply please 05/21/2024 11/05/2024 Active Benzonatate 200 MG 1 capsule Orally Three times a day 10/20/2023 Active Atenolol 100 MG 1 tablet Orally Twic e a day BIB Active Pantoprazole Sodium 40 MG 1 tablet Orally Once a day 03/11/2020 Active metFORMIN HCl 500 MG 2 tablet in the morning Orally Twice a day Active Rosuvastatin Calcium 20 MG 1 tablet Orally Once a day Active Social History Tobacco Use: Social History Observation Description Date Details (start date - stop date) Never Smoker NA - NA Sex Assigned At : Social History Observation Description Sex Assigned At Male Tobacco Use/Smoking Question Answer Notes Patient is a nonsmoker Vital Signs Height 58 in 05/21/2024 Weight 238, 238.0 lbs 05/21/2024 BMI 49.74 kg/m2 05/21/2024 Encounters Encounter Location Date Provider Diagnosis Ramone Blevins III, MD [address] [place] [address] [place] [id number] 05/21/2024 Ramone Blevins Hyperlipidemia, unspecified E78.5 ; Sciatica, unspecified laterality M54.30 ; Essential hypertension I10 ; Sleep apnea G47.30 ; Cervical radiculopathy M54.12 ; Morbid obesity E66.01 and Type 2 diabetes mellitus without complication, without long-term current use of insulin E11.9 Assessments Encounter Date Diagnosis (ICD Code) Assessment Notes Treat ment Notes Treatment Clinical Notes 05/21/2024 Hyperlipidemia, unspecified (ICD-10 - E78.5) The most recent fasting lipid profile shows good control of his lipids. No change in his medications was necessary today.He was unable to have blood work prior to today and will have it done in the next week. 05/21/2024 Sciatica, unspecified laterality (ICD-10 - M54.30) His sciatica has not been bothering him lately and no change in his regimen is necessary. 05/21/2024 Essential hypertension (ICD-10 - I10) His blood pressure has been stable and current medications was continued without change. 05/21/2024 Sleep apnea (ICD-10 - G47.30) He is not using the CPAP. He says it makes a=no significant difference in the quality of his day. [facility]. 05/21/2024 Cervical radiculopathy (ICD-10 - M54.12) This pain has improved significantly. I advised him to a volume trauma and overuse. 05/21/2024 Morbid obesity (ICD-10 - E66.01) He has lost 4 pounds. She continues to lose weight at this rate he will do well. We discussed the use of injectable semaglutide at length. 05/21/2024 Type 2 diabetes mellitus without complication, without long-term current use of insulin (ICD-10 - E11.9) Current blood work is not available. He will have a hemoglobin A1c and fasting glucose done within the next week. His medications will then be managed. Plan Of Treatment Medication Medication Name Sig Start Date Stop Date Notes Mounjaro 2.5 MG/0.5ML as directed Subcutaneous weeky for 28 days 05/21/2024 11/05/2024 disp one months supply please Benzonatate 200 MG 1 capsule Orally Thr ee times a day 10/20/2023 Atenolol 100 MG 1 tablet Orally Twic e a day BIB Pantoprazole Sodium 40 MG 1 tablet Orally Once a day 03/11/2020 metFORMIN HCl 500 MG 2 tablet in the mor eloy Orally Twice a day Rosuvastatin Calcium 20 MG 1 tablet Orally Once a day Pending Test Test Name Order Date PROFILE, FASTING (COMPREHENSIVE METABOLI C) 05/21/2024 PSA, TOTAL 05/21/2024 CBC WITH AUTO DIFF 05/21/2024 Lipid Panel 05/21/2024 Hemoglobin A1c 05/21/2024 Next Appt Details Follow Up: 4 Weeks, in a mon , Reason: OV, To adjust the dose of Monjuro Provider Name:Ramone Blevins, 07/02/2024 03:45:00 PM, [address] [place] [address] [address], [place], [phone], Provider Name:Ramone Blevins, 09/28/2024 10:00:00 AM, [address] [place] [address] [address], [place], [phone], Progress Notes * Robby GUZMAN JrDOB: [birth year] (49 yo M)Acc No.[id number]:05/21/2024 Patient:?Robby GUZMAN Jr Provider:?Ramone Blevins MD :[id number]???Age:49 Y???Sex:Male Jax e:05/21/2024 Address:[address] [place], [place] [id number] Subjective: * Chief Complaints: * ???Cervical radiculopathySle ep apneaHyperlipidemiaBack painHypertensionDiabetesMorbid obesity * HPI: ???:?Telehealth?Location of provider rendering services:?{...} [address] [facility] [address] ?Location of patient:?address listed in demographics for today's visit ?Patient identification confirmed using:?Name, ?Telehealth method:?Telephone only. Patient not visible to care provider. ?Consent:?Patient verbally consented to treatment, Patient verbally consented to billing insurance company, Patient informed of any privacy concerns related to method of visit ?Total time spent with patient (mins)?15 ? The patient, a 49-year-old male, came in for a routine visit. He reported no current complaints and mentioned that he had a chest X-ray in February, which showed no significant abnormalities. The patient is currently on metformin, taking two pills daily for an unspecified condition. However, he expressed concern about forgetting to take his medication and inquired about switching to Monjuro, a once-a-week medication his is taking. The patient also reported a recent weight gain, with his weight increasing from 229 lbs to 238 lbs. The doctor agreed to prescribe Monjuro but advised the patient to continue taking metformin. * ROS:?General/Constitutional:?pain?Right shoulder, right hip, otherwise only normal aches and pains.?Chills?denies.?Fatigue?admits.?Fever?denies.?Admits?Weight gain.?ENT:?Decreased hearing?denies.?Respiratory:?Cough?denies.?Cardiovascular:?Chest pain with exertion?denies.?Dyspnea on exertion?denies.?Shortness of breath?denies.?Gastrointestinal:?Constipation?occasional.?Decreased appetite?denies.?Diarrhea?denies.?Heartburn?controlled with medications.?Nausea?denies.?Rectal bleeding?denies.?Vomiting?denies.?Hematology:?bruising?denies.?petechiae?denies.?Swollen glands?none have been noted.?Genitourinary:?Frequent urination?once a night.?Musculoskeletal:?Muscle aches?denies.?Painful joints?denies.?Sciatica?denies.?Weakness?denies.?Skin:?Itching?denies.?Rash?denies.?Skin lesion(s)?denies.?Neurologic:?Difficulty speaking?denies.?Dizziness?denies.?Headache?denies.?Low back pain?denies.?Psychiatric:?Depressed mood?denies.? * Medical History:? * Surgical History:?Carpal manolo el release, Right hand Upper endoscopy [facility] negative olonoscopy [facility] negative arpal tunel, right hand 05/2022No history * Hospitalization/Major Diagno stic Procedure:?No history * Family History:?Father: kirstie barton 62 yrs, stomach ulcer, myocardial infarction, epilepsy, vascular stent in place.?Mother: alive 56 yrs, unknown.?5 brother(s) , 2 sister(s) - healthy. 1 son(s) - healthy. .? He is not aware of any family history of substance use disorder or addiction or mental illness. 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 * Medications:?TakingBenzonata te 200 MG Capsule 1 capsule Orally Three times a day metFORMIN HCl 500 MG Tablet 2 tablet in the morning Orally Twice a day Rosuvastatin Calcium 20 MG Tablet 1 tablet Orally Once a day Atenolol 100 MG Tablet 1 tablet Orally Twice a day , Notes to Pharmacist: BERTOPantoprazole Sodium 40 MG Tablet Delayed Release 1 tablet Orally Once a day Taking Benzonatate 200 MG Capsule 1 capsule Orally Three times a day Taking metFORMIN HCl 500 MG Tablet 2 tablet in the morning Orally Twice a day Taking Rosuvastatin Calcium 20 MG Tablet 1 tablet Orally Once a day Taking Atenolol 100 MG Tablet 1 tablet Orally Twice a day , Notes to Pharmacist: Kathryn Pantoprazole Sodium 40 MG Tablet Delayed Release 1 tablet Orally Once a day DiscontinuedAzithromycin 250 MG Tablet as directed Orally 2 Tablets on the first day, one tablet the rest of the days Medication List reviewed and reconciled with the patientDiscontinued Azithromycin 250 MG Tablet as directed Orally 2 Tablets on the first day, one tablet the rest of the days Medication List reviewed and reconciled with the patient * Allergies:?No Known Drug All ergyno[Allergies Verified] Objective: * Vitals:?Ht: 58, Wt: 238,238. 0, BMI:49.74, Ht-cm: 147.32, Wt-k.95. Assessment: * Assessment: 1.?Hyperlipidemia, unspecifi ed - E78.5 (Primary)???Notes :The most recent fasting lipid profile shows good control of his lipids. No change in his medications was necessary today.He was unable to have blood work prior to today and will have it done in the next week.???2.?Sciatica, unspecified laterality - M54.30???Notes :His sciatica has not been bothering him lately and no change in his regimen is necessary.???3.?Essential hypertension - I10???Notes :His blood pressure has been stable and current medications was continued without change.???4.?Sleep apnea - G47.30???Notes :He is not using the CPAP. He says it makes a=no significant difference in the quality of his day. [facility].???5.?Cervical radiculopathy - M54.12???Notes :This pain has improved significantly. I advised him to a volume trauma and overuse.???6.?Morbid obesity - E66.01???Notes :He has lost 4 pounds. She continues to lose weight at this rate he will do well. We discussed the use of injectable semaglutide at length.???7.?Type 2 diabetes mellitus without complication, without long-term current use of insulin - E11.9???Notes :Current blood work is not available.? He will have a hemoglobin A1c and fasting glucose done within the next week.? His medications will then be managed.??? Plan: * Treatment: 2.?Morbid obesity?LAB: PROFILE, FASTING (COMPREHENSIVE METABOLIC) ?LAB: PSA, TOTAL ?LAB: CBC WITH AUTO DIFF ?LAB: Lipid Panel ?LAB: Hemoglobin A1c 3.?Others? Continue Benzonatate Capsule, 200 MG, 1 capsule, Orally, Three times a day;?Continue metFORMIN HCl Tablet, 500 MG, 2 tablet in the morning, Orally, Twice a day;?Continue Rosuvastatin Calcium Tablet, 20 MG, 1 tablet, Orally, Once a day;?Continue Atenolol Tablet, 100 MG, 1 tablet, Orally, Twice a day, Notes to Pharmacist: BIB;?Continue Pantoprazole Sodium Tablet Delayed Release, 40 MG, 1 tablet, Orally, Once a day;?Start Mounjaro Solution Auto-injector, 2.5 MG/0.5ML, as directed, Subcutaneous, weeky, 28 days, 4 Applicator, Refills 5, Notes to Pharmacist: disp one months supply please.?? * Procedure Codes:? * Preventive Medicine:? ??Counseling:?Care [...] done: Medical or Other reason not done ??DM Care Plan:?Patient Lifestyle Goals?Patient wants to be able to manage diabetes without too much effort.?Treatment Goals?Blood Sugars less than < 115, HbA1C < 7.0.?Barriers?no barriers.?Self-Managment Goals?Work on weight loss, with a goal of losing 1 lb per week.? * Follow Up:?4 Weeks, in a mon th (Reason: OV, To adjust the dose of Monjuro) * Images: * Sign off status: Completed true * Provider:?Ramone Blevins MD Date:?05/09 Generated for Riddhi bryan/Kristopher/Deanna on:?06/19/2024 01:41 PM EST History and Physical Notes * HPI (History of Present Illness) Category Sub-Category Detail Notes Telehealth Location of doctors hospital rendering services:: {...} [address] [place] [address] [place] [id number] Location of patient:: address listed in demographics for today's visit Patient identification confirmed using:: Name, Telehealth method:: Telephone only. Arlette ent not visible to care provider. Consent:: Patient verbally c onsented to treatment, Patient verbally consented to billing insurance company, Patient informed of any privacy concerns related to method of visit Total time spent with patient (mins): 15
--- OUTSIDE RECORDS SUMMARY | 2024-06-19 13:41 | XMS_ITS | Encounter Summary ---
Author Name [facility] [facility] [place] [facility] [place] Address [address] [place] [address] Care Team Providers Care Landscape Crew Leader Name Role Phone YANCYSONIA Primary Care Provider [...] Huitron's Name Patient's Relationship to Policy [facility] May 09, 2023 [id number] [phone] JAMAAL ALTMAN SE PATIENT [place] PRESCRIPT ION BCBS [facility] Nov 07, 2023 [id number] SOFÍA ALTMAN JR PATIENT [place] PREFERRED PROVIDER ORGANIZAT ION (PPO) [facility] Nov 06, 2016 [id number] JAMAAL ALTMAN SE PATIENT CIGNA POINT OF SERVICE [facility] Nov 06, 2016 [id number] JAMAAL ALTMAN SE PATIENT CIGNA BEHAVIORAL HEALTH MENTAL HEALTH [facility] Nov 06, 2016 [id number] JAMAAL ALTMAN SE PATIENT [facility] PRES[facility]ON [facility] Nov 06, 2016 [id number] JAMAAL ALTMAN SE PATIENT [facility] Nov 06, 2009 [id number] [phone] JAMAAL ALTMAN SE PATIENT Selected Encounter This section includes the information on record at [place] for the Encounter. Date/Time Encounter Type Encounter Description Reason Provider Source Jan 20, 2024 09:00 AM PSYTX W PT 60 MINUTES [facility] - IND ICD-10-CM F43.12 Post-traumatic stress disorder, chronic WEISMOORE,MATTIE E IHE Encounter Template Text not used by [place] Assessments - Encounter Diagnoses This section includes the primary and secondary diagnoses documented for the Encounter. Date/Time Primary/Secondary Diagnosis Diagnosis Name Provider Source Feb 09, 2024 06:43 AM PRIMARY Post-traumatic stress disorder, chronic WEISMOORE,MATTIE E [facility] [place] [facility] Feb 09, 2024 06:43 AM SECONDARY Major depressive disorder, recurrent, unspecified WEISMOORE,MATTIE E [facility] Plan of Treatment: Future Appointments (+ 6 months) and Future Tests (+/- 45 days) The Plan of Treatment section includes future care activities for the patient from all [place] treatmentfacilities. This section includes future appointments and future orders which are active, pending or scheduled. Future Appointments This section includes appointments that were scheduled to occur 6 months from the date of the Encounter, up to a maximum of 20 appointments. The data comes from all [place] treatment facilities. Appointment Date/Time Appointment Type Appointme nt Facility Name Feb 03, 2024 09:00 AM [facility] Feb 17, 2024 09:00 AM AMBULATORY - [facility]CHIATRY [facility] [place] [facility] Feb 28, 2024 08:00 AM AMBULATORY - MEDICINE [facility] [place] [facility] Mar 16, 2024 08:30 AM [facility] Apr 27, 2024 08:30 AM [facility] - [facility]IATRY [facility] [place] [facility] May 31, 2024 10:30 AM AMBULATORY - MEDICINE [facility] [place] [facility] Jun 28, 2024 10:30 AM AMBULATORY - MEDICINE [facility] [place] [facility] Jul 05, 2024 09:00 AM AMBULATORY - MEDICINE [facility] [place] [facility] Jul 06, 2024 08:30 AM AMBULATORY - PS[facility]CHIATRY [facility] [place] [facility] Jul 06, 2024 09:00 AM AMBULATORY - MEDICINE [facility] [place] [facility] Jul 13, 2024 08:30 AM AMBULATORY - PSYCHIATRY [facility] [place] [facility] Social History: Smoking Status (Most current) and Tobacco Use (All prior to encounter date) This section includes the most current, and the historical, smoking and tobacco- related health factors from the [place] facility where the Encounter took place. Current Smoking Status This section includes the most current smoking, or tobacco-related health factor, from the [place] facility where the Encounter took place. Date/Time Current Smoking Status Comment Facil it Jun 08, 2023 09:30 AM VA-TOBACCO USER EVERY DAY [place] [facility] [place] [facility] Tobacco Use History This section includes a history of the smoking, or tobacco-related health factors, that were collected on or before the date of the Encounter. The data comes from the [place] facility where the Encounter took place. 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 CREW NO [facility] [place] [facility] Jun 08, 2023 09:30 AM VA-TOBACCO USE MED NO [facility] [place] [facility] Jun 08, 2023 09:30 AM VA-TOBACCO USE WI 30 MIN OF WAKEUP [facility] [place] [facility] Jun 08, 2023 09:30 AM VA-TOBACCO USER EVERY DAY [facility] [place] [facility] Jun 23, 2022 09:00 AM VA-TOBACCO FORMER USER [facility] [place] [facility] Jun 23, 2022 09:00 AM VA-TOBACCO QUIT < 1 YEAR [facility] [place] [facility] May 18, 2021 11:00 AM VA-TOBACCO USE > 15 LESS THAN 30 YEARS [facility] [place] [facility] May 18, 2021 11:00 AM VA-TOBACCO USE ADVICE [facility] [place] [facility] May 18, 2021 11:00 AM 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 CREW NO [facility] [place] [facility] May 18, 2021 11:00 AM VA-TOBACCO USE MED NO [facility] [place] [facility] May 18, 2021 11:00 AM VA-TOBACCO USE WI 30 MIN OF WAKEUP [facility] [place] [facility] May 18, 2021 11:00 AM VA-TOBACCO USER SOME DAYS [facility] [place] [facility] Jul 31, 2018 08:47 AM VA-TOBACCO DOESNT USE WI 30 MIN WAKEUP [facility] [place] [facility] Jul 31, 2018 08:47 AM VA-TOBACCO USE > 15 LESS THAN 30 YEARS [facility] [place] [facility] Jul 31, 2018 08:47 AM VA-TOBACCO USE ADVICE [facility] [place] [facility] Jul 31, 2018 08:47 AM 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 CREW NO [facility] [place] [facility] Jul 31, 2018 08:47 AM VA-TOBACCO USE MED NO [facility] [place] [facility] Jul 31, 2018 08:47 AM VA-TOBACCO USER SOME DAYS [facility] [place] [facility] Jan 30, 2018 09:19 AM QUIT TOBACCO USE IN PAST YEAR a month ago [facility] [place] [facility] Jul 28, 2017 09:31 AM CURRENT SMOKER 2 cigarettes per day [facility] [place] [facility] Dec 08, 2016 08:49 AM CURRENT SMOKER [facility] [place] [facility] Dec 08, 2016 08:49 AM V1-PT NOT INTERESTED IN QUIT TOBACCO USE [facility] [place] [facility] Jun 11, 2016 10:00 AM CURRENT SMOKER [facility] [place] [facility] Dec 10, 2015 10:39 AM V1-PT NOT INTERESTED IN QUIT TOBACCO USE [facility] Feb 06, 2015 08:34 AM CURRENT SMOKER 1 1/2 Packs per week [facility] Feb 06, 2015 08:34 AM V1-PT NOT INTERESTED IN QUIT TOBACCO USE [facility] Jul 04, 2013 09:37 AM CURRENT SMOKER pack per week [facility] Jun 24, 2011 08:10 AM V1-PT DECLINES REF TO TOBACCO CESS PRGM [facility] Jun 24, 2011 08:10 AM V1-PT READY TO QUIT TOBACCO USE [facility] Mar 31, 2011 10:12 AM V1-PT DECLINES REF TO TOBACCO CESS PRGM [facility] Mar 31, 2011 10:12 AM V1-PT DECLINES TOBACCO CESSATION MEDS [facility] Mar 31, 2011 10:12 AM V1-PT NOT INTERESTED IN QUIT TOBACCO USE [facility] September 25, 2010 11:03 AM CURRENT SMOKER [facility] September 25, 2010 11:03 AM QUIT TOBACCO USE IN PAST YEAR [facility] Encounter Notes: All associated encounter notes This section contains the clinical notes associated to the Encounter. Date/Time Encounter Note(s) Provider Source Jan 20, 2024 10:40 AM PSYCHOLOGY NOTE: LOCAL TITLE: PSYCHOLOGY NOTE STANDARD TITLE: PSYCHOLOGY NOTE DATE OF NOTE: JAN 20, 2024@10:40 ENTRY DATE: JAN 20, 2024@10:40:58 AUTHOR: NOHEMI MACKEY COSIGNER: URGENCY: STATUS: [facility]PLE[facility]ED [facility] Individual Therapy Note Procedure: The patient was seen for a 50-minute F2F individual psychotherapy session focused on treatment of symptoms PTSD and depression. [place] identified with 2 identifiers: [X] Patient Name [...] clinically appropriate. Progress: spoke about recent interactions and worry thoughts about his investing in an intimate relationship with another person. [place] shared memories of his supporting him after a particularly difficult time in his life where he did not want to live. discussed aspects that have been challenging in their relationship and reasons why he wants to invest fully. considered how his mind may be jumping to some conclusions, identified other hypotheses, and connected with his personal values. committed to continue to invest in building safety and trust with his . Assessment: [place] arrived on time for session and was dressed appropriately with appropriate hygiene. He maintained appropriate eye contact and was alert. [place] spoke clearly and coherently. His thoughts were linear and related. His affect was congruent to content and appropriate in range. There was no evidence of AH/VH or delusions. There was no evidence of SI or HI. [place] was reminded of emergency resources through this [facility] and the [facility] number. Thus, current assessment of risk for suicide and homicide is low. DSM 5 Diagnostic Impressions: PTSD, Chronic Major Depressive Disorder, recurrent Plan: [place]'s next visit is scheduled for Saturday, February 03, 2024 at 9am F2F as is not available to meet next week. ~~~ PCT Psychotherapy Tracking Today's psychotherapy session was part of a standardized episode of Other PTSD Psychotherapy (e.g. supportive therapy): Other: flexible mix of CBT/ACT/trauma processing /es/ Nohemi Mackey, PhD Clinical Psychologist, [facility] Signed: 01/20/2024 11:05 NOHEMI MACKEY [facility]
--- OUTSIDE RECORDS SUMMARY | 2024-06-19 13:41 | XMS_ITS ---
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 Role Phone PANCHO HAINESA Primary Care [...] [facility] CE ORGANIZAT ION [facility] FIRE DEPT May 09, 2023 [id number] JAMAAL ALTMAN SE PATIENT [employer] PRESCRIPT ION [facility] [place] Nov 07, 2023 [id number] SOFÍA ALTMAN JR PATIENT SILVERNA PREFERRED PROVIDER ORGANIZAT ION (PPO) [facility] Nov 06, 2016 [id number] [phone] JAMAAL ALTMAN SE PATIENT [employer] POINT OF SERVICE [facility] Nov 06, 2016 [id number] [phone] JAMAAL ALTMAN SE PATIENT [employer] [facility]IOR[facility] MENTAL HE[facility] Nov 06, 2016 [id number] JAMAAL ALTMAN SE PATIENT [employer] PHARMACY PRESCRIPT ION [facility] Nov 06, 2016 [id number] JAMAAL ALTMAN SE PATIENT [facility] ORGAN Nov 06, 2009 [id number] JAMAAL ALTMAN SE PATIENT Selected Encounter This section includes the information on record at [place] for the Encounter. Date/Time Encounter Type Encounter Description Reason Pro vider Source Mar 23, 2024 08:30 AM Outpatient Encounter [facility] Encounter Template Text not used by [place] Plan of Treatment: Future Appointments (+ 6 months) and Future Tests (+/- 45 days) The Plan of Treatment section includes future care activities for the patient from all [place] treatmentfacilities. This section includes future appointments and future orders which are active, pending or scheduled. Future Appointments This section includes appointments that were scheduled to occur 6 months from the date of the Encounter, up to a maximum of 20 appointments. The data comes from all [place] treatment facilities. Appointment Date/Time Appointment Type Appointme nt Facility Name Apr 27, 2024 08:30 AM AMBULATORY [facility]IAT[facility] [place] [facility] May 31, 2024 10:30 AM AMBULATORY [facility] MEDICINE [facility] [place] [facility] Jun 28, 2024 10:30 AM AMBULATORY [facility] MEDICINE [facility] [place] [facility] Jul 05, 2024 09:00 AM AMBULATORY - MEDICINE [facility] [place] [facility] Jul 06, 2024 08:30 AM AMBULATORY - PS[facility]CHIATRY [facility] [place] [facility] Jul 06, 2024 09:00 AM AMBULATORY [facility] MEDICINE [facility] [place] [facility] Jul 13, 2024 08:30 AM AMBULATORY - PS[facility]CHIATRY [facility] [place] [facility] Jul 20, 2024 08:30 AM AMBULATORY - PS[facility]CHIATRY [facility] [place] [facility] Jul 27, 2024 08:30 AM AMBULATORY - PS[facility]CHIATRY [facility] [place] [facility] September 13, 2024 01:30 PM AMBULATORY - [facility]ICINE [facility] [place] [facility] Lab Results: +/- 30 days of the encounter This section includes the Chemistry and Hematology Lab Results on record with [place] for the patient. Radiology Reports and Pathology Reports are provided separately, in subsequent sections. Lab Results This section contains the Chemistry/Hematology Results that were resulted 30 days before or 30 daysafter the date of the Encounter. Date/Time Source Result Type Result - Unit Interpretation Reference Range Comment Feb 23, 2024 09:43 AM [facility] VITAMIN D (25-OH) Specimen Type: SERUM No comment entered. Ordering Provider: SADIE MORSE Report Released Date/Time: Jul 26, 2023 09:13 AM Reporting Lab: [address] [address] Performing Lab: [address] [address] VITAMIN D (25-OH) 30 ng/mL 20-50 Feb 23, 2024 09:43 AM [facility] CALCIUM Specimen Type: SERUM No comment entered. Ordering Provider: SADIE MORSE Report Released Date/Time: Jul 26, 2023 09:13 AM Reporting Lab: [address] [address] Performing Lab: [address] [address] CALCIUM 9.5 mg/dL 8.5-10.2 Feb 23, 2024 09:43 AM [facility] MAGNESIUM Specimen Type: SERUM No comment entered. Ordering Provider: SADIE MORSE Report Released Date/Time: Jul 26, 2023 09:13 AM Reporting [facility] [address] Performing Lab: [facility] [address] MAGNESIUM 1.9 mg/dL 1.6-2.6 Feb 23, 2024 09:43 AM [facility] PO4 Specimen Type: SERUM No comment entered. Ordering Provider: SADIE MORSE Report Released Date/Time: Jul 26, 2023 09:13 AM Reporting [facility] [place] [facility] [address] [facility] [address] Performing Lab: [place] [facility] [place] [facility] [address] [facility] [address] PO4 3.2 mg/dL 2.5-5.0 Feb 23, 2024 09:43 AM [facility] PTH INTACT Specimen Type: SERUM No comment entered. Ordering Provider: SADIE MORSE Report Released Date/Time: Jul 26, 2023 09:13 AM Reporting Lab: [facility]ITALTRN [facility]ITALUSETS [address] [address] Performing Lab: [facility] TRN [facility] [address] [address] PTH INTACT 45.0 pg/mL 10-65 Feb 23, 2024 09:43 AM [facility] ALBUMIN Specimen Type: SERUM No comment entered. Ordering Provider: SADIE MORSE Report Released Date/Time: Jul 26, 2023 09:13 AM Reporting Lab: [facility]ITALTRN [facility]ITALUSETS [address] [address] Performing Lab: [facility]ITALTR[facility]ITAL[facility] [address] [address] ALBUMIN 4.1 g/dL 3.5-5.0 Feb 23, 2024 09:43 AM [facility] ALKALINE PHOSPHATASE Specimen Type: SERUM No comment entered. Ordering Provider: SADIE MORSE Report Released Date/Time: Jul 26, 2023 09:13 AM Reporting Lab: [facility]ITALTRN [facility]ITALUSETS [address] [address] Performing Lab: [facility]ITALTRN [facility]US[facility] [address] [address] ALKALINE PHOSPHATASE 75 U/L 40-150 Feb 23, 2024 09:43 AM [facility] FERRITIN Specimen Type: SERUM No comment entered. Ordering Provider: SADIE MORSE Report Released Date/Time: Jan 31, 2024 09:44 AM Reporting Lab: [facility] [place] [facility] [address] [facility] [address] Performing Lab: [place] [facility] [place] [facility] [address] [facility] [address] FERRITIN 275 ng/mL 20-300 Feb 23, 2024 09:43 AM [facility] MICROALBUMIN CREATININE RATIO PANEL Specimen Type: URINE No comment entered. Ordering Provider: SADIE MORSE Report Released Date/Time: Jul 26, 2023 09:13 AM Reporting Lab: [facility] [address] [facility] [address] Performing Lab: [facility]RNORTHWE[facility]ENTERN [facility]PITALUSETS [facility] [address] [facility] [address] MICROALBUMIN/C REATININE RATIO 11.5 mg/g 0-29.9 MICROALBUMIN,Q UANTITATIVE 1.8 mg/dL RR UNAVAIL CREATININE URINE 156.12 mg/dL Feb 23, 2024 09:43 AM [facility] LIPID PANEL, NON FASTING Specimen Type: SERUM No comment entered. Ordering Provider: SADIE MORSE Report Released Date/Time: Jul 26, 2023 09:13 AM Reporting Lab: [facility] TRN [facility] [address] [facility] [address] Performing Lab: [facility]RNORTHWE[facility] CENTERN [facility]OSPITALUSETS [facility] [address] [facility] [address] CHOLESTEROL 190 mg/dL TRIGLYCERIDE 99 mg/dL 0-150 LDL calculated 125 mg/dL 0-129 CHOL/HDL 4.2 HDL CHOLESTEROL 45 mg/dL 40-60 Feb 23, 2024 09:43 AM [facility]ENTERN [facility]ITALUSECEN[facility] BASIC METABOLIC PANEL (non-fasting) Specimen Type: SERUM No comment entered. Ordering Provider: SADEI MORSE Report Released Date/Time: Jul 26, 2023 09:13 AM Reporting Lab: [facility]RL W[facility]N [facility]ITAL[facility] [address] [facility] [address] Performing Lab: [facility]RNOR[facility] CENTERN [facility]PITALUSETS [address] [address] UREA NITROGEN 18 mg/dL 7-25 GLUCOSE 149 mg/dL H 65-100 SODIUM 139 mmol/L 135-145 POTASSIUM 4.4 mmol/L 3.5-5.0 CHLORIDE 104 mmol/L 100-110 CO2 26 meq/L 20-30 CREATININE, Serum 1.12 mg/dL 0.50-1.40 eGFR(CKD-EPI 2020) 80 mL/min >60 Feb 23, 2024 09:43 AM [facility] IRON & TIBC PANEL Specimen Type: SERUM No comment entered. Ordering Provider: SADIE MORSE Report Released Date/Time: Jan 31, 2024 09:44 AM Reporting Lab: [address] [address] Performing Lab: [address] [address] TIBC 385 ug/dL 204-475 IRON 105 ug/dL 40-160 Transferrin Saturation 27.2 20.0-50.0 Transferrin (TRF) 292 mg/dL 200-360 Feb 23, 2024 09:43 AM [facility] CBC Specimen Type: BLOOD No comment entered. Ordering Provider: SADIE MORSE Report Released Date/Time: Jan 31, 2024 09:44 AM Reporting Lab: [address] [address] Performing Lab: [address] [address] WBC 7.44 10*3/uL 4.50-11.00 RBC 5.25 10*6/uL [...] and tobacco- related health factors from the [place] facility where the Encounter took place. Current Smoking Status This section includes the most current smoking, or tobacco-related health factor, from the [place] facility where the Encounter took place. Date/Time Current Smoking Status Comment [facility] Jun 08, 2023 09:30 AM VA-TOBACCO USER EVERY DAY [facility] [place] [facility] Tobacco Use History This section includes a history of the smoking, or tobacco-related health factors, that were collected on or before the date of the Encounter. The data comes from the [place] facility where the Encounter took place. 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 [facility] [place] [facility] Jun 08, 2023 09:30 AM VA-TOBACCO USE MED NO [facility] [place] [facility] Jun 08, 2023 09:30 AM VA-TOBACCO USE [place] 30 MIN OF WAKEUP [facility] [place] [facility] Jun 08, 2023 09:30 AM VA-TOBACCO USER EVERY DAY [facility] [place] [facility] Jun 23, 2022 09:00 AM VA-TOBACCO FORMER USER [facility] [place] [facility] Jun 23, 2022 09:00 AM VA-TOBACCO QUIT < 1 YEAR [facility] [place] [facility] May 18, 2021 11:00 AM VA-TOBACCO USE > 15 LESS THAN 30 YEARS [facility] [place] [facility] May 18, 2021 11:00 AM VA-TOBACCO USE ADVICE [facility] [place] [facility] May 18, 2021 11:00 AM VA-TOBACCO USE 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 NO [facility] [place] [facility] May 18, 2021 11:00 AM VA-TOBACCO USE MED NO [facility] [place] [facility] May 18, 2021 11:00 AM VA-TOBACCO USE WI 30 MIN OF WAKEUP [facility] [place] [facility] May 18, 2021 11:00 AM VA-TOBACCO USER SOME DAYS [facility] [place] [facility] Jul 31, 2018 08:47 AM VA-TOBACCO DOESNT USE WI 30 MIN WAKEUP [facility] [place] [facility] Jul 31, 2018 08:47 AM VA-TOBACCO USE > 15 LESS THAN 30 YEARS [facility] [place] [facility] Jul 31, 2018 08:47 AM VA-TOBACCO USE ADVICE [facility] [place] [facility] Jul 31, 2018 08:47 AM VA-TOBACCO USE 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 NO [facility] [place] [facility] Jul 31, 2018 08:47 AM VA-TOBACCO USE MED NO [facility] [place] [facility] Jul 31, 2018 08:47 AM VA-TOBACCO USER SOME DAYS [facility] [place] [facility] Jan 30, 2018 09:19 AM QUIT TOBACCO USE IN PAST YEAR a month ago [facility] [place] [facility] Jul 28, 2017 09:31 AM CURRENT SMOKER 2 cigarettes per day [facility] [place] [facility] Dec 08, 2016 08:49 AM [facility] [place] [facility] Dec 08, 2016 08:49 AM V1-PT NOT INTERESTED IN QUIT TOBACCO USE [facility] [place] [facility] Jun 11, 2016 10:00 AM CURRENT SMOKER [facility] [place] [facility] Dec 10, 2015 10:39 AM V1-PT NOT INTERESTED IN QUIT TOBACCO USE [facility] [place] [facility] Feb 06, 2015 08:34 AM CURRENT SMOKER 1 1/2 Packs per week [facility] [place] [facility] Feb 06, 2015 08:34 AM V1-PT NOT INTERESTED IN QUIT TOBACCO USE [facility] [place] [facility] Jul 04, 2013 09:37 AM CURRENT SMOKER pack per week [facility] [place] [facility] Jun 24, 2011 08:10 AM V1-PT DECLINES REF TO TOBACCO CESS PRGM [facility] [place] [facility] Jun 24, 2011 08:10 AM V1-PT READY TO QUIT TOBACCO USE [facility] [place] [facility] Mar 31, 2011 10:12 AM V1-PT DECLINES REF TO TOBACCO CESS PRGM [facility] [place] [facility] Mar 31, 2011 10:12 AM V1-PT DECLINES TOBACCO CESSATION MEDS [facility] [place] [facility] Mar 31, 2011 10:12 AM V1-PT NOT INTERESTED IN QUIT TOBACCO USE [facility] September 25, 2010 11:03 AM CURRENT SMOKER [facility] September 25, 2010 11:03 AM QUIT TOBACCO USE IN PAST YEAR [facility] Encounter Notes: All associated encounter notes This section contains the clinical notes associated to the Encounter. Date/Time Encounter Note(s) Provider Source Mar 23, 2024 08:36 AM ADMINISTRATIVE NOT E: LOCAL TITLE: ADMINISTRATIVE NOTE STANDARD TITLE: ADMINISTRATIVE NOTE DATE OF NOTE: MAR 23, 2024@08:36 ENTRY DATE: MAR 23, 2024@08:36:21 AUTHOR: NOHEMI MACKEY EXP COSIGNER: URGENCY: STATUS: COMPLETED ADMINISTRATIVE NOTE Has ADDENDA Saw that cancelled the appointment for this morning. Called in attempt to speak with him briefly. Left a VM expressing appreciation for the notice and hope that he is okay. Reminded him of option to outreach prior to next scheduled appointment on Tuesday, April 20, 2024 at 8:30am F2F and encouraged him to call should he need support before then or want to reschedule for a different time. Provided contact information. /ever/ Nohemi Mackey, PhD Clinical Psychologist, [facility] Signed: 03/23/2024 08:38 Receipt Acknowledged By: 03/23/2024 08:59 /ever/ JEMIMA WALL ADVANCED OPTOMETRIC TECHNOLOGIST 03/23/2024 ADDENDUM STATUS: COMPLETED Received VM from confirming next appointment time. No evidence of current risk. /ever/ Nohemi Mackey, PhD Clinical Psychologist[facility] Signed: 03/23/2024 09:53 NOHEMI MACKEY [facility]
--- OUTSIDE RECORDS SUMMARY | 2024-06-19 13:41 | XMS_ITS | Encounter Summary ---
Author Name [facility] [place] [facility] [place] Address [address] [place] [address] Care Team Providers Care Customer Resolution Specialist Name Role Phone YANCYSONIA Primary Care Provider [...] Huitron's Name Patient's Relationship to Policy Huitron [facility] CE ORGANIZAT ION [facility] FIRE DEPT May 09, 2023 [id number] JAMAAL ALTMAN SE PATIENT [place] PRESCRIPT ION [facility] Nov 07, 2023 [id number] SOFÍA ALTMAN JR PATIENT SILVERNA PREFERRED PROVIDER ORGANIZAT ION (PPO) [facility] Nov 06, 2016 [id number] JAMAAL ALTMAN SE PATIENT [employer] POINT OF SERVICE [facility] Nov 06, 2016 [id number] JAMAAL ALTMAN SE PATIENT [facility] MENTAL HEALTH [facility] Nov 06, 2016 [id number] JAMAAL ALTMAN SE [facility]IENT [facility] Nov 06, 2016 [id number] JAMAAL ALTMAN SE PATIENT [facility] Nov 06, 2009 [id number] JAMAAL ALTMAN SE PATIENT Selected Encounter This section includes the information on record at [place] for the Encounter. Date/Time Encounter Type Encounter Description Reason Provider Source Aug 05, 2023 09:00 AM PSYTX W PT 60 MINUTES [facility] - IND ICD-10-CM F43.12 Post-traumatic stress disorder, chronic WEISMOORE,MATTIE E IHE Encounter Template Text not used by [place] Assessments - Encounter Diagnoses This section includes the primary and secondary diagnoses documented for the Encounter. Date/Time Primary/Secondary Diagnosis Diagnosis Name Provider Source Sep 04, 2023 06:40 AM PRIMARY Post-traumatic stress disorder, chronic WEISMOORE,MATTIE E [facility] [place] [facility] Sep 04, 2023 06:40 AM SECONDARY Major depressive disorder, recurrent, unspecified WEISMOORE,MATTIE E [facility] [place] [facility] Plan of Treatment: Future Appointments [...] Date/Time Appointment Type Appointme nt Facility Name Aug 11, 2023 09:45 AM AMBULATORY - MEDICINE [facility] Aug 11, 2023 11:00 AM [facility] [place] [facility] Sep 06, 2023 09:00 AM AMBULATORY - [facility]IN [facility] September 08, 2023 11:00 AM [facility] September 22, 2023 09:00 AM [facility] [place] [facility] October 06, 2023 09:00 AM AMBULATORY - [facility]IATRY [facility] Oct 28, 2023 09:00 AM AMBULATORY - PS[facility]CHIATRY [facility] Nov 24, 2023 09:30 AM AMBULATORY - MEDICINE [facility] [place] [facility] Nov 25, 2023 09:00 AM AMBULATORY - PSYCHIATRY [facility] Dec 02, 2023 09:00 AM AMBULATORY - PS[facility]CHIATRY [facility] Dec 08, 2023 09:00 AM AMBULATORY - REHAB MEDICIN E [facility] [place] [facility] Dec 09, 2023 09:00 AM AMBULATORY - PS[facility]CHIATRY [facility] Dec 16, 2023 08:30 AM AMBULATORY - MEDICINE [facility] [place] [facility] Dec 23, 2023 09:00 AM AMBULATORY - PSYCHIATRY [facility] [facility] Jan 06, 2024 09:00 AM AMBULATORY - PSYCHIATRY [facility] [place] [facility] Jan 20, 2024 09:00 AM AMBULATORY - PS[facility]CHIATRY [facility] [facility] Feb 03, 2024 09:00 AM AMBULATORY - PSYCHIATRY [facility] [place] [facility] Lab Results: +/- 30 days [...] 2023 08:44 AM [facility] [place] [facility] MICROALBUMIN CREATININE RATIO PANEL Specimen Type: URINE No comment entered. Ordering Provider: SADEI MORSE Report Released Date/Time: Jul 15, 2023 01:11 PM Reporting [facility]: [facility] [place] [address] [address] Performing Lab: [facility] [address] [address] MICROALBUMIN/C REATININE RATIO 5.0 mg/g 0-29.9 MICROALBUMIN,Q UANTITATIVE 1.4 mg/dL RR UNAVAIL CREATININE URINE 281.21 mg/dL Jul 19, 2023 08:38 AM [facility] IRON & TIBC PANEL Specimen Type: SERUM No comment entered. Ordering Provider: SADIE MORSE Report Released Date/Time: Jul 04, 2023 08:48 AM Reporting Lab: [facility] [address] [address] Performing Lab: [address] [address] TIBC 345 ug/dL 204-475 IRON 119 ug/dL 40-160 Transferrin Saturation 34.5 20.0-50.0 Jul 19, 2023 08:38 AM [facility] FERRITIN Specimen Type: SERUM No comment entered. Ordering Provider: SADIE MORSE Report Released Date/Time: Jul 04, 2023 08:48 AM Reporting Lab: [facility] [address] [address] Performing Lab: [facility] [address] FERRITIN 339 ng/mL H 20-300 Jul 19, 2023 08:38 AM [facility] BASIC METABOLIC PANEL (non-fasting) Specimen Type: SERUM No comment entered. Ordering Provider: SADIE MORSE Report Released Date/Time: Jul 04, 2023 08:48 AM Reporting Lab: [facility] [address] [address] Performing Lab: [facility] [address] UREA NITROGEN 17 mg/dL 7-25 GLUCOSE 138 mg/dL H 65-100 SODIUM 139 mmol/L 135-145 POTASSIUM 4.2 mmol/L 3.5-5.0 CHLORIDE 103 mmol/L 100-110 CO2 25 meq/L 20-30 CREATININE, Serum 1.19 mg/dL 0.50-1.40 eGFR(CKD-EPI 2020) 74 mL/min >60 Jul 19, 2023 08:38 AM [facility] CBC Specimen Type: BLOOD No comment entered. Ordering Provider: SADIE MORSE Report Released Date/Time: Jul 04, 2023 08:48 AM Reporting Lab: [facility] [address] [facility] [address] Performing Lab: [facility] [address] [address] WBC 9.57 10*3/uL 4.50-11.00 RBC 5.03 10*6/uL 4.23-5.66 HGB 14.6 g/dL 12.8-17 HCT 44.5 39.2-50.4 MCV 88.5 fL 82-99 MCHC 32.8 g/dL 30.8-35.1 PLT 233 10*3/uL 140-360 RDW-CV 12.3 12.0-16.0 MCH 29.0 pg 26.2-32.6 Social History: Smoking Status (Most [...] place. Date/Time Current Smoking Status Comment [facility] Jun 08, 2023 09:30 AM VA-TOBACCO USER EVERY DAY [facility] Tobacco Use History This section includes a history of the smoking, or tobacco-related health factors, that were collected on or before the date of the Encounter. The data comes from the [place] facility where the Encounter took place. Date/Time Smoking Status/Tobac co Use Comment Facility Jun 08, 2023 09:30 AM VA-TOBACCO USE ADVICE [facility] Jun 08, 2023 09:30 AM VA-TOBACCO USE TURBINATED BONE GRINDER NO [facility] Jun 08, 2023 09:30 AM VA-TOBACCO USE MED NO [facility] Jun 08, 2023 09:30 AM VA-TOBACCO USE WI 30 MIN OF WAKEUP [facility] [place] [facility] Jun 08, 2023 09:30 AM VA-TOBACCO USER EVERY DAY [facility] [place] [facility] Jun 23, 2022 09:00 AM VA-TOBACCO FORMER USER [facility] [place] [facility] Jun 23, 2022 09:00 AM VA-TOBACCO QUIT < 1 YEAR [facility] [place] [facility] May 18, 2021 11:00 AM VA-TOBACCO USE > 15 LESS THAN 30 YEARS [facility] [place] [facility] May 18, 2021 11:00 AM VA-TOBACCO USE ADVICE [facility] [place] [facility] May 18, 2021 11:00 AM VA-TOBACCO USE TURBINATED BONE GRINDER NO [facility] [place] [facility] May 18, 2021 11:00 AM VA-TOBACCO USE MED NO [facility] [place] [facility] May 18, 2021 11:00 AM VA-TOBACCO USE WI 30 MIN OF WAKEUP [facility] [place] [facility] May 18, 2021 11:00 AM VA-TOBACCO USER SOME DAYS [facility] [place] [facility] Jul 31, 2018 08:47 AM VA-TOBACCO DOESNT USE WI 30 MIN WAKEUP [facility] [place] [facility] Jul 31, 2018 08:47 AM VA-TOBACCO USE > 15 LESS THAN 30 YEARS [facility] [place] [facility] Jul 31, 2018 08:47 AM VA-TOBACCO USE ADVICE [facility] [place] [facility] Jul 31, 2018 08:47 AM VA-TOBACCO USE TURBINATED BONE GRINDER NO [facility] [place] [facility] Jul 31, 2018 08:47 AM VA-TOBACCO USE MED NO [facility] [place] [facility] Jul 31, 2018 08:47 AM VA-TOBACCO USER SOME DAYS [facility] [place] [facility] Jan 30, 2018 09:19 AM QUIT TOBACCO USE IN PAST YEAR a month ago [facility] [place] [facility] Jul 28, 2017 09:31 AM CURRENT SMOKER 2 cigarettes per day [facility] [place] [facility] Dec 08, 2016 08:49 AM CURRENT SMOKER [facility] Dec 08, 2016 08:49 AM V1-PT NOT INTERESTED IN QUIT TOBACCO USE [facility] Jun 11, 2016 10:00 AM CURRENT SMOKER [facility] Dec 10, 2015 10:39 AM V1-PT NOT INTERESTED IN QUIT TOBACCO USE [facility] Feb 06, 2015 08:34 AM CURRENT SMOKER 1 1/2 Packs per week [facility] Feb 06, 2015 08:34 AM V1-PT NOT INTERESTED IN QUIT TOBACCO USE [facility] Jul 04, 2013 09:37 AM CURRENT SMOKER pack per week [facility] Jun 24, 2011 08:10 AM V1-PT DECLINES REF TO TOBACCO CESS PRGM [facility] Jun 24, 2011 08:10 AM V1-PT READY TO QUIT TOBACCO USE [facility] Mar 31, 2011 10:12 AM V1-PT DECLINES REF TO TOBACCO CESS PRGM [facility] Mar 31, 2011 10:12 AM V1-PT DECLINES TOBACCO CESSATION MEDS [facility] Mar 31, 2011 10:12 AM V1-PT NOT INTERESTED IN QUIT TOBACCO USE [facility] September 25, 2010 11:03 AM CURRENT SMOKER [facility] September 25, 2010 11:03 AM QUIT TOBACCO USE IN PAST YEAR [facility] Encounter Notes: All associated encounter notes This section contains the clinical notes associated to the Encounter. Date/Time Encounter Note(s) Provider Source Aug 05, 2023 11:07 AM PSYCHOLOGY NOTE: LOCAL TITLE: PSYCHOLOGY NOTE STANDARD TITLE: PSYCHOLOGY NOTE DATE OF NOTE: AUG 05, 2023@11:07 ENTRY DATE: AUG 05, 2023@11:07:30 AUTHOR: NOHEMI MACKEY COSIGNER: URGENCY: STATUS: COMPLETED PSYCHOLOGY NOTE Has [facility] Individual Therapy Note Procedure: The patient was seen for a 60-minute F2F individual psychotherapy session focused on treatment of symptoms PTSD and depression. Benigno identified with 2 identifiers: [X] Patient Name [X] Visual recognition The Outpatient Individual Psychotherapy Services Agreement was reviewed with this provider on 07/15/2023. Agreed to meet for 12 weekly to once monthly individual therapy appointments to increase use of adaptive coping skills in the face of current stressors and process traumatic experiences. Problem: Difficulty managing PTSD and depressive symptoms Objectives: 1) Lostine will engage in individual, weekly psychotherapy to increase his ability to tolerate distressing emotional experiences and to engage in behaviors that are consistent with his values. 2) will learn about and consider trauma-focused therapy to directly address PTSD symptoms if/when clinically appropriate. Progress: Benigno spoke about recent experiences during a visit with his father, connecting to feelings of sadness, memories of trauma (childhood and as a young adult), and his appreciation for the support his father has provided. Lostine spoke about his worry thoughts related to his father's health. considered how his personal values have been shaped by trauma and his appreciation of a safe space in which to explore these. 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 Agreed to weave this into upcoming treatment planning given Benigno anticipates a surgery and has a family vacation in August. Benigno committed to allow space for all his thoughts and feelings, including sadness. Assessment: Benigno arrived on time for session and was dressed appropriately with appropriate hygiene. He maintained appropriate eye contact and was alert. Benigno spoke clearly and coherently. His thoughts were [...] PTSD, Chronic Major Depressive Disorder, recurrent Plan: Benigno's next visit is scheduled for August at 11am F2F. Suicide Screen: C-SSRS Screening [place]-Suicide Severity Rating Scale (C-SSRS Screener) 1. Over the past month, have you wished you were or wished you could go to sleep and not wake up? No 2. Over the past month, have you had any actual thoughts of killing yourself? No 3. Over the past month, have you been thinking about how you might do this? Response not required due to responses to other questions. 4. Over the past month, have you had these thoughts and had some intention of acting on them? Response not required due to responses to other questions. 5. Over the past month, have you started to work out or worked out the details of how to kill yourself? Response not required due to responses to other questions. 6. If yes, at any time in the past month did you intend to carry out this plan? Response not required due to responses to other questions. 7. In your lifetime, have you ever done anything, started to do anything, or prepared to do anything to end your life (for example, collected pills, obtained a gun, gave away valuables, went to the roof but didn't jump)? No 8. If YES, was this within the past 3 months? Response not required due to responses to other questions. /ever/ Nohemi Mackey PhD Clinical Psychologist, [facility] Signed: 08/05/2023 11:15 08/05/2023 ADDENDUM STATUS: COMPLETED PCT Psychotherapy Tracking Today's psychotherapy session was part of a standardized episode of Other PTSD Psychotherapy (e.g. supportive therapy): Other: integrative ACT/CBT with plan to engage in shared-decision making about trauma-focused therapy options /ever/ Nohemi Mackey PhD Clinical Psychologist, [facility] Signed: 08/05/2023 11:15 NOHEMI MACKEY [facility]
--- OUTSIDE RECORDS SUMMARY | 2024-06-19 13:42 | XMS_ITS ---
Author Name [facility] [place] [facility] [place] [facility] [place] [facility] [place] Address [address] [place] [address] Care Team Providers Care Box Sealing Machine Operator Name Role Phone PANCHO HAINESA Primary Care [...] Name Patient's Relationship to Policy [employer] BCBS [facility] CE ORGANIZAT ION [facility] FIRE DEPT May 09, 2023 [id number] JAMAAL ALTMAN SE PATIENT [employer] PRESCRIPT ION [place] Nov 07, 2023 [id number] SOFÍA ALTMAN JR PATIENT [place] PREFERRED PROVIDER ORGANIZAT ION (PPO) [facility] Nov 06, 2016 [id number] [phone] JAMAAL ALTMAN SE PATIENT [employer] POINT OF SERVICE [facility] Nov 06, 2016 [id number] JAMAAL ALTMAN SE PATIENT [facility] M[facility]AL [facility] Nov 06, 2016 [id number] JAMAAL ALTMAN SE PATIENT [employer] [facility] PRESCRIPT ION [facility] Nov 06, 2016 [id number] JAMAAL ALTMAN SE PATIENT [facility] Nov 06, 2009 [id number] JAMAAL ALTMAN SE PATIENT Selected Encounter This section includes the information on record at [place] for the Encounter. Date/Time Encounter Type Encounter Description Reason Pro vider Source May 25, 2024 03:33 PM Outpatient Encounter [facility] Encounter Template Text not used by [place] Plan of Treatment: Future Appointments (+ 6 months) and Future Tests (+/- 45 days) The Plan of Treatment section includes future care activities for the patient from all [place] treatmentfacilities. This section includes future appointments and future orders which are active, pending or scheduled. Future Appointments This section includes appointments that were scheduled to occur 6 months from the date of the Encounter, up to a maximum of 20 appointments. The data comes from all [place] treatment facilities. Appointment Date/Time Appointment Type Appointme nt Facility Name May 31, 2024 10:30 AM AMBULATORY - MEDICINE [place] [facility] [place] [facility] Jun 28, 2024 10:30 AM AMBULATORY - MEDICINE [place] [facility] [place] [facility] Jul 05, 2024 09:00 AM AMBULATORY - MEDICINE [facility] [place] [facility] Jul 06, 2024 08:30 AM AMBULATORY - PSYCHIATRY [facility] [place] [facility] Jul 06, 2024 09:00 AM AMBULATORY - MEDICINE [place] [facility] [place] [facility] Jul 13, 2024 08:30 AM AMBULATORY - PSYCHIATRY [facility] [place] [facility] Jul 20, 2024 08:30 AM AMBULATORY - PSYCHIATRY [facility] [place] [facility] Jul 27, 2024 08:30 AM AMBULATORY - PSYCHIATRY [facility] [place] [facility] September 13, 2024 01:30 PM AMBULATORY - MEDICINE [place] [facility] [place] [facility] Active, Pending, and Scheduled Orders This section includes a listing of several types of active, pending, and scheduled orders, including clinic medications orders, diagnostic test orders, procedure orders and consult orders; where the start date of the order is 45 days before the date of the Encounter or 45 days after the date of theEncounter. The data comes from all [place] treatment facilities. Test Date/Time Test Type Test Details Facility Name May 31, 2024 10:51 AM Consult Order [facility] Carding Machine Feeder's Choice [facility] May 31, 2024 11:15 AM Consult Order PHARMACY/N HM OUTPT Cons [facility] [facility] Lab Results: +/- 30 days of the encounter This section includes the Chemistry and Hematology Lab Results on record with [place] for the patient. Radiology Reports and Pathology Reports are provided separately, in subsequent sections. Lab Results This section contains the Chemistry/Hematology Results that were resulted 30 days before or 30 daysafter the date of the Encounter. Date/Time Source Result Type Result - Unit Interpretation Reference Range Comment May 23, 2024 09:30 AM [facility] HEMOGLOBIN A1C PANEL Specimen Type: BLOOD Comment: [...] May 17, 2024 12:47 PM Reporting Lab: [address] [address] Performing Lab: [address] [address] HEMOGLOBIN A1C 7.1 H 4.0-5.6 May 23, 2024 09:30 AM [facility] BASIC METABOLIC PANEL (non-fasting) Specimen Type: SERUM No comment entered. Ordering Provider: SONIA HAINES Report Released Date/Time: May 18, 2024 11:38 AM Reporting Lab: [address] [address] Performing Lab: [place] [facility] [place] [facility] [address] [facility] [id number] UREA NITROGEN 16 mg/dL 7-25 GLUCOSE 174 [...] and tobacco- related health factors from the [place] facility where the Encounter took place. Current Smoking Status This section includes the most current smoking, or tobacco-related health factor, from the [place] facility where the Encounter took place. Date/Time Current Smoking Status Comment [facility] Jun 08, 2023 09:30 AM VA-TOBACCO USER EVERY DAY [facility] Tobacco Use History This section includes a history of the smoking, or tobacco-related health factors, that were collected on or before the date of the Encounter. The data comes from the [place] facility where the Encounter took place. Date/Time Smoking Status/Tobac co Use Comment Facility Jun 08, 2023 09:30 AM VA-TOBACCO USE ADVICE [place] [facility] [place] [facility] Jun 08, 2023 09:30 AM VA-TOBACCO USE DIRECT SELLING COUNSELOR NO [place] [facility] [place] [facility] Jun 08, 2023 09:30 AM VA-TOBACCO USE MED NO [place] [facility] [place] [facility] Jun 08, 2023 09:30 AM VA-TOBACCO USE WI 30 MIN OF WAKEUP [place] [facility] [place] [facility] Jun 08, 2023 09:30 AM VA-TOBACCO USER EVERY DAY [facility] [place] [facility] Jun 23, 2022 09:00 AM VA-TOBACCO FORMER USER [place] [facility] [place] [facility] Jun 23, 2022 09:00 AM VA-TOBACCO QUIT < 1 YEAR [facility] [place] [facility] May 18, 2021 11:00 AM VA-TOBACCO USE > 15 LESS THAN 30 YEARS [facility] [place] [facility] May 18, 2021 11:00 AM VA-TOBACCO USE ADVICE [facility] [place] [facility] May 18, 2021 11:00 AM VA-TOBACCO USE DIRECT SELLING COUNSELOR NO [facility] [place] [facility] May 18, 2021 11:00 AM VA-TOBACCO USE MED NO [facility] [place] [facility] May 18, 2021 11:00 AM VA-TOBACCO USE WI 30 MIN OF WAKEUP [facility] [place] [facility] May 18, 2021 11:00 AM VA-TOBACCO USER SOME DAYS [facility] [place] [facility] Jul 31, 2018 08:47 AM VA-TOBACCO DOESNT USE WI 30 MIN WAKEUP [facility] [place] [facility] Jul 31, 2018 08:47 AM VA-TOBACCO USE > 15 LESS THAN 30 YEARS [facility] [place] [facility] Jul 31, 2018 08:47 AM VA-TOBACCO USE ADVICE [facility] [place] [facility] Jul 31, 2018 08:47 AM VA-TOBACCO USE DIRECT SELLING COUNSELOR NO [facility] [place] [facility] Jul 31, 2018 08:47 AM VA-TOBACCO USE MED NO [facility] [place] [facility] Jul 31, 2018 08:47 AM VA-TOBACCO USER SOME DAYS [facility] [place] [facility] Jan 30, 2018 09:19 AM QUIT TOBACCO USE IN PAST YEAR a month ago [facility] [place] [facility] Jul 28, 2017 09:31 AM CURRENT SMOKER 2 cigarettes per day [facility] [place] [facility] Dec 08, 2016 08:49 AM CURRENT SMOKER [facility] [place] [facility] Dec 08, 2016 08:49 AM V1-PT NOT INTERESTED IN QUIT TOBACCO USE [facility] [place] [facility] Jun 11, 2016 10:00 AM CURRENT SMOKER [facility] [place] [facility] Dec 10, 2015 10:39 AM V1-PT NOT INTERESTED IN QUIT TOBACCO USE [facility] [place] [facility] Feb 06, 2015 08:34 AM CURRENT SMOKER 1 1/2 Packs per week [facility] [place] [facility] Feb 06, 2015 08:34 AM V1-PT NOT INTERESTED IN QUIT TOBACCO USE [facility] Jul 04, 2013 09:37 AM CURRENT SMOKER pack per week [facility] Jun 24, 2011 08:10 AM V1-PT DECLINES REF TO TOBACCO CESS PRGM [facility] Jun 24, 2011 08:10 AM V1-PT READY TO QUIT TOBACCO USE [facility] Mar 31, 2011 10:12 AM V1-PT DECLINES REF TO TOBACCO CESS PRGM [facility] Mar 31, 2011 10:12 AM V1-PT DECLINES TOBACCO CESSATION MEDS [facility] Mar 31, 2011 10:12 AM V1-PT NOT INTERESTED IN QUIT TOBACCO USE [facility] September 25, 2010 11:03 AM CURRENT SMOKER [facility] September 25, 2010 11:03 AM QUIT TOBACCO USE IN PAST YEAR [facility] Encounter Notes: All associated encounter notes This section contains the clinical notes associated to the Encounter. Date/Time Encounter Note(s) Provider Source May 25, 2024 03:34 PM ADMINISTRATIVE NOT E: LOCAL TITLE: ADMINISTRATIVE NOTE STANDARD TITLE: ADMINISTRATIVE NOTE DATE OF NOTE: MAY 25, 2024@15:34 ENTRY DATE: MAY 25, 2024@15:34:03 AUTHOR: JEMIMA WALL COSIGNER: URGENCY: STATUS: COMPLETED ADMINISTRATIVE NOTE Has ADDENDA Casino Cashier informed Benigno that his appointment with BOOGIE/KAREEM/JAY/MARCELLA on 06/01/2024 at 0830 has been cancelled by clinic, as Provider is not available. Casino Cashier confirmed follow-up appointment on 06/08/2024 at 0830. was made aware that he can contact the Walk-in clinic as needed. also mentioned that his mother is in the hospital, and he wants to spend as much time with her as possible, but he would like someone to check in with him... states that if he could does not answer, it is because he is with his mother at the hospital. Benigno can be reached at [phone]. Casino Cashier reached out to the [facility] Triage grp to assist. Thank you /ever/ JEMIMA WALL ADVANCED ANIMAL ASSISTANT Signed: 05/25/2024 15:53 Receipt Acknowledged By: 05/25/2024 16:20 /ever/ Karina Bains Psy.D. SEXUAL TRAUMA/WOMEN'S PSYCHOLOGIST for FER MARCELLA 05/25/2024 ADDENDUM STATUS: COMPLETED This content writer called and shared with him information about her role in the [facility] and assessed how she could best support him during Dr. Mackey' s leave. 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 [place] appreciated the offer to call this content writer if he needs support and the option of utilizing the WIC as needed. He took this content writer's direct contact information. /ever/ Nolvia Abel Psy.D. Psychologist Signed: 05/25/2024 16:02 JEMIMA WALL [facility]
--- OUTSIDE RECORDS SUMMARY | 2024-06-19 13:42 | XMS_ITS ---
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 Name Role Phone YANCY SONIA Primary Care Provider Unavailkaycee e Insurance Providers: [...] Huitron's Name Patient's Relationship to Policy Huitron [facility] CE ORGANIZAT ION [facility] FIRE DEPT May 09, 2023 [id number] [phone] JAMAAL ALTMAN SE PATIENT [place] PRESCRIPT ION BCBS [facility] Nov 07, 2023 [id number] SOFÍA ALTMAN JR PATIENT GAETANO PREFERRED PROVIDER ORGANIZAT ION (PPO) [facility] Nov 06, 2016 [id number] [phone] JAMAAL ALTMAN SE PATIENT [employer] POINT OF SERVICE [facility] Nov 06, 2016 [id number] JAMAAL ALTMAN SE PATIENT [facility] Nov 06, 2016 [id number] JAMAAL ALTMAN SE PATIENT [facility] PRESCRIPT ION [facility] Nov 06, 2016 [id number] JAMAAL ALTMAN SE PATIENT [facility] Nov 06, 2009 [id number] [phone] JAMAAL ALTMAN SE PATIENT Selected Encounter This section includes the information on [place] at [place] for the Encounter. Date/Time Encounter Type Encounter Description Reason Provider Source Dec 08, 2023 09:00 AM OFFICE O/P EST LOW 20 MIN PM&RS PHYSICIAN ICD-10-CM G56.03 Carpal tunnel syndrome, bilateral upper limbs ANJEL WICK [facility] Encounter Template Text not used by [place] Assessments - Encounter Diagnoses This section includes the primary and secondary diagnoses documented for the Encounter. Date/Time Primary/Secondary Diagnosis Diagnosis Name Provider Source Dec 12, 2023 09:49 AM PRIMARY Carpal tunnel syndrome, bilateral upper limbs ANJEL WICK [place] [facility] [place] [facility] Dec 12, 2023 09:49 AM SECONDARY Chronic pain syndrome ANJEL WICK [place] [facility] [place] [facility] Plan of Treatment: Future Appointments (+ 6 [...] Appointment Type Appointme nt Facility Name Dec 09, 2023 09:00 AM AMBULATORY [place]IATRY [place] [facility] [place] [facility] Dec 16, 2023 08:30 AM AMBULATORY - MEDICINE [place] [facility] [place] [facility] Dec 23, 2023 09:00 AM AMBULATORY - PS[place]CHIATRY [place] [facility] [place] [facility] Jan 06, 2024 09:00 AM AMBULATORY - PS[place]CHIATRY [place] [facility] [place] [facility] Jan 20, 2024 09:00 AM AMBULATORY [place]IATRY [place] [facility] [place] [facility] Feb 03, 2024 09:00 AM AMBULATORY [place]IATRY [place] [facility] [place] [facility] Feb 17, 2024 09:00 AM AMBULATORY [place] PS[place]CHIATRY [place] [facility] [place] [facility] Feb 28, 2024 08:00 AM AMBULATORY - MEDICINE [place] [facility] [place] [facility] Mar 16, 2024 08:30 AM AMBULATORY - PS[place]CHIATRY [place] [facility] [place] [facility] Apr 27, 2024 08:30 AM AMBULATORY [place] PS[place]CHIATRY [place] [facility] [place] [facility] May 31, 2024 10:30 AM AMBULATORY - MEDICINE [facility] Active, Pending, and Scheduled Orders This section includes a listing of several types of active, pending, and scheduled orders, including clinic medications orders, diagnostic test orders, procedure orders and consult orders; where the start date of the order is 45 days before the date of the Encounter or 45 days after the date of theEncounter. The data comes from all [facility] facilities. Test Date/Time Test Type Test Details Facility Name Nov 09, 2023 12:00 AM Laboratory - Chemistry Order BASIC METABOLIC PANEL (fasting) [facility] Nov 09, 2023 12:00 AM Laboratory - Chemistry Order LIPID PANEL FASTING BLOOD ([facility]UM[facility] Nov 09, 2023 12:00 AM Laboratory - Chemistry Order HEMOGLOBIN A1C PANEL [facility]LO[facility] ([facility] Vital Signs: All taken on the encounter date This section contains inpatient and outpatient Vital Signs collected on the date of the Encounter. Date/Time Temperature Pulse Blood Pressure Respiratory Rate SP02 Pain Height Weight Body Mass Index Source Dec 08, 2023 09:07 AM 140/70 10 [facility] Social History: Smoking Status (Most current) and [...] place. Date/Time Current Smoking Status Comment Facil ity Jun 08, 2023 09:30 AM VA-TOBACCO USER EVERY DAY [place] [facility] [place] [facility] Tobacco Use History This section includes a history of the smoking, or tobacco-related health factors, that were collected on or before the date of the Encounter. The data comes from the [place] facility where the Encounter took place. Date/Time Smoking Status/Tobac co Use Comment Facility Jun 08, 2023 09:30 AM VA-TOBACCO USE ADVICE [facility] [place] [facility] Jun 08, 2023 09:30 AM VA-TOBACCO USE STUDENT SUCCESS COUNSELOR NO [facility] [place] [facility] Jun 08, 2023 09:30 AM VA-TOBACCO USE MED NO [facility] [place] [facility] Jun 08, 2023 09:30 AM VA-TOBACCO USE WI 30 MIN OF WAKEUP [place] [facility] [place] [facility] Jun 08, 2023 09:30 AM VA-TOBACCO USER EVERY DAY [facility] [place] [facility] Jun 23, 2022 09:00 AM VA-TOBACCO FORMER USER [facility] [place] [facility] Jun 23, 2022 09:00 AM VA-TOBACCO QUIT < 1 YEAR [facility] [place] [facility] May 18, 2021 11:00 AM VA-TOBACCO USE > 15 LESS THAN 30 YEARS [facility] [place] [facility] May 18, 2021 11:00 AM VA-TOBACCO USE ADVICE [place] [facility] [place] [facility] May 18, 2021 11:00 AM VA-TOBACCO USE STUDENT SUCCESS COUNSELOR NO [facility] [place] [facility] May 18, 2021 11:00 AM VA-TOBACCO USE MED NO [facility] [place] [facility] May 18, 2021 11:00 AM VA-TOBACCO USE WI 30 MIN OF WAKEUP [facility] [place] [facility] May 18, 2021 11:00 AM VA-TOBACCO USER SOME DAYS [facility] [place] [facility] Jul 31, 2018 08:47 AM VA-TOBACCO DOESNT USE WI 30 MIN WAKEUP [place] [facility] [place] [facility] Jul 31, 2018 08:47 AM VA-TOBACCO USE > 15 LESS THAN 30 YEARS [facility] [place] [facility] Jul 31, 2018 08:47 AM VA-TOBACCO USE ADVICE [place] [facility] [place] [facility] Jul 31, 2018 08:47 AM VA-TOBACCO USE STUDENT SUCCESS COUNSELOR NO [place] [facility] [place] [facility] Jul 31, 2018 08:47 AM [facility]ACCO [facility] [place] [facility] Jul 31, 2018 08:47 AM VA-TOBACCO USER SOME DAYS [place] [facility] [place] [facility] Jan 30, 2018 09:19 AM QUIT TOBACCO USE IN PAST YEAR a month ago [place] [facility] [place] [facility] Jul 28, 2017 09:31 AM CURRENT SMOKER 2 cigarettes per day [place] [facility] [place] [facility] Dec 08, 2016 08:49 AM CURRENT SMOKER [facility] [place] [facility] Dec 08, 2016 08:49 AM V1-PT NOT INTERESTED IN QUIT TOBACCO USE [facility] [place] [facility] Jun 11, 2016 10:00 AM CURRENT SMOKER [place] [facility] [place] [facility] Dec 10, 2015 10:39 AM V1-PT NOT INTERESTED IN QUIT TOBACCO USE [place] [facility] [place] [facility] Feb 06, 2015 08:34 AM CURRENT SMOKER 1 1/2 Packs per week [place] [facility] [place] [facility] Feb 06, 2015 08:34 AM V1-PT NOT INTERESTED IN QUIT TOBACCO [facility] [place] [facility] Jul 04, 2013 09:37 AM CURRENT SMOKER pack per week [place] [facility] [place] [facility] Jun 24, 2011 08:10 AM V1-PT DECLINES REF TO TOBACCO CESS PRGM [place] [facility] [place] [facility] Jun 24, 2011 08:10 AM V1-PT READY TO QUIT TOBACCO USE [facility] [place] [facility] Mar 31, 2011 10:12 AM V1-PT DECLINES REF TO TOBACCO CESS PRGM [facility] [place] [facility] Mar 31, 2011 10:12 AM V1-PT DECLINES TOBACCO CESSATION MEDS [place] [facility] [place] [facility] Mar 31, 2011 10:12 AM V1-PT NOT INTERESTED IN QUIT TOBACCO USE [place] [facility] [facility] September 25, 2010 11:03 AM CURRENT SMOKER [facility] September 25, 2010 11:03 AM QUIT TOBACCO USE IN PAST YEAR [facility] Encounter Notes: All associated encounter notes This section contains the clinical notes associated to the Encounter. Date/Time Encounter Note(s) Provider Source Dec 08, 2023 09:27 AM PHYSICAL MEDICINE REHAB PHYSICIAN NOTE: LOCAL TITLE: PM&R FOLLOW-UP STANDARD TITLE: PHYSICAL MEDICINE REHAB PHYSICIAN NOTE DATE OF NOTE: DEC 08, 2023@09:27 ENTRY DATE: DEC 08, 2023@09:27:26 AUTHOR: GURINDER WICK COSIGNER: URGENCY: STATUS: COMPLETED DEC 08, 2023 ANUPAMAKATHRYN JR is a 48 y/o MALE who presents today for follow-up of bialteral hand pain. Improvement with pregabalin. He ran out of the pregabalin and his pain increased significantly. No side effects from medication. With nortriptyline he has difficulties with cognition however is not finding it the same with the pregabalin. Current pain level is 8/10. He has been working with weight reduction. 8 lbs over last month. Additionally has been working on smoking cessation but is having difficult time with the last few. Pack last 2 weeks at this point. He has been seeing some increases in blood pressure. His lisinopril has been increased. Last hemoglobin A1c per his report was 6.5. He was seen by Dr. Puente. He had local cortisone injection for MCP left index without any significant improvement. Previous carpal tunnel injections have not been helpful. EMG demonstrates moderate carpal tunnel. They have elected to proceed with carpal tunnel release in the beginning of the year. He is waiting until that time due to work responsibilities and lack of time off available. PMHx as obtained from Chart: Active problems - Computerized Problem List is the source for the followin. Type 2 diabetes mellitus in obese 2. Posttraumatic stress disorder 3. Carpal tunnel syndrome 4. Sleep apnea 5. Contracture of joint of right hand 6. Major depressive disorder 7. Erectile dysfunction (SNOMED CT 507468268) 8. Smoking (SNOMED CT 819336372) 9. Other specified idiopathic peripheral neuropathy 10. Other chronic Pain 11. Degeneration of intervertebral disc 12. Hypertension (SNOMED CT 42380837) 13. Hyperlipidemia (SNOMED CT 94349405) 14. Obesity (SNOMED CT 633193455) Soc Hx: MARITAL STATUS - [employer] FROM Feb TO Dec ALL: GABAPENTIN, NORTRIPTYLINE MEDS: Reviewed and Reconciled ROS: Constitutional - Denies fever or chills, night sweats, or unexplained weight loss. Head/Eyes/Ears/Neck- Denies headaches, visual changes. Cardiovascular - Denies chest pain/tightness, lower extremity swelling. Respiratory - Denies shortness of breath, or cough. GI - Denies nausea, vomiting, or loss of bowel fx/control. - Denies pelvic pain or loss of bladder function. Musculoskeletal - See HPI. Neuro - Denies numbness or tingling of the extremities. Skin/integuments - Denies rashes, lesions, or skin breakdown in the extremities. All other systems reviewed and are negative. PHYSICAL EXAMINATION: Vitals in chart. GEN: WD, WN. Awake, alert, cooperative with exam. PSYCH: Good eye contact. Appropriate affect and social interaction. HEENT: Normocephalic, atraumatic. CVS: Extremities warm/well perfused. No lower extremity edema. PULM: Breathing unlabored, no accessory muscle use. ABD: Nondistended. EXTREMITIES: No cyanosis or edema of bilateral upper and lower extremities. MUSCULOSKELETAL EXAM: Photographic Process Attendant strength on the right seems a bit better than it has in the past. On the left side numbness and tingling with median nerve compression test. Positive Tinel's on the left. Mild atrophy of the thenar region. Bossing of the MCP of the index finger with some mild tenderness over the volar aspect of the wrist. Sensory changes in the median nerve innervated digits. 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 He is able to perform all of his activities albeit with pain. He is scheduled for carpal tunnel release on the left. Anticipate that he will continue to use the pregabalin due to the right-sided symptoms as well. Pregabalin dosing 225 mg twice daily. Refill today with 3 refills. Reminded to call in advance for refill and not out of medication. FOLLOW-UP: 6 months Potential risks and side effects of any medication(s) prescribed today was reviewed with . Patient had many excellent questions, which I answered to the best of my ability and to patient's apparent satisfaction. MDM: minutes which includes reviewing records, evaluating patient, documenting in medical record, educating, counseling and coordinating care. Medication Reconciliation: Outpatient: Has the patient been taking medications as documented in the EMLR? YES: The patient has been taking medications as documented in the EMLR. Essential Medication List for Review used to complete this medication reconciliation. INCLUDED IN THIS LIST: Alphabetical list of active outpatient prescriptions dispensed from this [place] (local) and dispensed from another [place] or [facility] facility (remote) as well as inpatient orders (local, pending and active), local clinic medications, locally documented non-VA medications, and local prescriptions that have or been discontinued in the past 90 days. - All changes in medications, including all non-VA/Herbal/OTC medications were entered into CPRS. - If there were any medications the patient should no longer take, they were discontinued. - The patient/caregiver was instructed to update this list, discard old lists, and take this list to the next appointment, whether with a VA or non-VA provider. JLV Link Data on this list may not be complete. Please check JLV. Allergies/ADRs (Tool #5) FACILITY ALLERGY/ADR -------- [facility] NO KNOWN ALLERGIES [facility] NO KNOWN ALLERGIES [place] [facility] [place] [facility] GABAPENTIN [place] [facility] [place] [facility] NORTRIPTYLINE Med Recon NoGlossary (Tool #1) INCLUDED IN THIS LIST: Alphabetical list of active outpatient prescriptions dispensed from this [place] (local) and dispensed from another [place] or [facility] facility (remote) as well as inpatient orders (local pending and active), local clinic medications, locally documented non-VA medications, and local prescriptions that have or been discontinued in the past 90 days. Non-VA Meds Last Documented On: Jan 30, 2018 NOTE The display of VA prescriptions dispensed from another [place] or [facility] facility (remote) is limited to active outpatient prescription entries matched to National Drug File at the originating site and may not include some items such as investigational drugs, compounds, etc. NOT INCLUDED IN THIS LIST: Medications self-entered by the patient into personal health records (i.e. [employer]) are NOT included in this list. Non-VA medications documented outside this [place], remote inpatient orders (regardless of status) and remote clinic medications are NOT included in this list. The patient and provider must always discuss medications the patient is taking, regardless of where the medication was dispensed or obtained. Non-VA ATENOLOL 100MG TAB TAKE ONE TABLET BY MOUTH TWICE DAILY Medication prescribed by Non-VA provider. OUTPT DICLOFENAC NA 1% TOP GEL (Status = Active) APPLY 2 GRAMS TOPICALLY FOUR TIMES A DAY FOR OSTEOARTHRITIS - USE DOSING CARD PROVIDED IN BOX Rx# [id number] Last Released: 07/12/23 Qty/Days Supply: 300/30 Rx Expiration Date: 06/08/24 Refills Remainin OUTPT LIDOCAINE 5% OINT (Status = Active) APPLY MODERATE AMOUNT TOPICALLY TWICE DAILY FOR NERVE PAIN Rx# [id number] Last Released: 11/17/23 Qty/Days Supply: 100/60 Rx Expiration Date: 05/10/24 Refills Remainin Indication: FOR NERVE PAIN OUTPT LISINOPRIL 5MG TAB (Status = Active) TAKE THREE TABLETS BY MOUTH ONCE DAILY TO CONTROL BLOOD PRESSURE Rx# [id number] Last Released: 08/05/23 Qty/Days Supply: 270 Rx Expiration Date: 07/29/24 Refills Remainin Indication: FOR HIGH BLOOD PRESSURE OUTPT METFORMIN HCL 500MG 24HR SA TAB (Status = Active) TAKE TWO TABLETS BY MOUTH ONCE DAILY Rx# [id number] Last Released: 11/15/23 Qty/Days Supply: 180 Rx Expiration Date: 06/08/24 Refills Remainin Indication: FOR TYPE 2 DIABETES MELLITUS OUTPT NORTRIPTYLINE HCL 10MG CAP (Status = ) TAKE ONE CAPSULE BY MOUTH AT BEDTIME NEEDED DIRECTED FOR NERVE PAIN Rx# [id number] Last Released: 07/12/23 Qty/Days Supply: Rx Expiration Date: 10/10/23 Refills Remainin Indication: NERVE PAIN OUTPT PANTOPRAZOLE NA 40MG EC TAB (Status = Active) TAKE ONE TABLET BY MOUTH EVERY MORNING 30 MINUTES BEFORE BREAKFAST Rx# [id number] Last Released: 08/18/23 Qty/Days Supply: Rx Expiration Date: 06/08/24 Refills Remainin OUTPT PREGABALIN 225MG ORAL CAP (Status = ) TAKE ONE CAPSULE BY MOUTH TWICE DAILY FOR PAIN Rx# [id number] Last Released: 09/06/23 Qty/Days Supply: 60 Rx Expiration Date: 10/06/23 Refills Remainin Indication: FOR PAIN OUTPT PREGABALIN 225MG ORAL CAP (Status = Pending) TAKE 1 CAPSULE BY MOUTH TWICE DAILY continue pregabalin Login Date: 12/08/23 Qty/Days Supply: 60 Refills Ordered: 3 OUTPT ROSUVASTATIN CA 20MG TAB (Status = Active) TAKE ONE TABLET BY MOUTH ONCE DAILY FOR HIGH CHOLESTEROL NOTE DOSE Rx# [id number] Last Released: 11/17/23 Qty/Days Supply: Rx Expiration Date: 06/08/24 Refills Remainin Indication: FOR HIGH CHOLESTEROL OUTPT SILDENAFIL CITRATE 100MG TAB (Status = ) TAKE ONE TABLET BY MOUTH ONCE A WEEK TAKE 1 HOUR PRIOR TO SEXUAL ACTIVITY Rx# [id number] Last Released: 11/17/23 Qty/Days Supply: 11/05 Rx Expiration Date: 12/02/23 Refills Remainin SUPPLIES OUTPT ACCU-CHEK GUIDE (GLUCOSE) TEST STRIP (Status = Active) USE 1 STRIP TO TEST BLOOD SUGARS DIRECTED BY PROVIDER Rx# [id number] Last Released: 11/17/23 Qty/Days Supply: 50/180 Rx Expiration Date: 06/08/24 Refills Remainin OUTPT LANCET,SOFTCLIX (Status = Active) USE 1 LANCET TOPICALLY ONCE A WEEK TO TEST BLOOD SUGAR Rx# [id number] Last Released: 11/17/23 Qty/Days Supply: 100/90 Rx Expiration Date: 06/08/24 Refills Remainin /ever/ GURINDER WICK [facility] Signed: 12/08/2023 09:41 GURINDER WICK [place] [facility] [facility] [place] [facility]
--- OUTSIDE RECORDS SUMMARY | 2024-06-19 13:42 | XMS_ITS | Encounter Summary ---
Author Name [facility] [place] [facility] [place] Address [address] [place] [address] Care Team Providers Care Firer Electric Locomotive Name Role Phone YANCYSONIA Primary Care Provider [...] Huitron's Name Patient's Relationship to Policy Huitron [facility] CE ORGANIZAT ION [facility] FIRE DEPT May 09, 2023 [id number] [phone] JAMAAL ALTMAN SE PATIENT CAREMARK PRESCRIPT ION BCBS [facility] Nov 07, 2023 [id number] SOFÍA ALTMAN JR PATIENT GAETANO PREFERRED PROVIDER ORGANIZAT ION (PPO) [facility] Nov 06, 2016 [id number] [phone] JAMAAL ALTMAN SE PATIENT [employer]IGNA POINT OF SERVICE [facility] Nov 06, 2016 [id number] [phone] JAMAAL ALTMAN SE PATIENT [facility] Nov 06, 2016 [id number] [phone] JAMAAL ALTMAN SE PATIENT [facility] PRES[facility] Nov 06, 2016 [id number] JAMAAL ALTMAN SE PATIENT [facility] Nov 06, 2009 [id number] JAMAAL ALTMAN SE PATIENT Selected Encounter This section includes the information on record at [place] for the Encounter. Date/Time Encounter Type Encounter Description Reason Provider Source Nov 24, 2023 09:30 AM OFFICE O/P EST MOD 30 MIN PRIMARY CARE/MEDICINE ICD-10-CM E11.9 Type 2 diabetes mellitus without complications FURCOLO,SONIA E Encounter Template Text not used by [place] Assessments - Encounter Diagnoses This section includes the primary and secondary diagnoses documented for the Encounter. Date/Time Primary/Secondary Diagnosis Diagnosis Name Provider Source Jan 05, 2024 02:05 PM PRIMARY Type 2 diabetes mellitus without complications FURCOLO,SONIA [facility] [place] [facility] Jan 05, 2024 02:05 PM SECONDARY Carpal tunnel syndrome, unspecified upper limb FURCOLO,SONIA [facility] [place] [facility] Jan 05, 2024 02:05 PM SECONDARY Encounter for immunization AMANDA GARDNER [facility] [place] [facility] Jan 05, 2024 02:05 PM SECONDARY Essential (primary) hypertension FURCOLO,SONIA [facility] [place] [facility] Jan 05, 2024 02:05 PM SECONDARY Major depressive disorder, recurrent, unspecified FURCOLO,SONIA [facility] [place] [facility] Jan 05, 2024 02:05 PM SECONDARY Nicotine dependence, cigarettes, uncomplicated FURCOLO,SONIA [facility] [place] [facility] Jan 05, 2024 02:05 PM SECONDARY Post-traumatic stress disorder, chronic FURCOLO,SONIA [facility] [place] [facility] Plan of Treatment: Future Appointments (+ 6 months) and Future Tests (+/- 45 days) The Plan of Treatment section includes future care activities for the patient from all [place] treatmentfacilities. This section includes future appointments and future orders which are active, pending or scheduled. Future Appointments This section includes appointments that were scheduled to occur 6 months from the date of the Encounter, up to a maximum of 20 appointments. The data comes from all [facility]. Appointment Date/Time Appointment Type Appointme nt Facility Name Nov 25, 2023 09:00 AM AMBULATORY - PSYCHIATRY [place] [facility] [place] [facility] Dec 02, 2023 09:00 AM AMBULATORY - PSYCHIATRY [facility] [place] [facility] Dec 08, 2023 09:00 AM AMBULATORY - REHAB MEDICIN E [facility] [place] [facility] Dec 09, 2023 09:00 AM AMBULATORY - PSYCHIATRY [facility] [place] [facility] Dec 16, 2023 08:30 AM AMBULATORY - MEDICINE NM [facility] [place] [facility] Dec 23, 2023 09:00 AM AMBULATORY - PSYCHIATRY [facility] [place] [facility] Jan 06, 2024 09:00 AM AMBULATORY - PSYCHIATRY [facility] [place] [facility] Jan 20, 2024 09:00 AM AMBULATORY - PSYCHIATRY [facility] [place] [facility] Feb 03, 2024 09:00 AM AMBULATORY - PSYCHIATRY [facility] [place] [facility] Feb 17, 2024 09:00 AM AMBULATORY - PSYCHIATRY [facility] [place] [facility] Feb 28, 2024 08:00 AM AMBULATORY - MEDICINE NM [facility] [place] [facility] Mar 16, 2024 08:30 AM AMBULATORY - PSYCHIATRY [facility] [place] [facility] Apr 27, 2024 08:30 AM AMBULATORY - PSYCHIATRY [facility] [place] [facility] Active, Pending, and Scheduled Orders This section includes a listing of several types of active, pending, and scheduled orders, including clinic medications orders, diagnostic test orders, procedure orders and consult orders; where the start date of the order is 45 days before the date of the Encounter or 45 days after the date of theEncounter. The data comes from all [facility]. Test Date/Time Test Type Test Details Facility Name Nov 09, 2023 12:00 AM Laboratory - Chemistry Order BASIC METABOLIC PANEL (fasting) BLOOD (SST-SERUM) [facility] [place] [facility] Nov 09, 2023 12:00 AM Laboratory - Chemistry Order HEMOGLOBIN A1C PANEL BLOOD (LAV-BLOOD) [facility] Nov 09, 2023 12:00 AM Laboratory - Chemistry Order LIPID PANEL FASTING BLOOD (SST-SERUM) [facility] Vital Signs: All taken on the encounter date This section contains inpatient and outpatient Vital Signs collected on the date of the Encounter. Date/Time Temperature Pulse Blood Pressure Respiratory Rate SP02 Pain Height Weight Body Mass Index Source Nov 24, 2023 09:49 AM 142/90 [facility] [place] [facility] Nov 24, 2023 09:37 AM 97.8 60 150/90 16 98 10 230 34 [facility] Immunizations: All administered on the encounter date This section contains immunizations associated to the Encounter. Immunization Series Date Issued Reaction Comments [facility] RECOM[facility] Nov 24, 2023 Social History: Smoking Status (Most current) and Tobacco Use (All prior to encounter date) This section includes the most current, and the historical, smoking and tobacco- related health factors from the [place] facility where the Encounter took place. Current Smoking Status This section includes the most current smoking, or tobacco-related health factor, from the [place] facility where the Encounter took place. Date/Time Current Smoking Status Comment [facility] Jun 08, 2023 09:30 AM VA-TOBACCO USER EVERY DAY [facility] Tobacco Use History This section includes a history of the smoking, or tobacco-related health factors, that were collected on or before the date of the Encounter. The data comes from the [place] facility where the Encounter took place. Date/Time Smoking Status/Tobac co Use Comment Facility Jun 08, 2023 09:30 AM VA-TOBACCO USE ADVICE [facility] Jun 08, 2023 09:30 AM VA-TOBACCO USE SKIMMER REVERBERATORY NO [place] [facility] [place] [facility] Jun 08, 2023 09:30 AM VA-TOBACCO USE MED NO [facility] Jun 08, 2023 09:30 AM VA-TOBACCO USE WI 30 MIN [facility]UP [facility] Jun 08, 2023 09:30 AM VA-TOBACCO USER EVERY DAY [facility] [place] [facility] Jun 23, 2022 09:00 AM VA-TOBACCO FORMER USER [facility] [place] [facility] Jun 23, 2022 09:00 AM VA-TOBACCO QUIT < 1 YEAR [facility] [place] [facility] May 18, 2021 11:00 AM VA-TOBACCO USE > 15 LESS THAN 30 YEARS [facility] [place] [facility] May 18, 2021 11:00 AM VA-TOBACCO USE ADVICE [facility] [place] [facility] May 18, 2021 11:00 AM VA-TOBACCO USE SKIMMER REVERBERATORY NO [facility] [place] [facility] May 18, 2021 11:00 AM VA-TOBACCO USE MED NO [facility] [place] [facility] May 18, 2021 11:00 AM VA-TOBACCO USE WI 30 MIN OF WAKEUP [facility] [place] [facility] May 18, 2021 11:00 AM VA-TOBACCO USER SOME DAYS [facility] [place] [facility] Jul 31, 2018 08:47 AM VA-TOBACCO DOESNT USE WI 30 MIN WAKEUP [facility] [place] [facility] Jul 31, 2018 08:47 AM VA-TOBACCO USE > 15 LESS THAN 30 YEARS [facility] [place] [facility] Jul 31, 2018 08:47 AM VA-TOBACCO USE ADVICE [facility] [place] [facility] Jul 31, 2018 08:47 AM VA-TOBACCO USE SKIMMER REVERBERATORY NO [facility] [place] [facility] Jul 31, 2018 08:47 AM VA-TOBACCO USE MED NO [facility] [place] [facility] Jul 31, 2018 08:47 AM VA-TOBACCO USER SOME DAYS [facility] [place] [facility] Jan 30, 2018 09:19 AM QUIT TOBACCO USE IN PAST YEAR a month ago [facility] [place] [facility] Jul 28, 2017 09:31 AM CURRENT SMOKER 2 cigarettes per day [facility] [place] [facility] Dec 08, 2016 08:49 AM CURRENT SMOKER [facility] [place] [facility] Dec 08, 2016 08:49 AM V1-PT NOT INTERESTED IN QUIT [facility]ACCO [facility] Jun 11, 2016 10:00 AM CURRENT SMOKER [facility] Dec 10, 2015 10:39 AM V1-PT NOT INTERESTED IN QUIT TOBACCO USE [facility] Feb 06, 2015 08:34 AM CURRENT SMOKER 1 1/2 Packs per week [facility] Feb 06, 2015 08:34 AM V1-PT NOT INTERESTED IN QUIT TOBACCO USE [facility] Jul 04, 2013 09:37 AM CURRENT SMOKER pack per week [facility] Jun 24, 2011 08:10 AM V1-PT DECLINES REF TO TOBACCO CESS [facility] Jun 24, 2011 08:10 AM V1-PT READY TO QUIT TOBACCO USE [facility] Mar 31, 2011 10:12 AM V1-PT DECLINES REF TO TOBACCO CESS [facility] Mar 31, 2011 10:12 AM V1-PT DECLINES TOBACCO CESSATION MEDS [facility] Mar 31, 2011 10:12 AM V1-PT NOT INTERESTED IN QUIT TOBACCO USE [facility] September 25, 2010 11:03 AM CURRENT SMOKER [facility] September 25, 2010 11:03 AM QUIT TOBACCO USE IN PAST YEAR [facility] Encounter Notes: All associated encounter notes This section contains the clinical notes associated to the Encounter. Date/Time Encounter Note(s) Provider Source Nov 24, 2023 12:44 PM ADDENDUM: LOCAL TITLE: Addendum STANDARD TITLE: ADDENDUM DATE OF NOTE: NOV 24, 2023@12:44:50 ENTRY DATE: NOV 24, 2023@12:44:50 AUTHOR: SONIA HAINES EXP COSIGNER: URGENCY: STATUS: COMPLETED requesting pregabalin refill- will forward to Dr. Rudolph /ever/ SONIA HAINES D.O. PHYSICIAN Signed: 11/24/2023 12:45 Receipt Acknowledged By: 12/14/2023 09:11 /ever/ GURINDER RUDOLPH [facility] --- Original Document --- 11/24/23 MD NOTE: SOFÍA ALTMAN JR is a 48 year old DECLINED TO ANSWER MALE who is being seen today in primary care for routine follow up. === CARE TEAM === Community Primary Care Provider: [place] Specialists: Community Specialists: ortho- Dr. 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 Type 2 diabetes mellitus in obese 2. Posttraumatic stress disorder 3. Carpal tunnel syndrome 4. Sleep apnea 5. Carpal tunnel syndrome 6. Joint pain in right hand 7. Joint pain in right hand 8. Contracture of joint of right hand S/p surgery 2017 in [facility] 9. Major depressive disorder 10. Joint pain in right hand (SNOMED CT [id number]) 11. Erectile dysfunction (SNOMED CT 448029825) 12. Smoking (SNOMED CT 567938818) 13. Other specified idiopathic peripheral neuropathy 14. Other chronic Pain 15. Degeneration of intervertebral disc 16. Contracture of hand joint 17. Hypertension (SNOMED CT 26109603) 18. Hyperlipidemia (SNOMED CT 16195649) 19. Obesity (SNOMED CT 786573574) === PAST SURGICAL HISTORY === cts right tendon release surgery right hand === FAMILY HISTORY === Mother: HTN, a fib Father: HTN Siblings: 4 brothers, 2 sister no colon cancer or prostate ca === SOCIAL HISTORY === Background: born and raised in 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 Active and Recently Outpatient Medications (excluding Supplies): Active Outpatient Medications Status 1) ACCU-CHEK GUIDE (GLUCOSE) TEST STRIP USE 1 STRIP TO ACTIVE TEST BLOOD SUGARS DIRECTED BY PROVIDER 2) DICLOFENAC NA 1% TOP GEL APPLY 2 GRAMS TOPICALLY FOUR ACTIVE TIMES A DAY FOR OSTEOARTHRITIS - USE DOSING CARD PROVIDED IN BOX 3) LIDOCAINE 5% OINT APPLY MODERATE AMOUNT TOPICALLY ACTIVE TWICE DAILY FOR NERVE PAIN 4) LISINOPRIL 5MG TAB TAKE THREE TABLETS BY MOUTH ONCE ACTIVE DAILY TO CONTROL BLOOD PRESSURE 5) METFORMIN HCL 500MG 24HR SA TAB TAKE TWO TABLETS BY ACTIVE MOUTH ONCE DAILY 6) PANTOPRAZOLE NA 40MG EC TAB TAKE ONE TABLET BY MOUTH ACTIVE EVERY MORNING 30 MINUTES BEFORE BREAKFAST 7) ROSUVASTATIN CA 20MG TAB TAKE ONE TABLET BY MOUTH ACTIVE ONCE DAILY FOR HIGH CHOLESTEROL NOTE DOSE 8) SILDENAFIL CITRATE 100MG TAB TAKE ONE TABLET BY MOUTH ACTIVE ONCE A WEEK TAKE 1 HOUR PRIOR TO SEXUAL ACTIVITY Active Non-VA Medications Status 1) Non-VA ATENOLOL 100MG TAB 100MG BY MOUTH TWICE DAILY ACTIVE 9 Total Medications === REVIEW OF SYMPTOMS === POSITIVE FOR: chronic hand pain NEGATIVE FOR: [...] thoughts SKIN: no rash, new skin lesions === PHYSICAL EXAM === Vitals: - - - - - - - B/P: 142/90 (11/24/2023 09:49) pulse: 60 (11/24/2023 09:37) resp: 16 (11/24/2023 09:37) temp: 97.8 F [36.6 C] (11/24/2023 09:37) Ht: 69 in [175.3 cm] (06/08/2023 09:18) Wgt: 230 lb [104.33 kg] (11/24/2023 09:37) BMI: BMI: 34.0 Exam: - - - - - - - General: A&O x 3, no acute distress, normal affect and mood Neck: normal thyroid, normal carotids- no bruits CV: RRR S1S2, no murmur Resp: LCTA bilat, no wheezing, rales or rhonchi Neuro: grossly intact, no visible tremor, normal memory and speech Extremities: normal movement of extremities, normal gait, normal strength no LE edema === RECENT LABS === BMP (FASTING) Collection DT Specimen Test Name Result Units Ref Range 07/19/2023 08:38 SERUM UREA NITROGEN 17 mg/dL 7 - 25 07/19/2023 08:38 SERUM GLUCOSE 138 H mg/dL 65 - 100 07/19/2023 08:38 SERUM SODIUM 139 mmol/L 135 - 145 07/19/2023 08:38 SERUM POTASSIUM 4.2 mmol/L 3.5 - 5.0 07/19/2023 08:38 SERUM CHLORIDE 103 mmol/L 100 - 110 07/19/2023 08:38 SERUM CO2 25 mEq/L 20 - 30 07/19/2023 08:38 SERUM CREATININE, Serum 1.19 mg/dL 0.50 - 1.40 05/18/2021 12:25 SERUM !! eGFR (IDMS) >60 Ref: >=60 !! Indicates COMMENTS AVAILABLE...Refer to Interim Lab Report. LIVER PANEL TREND Collection DT Spec AST ALT T BILI ALK CALLUM T. PROT ALBUMIN 12/24/2022 09:02 SERUM 28 54 0.7 79 7.6 4.3 05/18/2021 12:27 SERUM 23 41 0.4 82 7.6 4.0 08/07/2018 09:24 SERUM 36 H 50 1.0 53 7.4 4.0 07/31/2018 07:50 SERUM 35 H 47 1.1 48 7.5 3.9 06/11/2016 10:37 SERUM 22 39 0.6 60 7.0 3.9 LIPID PANEL TREND Collection DT Spec CHOL HDL CHO/HDL LDL-c TRIG 06/07/2023 09:36 SERUM 263 H 37 L 12/24/2022 09:02 SERUM 179 40 4.5 121 88 06/08/2022 10:34 SERUM 295 H 47 12/02/2021 10:52 SERUM 219 H 05/18/2021 12:27 SERUM 241 H 49 4.9 161 H 156 H CBC TREND Collection DT Spec WBC RBC HGB HCT MCV MCH PLT 07/19/2023 08:38 BLOOD 9.57 5.03 14.6 44.5 88.5 29.0 233 06/07/2023 09:35 BLOOD 8.63 5.26 15.1 46.9 89.2 28.7 249 12/24/2022 09:02 BLOOD 7.30 4.81 14.2 42.8 89.0 29.5 185 06/08/2022 10:34 BLOOD 7.92 5.37 15.3 46.9 87.3 28.5 226 12/02/2021 10:52 BLOOD 7.71 5.06 15.1 45.3 89.5 29.8 221 PSA TREND Collection DT Spec PSA SR- 09/25/2010 12:51 SERUM 2.11 HEMOGLOBIN A1C TREND Collection DT Spec HGBA1c 12/24/2022 09:02 BLOOD 6.8 H 03/31/2011 12:14 BLOOD 5.6 === ASSESSMENT AND PLAN === Active problems - Computerized Problem List is the source for the followin. Type 2 diabetes mellitus in obese 2. 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 Carpal tunnel syndrome- s/p surgery 4. Sleep apnea 5. Contracture of joint of right hand S/p surgery 2017 in [facility] 6. Major depressive disorder- sees 7. Erectile dysfunction (SNOMED CT 277779341) 8. Smoking (SNOMED CT 989224274) smokes 2 cigs/day. not willing to quit 9. Other specified idiopathic peripheral neuropathy 10. Other chronic Pain 11. Degeneration of intervertebral disc 12. Hypertension (SNOMED CT 32273100)- BP is leevated. currently only taking lisinopril 10 mg day- Dr. Ray had increased to 15 mg daily- but never increased. will start and return in 2-3 weeks for nirse recheck 13. Hyperlipidemia (SNOMED CT 90872216) 14. Obesity (SNOMED CT 339160725) === HEALTH MAINTENANCE === Colonoscopy (due at age 43) Abdominal Aortic Aneurysm Screening - due at age 65 if smoker/prev smoker Prostate screening - due at age 53 Tetanus: due every 10 years Pneumonia Vacccine: Flu Vaccine: due yearly Covid Vaccine: due yearly === FOLLOW UP === f/u in 6 mo VISIT TYPE:a MODERATE complexity visit where 30 minutes was spent in direct patient care, review of records and documentation. Upcoming Appointments: 11/25/2023 09:00 CWM/NO/[facility] 12/02/2023 09:00 CWM/NO/[facility] 12/08/2023 09:00 CWM/NO/MEDICAL REHAB B 12/09/2023 09:00 CWM/NO/[facility] 12/16/2023 09:00 CWM/NO/[facility] 12/23/2023 09:00 CWM/NO/[facility] 02/28/2024 08:00 CWM/NO/NEPHROLOGY/PROV /es/ SONIA HAINES D.O. PHYSICIAN Signed: 11/24/2023 12:44 SONIA HAINES [place] [facility] [place] [facility] Nov 24, 2023 09:55 AM ACCOUNTING OF DISC LOSURES NOTE: LOCAL TITLE: STATE PRESCRIPTION DRUG MONITORING PROGRAM STANDARD TITLE: ACCOUNTING OF DISCLOSURES NOTE DATE OF NOTE: NOV 24, 2023@09:55:19 ENTRY DATE: NOV 24, 2023@09:55:19 AUTHOR: AMANDA GARDNER EXP COSIGNER: SONIA HAINES URGENCY: STATUS: COMPLETED This PDMP query was submitted by Amanda Gardner on behalf of Sonia Haines. The clinical justification for this PDMP query is to review controlled substances prescribed outside of the [facility], and any additional information that may become available, as an important component of standard clinical care, and in accordance with [facility] policy. Patient information was shared with the PDMP [place]. The VA prescriber, for which I am a delegate, will be alerted of these PDMP findings through co-signature of this progress note. No prescription(s) for controlled substances outside the [facility] were found in the last 90 days. /ever/ AMANDA GARDNER LPN License Practical Nurse Signed: 11/24/2023 09:55 /ever/ SONIA HAINES D.O. PHYSICIAN Cosigned: 11/24/2023 12:44 AMANDA GARDNER [facility] Nov 24, 2023 09:55 AM PHYSICIAN NOTE: LOCAL TITLE: MD NOTE STANDARD TITLE: PHYSICIAN NOTE DATE OF NOTE: NOV 24, 2023@09:55 ENTRY DATE: NOV 24, 2023@09:55:08 AUTHOR: SONIA HAINES COSIGNER: URGENCY: STATUS: COMPLETED NOTE Has ADDENDA SOFÍA ALTMANKATHRYN JR is a 48 year old DECLINED TO ANSWER MALE who is being seen today in primary care for routine follow up. === CARE TEAM === Community Primary Care Provider: [place] Specialists: Community Specialists: ortho- Dr. Jessie Puente, previously Dr. Ching === HISTORY === PERIOD OF SERVICE - [facility] CONNECTED % - 80 SC Percent: 80% Rated Disabilities: FOREARM MUSCLE INJURY (30%-SC) SUPERFICIAL SCARS (10%-SC) FOREARM MUSCLE INJURY (40%-SC) PARALYSIS OF MEDIAN NERVE (50%-SC) LIMITATION ON MOTION, RING OR LITTLE FINGER (0%-SC) === HISTORY OF PRESENT ILLNESS === Patient presents today for routine follow-up continues with ongoing hand pain- chronic in nature === RELEVANT PAST MEDICAL HISTORY === Active problems - Computerized Problem List is the source for the followin. Type 2 diabetes mellitus in obese 2. Posttraumatic stress disorder 3. Carpal tunnel syndrome 4. Sleep apnea 5. Carpal tunnel syndrome 6. Joint pain in right hand 7. Joint pain in right hand 8. Contracture of joint of right hand S/p surgery 2017 in [facility] 9. Major depressive disorder 10. Joint pain in right hand (SNOMED CT [id number]) 11. Erectile dysfunction (SNOMED CT 582507069) 12. Smoking (SNOMED CT 853909871) 13. Other specified idiopathic peripheral neuropathy 14. Other chronic Pain 15. Degeneration of intervertebral disc 16. Contracture of hand joint 17. Hypertension (SNOMED CT 49798487) 18. Hyperlipidemia (SNOMED CT 73627010) 19. Obesity (SNOMED CT 754620815) === PAST SURGICAL HISTORY === cts right tendon release surgery right hand === FAMILY HISTORY === Mother: HTN, a fib Father: HTN Siblings: 4 brothers, 2 sister no colon cancer or prostate ca === SOCIAL HISTORY === Background: born and raised in 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 Active and Recently Outpatient Medications (excluding Supplies): Active Outpatient Medications Status 1) ACCU-CHEK GUIDE (GLUCOSE) TEST STRIP USE 1 STRIP TO ACTIVE TEST BLOOD SUGARS DIRECTED BY PROVIDER 2) DICLOFENAC NA 1% TOP GEL APPLY 2 GRAMS TOPICALLY FOUR ACTIVE TIMES A DAY FOR OSTEOARTHRITIS - USE DOSING CARD PROVIDED IN BOX 3) LIDOCAINE 5% OINT APPLY MODERATE AMOUNT TOPICALLY ACTIVE TWICE DAILY FOR NERVE PAIN 4) LISINOPRIL 5MG TAB TAKE THREE TABLETS BY MOUTH ONCE ACTIVE DAILY TO CONTROL BLOOD PRESSURE 5) METFORMIN HCL 500MG 24HR SA TAB TAKE TWO TABLETS BY ACTIVE MOUTH ONCE DAILY 6) PANTOPRAZOLE NA 40MG EC TAB TAKE ONE TABLET BY MOUTH ACTIVE EVERY MORNING 30 MINUTES BEFORE BREAKFAST 7) ROSUVASTATIN CA 20MG TAB TAKE ONE TABLET BY MOUTH ACTIVE ONCE DAILY FOR HIGH CHOLESTEROL NOTE DOSE 8) SILDENAFIL CITRATE 100MG TAB TAKE ONE TABLET BY MOUTH ACTIVE ONCE A WEEK TAKE 1 HOUR PRIOR TO SEXUAL ACTIVITY Active Non-VA Medications Status 1) Non-VA ATENOLOL 100MG TAB 100MG BY MOUTH TWICE DAILY ACTIVE 9 Total Medications === REVIEW OF SYMPTOMS === POSITIVE FOR: chronic hand pain NEGATIVE FOR: [...] thoughts SKIN: no rash, new skin lesions === PHYSICAL EXAM === Vitals: - - - - - - - B/P: 142/90 (11/24/2023 09:49) pulse: 60 (11/24/2023 09:37) resp: 16 (11/24/2023 09:37) temp: 97.8 F [36.6 C] (11/24/2023 09:37) Ht: 69 in [175.3 cm] (06/08/2023 09:18) Wgt: 230 lb [104.33 kg] (11/24/2023 09:37) BMI: BMI: 34.0 Exam: - - - - - - - General: A&O x 3, no acute distress, normal affect and mood Neck: normal thyroid, normal carotids- no bruits CV: RRR S1S2, no murmur Resp: LCTA bilat, no wheezing, rales or rhonchi Neuro: grossly intact, no visible tremor, normal memory and speech Extremities: normal movement of extremities, normal gait, normal strength no LE edema === RECENT LABS === BMP (FASTING) Collection DT Specimen Test Name Result Units Ref Range 07/19/2023 08:38 SERUM UREA NITROGEN 17 mg/dL 7 - 25 07/19/2023 08:38 SERUM GLUCOSE 138 H mg/dL 65 - 100 07/19/2023 08:38 SERUM SODIUM 139 mmol/L 135 - 145 07/19/2023 08:38 SERUM POTASSIUM 4.2 mmol/L 3.5 - 5.0 07/19/2023 08:38 SERUM CHLORIDE 103 mmol/L 100 - 110 07/19/2023 08:38 SERUM CO2 25 mEq/L 20 - 30 07/19/2023 08:38 SERUM CREATININE, Serum 1.19 mg/dL 0.50 - 1.40 05/18/2021 12:25 SERUM !! eGFR (IDMS) >60 Ref: >=60 !! Indicates COMMENTS AVAILABLE...Refer to Interim Lab Report. LIVER PANEL TREND Collection DT Spec AST ALT T BILI ALK CALLUM T. PROT ALBUMIN 12/24/2022 09:02 SERUM 28 54 0.7 79 7.6 4.3 05/18/2021 12:27 SERUM 23 41 0.4 82 7.6 4.0 08/07/2018 09:24 SERUM 36 H 50 1.0 53 7.4 4.0 07/31/2018 07:50 SERUM 35 H 47 1.1 48 7.5 3.9 06/11/2016 10:37 SERUM 22 39 0.6 60 7.0 3.9 LIPID PANEL TREND Collection DT Spec CHOL HDL CHO/HDL LDL-c TRIG 06/07/2023 09:36 SERUM 263 H 37 L 12/24/2022 09:02 SERUM 179 40 4.5 121 88 06/08/2022 10:34 SERUM 295 H 47 12/02/2021 10:52 SERUM 219 H 05/18/2021 12:27 SERUM 241 H 49 4.9 161 H 156 H CBC TREND Collection DT Spec WBC RBC HGB HCT MCV MCH PLT 07/19/2023 08:38 BLOOD 9.57 5.03 14.6 44.5 88.5 29.0 233 06/07/2023 09:35 BLOOD 8.63 5.26 15.1 46.9 89.2 28.7 249 12/24/2022 09:02 BLOOD 7.30 4.81 14.2 42.8 89.0 29.5 185 06/08/2022 10:34 BLOOD 7.92 5.37 15.3 46.9 87.3 28.5 226 12/02/2021 10:52 BLOOD 7.71 5.06 15.1 45.3 89.5 29.8 221 PSA TREND Collection DT Spec PSA SR- 09/25/2010 12:51 SERUM 2.11 HEMOGLOBIN A1C TREND Collection DT Spec HGBA1c 12/24/2022 09:02 BLOOD 6.8 H 03/31/2011 12:14 BLOOD 5.6 === ASSESSMENT AND PLAN === Active problems - Computerized Problem List is the source for the followin. Type 2 diabetes mellitus in obese 2. 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 Carpal tunnel syndrome- s/p surgery 4. Sleep apnea 5. Contracture of joint of right hand S/p surgery 2017 in [facility] 6. Major depressive disorder- sees 7. Erectile dysfunction (SNOMED CT 058017414) 8. Smoking (SNOMED CT 116685599) smokes 2 cigs/day. not willing to quit 9. Other specified idiopathic peripheral neuropathy 10. Other chronic Pain 11. Degeneration of intervertebral disc 12. Hypertension (SNOMED CT 57598621)- BP is leevated. currently only taking lisinopril 10 mg day- Dr. Ray had increased to 15 mg daily- but never increased. will start and return in 2-3 weeks for nirse recheck 13. Hyperlipidemia (SNOMED CT 17935630) 14. Obesity (SNOMED CT 901419306) === HEALTH MAINTENANCE === Colonoscopy (due at age 43) Abdominal Aortic Aneurysm Screening - due at age 65 if smoker/prev smoker Prostate screening - due at age 53 Tetanus: due every 10 years Pneumonia Vacccine: Flu Vaccine: due yearly Covid Vaccine: due yearly === FOLLOW UP === f/u in 6 mo VISIT TYPE:a MODERATE complexity visit where 30 minutes was spent in direct patient care, review of records and documentation. Upcoming Appointments: 11/25/2023 09:00 CWM/NO/MHC/[facility] 12/02/2023 09:00 CWM/NO/MHC/[facility] 12/08/2023 09:00 CWM/NO/MEDICAL REHAB B 12/09/2023 09:00 CWM/NO/MHC/[facility] 12/16/2023 09:00 CWM/NO/MHC/[facility] 12/23/2023 09:00 CWM/NO/MHC/[facility] 02/28/2024 08:00 CWM/NO/NEPHROLOGY/PROV /ever/ SONIA HAINES D.O. PHYSICIAN Signed: 11/24/2023 12:44 11/24/2023 ADDENDUM STATUS: COMPLETED requesting pregabalin refill- will forward to Dr. Rudolph /ever/ SONIA HAINES D.O. PHYSICIAN Signed: 11/24/2023 12:45 Receipt Acknowledged By: * AWAITING SIGNATURE * GURINDER RUDOLPH TINA [facility] [place] [facility] Nov 24, 2023 09:49 AM PREVENTIVE MEDICIN E NURSING NOTE: LOCAL TITLE: CLINICAL REMINDERS/NURSING STANDARD TITLE: PREVENTIVE MEDICINE NURSING NOTE DATE OF NOTE: NOV 24, 2023@09:49 ENTRY DATE: NOV 24, 2023@09:49:39 AUTHOR: AMANDA GARDNER EXP COSIGNER: URGENCY: STATUS: COMPLETED CLINICAL REMINDERS/NURSING Has ADDENDA Influenza Immunization: No influenza vaccination was received during the recent influenza season. Herpes Zoster (Shingles) Vaccine: Administered: ZOSTER RECOMBINANT Date Administered: Nov 24, 2023 09:30 Series: Complete Shift Leader: [employer] Lot: [id number] Exp Date: Oct 15, 2025 [facility]: [phone] Admin Route/Site: INTRAMUSCULAR/LEFT DELTOID Dosage: 0.5mL Vaccine Information Statement(s): RECOMBINANT ZOSTER VACCINE VIS Jun 12, 2021 ([place]) Order By: Policy Administered By: Amanda Gardner Vaccine Information Sheet (VIS) was given to the patient/caregiver, education regarding adverse reactions was discussed, as well as barriers to learning, if any, were acknowledged. /ever/ AMANDA GARDNER LPN License Practical Nurse Signed: 11/24/2023 09:50 11/24/2023 ADDENDUM STATUS: COMPLETED PAVE Foot Check: A complete foot check was completed at this encounter. VISUAL INSPECTION: Includes inspection for skin breaks, deformity, erythema, trauma, pallor on elevation, dependent rubor, nail deformities, extensive callus and pitting edema. Visual exam results: Normal PEDAL PULSES: Includes palpation of dorsalis and posterior tibial pulses and signs/symptoms of vascular compromise like pain, pallor, parasthesia or paralysis. Present (even if diminished) SENSORY CHECK: Includes 10 gram Monofilament ([place]) test of sensation. Intact (Greater than or equal to 80% of sites checked) Abnormal (Less than 80% of sites checked): Intact LOW-RISK: LOW RISK INFORMATION PROVIDED: 1. Advised patient not to walk barefoot. 2. Explained the importance of daily foot checks for changes. 3. Stressed the importance of daily foot hygiene, including bathing and complete drying. /ever/ AMANDA GARDNER LPN License Practical Nurse Signed: 11/24/2023 09:52 AMANDA GARDNER [facility]
--- OUTSIDE RECORDS SUMMARY | 2024-06-19 13:42 | XMS_ITS | Encounter Summary ---
Author Name [facility] [place] [facility] [facility] [place] Address [address] [place] [address] Care Team Providers Care Invasive Physician Name Role Phone YANCY SONIA Primary Care [...] Huitron's Name Patient's Relationship to Policy Huitron [facility] CE ORGANIZAT ION [facility] FIRE DEPT May 09, 2023 [id number] [phone] JAMAAL ALTMAN SE PATIENT [place] PRESCRIPT ION [employer] [facility] Nov 07, 2023 [id number] SOFÍA ALTMAN JR PATIENT [facility] PREFERRED PROVIDER ORGANIZAT ION (PPO) [facility] Nov 06, 2016 [id number] [phone] JAMAAL ALTMAN SE PATIENT [employer] POINT OF SERVICE [facility] Nov 06, 2016 [id number] JAMAAL ALTMAN SE PATIENT [facility] Nov 06, 2016 [id number] JAMAAL ALTMAN SE PATIENT [facility] PRESCRIPT ION [facility] Nov 06, 2016 [id number] JAMAAL ALTMAN SE PATIENT [facility] Nov 06, 2009 [id number] JAMAAL ALTMAN SE PATIENT Selected Encounter This section includes the information on record at [place] for the Encounter. Date/Time Encounter Type Encounter Description Reason Provider Source Sep 06, 2023 09:00 AM OFFICE O/P EST LOW 20 MIN PM&RS PHYSICIAN ICD-10-CM G56.00 Carpal tunnel syndrome, unspecified upper limb ANJEL WICK E Encounter Template Text not used by [place] Assessments - Encounter Diagnoses This section includes the primary and secondary diagnoses documented for the Encounter. Date/Time Primary/Secondary Diagnosis Diagnosis Name Provider Source September 10, 2023 01:49 PM PRIMARY Carpal tunnel syndrome, unspecified upper limb [facility] [place] [facility] September 10, 2023 01:49 PM SECONDARY Contracture, right hand [facility] [place] [facility] Plan of Treatment: Future Appointments (+ 6 months) and Future Tests (+/- 45 days) The Plan of Treatment section includes future care activities for the patient from all [place] treatmentfacilities. This section includes future appointments and future orders which are active, pending or scheduled. Future Appointments This section includes appointments that were scheduled to occur 6 months from the date of the Encounter, up to a maximum of 20 appointments. The data comes from all [place] treatment facilities. Appointment Date/Time Appointment Type Appointme nt Facility Name September 08, 2023 11:00 AM AMBULATORY - PSYCHIATRY [facility] [place] [facility] September 22, 2023 09:00 AM AMBULATORY - PSYCHIATRY [facility] [place] [facility] October 06, 2023 09:00 AM [facility] [place] [facility] Oct 28, 2023 09:00 AM [facility] [place] [facility] Nov 24, 2023 09:30 AM AMBULATORY [facility] MEDICINE [facility] [place] [facility] Nov 25, 2023 09:00 AM AMBULATORY - PS[facility]IATRY [facility] [place] [facility] Dec 02, 2023 09:00 AM AMBULATORY - PS[facility]IATRY [facility] [place] [facility] Dec 08, 2023 09:00 AM AMBULATORY - REHAB MEDICIN E [facility] [place] [facility] Dec 09, 2023 09:00 AM AMBULATORY - PS[facility]IATRY [facility] [place] [facility] Dec 16, 2023 08:30 AM AMBULATORY - MEDICINE [facility] [place] [facility] Dec 23, 2023 09:00 AM AMBULATORY - PS[facility]CHIATRY [facility] [place] [facility] Jan 06, 2024 09:00 AM AMBULATORY - PS[facility]CHIATRY [facility] [place] [facility] Jan 20, 2024 09:00 AM AMBULATORY - PS[facility]CHIATRY [facility] [place] [facility] Feb 03, 2024 09:00 AM AMBULATORY - PS[facility]IATRY [facility] [place] [facility] Feb 17, 2024 09:00 AM AMBULATORY - PS[facility]IATRY [facility] [place] [facility] Feb 28, 2024 08:00 AM AMBULATORY - MEDICINE [place] [facility] [place] [facility] Vital Signs: All taken on the encounter date This section contains inpatient and outpatient Vital Signs collected on the date of the Encounter. Date/Time Temperature Pulse Blood Pressure Respiratory Rate SP02 Pain Height Weight Body Mass Index Source Sep 06, 2023 09:05 AM 120/70 10 [facility] Social History: Smoking Status (Most current) and Tobacco Use (All prior to encounter date) This section includes the most current, and the historical, smoking and tobacco- related health factors from the [place] facility where the Encounter took place. Current Smoking Status This section includes the most current smoking, or tobacco-related health factor, from the [place] facility where the Encounter took place. Date/Time Current Smoking Status Comment Facil ity Jun 08, 2023 09:30 AM VA-TOBACCO USER EVERY DAY [facility] Tobacco Use History This section includes a history of the smoking, or tobacco-related health factors, that were collected on or before the date of the Encounter. The data comes from the [place] facility where the Encounter took place. Date/Time Smoking Status/Tobac co Use Comment Facility Jun 08, 2023 09:30 AM VA-TOBACCO USE ADVICE [facility] [place] [facility] Jun 08, 2023 09:30 AM VA-TOBACCO USE TIMBER SURVEYOR NO [facility] [place] [facility] Jun 08, 2023 09:30 AM VA-TOBACCO USE MED NO [facility] [place] [facility] Jun 08, 2023 09:30 AM VA-TOBACCO USE WI 30 MIN OF WAKEUP [facility] [place] [facility] Jun 08, 2023 09:30 AM VA-TOBACCO USER EVERY DAY [facility] [place] [facility] Jun 23, 2022 09:00 AM VA-TOBACCO FORMER USER [facility] [place] [facility] Jun 23, 2022 09:00 AM VA-TOBACCO QUIT < 1 YEAR [facility] [place] [facility] May 18, 2021 11:00 AM VA-TOBACCO USE > 15 LESS THAN 30 YEARS [facility] [place] [facility] May 18, 2021 11:00 AM VA-TOBACCO USE ADVICE [facility] [place] [facility] May 18, 2021 11:00 AM VA-TOBACCO USE TIMBER SURVEYOR NO [facility] [place] [facility] May 18, 2021 11:00 AM VA-TOBACCO USE MED NO [facility] [place] [facility] May 18, 2021 11:00 AM VA-TOBACCO USE WI 30 MIN OF WAKEUP [facility] [place] [facility] May 18, 2021 11:00 AM VA-TOBACCO USER SOME DAYS [facility] [place] [facility] Jul 31, 2018 08:47 AM VA-TOBACCO DOESNT USE WI 30 MIN WAKEUP [facility] [place] [facility] Jul 31, 2018 08:47 AM VA-TOBACCO USE > 15 LESS THAN 30 YEARS [facility] [place] [facility] Jul 31, 2018 08:47 AM VA-TOBACCO USE ADVICE [facility] [place] [facility] Jul 31, 2018 08:47 AM VA-TOBACCO USE TIMBER SURVEYOR NO [facility] [place] [facility] Jul 31, 2018 08:47 AM VA-TOBACCO USE MED [facility] [place] [facility] Jul 31, 2018 08:47 AM VA-TOBACCO USER SOME DAYS [facility] [place] [facility] Jan 30, 2018 09:19 AM QUIT TOBACCO USE IN PAST YEAR a month ago [facility] [place] [facility] Jul 28, 2017 09:31 AM CURRENT SMOKER 2 cigarettes per day [facility] [place] [facility] Dec 08, 2016 08:49 AM CURRENT SMOKER [facility] [place] [facility] Dec 08, 2016 08:49 AM V1-PT NOT INTERESTED IN QUIT TOBACCO USE [facility] [place] [facility] Jun 11, 2016 10:00 AM CURRENT SMOKER [facility] [place] [facility] Dec 10, 2015 10:39 AM V1-PT NOT INTERESTED IN QUIT TOBACCO USE [facility] [place] [facility] Feb 06, 2015 08:34 AM CURRENT SMOKER 1 1/2 Packs per week [facility] [place] [facility] Feb 06, 2015 08:34 AM V1-PT NOT INTERESTED IN QUIT TOBACCO USE [facility] [place] [facility] Jul 04, 2013 09:37 AM CURRENT SMOKER pack per week [facility] [place] [facility] Jun 24, 2011 08:10 AM V1-PT DECLINES REF TO TOBACCO CESS PRGM [facility] [place] [facility] Jun 24, 2011 08:10 AM V1-PT READY TO QUIT TOBACCO USE [facility] [place] [facility] Mar 31, 2011 10:12 AM V1-PT DECLINES REF TO TOBACCO CESS PRGM [facility] [place] [facility] Mar 31, 2011 10:12 AM V1-PT DECLINES TOBACCO CESSATION MEDS [facility] [place] [facility] Mar 31, 2011 10:12 AM V1-PT NOT INTERESTED IN QUIT TOBACCO USE [facility] [place] [facility] September 25, 2010 11:03 AM CURRENT SMOKER [place] [facility] [place] [facility] September 25, 2010 11:03 AM QUIT TOBACCO [facility] [place] [facility] Encounter Notes: All associated encounter notes This section contains the clinical notes associated to the Encounter. Date/Time Encounter Note(s) Provider Source Sep 06, 2023 12:11 PM PHYSICAL MEDICINE REHAB PHYSICIAN NOTE: LOCAL TITLE: PM&R FOLLOW-UP STANDARD TITLE: PHYSICAL MEDICINE REHAB PHYSICIAN NOTE DATE OF NOTE: SEP 06, 2023@12:11 ENTRY DATE: SEP 06, 2023@12:11:39 AUTHOR: GURINDER WICK COSIGNER: URGENCY: STATUS: COMPLETED SEP 06, 2023 SOFÍA ALTMAN JR is a 48 y/o MALE who presents today for follow-up of bilateral hand pain. Otho presents today for follow-up. He was seen by Dr. Puente. He had carpal tunnel injection provided and has not noticed any significant change. Continues to have numbness and weakness of the left hand. Left hand was injected at the time of the visit on 08/11/2023. He has a follow-up scheduled with povidine to determine outcome. A portion of this was considered to be arthritic pain. Further treatment options will be provided by Dr. Puente. In general he seems to be satisfied with his work changes. Working in different [employer] station seems to be helpful. He has made adjustments to his work schedule but still has to limit his activities as hand intensive activities will certainly escalate his levels of discomfort. There was mention by Dr Puente with question regarding possible cervical etiology but MRI showed no compression, solely spondylosis with patent foramen PMHx as obtained from Chart: Active problems - Computerized Problem List is the source for the followin. Type 2 diabetes mellitus in obese 2. Posttraumatic stress disorder 3. Carpal tunnel syndrome 4. Sleep apnea 5. Carpal tunnel syndrome 6. Joint pain in right hand 7. Joint pain in right hand 8. Contracture of joint of right hand 9. Major depressive disorder 10. Joint pain in right hand (SNOMED CT [id number]) 11. Erectile dysfunction (SNOMED CT 279304860) 12. Smoking (SNOMED CT 271754185) 13. Other specified idiopathic peripheral neuropathy 14. Other chronic Pain 15. Degeneration of intervertebral disc 16. Contracture of hand joint 17. Hypertension (SNOMED CT 13444677) 18. Hyperlipidemia (SNOMED CT 88053841) 19. Obesity (SNOMED CT 514373127) Soc Hx: MARITAL STATUS - [employer] FROM [...] of bilateral upper and lower extremities. MUSCULOSKELETAL EXAM:Remainder deferred Diagnostic Studies: No new studies ASSESSMENT/PLAN: Patient is a 48-year-old presenting with bilateral hand pain due to this carpal tunnel, scarring. Osteoarthritic change. At this point we will continue with pregabalin. He did not the medication which may be in part by his pain levels have escalated. Pregabalin 225 mg p.o. twice daily provided. Follow-up will be scheduled in 3 months. Further care will be provided by Dr. Puente for specialty and treatment. FOLLOW-UP: 3 months Potential risks and side effects of any medication(s) prescribed today was reviewed with . Patient had many excellent questions, which I answered to the best of my ability and to patient's apparent satisfaction. MDM: ___15____ minutes which includes reviewing records, evaluating patient, [...] of active outpatient prescriptions dispensed from this [place] (local) and dispensed from another [place] or [facility] facility (remote) as well as inpatient orders [...] whether with a VA or non-VA provider. /ever/ GURINDER WICK [facility] Signed: 09/06/2023 12:22 GURINDER WICK [place] [facility]
--- OUTSIDE RECORDS SUMMARY | 2024-06-19 13:42 | XMS_ITS ---
Author Name [facility] [place] [facility] [place] Address [address] [place] [address] Care Team Providers Care Government Property Inspector Name Role Phone YANCYSONIA Primary Care Provider [...] Huitron's Name Patient's Relationship to Policy Huitron [facility] CE ORGANIZAT ION [facility] FIRE DEPT May 09, 2023 [id number] JAMAAL ALTMAN SE PATIENT [place] PRESCRIPT ION BCBS [facility] Nov 07, 2023 [id number] SOFÍA ALTMAN JR PATIENT [place] PREFERRED PROVIDER ORGANIZAT ION (PPO) [facility] Nov 06, 2016 [id number] [phone] JAMAAL ALTMAN SE PATIENT [employer] POINT OF SERVICE [facility] Nov 06, 2016 [id number] JAMAAL ALTMAN SE [facility] Nov 06, 2016 [id number] JAMAAL ALTMAN SE PATIENT [facility] PRESCRIPT ION [facility] Nov 06, 2016 [id number] JAMAAL ALTMAN SE PATIENT [facility] ORGAN Nov 06, 2009 [id number] JAMAAL ALTMAN SE PATIENT Selected Encounter This section includes the information on record at [place] for the Encounter. Date/Time Encounter Type Encounter Description Reason Provider Source Jul 26, 2023 09:00 AM OFFICE O/P EST MOD 30 MIN RENAL/NEPHROL(EXCE PT DIALYSIS) ICD-10-CM N18.2 Chronic kidney disease, stage 2 (mild) JANETTE MORSE [facility] Encounter Template Text not used by [place] Assessments - Encounter Diagnoses This section includes the primary and secondary diagnoses documented for the Encounter. Date/Time Primary/Secondary Diagnosis Diagnosis Name Provider Source Aug 06, 2023 07:26 AM PRIMARY Chronic kidney disease, stage 2 (mild) SADIE MORSE [place] [facility] [place] [facility] Aug 06, 2023 07:26 AM SECONDARY Essential (primary) hypertension SADIE MORSE [place] [facility] [place] [facility] Aug 06, 2023 07:26 AM SECONDARY Other obesity SADIE MORSE [place] [facility] [place] [facility] Aug 06, 2023 07:26 AM SECONDARY Pure hypercholesterolem ia, unspecified SADIE MORSE [place] [facility] [place] [facility] Aug 06, 2023 07:26 AM SECONDARY Type 2 diabetes mellitus without complications [facility]ORSE [place] [facility] Plan of Treatment: Future Appointments (+ 6 months) and Future Tests (+/- 45 days) The Plan of Treatment section includes future care activities for the patient from all [place] treatmentfacilities. This section includes future appointments and future orders which are active, pending or scheduled. Future Appointments This section includes appointments that were scheduled to occur 6 months from the date of the Encounter, up to a maximum of 20 appointments. The data comes from all [place] treatment facilities. Appointment Date/Time Appointment Type Appointme nt Facility Name Aug 05, 2023 09:00 AM AMBULATORY - PS[facility]IATRY [facility] [place] [facility] Aug 11, 2023 09:45 AM [facility] [place] [facility] Aug 11, 2023 11:00 AM AMBULATORY - PSYCHIATRY [facility] [place] [facility] Sep 06, 2023 09:00 AM AMBULATORY - REHAB MEDICIN E [facility] [place] [facility] September 08, 2023 11:00 AM AMBULATORY [facility]AT[facility] [place] [facility] September 22, 2023 09:00 AM AMBULATORY - PSYCHIATRY [facility] [place] [facility] October 06, 2023 09:00 AM AMBULATORY - PSYCHIATRY [facility] [place] [facility] Oct 28, 2023 09:00 AM AMBULATORY - PSYCHIATRY [facility] [place] [facility] Nov 24, 2023 09:30 AM AMBULATORY - MEDICINE [facility] [place] [facility] Nov 25, 2023 09:00 AM AMBULATORY - PSYCHIATRY [facility] [place] [facility] Dec 02, 2023 09:00 AM AMBULATORY - PSYCHIATRY [facility] [place] [facility] Dec 08, 2023 09:00 AM AMBULATORY - REHAB MEDICIN E [facility] [place] [facility] Dec 09, 2023 09:00 AM AMBULATORY - PSYCHIATRY [facility] [place] [facility] Dec 16, 2023 08:30 AM AMBULATORY - MEDICINE [facility] [place] [facility] Dec 23, 2023 09:00 AM AMBULATORY - PSYCHIATRY [facility] [place] [facility] Jan 06, 2024 09:00 AM AMBULATORY - PSYCHIATRY [facility] [place] [facility] Jan 20, 2024 09:00 AM AMBULATORY - PSYCHIATRY [facility] [place] [facility] Lab Results: +/- 30 days of [...] Range Comment Jul 19, 2023 08:44 [facility] MICROALBUMIN CREATININE RATIO PANEL Specimen Type: URINE No comment entered. Ordering Provider: SADIE MORSE Report Released Date/Time: Jul 15, 2023 01:11 PM Reporting [facility] [address] [address] Performing Lab: [facility] [address] [facility] [address] MICROALBUMIN/C REATININE RATIO 5.0 mg/g 0-29.9 MICROALBUMIN,Q UANTITATIVE 1.4 mg/dL RR UNAVAIL CREATININE URINE 281.21 mg/dL Jul 19, 2023 08:38 AM [facility] IRON & TIBC PANEL Specimen Type: SERUM No comment entered. Ordering Provider: SADIE MORSE Report Released Date/Time: Jul 04, 2023 08:48 AM Reporting Lab[facility] [address] [facility] [address] Performing Lab: [facility] [address] TIBC 345 ug/dL 204-475 IRON 119 ug/dL 40-160 Transferrin Saturation 34.5 20.0-50.0 Jul 19, 2023 08:38 AM [facility] FERRITIN Specimen Type: SERUM No comment entered. Ordering Provider: SADIE MORSE Report Released Date/Time: Jul 04, 2023 08:48 AM Reporting Lab: [facility] [address] [facility] [address] Performing Lab: [facility] [address] [address] FERRITIN 339 ng/mL H 20-300 Jul 19, 2023 08:38 AM [facility] BASIC METABOLIC PANEL (non-fasting) Specimen Type: SERUM No comment entered. Ordering Provider: SADIE MORSE Report Released Date/Time: Jul 04, 2023 08:48 AM Reporting Lab: [facility] [address] [address] Performing Lab: [facility] [address] [facility] [address] UREA NITROGEN 17 mg/dL 7-25 GLUCOSE 138 mg/dL H 65-100 SODIUM 139 mmol/L 135-145 POTASSIUM 4.2 mmol/L 3.5-5.0 CHLORIDE 103 mmol/L 100-110 CO2 25 meq/L 20-30 CREATININE, Serum 1.19 mg/dL 0.50-1.40 eGFR(CKD-EPI 2020) 74 mL/min >60 Jul 19, 2023 08:38 AM [facility] CBC Specimen Type: BLOOD No comment entered. Ordering Provider: SADIE MORSE Report Released Date/Time: Jul 04, 2023 08:48 AM Reporting Lab: [facility] [address] [facility] [address] Performing Lab: [address] [address] WBC 9.57 10*3/uL 4.50-11.00 RBC 5.03 10*6/uL 4.23-5.66 HGB 14.6 g/dL 12.8-17 HCT 44.5 39.2-50.4 MCV 88.5 fL 82-99 MCHC 32.8 g/dL 30.8-35.1 PLT 233 10*3/uL 140-360 RDW-CV 12.3 12.0-16.0 MCH 29.0 pg 26.2-32.6 Vital Signs: All taken on the encounter date This section contains inpatient and outpatient Vital Signs collected on the date of the Encounter. Date/Time Temperature Pulse Blood Pressure Respiratory Rate SP02 Pain Height Weight Body Mass Index Source Jul 26, 2023 08:57 AM 97.3 84 147/89 16 98 10 233.8 35 [facility] Social History: Smoking Status (Most current) and Tobacco Use (All prior to encounter date) This section includes the most current, and the historical, smoking and tobacco- related health factors from the [place] facility where the Encounter took place. Current Smoking Status This section includes the most current smoking, or tobacco-related health factor, from the [place] facility where the Encounter took place. Date/Time Current Smoking Status Comment [facility] Jun 08, 2023 09:30 AM VA-TOBACCO USER EVERY DAY [place] [facility] [place] [facility] Tobacco Use History This section includes a history of the smoking, or tobacco-related health factors, that were collected on or before the date of the Encounter. The data comes from the [place] facility where the Encounter took place. Date/Time Smoking Status/Tobac co Use Comment Facility Jun 08, 2023 09:30 AM VA-TOBACCO USE ADVICE [facility] [place] [facility] Jun 08, 2023 09:30 AM VA-TOBACCO USE HABILITATION ASSISTANT NO [facility] [place] [facility] Jun 08, 2023 09:30 AM VA-TOBACCO USE MED NO [facility] [place] [facility] Jun 08, 2023 09:30 AM VA-TOBACCO USE [place] 30 MIN OF WAKEUP [place] [facility] [place] [facility] Jun 08, 2023 09:30 AM VA-TOBACCO USER EVERY DAY [facility] [place] [facility] Jun 23, 2022 09:00 AM VA-TOBACCO FORMER USER [facility] [place] [facility] Jun 23, 2022 09:00 AM VA-TOBACCO QUIT < 1 YEAR [place] [facility] [place] [facility] May 18, 2021 11:00 AM VA-TOBACCO USE > 15 LESS THAN 30 YEARS [facility] [place] [facility] May 18, 2021 11:00 AM VA-TOBACCO USE ADVICE [facility] [place] [facility] May 18, 2021 11:00 AM VA-TOBACCO USE HABILITATION ASSISTANT NO [facility] [place] [facility] May 18, 2021 11:00 AM VA-TOBACCO USE MED NO [facility] [place] [facility] May 18, 2021 11:00 AM VA-TOBACCO USE [place] 30 MIN OF WAKEUP [facility] [place] [facility] May 18, 2021 11:00 AM VA-TOBACCO USER SOME DAYS [facility] [place] [facility] Jul 31, 2018 08:47 AM VA-TOBACCO DOESNT USE WI 30 MIN WAKEUP [place] [facility] [place] [facility] Jul 31, 2018 08:47 AM VA-TOBACCO USE > 15 LESS THAN 30 YEARS [facility] [place] [facility] Jul 31, 2018 08:47 AM [facility]-TOBACCO [facility]ICE [facility] [place] [facility] Jul 31, 2018 08:47 AM VA-TOBACCO USE HABILITATION ASSISTANT NO [place] [facility] [place] [facility] Jul 31, 2018 08:47 AM VA-TOBACCO USE MED NO [facility] [place] [facility] Jul 31, 2018 08:47 AM VA-TOBACCO USER SOME DAYS [place] [facility] [place] [facility] Jan 30, 2018 09:19 AM QUIT TOBACCO USE IN PAST YEAR a month ago [place] [facility] [place] [facility] Jul 28, 2017 09:31 AM CURRENT SMOKER 2 cigarettes per day [facility] [place] [facility] Dec 08, 2016 08:49 AM CURRENT SMOKER [facility] [place] [facility] Dec 08, 2016 08:49 AM V1-PT NOT INTERESTED IN QUIT TOBACCO USE [facility] [place] [facility] Jun 11, 2016 10:00 AM CURRENT SMOKER [facility] [place] [facility] Dec 10, 2015 10:39 AM V1-PT NOT INTERESTED IN QUIT TOBACCO USE [place] [facility] [place] [facility] Feb 06, 2015 08:34 AM CURRENT SMOKER 1 1/2 Packs per week [place] [facility] [place] [facility] Feb 06, 2015 08:34 AM V1-PT NOT INTERESTED IN QUIT TOBACCO USE [facility] [place] [facility] Jul 04, 2013 09:37 AM CURRENT SMOKER pack per week [place] [facility] [place] [facility] Jun 24, 2011 08:10 AM V1-PT DECLINES REF TO TOBACCO CESS PRGM [facility] [place] [facility] Jun 24, 2011 08:10 AM V1-PT READY TO QUIT TOBACCO USE [facility] [place] [facility] Mar 31, 2011 10:12 AM V1-PT DECLINES REF TO TOBACCO CESS PRGM [facility] [place] [facility] Mar 31, 2011 10:12 AM V1-PT DECLINES TOBACCO CESSATION MEDS [facility] [place] [facility] Mar 31, 2011 10:12 AM V1-PT NOT INTERESTED IN QUIT TOBACCO USE [facility] [place] [facility] September 25, 2010 11:03 AM CURRENT SMOKER [facility] September 25, 2010 11:03 AM QUIT TOBACCO USE IN PAST YEAR [facility] Encounter Notes: All associated encounter notes This section contains the clinical notes associated to the Encounter. Date/Time Encounter Note(s) Provider Source Jul 26, 2023 08:02 AM NEPHROLOGY E & M NOTE: LOCAL TITLE: NEPHROLOGY NOTE STANDARD TITLE: NEPHROLOGY E & M NOTE DATE OF NOTE: JUL 26, 2023@08:02 ENTRY DATE: JUL 26, 2023@08:02:57 AUTHOR: ROSIO MORSE COSIGNER: URGENCY: STATUS: COMPLETED Nephrology Note Follow-Up Consultation Problems: CKD stage 2 History:48 year old male with a history of hypertension, obesity, hyperlipidemia presenting for evaluation of his renal disease and related problems. the patient denies any new problems. he denies chest pain, SOB, edema, rash or cough. Except for recurrent hand pain(02/15). He says he has been started on Metformin for his diabetes. He says he is still trying to get complete control. He says he is exercising and eating better. He has no new problems. Medications: Active and Recently Outpatient Medications (excluding Supplies): Active Outpatient Medications Status 1) ACCU-CHEK GUIDE (GLUCOSE) TEST STRIP USE 1 STRIP TO ACTIVE (S) TEST BLOOD SUGARS DIRECTED BY PROVIDER 2) ACCU-CHEK GUIDE ME (GLUCOSE) METER USE METER TO TEST ACTIVE BLOOD SUGARS ONE TIME 3) DICLOFENAC NA 1% TOP GEL APPLY 2 GRAMS TOPICALLY FOUR ACTIVE TIMES A DAY FOR OSTEOARTHRITIS - USE DOSING CARD PROVIDED IN BOX 4) LIDOCAINE 5% OINT APPLY MODERATE AMOUNT TOPICALLY ACTIVE (S) TWICE DAILY FOR NERVE PAIN 5) LISINOPRIL 5MG TAB TAKE THREE TABLETS BY MOUTH ONCE ACTIVE DAILY TO CONTROL BLOOD PRESSURE 6) METFORMIN HCL 500MG 24HR SA TAB TAKE TWO TABLETS BY ACTIVE (S) MOUTH ONCE DAILY 7) NORTRIPTYLINE HCL 10MG CAP TAKE ONE CAPSULE BY MOUTH ACTIVE AT BEDTIME NEEDED DIRECTED FOR NERVE PAIN 8) PANTOPRAZOLE NA 40MG EC TAB TAKE ONE TABLET BY MOUTH ACTIVE (S) EVERY MORNING 30 MINUTES BEFORE BREAKFAST 9) ROSUVASTATIN CA 20MG TAB TAKE ONE TABLET BY MOUTH ACTIVE (S) ONCE DAILY FOR HIGH CHOLESTEROL NOTE DOSE 10) SILDENAFIL CITRATE 100MG TAB TAKE ONE TABLET BY MOUTH ACTIVE ONCE A WEEK TAKE 1 HOUR PRIOR TO SEXUAL ACTIVITY Inactive Outpatient Medications Status 1) AMLODIPINE BESYLATE 10MG TAB TAKE ONE TABLET BY MOUTH ONCE DAILY FOR BLOOD PRESSURE/HEART, DO NOT TAKE WITH GRAPEFRUIT JUICE 2) ATENOLOL 100MG TAB TAKE ONE TABLET BY MOUTH TWICE DAILY FOR BLOOD PRESSURE/HEART 3) PREGABALIN 225MG ORAL CAP TAKE ONE CAPSULE BY MOUTH TWICE DAILY Active Non-VA Medications Status 1) Non-VA ATENOLOL 100MG TAB 100MG BY MOUTH TWICE DAILY ACTIVE 14 Total Medications Vital Signs: As above General:Slightly Obese male alert, cooperative in NAD HEENT: NECK:supple; no JVD; LUNGS:clear; Heart:RRR; no murmur; ABD:slight increase in his abdominal girth; Ext:no edema SKIN: Assessment and Plans: Below Areas to address in the evaluation and management of the patient's CKD and to reduce renal disease progression is as follows: #1. CKD stage 2: the patient is without uremic sx. The patient's lab drawn Jul 19, 2023 showed normal bicarb(25), potassium(4.2), creatinine(1.19), urine microalb/cr ratio (5.5) and his GFR was 74. The patient will continue his present medical regimen returning in 6 months obtaining labs for that visit. #2. Hypertension: he patient's blood pressure today 147/89 p=84(with level 2 pain involving his hands). He states his BP is managed by Dr. Ramone Mejia. He states he is presently on atenolol, lisinopril, and amlopine. #3. Nutritional/Obesity: The patient isobese. His weight is 235. He is encouraged to exercises and trys to adjust his diet to help improve his weight. His albumin was 4.0 which is normal . #5. Hypercholesterolemia: the patient was recently started on Rosuvastatin to control his cholesterol(05/31) was 219 in Feb has increased to 295. He is encouraged to take his statin as prescibed and to use a heart healthy low fat diet and to exercise. #6. Anemia: His H/H were normal at 14.6/45 with a MCV of 89(Jul). His TIBC was 345. iron 119, ferritin 339 and TSAT was 35. No evidence of iron deficiency. #7. CKD-MBD: Will obtain updated bone studies on return. #8. Diabetes: the patient's hgbA1c was 6.8 December. He is presently on Metformin which he says he is working to improve his glucose. He is exercing more and improving his diet. This was a 20 minute visit > 50% of which was spent in counseling and coordination of care. All available test results were reviewed with the . Medication Reconciliation: Outpatient: Has the patient been taking medications as documented in the EMLR? YES: The patient has been taking medications as documented in the EMLR. Essential Medication List for Review used to complete this medication reconciliation. INCLUDED IN THIS LIST: Alphabetical list of active outpatient prescriptions [facility] from this [facility] (local) and dispensed from another [facility] or [facility] facility (remote) as well as inpatient orders [...] instructed to update this list, discard old /es/ ROSIO MORSE M.D. ZOOKEEPER WEATHER STRIP INSTALLER Signed: 07/26/2023 09:21 ROSIO MORSE [facility]
--- OUTSIDE RECORDS SUMMARY | 2024-06-19 13:42 | XMS_ITS ---
Author Name [facility] [place] Address [address] [place] [address] Care Team Providers Care Ingredient Scaler Name Role Phone PANCHO HAINESA Primary Care [...] Name Patient's Relationship to Policy Huitron BCBS [facility] CE ORGANIZAT ION [facility] FIRE DEPT May 09, 2023 [id number] [phone] JAMAAL ALTMAN SE PATIENT CAREMARK PRESCRIPT ION BCBS [place] Nov 07, 2023 [id number] SOFÍA ALTMAN JR PATIENT SILVERNA PREFERRED PROVIDER ORGANIZAT ION (PPO) [facility] Nov 06, 2016 [id number] [phone] JAMAAL ALTMAN SE PATIENT CIGNA POINT OF SERVICE [facility] Nov 06, 2016 [id number] [phone] JAMAAL ALTMAN SE PATIENT CIGNA BEHAVIORAL HEALTH MENTAL HEALTH [facility] Nov 06, 2016 [id number] [phone] JAMAAL ALTMAN SE PATIENT [facility] PRESCRIPT ION [facility] Nov 06, 2016 [id number] JAMAAL ALTMAN SE PATIENT [facility] ORGAN Nov 06, 2009 [id number] JAMAAL ALTMAN SE PATIENT Selected Encounter This section includes the information on record at [place] for the Encounter. Date/Time Encounter Type Encounter Description Reason Pro vider Source Jun 04, 2024 01:56 PM Outpatient Encounter [facility] Encounter Template Text not used by [place] Plan of Treatment: Future Appointments (+ 6 months) and Future Tests (+/- 45 days) The Plan of Treatment section includes future care activities for the patient from all [place] treatmentfacilities. This section includes future appointments and future orders which are active, pending or scheduled. Future Appointments This section includes appointments that were scheduled to occur 6 months from the date of the Encounter, up to a maximum of 20 appointments. The data comes from all [place] treatment facilities. Appointment Date/Time Appointment Type Appointme nt Facility Name Jun 28, 2024 10:30 AM AMBULATORY - MEDICINE [place] [facility] [place] [facility] Jul 05, 2024 09:00 AM AMBULATORY - MEDICINE [facility] [place] [facility] Jul 06, 2024 08:30 AM AMBULATORY - PSYCHIATRY [facility] [place] [facility] Jul 06, 2024 09:00 AM AMBULATORY - MEDICINE [place] [facility] [place] [facility] Jul 13, 2024 08:30 AM AMBULATORY - PSYCHIATRY [facility] [place] [facility] Jul 20, 2024 08:30 AM AMBULATORY - PSYCHIATRY [facility] [place] [facility] Jul 27, 2024 08:30 AM AMBULATORY - PSYCHIATRY [facility] [place] [facility] September 13, 2024 01:30 PM AMBULATORY - MEDICINE [facility] [place] [facility] Nov 29, 2024 09:00 AM AMBULATORY - MEDICINE [place] [facility] [place] [facility] Active, Pending, and Scheduled Orders This section includes a listing of several types of active, pending, and scheduled orders, including clinic medications orders, diagnostic test orders, procedure orders and consult orders; where the start date of the order is 45 days before the date of the Encounter or 45 days after the date of theEncounter. The data comes from all [place] treatment facilities. Test Date/Time Test Type Test Details Facility Name May 31, 2024 10:51 AM Consult Order [facility] Cons Back Up Worker's Choice [facility] May 31, 2024 11:15 AM Consult Order PHARMACY/N HM OUTPT Cons Back Up Worker's Choice [facility] Lab Results: +/- 30 days of the encounter This section includes the Chemistry and Hematology Lab Results on record with [place] for the patient. Radiology Reports and Pathology Reports are provided separately, in subsequent sections. Lab Results This section contains the Chemistry/Hematology Results that were resulted 30 days before or 30 daysafter the date of the Encounter. Date/Time Source Result Type Result - Unit Interpretation Reference Range Comment May 23, 2024 09:30 AM [facility] HEMOGLOBIN A1C PANEL Specimen Type: BLOOD [...] May 17, 2024 12:47 PM Reporting Lab: [address] [id number] Performing Lab: [address] [address] HEMOGLOBIN A1C 7.1 H 4.0-5.6 May 23, 2024 09:30 AM [facility] BASIC METABOLIC PANEL (non-fasting) Specimen Type: SERUM No comment entered. Ordering Provider: SONIA HAINES Report Released Date/Time: May 18, 2024 11:38 AM Reporting Lab: [address] [address] Performing Lab: [place] [facility] [place] [facility] [address] [facility] [address] UREA NITROGEN 16 mg/dL 7-25 GLUCOSE 174 [...] and tobacco- related health factors from the [place] facility where the Encounter took place. Current Smoking Status This section includes the most current smoking, or tobacco-related health factor, from the [place] facility where the Encounter took place. Date/Time Current Smoking Status Comment [facility] May 31, 2024 10:30 AM VA-TOBACCO USE CATR[place] RY DAY CIGARETTES [facility] Tobacco Use History This section includes a history of the smoking, or tobacco-related health factors, that were collected on or before the date of the Encounter. The data comes from the [place] facility where the Encounter took place. 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 REPAIRER NO [facility] [place] [facility] Jun 08, 2023 09:30 AM VA-TOBACCO USE MED NO [facility] [place] [facility] Jun 08, 2023 09:30 AM VA-TOBACCO USE [place] 30 MIN OF WAKEUP [facility] [place] [facility] Jun 08, 2023 09:30 AM VA-TOBACCO USER EVERY DAY [facility] [place] [facility] Jun 23, 2022 09:00 AM VA-TOBACCO FORMER USER [facility] [place] [facility] Jun 23, 2022 09:00 AM VA-TOBACCO QUIT < 1 YEAR [facility] [place] [facility] May 18, 2021 11:00 AM VA-TOBACCO USE > 15 LESS THAN 30 YEARS [facility] [place] [facility] May 18, 2021 11:00 AM VA-TOBACCO USE ADVICE [facility] [place] [facility] May 18, 2021 11:00 AM VA-TOBACCO USE COLLISION REPAIRER NO [facility] [place] [facility] May 18, 2021 11:00 AM VA-TOBACCO USE MED NO [facility] [place] [facility] May 18, 2021 11:00 AM VA-TOBACCO USE [place] 30 MIN OF WAKEUP [facility] [place] [facility] May 18, 2021 11:00 AM VA-TOBACCO USER SOME DAYS [facility] [place] [facility] Jul 31, 2018 08:47 AM VA-TOBACCO DOESNT USE [place] 30 MIN WAKEUP [facility] [place] [facility] Jul 31, 2018 08:47 AM VA-TOBACCO USE > 15 LESS THAN 30 YEARS [facility] [place] [facility] Jul 31, 2018 08:47 AM VA-TOBACCO USE ADVICE [facility] [place] [facility] Jul 31, 2018 08:47 AM VA-TOBACCO USE COLLISION REPAIRER NO [facility] [place] [facility] Jul 31, 2018 08:47 AM VA-TOBACCO USE MED NO [facility] [place] [facility] Jul 31, 2018 08:47 AM VA-TOBACCO USER SOME DAYS [facility] [place] [facility] Jan 30, 2018 09:19 AM QUIT TOBACCO USE IN PAST YEAR a month ago [facility] [place] [facility] Jul 28, 2017 09:31 AM CURRENT SMOKER 2 cigarettes per day [facility] [place] [facility] Dec 08, 2016 08:49 AM CURRENT SMOKER [facility] [place] [facility] Dec 08, 2016 08:49 AM V1-PT NOT INTERESTED IN QUIT TOBACCO USE [facility] [place] [facility] Jun 11, 2016 10:00 AM CURRENT SMOKER [facility] [place] [facility] Dec 10, 2015 10:39 AM [...] Encounter. 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 was also given information about the walk-in clinic, if needed. [place] verbalized understanding, but states that he is doing okay at present. /ever/ JEMIMA WALL ADVANCED HERBARIUM WORKER Signed: 06/04/2024 14:00 Receipt Acknowledged By: 06/04/2024 14:12 /ever/ Karina Bains Psy.D. SEXUAL TRAUMA/WOMEN'S PSYCHOLOGIST for [facility]IMA DE [facility]ON [facility]
--- OUTSIDE RECORDS SUMMARY | 2024-06-19 13:42 | XMS_ITS ---
Author Organization Ramone Blevins III, MD Address [address] [address] Care Team Providers Care Stone Splitter Name Role Phone Ramoen Blevins Primary Care Provider [phone] REASON FOR VISIT Message Social History Sex Assigned At : Social History Observation Description Sex Assigned At Male Encounters Encounter Location Date Provider Diagnosis Ramone Blevins III, MD [address] [place] [address] [place] [id number] 06/06/2024 Ramone Blevins Plan Of Treatment Next Appt Details Provider Name:Ramone Blevins, 07/02/2024 03:45:00 PM, [address] [place] [address] [place], [address], Provider Name:Ramone Blevins, 09/28/2024 10:00:00 AM, [address] [place] [address] [place], [address], Progress Notes * Robby GUZMAN JrDOB: [birth year] (49 yo M)Acc No.[id number]:06/06/2024 Patient:?Robby GUZMAN Jr :1975???Age:49 Y???Sex:Male Address:[address] [place] [id number] * true * Date:? Generated for Riddhi bryan/Kristopher/eTransmitting on:?06/19/2024 01:42 PM EST
--- OUTSIDE RECORDS SUMMARY | 2024-06-19 13:42 | XMS_ITS ---
Author Name [facility] [place] Address [address] [place] [address] Care Team Providers Care Sap Bw Consultant Name Role Phone PANCHO HAINESA Primary Care [...] Relationship to Policy Huitron BCBS [facility] CE ORGANIZAT ION [facility] FIRE DEPT May 09, 2023 [id number] JAMAAL ALTMAN SE PATIENT CAREMARK PRESCRIPT ION [place] Nov 07, 2023 [id number] [phone] SOFÍA ALTMAN JR PATIENT SILVERNA PREFERRED PROVIDER ORGANIZAT ION (PPO) [facility] Nov 06, 2016 [id number] [phone] JAMAAL ALTMAN SE PATIENT CIGNA POINT OF SERVICE [facility] Nov 06, 2016 [id number] [phone] JAMAAL ALTMAN SE PATIENT CIGNA BEHAVIORAL HEALTH MENTAL HEALTH [facility] Nov 06, 2016 [id number] [phone] JAMAAL ALTMAN SE PATIENT CIGNA PHARMACY PRESCRIPT ION [facility] Nov 06, 2016 [id number] JAMAAL ALTMAN SE PATIENT [facility] ORGAN Nov 06, 2009 [id number] JAMAAL ALTMAN SE PATIENT Selected Encounter This section includes the information on record at [place] for the Encounter. Date/Time Encounter Type Encounter Description Reason Pro vider Source Oct 14, 2023 09:00 AM Outpatient Encounter [facility] Encounter Template Text not used by [place] [...] AMBULATORY - PSYCHIATRY [facility] [place] [facility] Nov 24, 2023 09:30 AM AMBULATORY - MEDICINE [facility] [place] [facility] Nov 25, 2023 09:00 AM AMBULATORY - PSYCHIATRY [facility] [place] [facility] Dec 02, 2023 09:00 AM AMBULATORY - PSYCHIATRY [facility] [place] [facility] Dec 08, 2023 09:00 AM AMBULATORY - REHAB MEDICIN E [facility] [place] [facility] Dec 09, 2023 09:00 AM AMBULATORY - PSYCHIATRY [facility] [place] [facility] Dec 16, 2023 08:30 AM AMBULATORY - MEDICINE [facility] [place] [facility] Dec 23, 2023 09:00 AM AMBULATORY - PSYCHIATRY [facility] [place] [facility] Jan 06, 2024 09:00 AM AMBULATORY - PSYCHIATRY [facility] [place] [facility] Jan 20, 2024 09:00 AM AMBULATORY [facility] [place] [facility] Feb 03, 2024 09:00 AM [facility] Feb 17, 2024 09:00 AM [facility] Feb 28, 2024 08:00 AM AMBULATORY - MEDICINE [facility] Mar 16, 2024 08:30 AM AMBULATORY - PSYCHIATRY [facility] Active, Pending, and Scheduled Orders This section includes a listing of several types of active, pending, and scheduled orders, including clinic medications orders, diagnostic test orders, procedure orders and consult orders; where the start date of the order is 45 days before the date of the Encounter or 45 days after the date of theEncounter. The data comes from all [place] treatment facilities. Test Date/Time Test Type Test Details Facility Name Nov 09, 2023 12:00 AM Laboratory - Chemistry Order BASIC METABOLIC PANEL (fasting) BLOOD (SST-SERUM) [facility] Nov 09, 2023 12:00 AM Laboratory - Chemistry Order LIPID PANEL FASTING BLOOD (SST-SERUM) [facility] Nov 09, 2023 12:00 AM Laboratory - Chemistry Order HEMOGLOBIN A1C PANEL BLOOD (LAV-BLOOD) [facility] Social History: Smoking Status (Most current) [...] took place. Date/Time Current Smoking Status Comment [facility] it Jun 08, 2023 09:30 AM VA-TOBACCO USER EVERY DAY [facility] Tobacco Use History This section includes a history of the smoking, or tobacco-related health factors, that were collected on or before the date of the Encounter. The data comes from the [place] facility where the Encounter took place. 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 [facility] [place] [facility] Jun 08, 2023 09:30 AM VA-TOBACCO USE MED NO [facility] [place] [facility] Jun 08, 2023 09:30 AM VA-TOBACCO USE [place] 30 MIN OF WAKEUP [facility] [place] [facility] Jun 08, 2023 09:30 AM VA-TOBACCO USER EVERY DAY [facility] [place] [facility] Jun 23, 2022 09:00 AM VA-TOBACCO FORMER USER [facility] [place] [facility] Jun 23, 2022 09:00 AM VA-TOBACCO QUIT < 1 YEAR [facility] [place] [facility] May 18, 2021 11:00 AM VA-TOBACCO USE > 15 LESS THAN 30 YEARS [facility] [place] [facility] May 18, 2021 11:00 AM VA-TOBACCO USE ADVICE [facility] [place] [facility] May 18, 2021 11:00 AM VA-TOBACCO USE 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 NO [facility] [place] [facility] May 18, 2021 11:00 AM VA-TOBACCO USE MED NO [facility] [place] [facility] May 18, 2021 11:00 AM VA-TOBACCO USE [place] 30 MIN OF WAKEUP [place] [facility] [facility] May 18, 2021 11:00 AM VA-TOBACCO USER SOME DAYS [facility] [place] [facility] Jul 31, 2018 08:47 AM VA-TOBACCO DOESNT USE [place] 30 MIN WAKEUP [facility] [place] [facility] Jul 31, 2018 08:47 AM VA-TOBACCO USE > 15 LESS THAN 30 YEARS [facility] [place] [facility] Jul 31, 2018 08:47 AM VA-TOBACCO USE ADVICE [facility] [place] [facility] Jul 31, 2018 08:47 AM VA-TOBACCO USE 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 NO [facility] [place] [facility] Jul 31, 2018 08:47 AM VA-TOBACCO USE MED NO [facility] [place] [facility] Jul 31, 2018 08:47 AM VA-TOBACCO USER SOME DAYS [facility] [place] [facility] Jan 30, 2018 09:19 AM QUIT TOBACCO USE IN PAST YEAR [facility] [place] [facility] Jul 28, 2017 09:31 AM CURRENT SMOKER 2 cigarettes per day [facility] [place] [facility] Dec 08, 2016 08:49 AM CURRENT SMOKER [facility] [place] [facility] Dec 08, 2016 08:49 AM V1-PT NOT INTERESTED IN QUIT TOBACCO USE [place] [facility] [place] [facility] Jun 11, 2016 10:00 AM CURRENT SMOKER [facility] [place] [facility] Dec 10, 2015 10:39 AM V1-PT NOT INTERESTED IN QUIT TOBACCO USE [place] [facility] [place] [facility] Feb 06, 2015 08:34 AM CURRENT SMOKER 1 1/2 Packs per week [facility] [place] [facility] Feb 06, 2015 08:34 AM V1-PT NOT INTERESTED IN QUIT TOBACCO USE [facility] [place] [facility] Jul 04, 2013 09:37 AM CURRENT SMOKER pack per week [facility] [place] [facility] Jun 24, 2011 08:10 AM V1-PT DECLINES REF TO TOBACCO CESS PRGM [facility] [place] [facility] Jun 24, 2011 08:10 AM V1-PT READY TO QUIT [facility]ACCO [facility] [place] [facility] Mar 31, 2011 10:12 AM V1-PT DECLINES REF TO TOBACCO CESS PRGM [facility] [place] [facility] Mar 31, 2011 10:12 AM V1-PT DECLINES TOBACCO CESSATION MEDS [facility] [facility] Mar 31, 2011 10:12 AM V1-PT NOT INTERESTED IN QUIT TOBACCO USE [facility] [place] [facility] September 25, 2010 11:03 AM CURRENT SMOKER [facility] [facility] September 25, 2010 11:03 AM QUIT TOBACCO USE IN PAST YEAR [facility] [place] [facility] Encounter Notes: All associated encounter notes This section contains the clinical notes associated to the Encounter. Date/Time Encounter Note(s) Provider Source Oct 14, 2023 09:42 AM ADMINISTRATIVE NOT E: LOCAL TITLE: ADMINISTRATIVE NOTE STANDARD TITLE: ADMINISTRATIVE NOTE DATE OF NOTE: OCT 14, 2023@09:42 ENTRY DATE: OCT 14, 2023@09:42:38 AUTHOR: NOHEMI MACKEY EXP COSIGNER: URGENCY: STATUS: COMPLETED [place] cancelled individual therapy appointment today via the automated system. Called and left a VM. Expressed appreciation for the notice and confirmed appointment scheduled for next week. Provided contact information and encouraged him to call should he need support prior to next appointment or to reschedule. /ever/ Nohemi Mackey, PhD Clinical Psychologist, [facility] Signed: 10/14/2023 09:43 NOHEMI MACKEY [place] [facility]
--- OUTSIDE RECORDS SUMMARY | 2024-06-19 13:42 | XMS_ITS ---
Author Name [facility] Organization [facility] Address [address] [place] [address] Care Team Providers Care Doctor Of Naprapathic Medicine Name Role Phone PANCHO HAINESA Primary Care [...] Name Patient's Relationship to Policy [employer] [facility] CE ORGANIZAT ION [facility] FIRE DEPT May 09, 2023 [id number] JAMAAL ALTMAN SE PATIENT [place] PRESCRIPT ION [place] Nov 07, 2023 [id number] SOFÍA ALTMAN JR PATIENT [place] PREFERRED PROVIDER ORGANIZAT ION (PPO) [facility] Nov 06, 2016 [id number] [phone] JAMAAL ALTMAN SE PATIENT [employer] POINT OF SERVICE [facility] Nov 06, 2016 [id number] JAMAAL ALTMAN SE PATIENT [facility] MENTAL HEALTH [facility] Nov 06, 2016 [id number] JAMAAL ALTMAN SE PATIENT [facility] PRES[facility] Nov 06, 2016 [id number] JAMAAL ALTMAN SE PATIENT [facility] Nov 06, 2009 [id number] JAMAAL ALTMAN SE PATIENT Selected Encounter This section includes the information on record at ID for the Encounter. Date/Time Encounter Type Encounter Description Reason Pro vider Source Nov 17, 2023 02:00 PM Outpatient Encounter [facility] Encounter Template Text not used by ID Plan of Treatment: Future Appointments (+ 6 months) and Future Tests (+/- 45 days) The Plan of Treatment section includes future care activities for the patient from all ID treatmentfacilities. This section includes future appointments and future orders which are active, pending or scheduled. Future Appointments This section includes appointments that were scheduled to occur 6 months from the date of the Encounter, up to a maximum of 20 appointments. The data comes from all ID treatment facilities. Appointment Date/Time Appointment Type Appointme nt Facility Name Nov 24, 2023 09:30 AM AMBULATORY - MEDICINE ID [facility] [place] [facility] Nov 25, 2023 09:00 AM AMBULATORY - PSYCHIATRY [facility] [place] [facility] Dec 02, 2023 09:00 AM AMBULATORY - PSYCHIATRY [facility] [place] [facility] Dec 08, 2023 09:00 AM AMBULATORY - REHAB MEDICIN E [facility] [place] [facility] Dec 09, 2023 09:00 AM AMBULATORY - PSYCHIATRY [facility] [place] [facility] Dec 16, 2023 08:30 AM AMBULATORY - MEDICINE [facility] [place] [facility] Dec 23, 2023 09:00 AM AMBULATORY - PSYCHIATRY [facility] [place] [facility] Jan 06, 2024 09:00 AM AMBULATORY - PSYCHIATRY [facility] [place] [facility] Jan 20, 2024 09:00 AM AMBULATORY - PSYCHIATRY [facility] [place] [facility] Feb 03, 2024 09:00 AM AMBULATORY - PSYCHIATRY [facility] Feb 17, 2024 09:00 AM [facility] Feb 28, 2024 08:00 AM AMBULATORY - MEDICINE [facility] Mar 16, 2024 08:30 AM [facility] Apr 27, 2024 08:30 AM AMBULATORY - PSYCHIATRY [facility] Active, Pending, and Scheduled Orders This section includes a listing of several types of active, pending, and scheduled orders, including clinic medications orders, diagnostic test orders, procedure orders and consult orders; where the start date of the order is 45 days before the date of the Encounter or 45 days after the date of theEncounter. The data comes from all ID treatment facilities. Test Date/Time Test Type Test Details Facility Name Nov 09, 2023 12:00 AM Laboratory - Chemistry Order HEMOGLOBIN A1C PANEL BLOOD (LAV-BLOOD) [facility] Nov 09, 2023 12:00 AM Laboratory - Chemistry Order BASIC METABOLIC PANEL (fasting) BLOOD (SST-SERUM) [facility] Nov 09, 2023 12:00 AM Laboratory - Chemistry Order LIPID PANEL FASTING BLOOD (SST-SERUM) [facility] Social History: Smoking Status (Most current) and Tobacco Use (All prior to encounter date) This section includes the most current, and the historical, smoking and tobacco- related health factors from the ID facility where the Encounter took place. Current Smoking Status This section includes the most current smoking, or tobacco-related health factor, from the ID facility where the Encounter took place. Date/Time Current Smoking Status Comment Facil it Jun 08, 2023 09:30 AM VA-TOBACCO USE WI 30 MIN OF WAKEUP [facility] Tobacco Use History This section includes a history of the smoking, or tobacco-related health factors, that were collected on or before the date of the Encounter. The data comes from the ID facility where the Encounter took place. 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 Jun 08, 2023 09:30 AM VA-TOBACCO USE MED NO [facility] [place] [facility] Jun 08, 2023 09:30 AM VA-TOBACCO USE [place] 30 MIN OF WAKEUP [facility] [place] [facility] Jun 08, 2023 09:30 AM VA-TOBACCO USER EVERY DAY [facility] [place] [facility] Jun 23, 2022 09:00 AM VA-TOBACCO FORMER USER [facility] [place] [facility] Jun 23, 2022 09:00 AM VA-TOBACCO QUIT < 1 YEAR [facility] [place] [facility] May 18, 2021 11:00 AM VA-TOBACCO USE > 15 LESS THAN 30 YEARS [facility] [place] [facility] May 18, 2021 11:00 AM VA-TOBACCO USE ADVICE [facility] [place] 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 May 18, 2021 11:00 AM VA-TOBACCO USE MED NO [facility] [place] [facility] May 18, 2021 11:00 AM VA-TOBACCO USE [place] 30 MIN OF WAKEUP [facility] [place] [facility] May 18, 2021 11:00 AM VA-TOBACCO USER SOME DAYS [facility] [place] [facility] Jul 31, 2018 08:47 AM VA-TOBACCO DOESNT USE WI 30 MIN WAKEUP [facility] [place] [facility] Jul 31, 2018 08:47 AM VA-TOBACCO USE > 15 LESS THAN 30 YEARS [facility] [place] [facility] Jul 31, 2018 08:47 AM VA-TOBACCO USE ADVICE [facility] [place] 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 Jul 31, 2018 08:47 AM VA-TOBACCO USE MED NO [facility] [place] [facility] Jul 31, 2018 08:47 AM VA-TOBACCO USER SOME DAYS [facility] [place] [facility] Jan 30, 2018 09:19 AM QUIT TOBACCO USE IN PAST YEAR a month [facility] [place] [facility] Jul 28, 2017 09:31 AM CURRENT SMOKER 2 cigarettes per day [facility] [place] [facility] Dec 08, 2016 08:49 AM CURRENT SMOKER [facility] [place] [facility] Dec 08, 2016 08:49 AM V1-PT NOT INTERESTED IN QUIT [facility]BACCO USE [facility] [place] [facility] Jun 11, 2016 10:00 AM CURRENT SMOKER [facility] [place] [facility] Dec 10, 2015 10:39 AM V1-PT NOT INTERESTED IN QUIT TOBACCO USE [facility] [place] [facility] Feb 06, 2015 08:34 AM CURRENT SMOKER 1 1/2 Packs per week [facility] [place] [facility] Feb 06, 2015 08:34 AM V1-PT NOT INTERESTED IN QUIT TOBACCO USE [facility] [place] [facility] Jul 04, 2013 09:37 AM CURRENT SMOKER pack per week [facility] Jun 24, 2011 08:10 AM V1-PT DECLINES REF TO TOBACCO CESS [facility] Jun 24, 2011 08:10 AM V1-PT READY TO QUIT TOBACCO USE [facility] [place] [facility] Mar 31, 2011 10:12 AM V1-PT DECLINES REF TO TOBACCO CESS [facility] Mar 31, 2011 10:12 AM V1-PT DECLINES TOBACCO CESSATION MEDS [facility] Mar 31, 2011 10:12 AM V1-PT NOT INTERESTED IN QUIT TOBACCO USE [facility] [place] [facility] September 25, 2010 11:03 AM CURRENT SMOKER [facility] [place] [facility] September 25, 2010 11:03 AM QUIT TOBACCO USE IN PAST YEAR [facility] Encounter Notes: All associated encounter notes This section contains the clinical notes associated to the Encounter. Date/Time Encounter Note(s) Provider Source Nov 17, 2023 12:52 PM ADMINISTRATIVE NOT E: LOCAL TITLE: ADMINISTRATIVE NOTE STANDARD TITLE: ADMINISTRATIVE NOTE DATE OF NOTE: NOV 17, 2023@12:52 ENTRY DATE: NOV 17, 2023@12:52:06 AUTHOR: NOHEMI MACKEY EXP COSIGNER: URGENCY: STATUS: COMPLETED ADMINISTRATIVE NOTE Has ADDENDA insert /ever/ Nohemi Mackey, PhD Clinical Psychologist, [facility] Signed: 11/17/2023 12:52 11/17/2023 ADDENDUM STATUS: COMPLETED [place] cancelled the individual therapy appointment scheduled for this afternoon. Called and spoke to him by phone to thank him for communicating this and confirm the next appointment. [place] indicated he was called into work unexpectedly and plans to attend next Tuesday, November 25, 2023 at 9am F2F. No evidence of imminent risk. /ever/ Nohemi Mackey, PhD Clinical Psychologist, [facility] Signed: 11/17/2023 14:28 NOHEMI MACKEY [facility]
--- OUTSIDE RECORDS SUMMARY | 2024-06-19 13:42 | XMS_ITS | Continuity of Care Document ---
Author Name [facility] Organization [facility] Care Team Providers Care Clin Tech Name Role Phone [facility] Unavailable Unavailable Problems Combined list of problems from Department of Defense and Veterans Affairs facilities. It does not include entries that were removed or entered in error. Problem Status Onset Date Problem Type Date of Resolution Comments Source Carpal tunnel syndrome Active Condition [facility] Degeneration of intervertebral disc (ICD-9-CM 722.6) Active Condition [facility] Erectile dysfunction (SNOMED CT 518064858) Active Condition [facility] Hyperlipidemia (SNOMED CT 63004238) Active Condition [facility] Hypertension (SNOMED CT 40245113) Active Condition [facility] Major depressive disorder Active Condition [facility] Obesity (SNOMED CT 165115745) Active Condition [facility] Posttraumatic stress disorder Active Condition [facility] Sleep apnea Active Condition [facility] Smoking (SNOMED CT 876926123) Active Condition Nov 24, 2023 Entered By: PANCHO HAINES Comment: smokes 2 cigs/day [facility] Type 2 diabetes mellitus in obese Active Condition [facility] Chronic Low Back Pain (ICD-9-CM 724.2) Inactive Condition 07/28/2017 [facility] Diagnosis: ICD-10-CM E11.9 Type 2 diabetes mellitus without complications Active Diagnosis [facility] Diagnosis: ICD-10-CM F43.12 Post-traumatic stress disorder, chronic Active Diagnosis [facility] Diagnosis: ICD-10-CM N18.2 Chronic kidney disease, stage 2 (mild) Active Diagnosis [facility] Diagnosis: ICD-10-CM G47.33 Obstructive sleep apnea (adult) (pediatric) Active Diagnosis [facility] Diagnosis: ICD-10-CM G56.03 Carpal tunnel syndrome, bilateral upper limbs Active Diagnosis [facility] Diagnosis: ICD-10-CM G56.00 Carpal tunnel syndrome, unspecified upper limb Active Diagnosis [facility] Diagnosis: ICD-10-CM M79.642 Pain in left hand Active Diagnosis [facility] Diagnosis: ICD-10-CM M24.541 Contracture, right hand Active Diagnosis [facility] Diagnosis: ICD-10-CM G56.01 Carpal tunnel syndrome, right upper limb Active Diagnosis [facility] Diagnosis: ICD-10-CM I10 Essential (primary) hypertension Active Diagnosis [facility] Diagnosis: ICD-10-CM M65.322 Trigger finger, left index finger Active Diagnosis [facility] Diagnosis: ICD-10-CM F33.9 Major depressive disorder, recurrent, unspecified Active Diagnosis [facility] Medications Combined list of outpatient medications from Department of Defense and [facility] Affairs facilities.Medications provided include 1) outpatient medications from the last 15 months, and 2) patient-reported medications. Medication Details Route Status Patient Instructions Prescription Expires Prescription Number Last Dispense Date Ordering Provider Order Date Order Qty Source amLODIPine (U/D) 10 MG ORAL TAB TAKE ONE TABLET BY MOUTH ONCE DAILY FOR BLOOD PRESSURE /HEART, DO NOT TAKE WITH GRAPEFRU IT JUICE 06/24/2023 [id number] MARY GO 2023 90 [facility] amLODIPine (U/D) 10 MG ORAL TAB TAKE ONE TABLET BY MOUTH ONCE DAILY FOR BLOOD PRESSURE /HEART, DO NOT TAKE WITH GRAPEFRU IT JUICE 06/24/2023 [id number] MARY GO JAWRIKKI 2022 90 [facility] AMLODIPINE BESYLATE 10MG TAB TAKE ONE TABLET BY MOUTH ONCE DAILY FOR BLOOD PRESSURE /HEART, DO NOT TAKE WITH GRAPEFRU IT JUICE ORAL 06/24/2023 [id number] 3 MABEL GO JAWED 2022 90 [facility] ATENOLOL 100 MG ORAL TAB TAKE ONE TABLET BY MOUTH TWICE DAILY FOR BLOOD PRESSURE /HEART 06/24/2023 [id number] 3 [facility] 2023 180 [facility] ATENOLOL 100 MG ORAL TAB TAKE ONE TABLET BY MOUTH TWICE DAILY FOR BLOOD PRESSURE /HEART 06/24/2023 [id number] 3 [facility] 2022 180 [facility] ATENOLOL 100MG TAB TAKE ONE TABLET BY MOUTH TWICE DAILY FOR BLOOD PRESSURE /HEART ORAL 06/24/2023 [id number] MABEL GO JAWED 2022 180 [facility] ATENOLOL 100MG TAB TAKE ONE TABLET BY MOUTH TWICE DAILY ORAL ACTIVE MABEL GO JAWED 2014 [facility] CRESTOR (BRAND) 20 MG ORAL TAB TAKE ONE TABLET BY MOUTH ONCE DAILY FOR HIGH CHOLESTE ROL NOTE DOSE 06/08/2024 [id number] MARY GO JAWED 2023 90 [facility] DICLOFENAC NA 1% GEL,TOP APPLY 2 GRAMS TOPICALL Y FOUR TIMES A DAY FOR OSTEOART HRITIS - USE DOSING CARD PROVIDED IN BOX TOPICA L ACTIVE 06/01/2025 [id number] FURCOLO,T BIGG 2024 300 [facility] DICLOFENAC NA 1% GEL,TOP APPLY 2 GRAMS TOPICALL Y FOUR TIMES A DAY FOR OSTEOART HRITIS - USE DOSING CARD PROVIDED IN BOX TOPICA L DISCONT INUED 06/08/2024 [id number] 4 MABEL GO JAWED 2023 300 [facility] Diclofenac Sodium 0.01mg/mg, Gel/Jelly, Topical APPLY 2 GRAMS TOPICALL Y FOUR TIMES A DAY FOR OSTEOART HRITIS - USE DOSING CARD PROVIDED IN BOX 06/08/2024 [id number] MARY GO SAMINA 2023 300 [facility] EMPAGLIFLOZ IN 10MG TAB TAKE ONE TABLET BY MOUTH ONCE DAILY ORAL ACTIVE 06/01/2025 [id number] FURCOLO,T BIGG 2024 90 [facility] IRX: Sildenafil 100 mg/Placebo Tablet Oral TAKE ONE TABLET BY MOUTH ONCE A WEEK TAKE 1 HOUR PRIOR TO SEXUAL ACTIVITY 12/02/2023 [id number] 4 MABEL GOJULIANE HAAS 2023 6 [facility] IRX: Sildenafil 100 mg/Placebo Tablet Oral TAKE ONE TABLET BY MOUTH ONCE A WEEK TAKE 1 HOUR PRIOR TO SEXUAL ACTIVITY 12/02/2023 [id number] 3 BRUCE GORIKKI HAAS 2022 6 [facility] LIDOCAINE 5 % TOP OINT [30 GM] APPLY MODERATE AMOUNT TOPICALL Y TWICE DAILY FOR NERVE PAIN 05/10/2024 [id number] 4 GURINDER WICK 2023 100 [facility] LIDOCAINE 5 % TOP OINT [30 GM] APPLY MODERATE AMOUNT TOPICALL Y TWICE DAILY FOR NERVE PAIN 05/10/2024 [id number] 4 GURINDER WICK 2023 100 [facility] LIDOCAINE 5% OINT,TOP APPLY MODERATE AMOUNT TOPICALL Y TWICE DAILY FOR NERVE PAIN TOPICA L ACTIVE 06/01/2025 [id number] 5 FURCOLO,T BIGG 2024 70 [facility] LIDOCAINE 5% OINT,TOP APPLY MODERATE AMOUNT TOPICALL Y TWICE DAILY FOR NERVE PAIN TOPICA L DISCONT INUED 05/10/2024 [id number] 4 GURINDER WICK 2023 100 [facility] Lisinopril (Brand Name) Tablet 5 mg Oral TAKE THREE TABLETS BY MOUTH ONCE DAILY TO CONTROL BLOOD PRESSURE Active 07/29/2024 [id number] 4 MARY GO JAWED 2023 270 [facility] Lisinopril (Brand Name) Tablet 5 mg Oral TAKE THREE TABLETS BY MOUTH ONCE DAILY TO CONTROL BLOOD PRESSURE Discont inued 04/26/2024 [id number] MARY GO JAW 2023 90 [facility] Lisinopril (Brand Name) Tablet 5 mg Oral TAKE THREE TABLETS BY MOUTH ONCE DAILY TO CONTROL BLOOD PRESSURE 04/26/2024 [id number] 3 MABEL GOJULIANE JAW 2022 90 [facility] LISINOPRIL (U/D) 10 MG ORAL TAB TAKE ONE TABLET BY MOUTH ONCE DAILY TO CONTROL BLOOD PRESSURE Discont inued 06/24/2023 [id number] MABEL GOJULIANE JAW 2022 90 [facility] LISINOPRIL (U/D) 10 MG ORAL TAB TAKE ONE TABLET BY MOUTH ONCE DAILY TO CONTROL BLOOD PRESSURE 06/24/2023 [id number] 3 MABEL GOJULIANE JAW 2022 90 [facility] LISINOPRIL 10MG TAB TAKE ONE TABLET BY MOUTH ONCE DAILY TO CONTROL BLOOD PRESSURE ORAL DISCONT INUED (EDIT) 06/24/2023 [id number] 3 DONAVANMABEL JULIANE JAWED 2022 90 [facility] LISINOPRIL 20MG TAB TAKE ONE TABLET BY MOUTH ONCE DAILY TO CONTROL BLOOD PRESSURE ORAL ACTIVE 06/01/2025 [id number] 5 Ashli HAINES 2024 90 [facility] LISINOPRIL 5MG TAB TAKE THREE TABLETS BY MOUTH ONCE DAILY TO CONTROL BLOOD PRESSURE ORAL DISCONT INUED (EDIT) 07/29/2024 [id number] 4 MABEL GO JAWED 2023 270 [facility] LISINOPRIL 5MG TAB TAKE THREE TABLETS BY MOUTH ONCE DAILY TO CONTROL BLOOD PRESSURE ORAL DISCONT INUED 04/26/2024 [id number] 4 MABEL GO JAWED 2022 90 [facility] metFORMIN (FORTAMET EQ) 500 MG PO TR24 TAKE TWO TABLETS BY MOUTH ONCE DAILY 06/08/2024 [id number] 4 MARY GO JAWED 2023 180 [facility] METFORMIN HCL 500MG 24HR TAB,SA TAKE ONE TABLET BY MOUTH ONCE DAILY ORAL ACTIVE 06/01/2025 [id number] FURCOLO,T BIGG 2024 90 [facility] METFORMIN HCL 500MG 24HR TAB,SA TAKE TWO TABLETS BY MOUTH ONCE DAILY ORAL DISCONT INUED (EDIT) 06/08/2024 [id number] MABEL OG JAWED 2023 180 [facility] nortriptyli ne (U/D) 10 MG ORAL CAP TAKE ONE CAPSULE BY MOUTH AT BEDTIME NEEDED DIRECTED FOR NERVE PAIN 10/10/2023 [id number] 4 GURINDER WICK 2023 90 [facility] NORTRIPTYLI NE HCL 10MG CAP TAKE ONE CAPSULE BY MOUTH AT BEDTIME NEEDED DIRECTED FOR NERVE PAIN ORAL 10/10/2023 [id number] 4 GURINDER WICK 2023 90 [facility] PANTOPRAZOL E (U/D) 40 MG ORAL TBEC TAKE ONE TABLET BY MOUTH EVERY MORNING 30 MINUTES BEFORE BREAKFAS T 06/08/2024 [id number] 4 MARY GO JAWED 2023 90 [facility] PANTOPRAZOL E NA 40MG TAB,EC TAKE ONE TABLET BY MOUTH EVERY MORNING 30 MINUTES BEFORE BREAKFAS T ORAL ACTIVE 06/01/2025 [id number] 5 FURCOLO,T BIGG 2024 90 [facility] PANTOPRAZOL E NA 40MG TAB,EC TAKE ONE TABLET BY MOUTH EVERY MORNING 30 MINUTES BEFORE BREAKFAS T ORAL DISCONT INUED 06/08/2024 [id number] 4 [facility] 2023 90 [facility] PREGABALIN 225 MG ORAL CAP TAKE ONE CAPSULE BY MOUTH TWICE DAILY FOR PAIN 10/06/2023 [id number] 4 GURINDER WICK 2023 60 [facility] PREGABALIN 225 MG ORAL CAP TAKE ONE CAPSULE BY MOUTH TWICE DAILY FOR PAIN 10/06/2023 [id number] 4 GURINDER WICK 2023 60 [facility] 225 MG ORAL CAP TAKE ONE CAPSULE BY MOUTH TWICE DAILY Discont inued 07/08/2023 [id number] 4 DONAVAN [facility] JAWED 2023 [facility] PREGABALIN 225MG CAP,ORAL TAKE ONE CAPSULE BY MOUTH TWICE DAILY FOR PAIN ORAL ACTIVE 10/06/2023 [id number] 4 GURINDER WICK 2023 60 [facility] PREGABALIN 225MG CAP,ORAL TAKE ONE CAPSULE BY MOUTH TWICE DAILY ORAL DISCONT INUED 07/08/2023 [id number] 4 [facility] 60 [facility] PREGABALIN 225MG CAP,ORAL TAKE ONE CAPSULE BY MOUTH TWICE DAILY FOR NERVE PAIN ORAL 06/09/2024 [id number] 4 GURINDER WICK 2023 60 [facility] ROSUVASTATI N CA 20MG TAB TAKE ONE TABLET BY MOUTH ONCE DAILY FOR HIGH CHOLESTE ROL NOTE DOSE ORAL ACTIVE 06/01/2025 [id number] 5 FURCOLO,T BIGG 2024 90 [facility] ROSUVASTATI N CA 20MG TAB TAKE ONE TABLET BY MOUTH ONCE DAILY FOR HIGH CHOLESTE ROL NOTE DOSE ORAL DISCONT INUED 06/08/2024 [id number] 4 MABEL GO JAWED 2023 90 [facility] SILDENAFIL CITRATE 100MG TAB TAKE ONE TABLET BY MOUTH ONCE A WEEK TAKE 1 HOUR PRIOR TO SEXUAL ACTIVITY ORAL 12/02/2023 [id number] 4 MABEL GO JAWED 2022 6 [facility] [place] [facility] Allergies, Adverse Reactions, Alerts Combined list of allergies from Department of Defense and Veterans Affairs facilities. It does not include entries that were removed or entered in error. Substance Category Reaction Severity Reaction type Status Date Reported Comments Source GABAPENTIN Drug allergy (disorder) active 0 [facility] GABAPENTIN Propensity to adverse reactions to drug (finding) Memory impairment active 0 [facility] [place] [facility] NORTRIPTYLIN E Drug allergy (disorder) active 2 [facility] NORTRIPTYLIN E Propensity to adverse reactions to drug (finding) Memory impairment active 2 [facility] [place] [facility] Immunizations Combined list of available immunizations from the Department of Defense and Veterans Affairs facilities. Immunization Series Date Given Administered By Site Reaction Lot Number CVX Code Drug Manager Math Status Comments Source INFLUENZA, UNSPECIFIED FORMULATION 2023 88 complet ed [facility] ZOSTER RECOMBINANT 2023 AMANDA GARDNER LEFT DELTO ID [id number] 187 complet ed [facility] ZOSTER RECOMBINANT 2023 DIALLO MONTELONGO H LEFT DELTO ID [id number] 187 complet ed [facility] INFLUENZA, INJECTABLE, QUADRIVALENT, PRESERVATIVE FREE 2021 150 complet ed [facility] PNEUMOCOCCAL CONJUGATE PCV 13 2021 133 complet ed [facility] TD (ADULT), 5 LF TETANUS TOXOID, PRESERVATIVE FREE, ADSORBED 2021 113 complet ed [facility] INFLUENZA, UNSPECIFIED FORMULATION 2021 88 complet ed [facility] [place] [facility] COVID-19 (PFIZER), MRNA, LNP-S, PF, 30 MCG/0.3 ML DOSE 1 2020 208 complet ed [facility] COVID-19 (PFIZER), MRNA, LNP-S, PF, 30 MCG/0.3 ML DOSE 2020 208 complet ed [facility] COVID-19 (PFIZER), MRNA, LNP-S, PF, 30 MCG/0.3 ML DOSE 2 2020 208 complet ed [facility] FLU,3 YRS (HISTORICAL) 2010 88 complet ed Site: Left Deltoid [facility] [place] [facility] DTAP, UNSPECIFIED FORMULATION 2010 107 complet ed Site: Left Deltoid [facility] PNEUMOCOCCAL, UNSPECIFIED FORMULATION 2010 109 complet ed [facility] [place] [facility] Results Combined list of recent chemistry, hematology and other laboratory results from Department of Defense and Veterans Affairs, ranging from 15 months to all on record, depending upon the facility. Order Name Results Value Reference Range Date Interpretation Specimen Comments Source HEMOGLOBI N A1C PANEL HEMOGLOBIN A1C/HEMOGLO BIN.TOTAL IN BLOOD BY HPLC 7.1 4.0 - 5.6 05/23 H Specimen Type: BLOOD Comment: Values obtained from A1C measurement s can vary. For atypical A1C assays, a reported value of 7.0 could actually be between 6.72 and 7.28 if measured by a reference method. A reported value of 9.0 could actually be between 8.73 and 9.27. Ref: http://www. ngsp.org/[place] Pdata.asp Ordering Provider: PANCHO HAINES Report Released Date/Time: May 17, 2024 12:47 PM Reporting [facility]: [facility] [address] [address] Performing Lab: [facility] [address] [facility] [address] [facility] BASIC METABOLIC PANEL (non-fast ing) UREA NITROGEN [MASS/VOLUM E] IN SERUM OR PLASMA 16 mg/dL 7 - 25 05/23 Specimen Type: SERUM No comment entered. Ordering Provider: PANCHO HAINES Report Released Date/Time: May 18, 2024 11:38 AM Reporting Lab[facility] [address] [facility] [address] Performing Lab: [facility] [address] [address] [facility] BASIC METABOLIC PANEL (non-fast ing) GLUCOSE [MASS/VOLUM E] IN SERUM OR PLASMA 174 mg/dL 65 - 100 05/23 H Specimen Type: SERUM No comment entered. Ordering Provider: PANCHO HAINES Report Released Date/Time: May 18, 2024 11:38 AM Reporting Lab: [facility] [address] [address] Performing Lab: [facility] [address] [address] [facility] BASIC METABOLIC PANEL (non-fast ing) SODIUM [MOLES/VOLU ME] IN SERUM OR PLASMA 139 mmol/L 135 - 145 05/23 Specimen Type: SERUM No comment entered. Ordering Provider: PANCHO HAINES Report Released Date/Time: May 18, 2024 11:38 AM Reporting Lab: [facility] [address] [address] Performing Lab: [address] [address] [facility] BASIC METABOLIC PANEL (non-fast ing) POTASSIUM [MOLES/VOLU ME] IN SERUM OR PLASMA 4.3 mmol/L 3.5 - 5.0 05/23 Specimen Type: SERUM No comment entered. Ordering Provider: FURCOLO,TIN A Report Released Date/Time: May 18, 2024 11:38 AM Reporting Lab: [facility] [place] [facility] [address] [facility] [address] Performing Lab: [facility] [place] [facility] [address] [facility] [address] [facility] [place] [facility] BASIC METABOLIC PANEL (non-fast ing) CHLORIDE [MOLES/VOLU ME] IN SERUM OR PLASMA 103 mmol/L 100 - 110 05/23 Specimen Type: SERUM No comment entered. Ordering Provider: PANCHO HAINES Report Released Date/Time: May 18, 2024 11:38 AM Reporting Lab: [facility] [place] [facility] [address] [facility] [address] Performing Lab: [facility] [place] [facility] [address] [facility] [address] [facility] [place] [facility] BASIC METABOLIC PANEL (non-fast ing) CARBON DIOXIDE, TOTAL [MOLES/VOLU ME] IN SERUM OR PLASMA 24 meq/L 20 - 30 05/23 Specimen Type: SERUM No comment entered. Ordering Provider: PANCHO HAINES Report Released Date/Time: May 18, 2024 11:38 AM Reporting Lab: [facility] [place] [facility] [address] [facility] [address] Performing Lab: [facility] [place] [facility] [address] [facility] [address] [facility] BASIC METABOLIC PANEL (non-fast ing) CREATININE [MASS/VOLUM E] IN SERUM OR PLASMA 1.15 mg/dL 0.50 - 1.40 05/23 Specimen Type: SERUM No comment entered. Ordering Provider: PANCHO HAINES Report Released Date/Time: May 18, 2024 11:38 AM Reporting Lab: [facility] [place] [facility] [address] [facility] [address] Performing Lab: [facility] [place] [address] [address] [facility] [place] [facility] BASIC METABOLIC PANEL (non-fast ing) GLOMERULAR FILTRATION RATE/1.73 SQ M.PREDICTED [VOLUME RATE/AREA] IN SERUM, PLASMA OR BLOOD BY CREATININE- BASED FORMULA (CKD-EPI 2020) 77 mL/min 60 05/23 Specimen Type: SERUM No comment entered. Ordering Provider: PANCHO HAINES Report Released Date/Time: May 18, 2024 11:38 AM Reporting Lab: [facility] [place] [facility] [address] [facility] [address] Performing Lab: [facility] [place] [facility] [address] [facility] [address] [facility] [place] [facility] ALBUMIN ALBUMIN [MASS/VOLUM E] IN SERUM OR PLASMA 4.1 g/dL 3.5 - 5.0 02/22 Specimen Type: SERUM No comment entered. Ordering Provider: JUAN J MORSE Report Released Date/Time: Jul 26, 2023 09:13 AM Reporting Lab: [facility] [place] [address] [address] Performing Lab: [facility] [place] [facility] [address] [facility] [address] [facility] [place] [facility] ALKALINE PHOSPHATA SE ALKALINE PHOSPHATASE [ENZYMATIC ACTIVITY/VO LUME] IN SERUM OR PLASMA 75 U/L 40 - 150 02/22 Specimen Type: SERUM No comment entered. Ordering Provider: JUAN J MORSE Report Released Date/Time: Jul 26, 2023 09:13 AM Reporting Lab: [facility] [place] [address] [address] Performing Lab: [facility] [place] [facility] [address] [facility] [address] [facility] [place] [facility] CALCIUM CALCIUM [MASS/VOLUM E] IN SERUM OR PLASMA 9.5 mg/dL 8.5 - 10.2 02/22 Specimen Type: SERUM No comment entered. Ordering Provider: JUAN J MORSE Report Released Date/Time: Jul 26, 2023 09:13 AM Reporting Lab: [facility] [place] [address] [address] Performing Lab: [facility] [place] [facility] [address] [facility] [address] [facility] [place] [facility] FERRITIN FERRITIN [MASS/VOLUM E] IN SERUM OR PLASMA 275 ng/mL 20 - 300 02/22 Specimen Type: SERUM No comment entered. Ordering Provider: JUAN J MORSE Report Released Date/Time: Jan 31, 2024 09:44 AM Reporting Lab: [facility] [place] [facility] [address] [facility] [address] Performing Lab: [facility] [place] [facility] [address] [facility] [address] [facility] [place] [facility] MAGNESIUM MAGNESIUM [MASS/VOLUM E] IN SERUM OR PLASMA 1.9 mg/dL 1.6 - 2.6 02/22 Specimen Type: SERUM No comment entered. Ordering Provider: JUAN J MORSE Report Released Date/Time: Jul 26, 2023 09:13 AM Reporting Lab: [facility] [place] [facility] [address] [facility] [address] Performing Lab: [facility] [place] [facility] [address] [facility] [address] [facility] [place] [facility] PO4 PHOSPHATE [MASS/VOLUM E] IN SERUM OR PLASMA 3.2 mg/dL 2.5 - 5.0 02/22 Specimen Type: SERUM No comment entered. Ordering Provider: JUAN J MORSE Report Released Date/Time: Jul 26, 2023 09:13 AM Reporting Lab: [facility] [place] [address] [address] Performing Lab: [facility] [place] [facility] [address] [facility] [address] [facility] [place] [facility] PTH INTACT PARATHYRIN. INTACT [MASS/VOLUM E] IN SERUM OR PLASMA 45.0 pg/mL - 65 02/22 Specimen Type: SERUM No comment entered. Ordering Provider: JUAN J MORSE Report Released Date/Time: Jul 26, 2023 09:13 AM Reporting Lab: [facility] [place] [facility] [address] [facility] [address] Performing Lab: [facility] [place] [facility] [address] [facility] [address] [facility] [place] VITAMIN D (25-OH) 25-HYDROXYV ITAMIN D3 [MASS/VOLUM E] IN SERUM OR PLASMA 30 ng/mL 20 - 50 02/22 Specimen Type: SERUM No comment entered. Ordering Provider: JUAN J MORSE Report Released Date/Time: Jul 26, 2023 09:13 AM Reporting Lab: [facility] [place] [facility] [address] [facility] [address] Performing Lab: [facility] [place] [facility] [address] [facility] [address] [facility] [place] [facility] Vital Signs Combined list of inpatient and outpatient Vital Signs from Department of Defense and Veterans Affairs, ranging from 12 months to all on record, depending upon the facility. Vital Sign Value Date Comments Source SYSTOLIC BLOOD PRESSURE 156 05/31/19 25 10:35:33 [facility] DIASTOLIC BLOOD PRESSURE 104 025 10:35:33 [facility] PULSE OXIMETRY 98 05/31/2024 10:35:33 [facility] WEIGHT 237 05/31/2024 10:35:33 [facility] BMI 35 kg/m2 05/31/2024 10:35:33 [facility] PAIN 10 05/31/2024 10:35:33 [facility] TEMPERATURE 98.8 05/31/2024 10:35:33 [facility] PULSE 64 05/31/2024 10:35:33 [facility] RESPIRATION 16 05/31/2024 10:35:33 [facility] SYSTOLIC BLOOD PRESSURE 145 02/28/20 24 08:15:15 [facility] DIASTOLIC BLOOD PRESSURE 92 024 08:15:15 [facility] PULSE OXIMETRY 97 02/28/2024 08:15:15 [facility] WEIGHT 232 02/28/2024 08:15:15 [facility] [facility] BMI 34 kg/m2 02/28/2024 08:15:15 [facility] PAIN 10 02/28/2024 08:15:15 [facility] TEMPERATURE 98 02/28/2024 08:15:15 [facility] PULSE 62 02/28/2024 08:15:15 [facility] RESPIRATION 16 02/28/2024 08:15:15 [facility] SYSTOLIC BLOOD PRESSURE 140 12/08/19 24 09:07:08 [facility] DIASTOLIC BLOOD PRESSURE 70 024 09:07:08 [facility] PAIN 10 12/08/2023 09:07:08 [facility] SYSTOLIC BLOOD PRESSURE 150 11/24/19 24 09:37:44 [facility] DIASTOLIC BLOOD PRESSURE 90 024 09:37:44 [facility] PULSE OXIMETRY 98 11/24/2023 09:37:44 [facility] WEIGHT 230 11/24/2023 09:37:44 [facility] BMI 34 kg/m2 11/24/2023 09:37:44 [facility] PAIN 10 11/24/2023 09:37:44 [facility] TEMPERATURE 97.8 11/24/2023 09:37:44 [facility] PULSE 60 11/24/2023 09:37:44 [facility] RESPIRATION 16 11/24/2023 09:37:44 [facility] SYSTOLIC BLOOD PRESSURE 120 04/30/20 24 09:05:34 [facility] DIASTOLIC BLOOD PRESSURE 70 024 09:05:34 [facility] PAIN 10 09/06/2023 09:05:34 [facility] Encounters Combined list of: 1) [facility] going backup to the last 18 months, not all [facility] inpatient encounters are included; 2) Encounters from the [facility] facilities going backup to 280 months. Location Location Details Encounter Type Encounter Number Reason For Visit Attending Provider ADM Date DC Date Status Disposition Source [facility] Outpatient Encounter [id number] 12/16 [facility] MANUAL THERAPY 1/ [place] [id number] Diagnos is: ICD-10- CM M79.642 Pain in left hand KATHE GUAMAN E 12/24 [facility] Outpatient Encounter [id number] 12/24 [facility] 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, 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 [id number] Diagnos is: ICD-10- CM G47.33 Obstruc tive sleep apnea (adult) (pediat baldo) SANDRINE REYES A 12/27 [facility] OFFICE O/P EST MOD 30-39 MIN [id number] Diagnos is: ICD-10- CM N18.2 Chronic kidney disease , stage 2 (mild) Jeff MORSE 12/29 [facility] Outpatient Encounter [id number] 12/30 [facility] Outpatient Encounter [id number] 12/30 [facility] ULTRASOUND THERAPY [id number] Diagnos is: ICD-10- CM M79.642 Pain in left hand KATHE GUAMAN LIE E 01/04 [facility] ULTRASOUND THERAPY [id number] Diagnos is: ICD-10- CM M79.642 Pain in left hand KATHE GUAMAN LIE E 01/12 [facility] PSYTX W PT 60 MINUTES [id number] Diagnos is: ICD-10- CM F33.9 Major depress андрей disorde r, recurre nt, unspeci FER Solares 01/14 [facility] ULTRASOUND THERAPY [id number] Diagnos is: ICD-10- CM M79.642 Pain in left hand KATHE GUAMAN LIE E 01/18 [facility] Outpatient [facility]counter [id number] 01/20 [facility] ULTRASOUND THERAPY [id number] Diagnos is: ICD-10- CM M79.642 Pain in left hand KATHE GUAMAN LIE E 01/25 [facility] OFFICE O/P EST LOW 20-29 MIN [id number] Diagnos is: ICD-10- CM M65.322 Trigger finger, left index finger Alyssa WICK 01/25 [facility] Outpatient Encounter [id number] 01/25 [facility] Outpatient Encounter [id number] 01/31 [facility] ULTRASOUND THERAPY [id number] Diagnos is: ICD-10- CM M79.642 Pain in left hand MACHON,KATHE LIE E 01/31 [facility] Outpatient Encounter [id number] 02/01 [facility] PSYTX W PT 60 MINUTES [id number] Diagnos is: ICD-10- CM F43.12 Post-tr aumatic stress disorde r, chronic FER NARANJO 02/03 [facility] ULTRASOUND THERAPY [id number] Diagnos is: ICD-10- CM M79.642 Pain in left hand MACHON,KATHE LIE E 02/07 [facility] Outpatient Encounter [id number] 02/10 [facility] ULTRASOUND THERAPY [id number] Diagnos is: ICD-10- CM M79.642 Pain in left hand MACHON,KATHE LIE E 02/21 [facility] Outpatient Encounter [id number] 02/25 [facility] ULTRASOUND THERAPY [id number] Diagnos is: ICD-10- CM M79.642 Pain in left hand ROWENAKATHE LIE E 03/01 [facility] PSYTX W PT 60 MINUTES [id number] Diagnos is: ICD-10- CM F43.12 Post-tr aumatic stress disorde r, chronic WEISMOORE, 03/04 [facility] ULTRASOUND THERAPY [id number] Diagnos is: ICD-10- CM M79.642 Pain in left hand ROWENAKATHE LIE E 03/07 [facility] PSYTX W PT 60 MINUTES [id number] Diagnos is: ICD-10- CM F43.12 Post-tr aumatic stress disorde r, chronic WEISMOORE, 03/11 [facility] PSYTX W PT 60 MINUTES [id number] Diagnos is: ICD-10- CM F43.12 Post-tr aumatic stress disorde r, chronic WEISMOORE, 03/25 [facility] OFFICE O/P EST HI 40-54 MIN [id number] Diagnos is: ICD-10- CM G56.03 Carpal tunnel syndrom e, bilater al upper limbs OMAR BRISCOE [facility] 03/28 [facility] Outpatient Encounter [id number] 03/28 [facility] ULTRASOUND THERAPY [id number] Diagnos is: ICD-10- CM M79.642 Pain in left hand MACHON,KATHE LIE E 03/30 [facility] OFF/OP EST SEPTEMBER X REQ PHY/QHP [id number] Diagnos is: ICD-10- CM I10 Essenti al (primar y) hyperte nsion Richie MONTELONGO H 03/30 [facility] Outpatient Encounter [id number] MARIA L GO MMED JAWED 03/30 [facility] Outpatient Encounter [id number] 04/07 [facility] ULTRASOUND THERAPY [id number] Diagnos is: ICD-10- CM M79.642 Pain in left hand MACHON,KATHE LIE E 04/14 [facility] Outpatient Encounter [id number] 04/14 [facility] PSYTX W PT 60 MINUTES [id number] Diagnos is: ICD-10- CM F43.12 Post-tr aumatic stress disorde r, chronic FER NARANJO 04/15 [facility] Outpatient Encounter [id number] 04/18 [facility] ULTRASOUND THERAPY [id number] Diagnos is: ICD-10- CM M79.642 Pain in left hand ROWENAKATHE LIE E 04/21 [facility] Outpatient Encounter [id number] 04/22 [facility] OFF/OP EST MAY X REQ PHY/QHP [id number] Diagnos is: ICD-10- CM I10 Essenti al (primar y) hyperte Richie Narayanan JUDAH H 04/26 [facility] Outpatient Encounter [id number] 04/27 [facility] ULTRASOUND THERAPY [id number] Diagnos is: ICD-10- CM M79.642 Pain in left hand ROWENAKATHE LIE E 04/28 [facility] OFF/OP EST MAY X REQ PHY/QHP [id number] Diagnos is: ICD-10- CM I10 Essenti al (primar y) hyperte Richie Narayanan JUDAH H 04/28 [facility] Outpatient Encounter [id number] 04/29 [facility] PSYTX W PT 60 MINUTES [id number] Diagnos is: ICD-10- CM F43.12 Post-tr aumatic stress disorde r, chronic BERNYEFER 05/06 [facility] OFFICE O/P EST HI 40 MIN [id number] Diagnos is: ICD-10- CM G56.00 Carpal tunnel syndrom e, unspeci fied upper limb Alyssa WICK 05/10 [facility] Out[facility] Encounter [id number] 05/10 [facility] GIRMA MDLTY 1+ULTRASOU [place] EA 15 [id number] Diagnos is: ICD-10- CM M79.642 Pain in left hand MACHON,KATHE LIE E 05/18 [facility] Outpatient Encounter [id number] 05/20 [facility] Outpatient Encounter [id number] 05/25 [facility] Outpatient Encounter [id number] 05/26 [facility] PSYTX W PT 60 MINUTES [id number] Diagnos is: ICD-10- CM F43.12 Post-tr aumatic stress disorde r, chronic HEATHEROOREFER 05/27 [facility] GIRMA MDLTY 1+ULTRASOU [place] EA 15 [id number] Diagnos is: ICD-10- CM M79.642 Pain in left hand MACHON,KATHE LIE E 06/02 [facility] Outpatient Encounter [id number] 06/06 [facility] Outpatient Encounter [id number] 06/06 [facility] OFFICE O/P EST MOD 30 MIN [id number] Diagnos is: ICD-10- CM G56.01 Carpal tunnel syndrom e, right upper limb MARIA L GO MMED JAWED 06/08 [facility] GIRMA MDLTY 1+ULTRASOU [place] EA 15 [id number] Diagnos is: ICD-10- CM M79.642 Pain in left hand MACHON,KATHE LIE E 06/09 [facility] Outpatient Encounter [id number] 06/10 [facility] Outpatient Encounter [id number] 06/17 [facility] PSYTX W PT 30 MINUTES [id number] Diagnos is: ICD-10- CM F43.12 Post-tr aumatic stress disorde r, chronic FER NARANJO 06/24 [facility] GIRMA MDLTY 1+ULTRASOU ND EA 15 [id number] Diagnos is: ICD-10- CM M79.642 Pain in left hand KATHE GUAMAN LIE E 06/24 [facility] Out[facility] Encounter [id number] 07/05 [facility] GIRMA MDLTY 1+ULTRAS[place] EA 15 [id number] Diagnos is: ICD-10- CM M79.642 Pain in left hand KATHE GUAMAN LIE E 07/10 [facility] OFFICE O/P EST LOW 20 MIN [id number] Diagnos is: ICD-10- CM M24.541 Contrac kariee, right hand Alyssa WICK L 07/11 [facility] PSYTX W PT 60 MINUTES [id number] Diagnos is: ICD-10- CM F43.12 Post-tr aumatic stress disorde r, chronic FER NARANJO 07/14 [facility] Outpatient Encounter [id number] 07/14 [facility] PSYTX W PT 60 MINUTES [id number] Diagnos is: ICD-10- CM F43.12 Post-tr aumatic stress disorde r, chronic FER NARANJO 07/21 [facility] GIRMA MDLTY 1+ULTRASOU ND EA 15 [id number] Diagnos is: ICD-10- CM M79.642 Pain in left hand KATHE GUAMAN LIE E 07/21 [facility] OFFICE O/P EST MOD 30 MIN [id number] Diagnos is: ICD-10- CM N18.2 Chronic kidney disease , stage 2 (mild) Jeff MORSE 07/25 [facility] PSYTX W PT 60 MINUTES [id number] Diagnos is: ICD-10- CM F43.12 Post-tr aumatic stress disorde r, chronic WEISMOOREFER 08/04 [facility] PSYTX W PT 60 MINUTES [id number] Diagnos is: ICD-10- CM F43.12 Post-tr aumatic stress disorde r, chronic WEISMOOREFER 08/10 [facility] Out[facility]counter [id number] 08/10 [facility] Outpatient [facility]counter [id number] 08/10 [facility] Outpatient Encounter [id number] 09/01 [facility] OFFICE O/P EST LOW 20 MIN [id number] Diagnos is: ICD-10- CM G56.00 Carpal tunnel syndrom e, unspeci fied upper limb Alyssa WICK 09/05 [facility] Outpatient Encounter [id number] 09/05 [facility] PSYTX W PT 60 MINUTES [id number] Diagnos is: ICD-10- CM F43.12 Post-tr aumatic stress disorde r, chronic WEISMOORE, FER 09/07 [facility] Out[facility] Encounter [id number] 09/15 [facility] PSYTX W PT 60 MINUTES [id number] Diagnos is: ICD-10- CM F43.12 Post-tr aumatic stress disorde r, chronic WEISMOORE, FER 09/21 [facility] PSYTX W PT 60 MINUTES [id number] Diagnos is: ICD-10- CM F43.12 Post-tr aumatic stress disorde r, chronic WEISMOORE, FER 10/05 [facility] Out[facility]counter [id number] 10/09 [facility] Out[facility] Encounter [id number] 10/13 [facility] Outpatient Encounter [id number] 10/20 [facility] PSYTX W PT 45 MINUTES [id number] Diagnos is: ICD-10- CM F43.12 Post-tr aumatic stress disorde r, chronic WEISMOOREFER 10/27 [facility] Out[facility] Encounter [id number] 11/16 [facility] OFFICE O/P EST MOD 30 MIN [id number] Diagnos is: ICD-10- CM E11.9 Type 2 diabete s mellitu s without complic ations FURCOLO,TI NA 11/23 [facility] PSYTX W PT 30 MINUTES [id number] Diagnos is: ICD-10- CM F43.12 Post-tr aumatic stress disorde r, chronic WEISMOORE, FER 11/24 [facility] PSYTX W PT 60 MINUTES [id number] Diagnos is: ICD-10- CM F43.12 Post-tr aumatic stress disorde r, chronic WEISMOORE, FER 12/01 [facility] OFFICE O/P EST LOW 20 MIN [id number] Diagnos is: ICD-10- CM G56.03 Carpal tunnel syndrom e, bilater al upper limbs Alyssa WICK 12/07 [facility] Outpatient Encounter [id number] 12/07 [facility] SPECIAL SUPPLIES PHYS/QHP [id number] Diagnos is: ICD-10- CM G47.33 Obstruc tive sleep apnea (adult) (pediat baldo) MATTIE SETHI P 12/07 [facility] PSYTX W PT 60 MINUTES [id number] Diagnos is: ICD-10- CM F43.12 Post-tr aumatic stress disorde r, chronic BERNYE, FER 12/08 [facility] Out[facility] Encounter [id number] FURCOLO,TI NA 12/11 [facility] Out[facility] Encounter [id number] 12/15 [facility] Out[facility] Encounter [id number] 12/22 [facility] PSYTX W PT 45 MINUTES [id number] Diagnos is: ICD-10- CM F43.12 Post-tr aumatic stress disorde r, chronic ALANISSMOORE, FER 01/05 [facility] PSYTX W PT 60 MINUTES [id number] Diagnos is: ICD-10- CM F43.12 Post-tr aumatic stress disorde r, chronic WEISMOORE FRE 01/19 [facility] PSYTX W PT 45 MINUTES [id number] Diagnos is: ICD-10- CM F43.12 Post-tr aumatic stress disorde r, chronic ALANISSMOOREFER 02/02 [facility] Out[facility]counter [id number] 02/09 [facility] Out[facility] Encounter [id number] 02/14 [facility] PSYTX W PT 45 MINUTES [id number] Diagnos is: ICD-10- CM F43.12 Post-tr aumatic stress disorde r, chronic WEISMOORE, FER 02/16 [facility] OFFICE O/P EST MOD 30 MIN [id number] [id number] Diagnos is: ICD-10- CM N18.2 Chronic kidney disease , stage 2 (mild) Jeff MORSE 02/27 [facility] Out[facility] Encounter [id number] 03/02 [facility] PSYTX W PT 60 MINUTES [id number] Diagnos is: ICD-10- CM F43.12 Post-tr aumatic stress disorde r, chronic WEISMOOREFER 03/16 [facility] Out[facility] [id number] 03/23 [facility] Encounter [id number] 04/20 [facility] PSYTX W PT 45 MINUTES [id number] Diagnos is: ICD-10- CM F43.12 Post-tr aumatic stress disorde r, chronic WEISMOOREFER 04/27 [facility] Outpatient Encounter [id number] 05/10 [facility] Outpatient Encounter [id number] 05/22 [facility] Out[facility]counter [id number] 05/22 [facility] Outpatient Encounter [id number] 05/25 [facility] OFFICE O/P EST HI 40 MIN [id number] Diagnos is: ICD-10- CM E11.9 Type 2 diabete s mellitu s without complic ations FURCOLO,TI NA 05/31 [facility] Outpatient [facility]counter [id number] 06/04 [facility] Outpatient Encounter [id number] 06/08 [facility] Procedures Combined list of: 1) Procedures from Department of Veterans Affairs facilities going back up to thelast 18 months, not all [place] non-surgical procedures are included; 2) All procedures from the Department of Defense facilities. Procedure Procedure Type Code Date Perfomer Comments Sourc e EDUCATIONAL SUPPLIES, SUCH A S BOOKS, TAPES, AND PAMPHLETS, FOR THE PATIENT'S EDUCATION AT COST TO PHYSICIAN OR OTHER QUALIFIED HEALTH APPLIQUER ZIGZAG 10/20/2000 [facility] Social History Combined list of available smoking, tobacco, and other social history from Department of Defense and Veterans Affairs facilities. Social History Type Response Date Comment Source Tobacco smoking status IAIS VA-TOBACCO USE EVERY DAY CIGARETTES 05/31/2024 [facility] History of tobacco use VA-TOBACCO NEVER USED OTHER TYPE [facility]20[facility] History [facility] tobacco use MO-TOBACCO USER EVERY DAY 06/08/2023 [facility] [place]18[facility]2021 [facility] [place] PRACTIC[facility] UROLOGIST NO 07/31/2018 [facility] [place] [facility] History of tobacco use QUIT TOBACCO USE IN PAST YEAR 01/30/2018 a month ago [facility] [place] History of tobacco use CURRENT SMOKER 07/28/2017 2 cigarettes per day [facility] [place] History of tobacco use CURRENT SMOKER 12[facility]08/2016 [facility] [place] History of tobacco use CURRENT SMOKER 06[facility]11/2016 [facility] [place] History of tobacco use V1-PT NOT INTERESTED IN QUIT TOBACCO USE 12[facility]10/2015 [facility] [place] History of tobacco use CURRENT SMOKER 02/06/2015 1 1/2 Packs per week [facility] [place] History of tobacco use CURRENT SMOKER 07/04/2013 pack per week [facility] History of tobacco use V1-PT READY TO QUIT TOBACCO USE 06/24/2011 [facility] [place] History [facility] tobacco use V1-PT DECLINES TOBACCO CESSATION MEDS 03/31/2011 [facility] [place] [facility] History of tobacco use CURRENT SMOKER 09/25/2010 [facility] [place] This section is an empty social history section. DoD Plan of Care List of future care activities from Department of Veterans Affairs facilities. Additional future care activities may be listed in the Assessment and Plan section. Date/Time Care Activity Care Activity Detail Facili ty 06/28/2024 AMBULATORY - MEDICINE AM[facility] 07[facility]05/2024 AMBULATORY - MEDICINE [facility] 07/06/2024 AMBULATORY - PSYCHIATRY AMBULATORY - PSYC [facility] [facility] 07/06/2024 AMBULATORY - MEDICINE AMBULATORY - MEDICI NE [facility] 07/13/2024 AMBULATORY - PSYCHIATRY AMBULATORY - PSYC HIATRY [facility] 07/20/2024 AMBULATORY - PSYCHIATRY AMBULATORY - PSYC HIATRY [facility] [place] [facility] 07/27/2024 AMBULATORY - PSYCHIATRY AMBULATORY - PSYC HIATRY [facility] [place] [facility] 09/13/2024 AMBULATORY - MEDICINE AMBULATORY - MEDICI NE [facility] [place] [facility] 11/29/2024 AMBULATORY - MEDICINE AMBULATORY - MEDICI NE [facility] [place] [facility] 05/31/2024 Consult Order COMMUNITY CARE-O RTHO GENERAL Cons Assembler Surgical Garment's Choice [facility] 05/31/2024 Consult Order PHARMACY/NHM OUT PT Cons Assembler Surgical Garment's Choice [facility] [place] [facility]
--- OUTSIDE RECORDS SUMMARY | 2024-06-19 13:42 | XMS_ITS ---
Author Name [facility] [place] Organization [facility] Address [address] [place] [address] Care Team Providers Care Stoneworker Name Role Phone YANCYSONIA Primary Care Provider [...] Huitron's Name Patient's Relationship to Policy Huitron [facility] CE ORGANIZAT ION [facility] FIRE DEPT May 09, 2023 [id number] JAMAAL ALTMAN SE PATIENT [place] PRESCRIPT ION [employer] [facility] Nov 07, 2023 [id number] SOFÍA ALTMAN JR PATIENT [place] PREFERRED PROVIDER ORGANIZAT ION (PPO) [facility] Nov 06, 2016 [id number] [phone] JAMAAL ALTMAN SE PATIENT [employer] POINT OF SERVICE [facility] Nov 06, 2016 [id number] [phone] JAMAAL ALTMAN SE PATIENT [facility] Nov 06, 2016 [id number] JAMAAL ALTMAN SE PATIENT [facility] PRESCRIPT ION [facility] Nov 06, 2016 [id number] JAMAAL ALTMAN SE PATIENT [facility] Nov 06, 2009 [id number] [phone] JAMAAL ALTMAN SE PATIENT Selected Encounter This section includes the information on record at [place] for the Encounter. Date/Time Encounter Type Encounter Description Reason Provider Source Feb 28, 2024 08:00 AM OFFICE O/P EST MOD 30 MIN RENAL/NEPHROL(EXCE PT DIALYSIS) ICD-10-CM N18.2 Chronic kidney disease, stage 2 (mild) JANETTE MORSE [facility] Encounter Template Text not used by [place] Assessments - Encounter Diagnoses This section includes the primary and secondary diagnoses documented for the Encounter. Date/Time Primary/Secondary Diagnosis Diagnosis Name Provider Source Feb 29, 2024 08:44 AM PRIMARY Chronic kidney disease, stage 2 (mild) SADIE MORSE [facility] [place] [facility] Feb 29, 2024 08:44 AM SECONDARY Essential (primary) hypertension SADIE MORSE [facility] [place] [facility] Feb 29, 2024 08:44 AM SECONDARY Pure hypercholesterolem ia, unspecified SADIE MORSE [facility] [place] [facility] Feb 29, 2024 08:44 AM SECONDARY Type 2 diabetes mellitus without complications SADIE MORSE [facility] Plan of Treatment: Future Appointments (+ 6 months) and Future Tests (+/- 45 days) The Plan of Treatment section includes future care activities for the patient from all [place] treatmentfacilities. This section includes future appointments and future orders which are active, pending or scheduled. Future Appointments This section includes appointments that were scheduled to occur 6 months from the date of the Encounter, up to a maximum of 20 appointments. The data comes from all [place] treatment facilities. Appointment Date/Time Appointment Type Appointme nt Facility Name Mar 16, 2024 08:30 AM [facility] Apr 27, 2024 08:30 AM AMBULATORY - PSYCHIATRY [facility] [place] [facility] May 31, 2024 10:30 AM AMBULATORY [...] - PSYCHIATRY [facility] [place] [facility] Lab Results: +/- 30 days of the encounter This section includes the Chemistry and Hematology Lab Results on record with [place] for the patient. Radiology Reports and Pathology Reports are provided separately, in subsequent sections. Lab Results This section contains the Chemistry/Hematology Results that were resulted 30 days before or 30 daysafter the date of the Encounter. Date/Time Source Result Type Result - Unit Interpretation Reference Range Comment Feb 23, 2024 09:43 AM [facility] VITAMIN D (25-OH) Specimen Type: SERUM No comment entered. Ordering Provider: SADIE MORSE Report Released Date/Time: Jul 26, 2023 09:13 AM Reporting Lab: [facility] [place] [facility] [address] [facility] [address] Performing Lab: [facility] [address] [address] VITAMIN D (25-OH) 30 ng/mL 20-50 Feb 23, 2024 09:43 AM [facility] MAGNESIUM Specimen Type: SERUM No comment entered. Ordering Provider: SADIE MORSE Report Released Date/Time: Jul 26, 2023 09:13 AM Reporting Lab: [facility] [address] [address] Performing Lab: [place] [facility] [place] [facility] [address] [facility] [address] MAGNESIUM 1.9 mg/dL 1.6-2.6 Feb 23, 2024 09:43 AM [facility] [place] [facility] CALCIUM Specimen Type: SERUM No comment entered. Ordering Provider: SADIE MORSE Report Released Date/Time: Jul 26, 2023 09:13 AM Reporting Lab: [facility] [place] [facility] [address] [facility] [address] Performing Lab: [place] [facility] [place] [facility] [address] [facility] [address] CALCIUM 9.5 mg/dL 8.5-10.2 Feb 23, 2024 09:43 AM [facility] [place] [facility] PO4 Specimen Type: SERUM No comment entered. Ordering Provider: SADIE MORSE Report Released Date/Time: Jul 26, 2023 09:13 AM Reporting Lab: [facility] [place] [facility] [address] [facility] [address] Performing Lab: [place] [facility] [place] [facility] [address] [facility] [address] PO4 3.2 mg/dL 2.5-5.0 Feb 23, 2024 09:43 AM [facility] PTH INTACT Specimen Type: SERUM No comment entered. Ordering Provider: SADIE MORSE Report Released Date/Time: Jul 26, 2023 09:13 AM Reporting Lab: [facility] [place] [facility] [address] [facility] [address] Performing Lab: [facility] [place] [facility] [address] [facility] [address] PTH INTACT 45.0 pg/mL 10-65 Feb 23, 2024 09:43 AM [facility] [place] [facility] ALBUMIN Specimen Type: SERUM No comment entered. Ordering Provider: SADIE MORSE Report Released Date/Time: Jul 26, 2023 09:13 AM Reporting Lab: [place] [facility] [place] [facility] [address] [facility] [address] Performing Lab: [facility] [place] [facility] [address] [facility] [address] ALBUMIN 4.1 g/dL 3.5-5.0 Feb 23, 2024 09:43 AM [facility] PHOSPHATASE Specimen Type: SERUM No comment entered. Ordering Provider: SADIE MORSE Report Released Date/Time: Jul 26, 2023 09:13 AM Reporting Lab[facility] [place] [facility] [address] [facility] [address] Performing Lab: [facility] [address] [facility] [address] ALKALINE PHOSPHATASE 75 U/L 40-150 Feb 23, 2024 09:43 AM [facility] FERRITIN Specimen Type: SERUM No comment entered. Ordering Provider: SADIE MORSE Report Released Date/Time: Jan 31, 2024 09:44 AM Reporting Lab: [facility] [address] [facility] [address] Performing Lab: [facility] [address] [address] FERRITIN 275 ng/mL 20-300 Feb 23, 2024 09:43 AM [facility] LIPID PANEL, NON FASTING Specimen Type: SERUM No comment entered. Ordering Provider: SADIE MORSE Report Released Date/Time: Jul 26, 2023 09:13 AM Reporting Lab: [facility] [address] [address] Performing Lab: [facility] [address] [address] CHOLESTEROL 190 mg/dL TRIGLYCERIDE 99 mg/dL 0-150 LDL calculated 125 mg/dL 0-129 CHOL/HDL 4.2 HDL CHOLESTEROL 45 mg/dL 40-60 Feb 23, 2024 09:43 AM [facility] MICROALBUMIN CREATININE RATIO PANEL Specimen Type: URINE No comment entered. Ordering Provider: SADIE MORSE Report Released Date/Time: Jul 26, 2023 09:13 AM Reporting Lab: [facility] [address] Performing Lab: [address] [address] MICROALBUMIN/C REATININE RATIO 11.5 mg/g 0-29.9 MICROALBUMIN,Q UANTITATIVE 1.8 mg/dL RR UNAVAIL CREATININE URINE 156.12 mg/dL Feb 23, 2024 09:43 AM [facility] IRON & TIBC PANEL Specimen Type: SERUM No comment entered. Ordering Provider: SADIE MORSE Report Released Date/Time: Jan 31, 2024 09:44 AM Reporting Lab: [address] [address] Performing Lab: [address] [address] TIBC 385 ug/dL 204-475 IRON 105 ug/dL 40-160 Transferrin Saturation 27.2 20.0-50.0 Transferrin (TRF) 292 mg/dL 200-360 Feb 23, 2024 09:43 AM [facility] BASIC METABOLIC PANEL (non-fasting) Specimen Type: SERUM No comment entered. Ordering Provider: SADIE MORSE Report Released Date/Time: Jul 26, 2023 09:13 AM Reporting Lab: [address] [address] Performing Lab: [address] [address] UREA NITROGEN 18 mg/dL 7-25 GLUCOSE 149 mg/dL H 65-100 SODIUM 139 mmol/L 135-145 POTASSIUM 4.4 mmol/L 3.5-5.0 CHLORIDE 104 mmol/L 100-110 CO2 26 meq/L 20-30 CREATININE, Serum 1.12 mg/dL 0.50-1.40 eGFR(CKD-EPI 2020) 80 mL/min >60 Feb 23, 2024 09:43 AM [facility] CBC Specimen Type: BLOOD No comment entered. Ordering Provider: SADIE MORSE Report Released Date/Time: Jan 31, 2024 09:44 AM Reporting Lab: [facility] [address] [facility] [address] Performing Lab: [facility] [address] [facility] [address] WBC 7.44 10*3/uL 4.50-11.00 RBC 5.25 10*6/uL 4.23-5.66 HGB 15.1 g/dL 12.8-17 HCT 45.4 39.2-50.4 MCV 86.5 fL 82-99 MCHC 33.3 g/dL 30.8-35.1 PLT 208 10*3/uL 140-360 RDW-CV 12.6 12.0-16.0 MCH 28.8 pg 26.2-32.6 Vital Signs: All taken on the encounter date This section contains inpatient and outpatient Vital Signs collected on the date of the Encounter. Date/Time Temperature Pulse Blood Pressure Respiratory Rate SP02 Pain Height Weight Body Mass Index Source Feb 28, 2024 08:15 AM 98 62 145/92 16 97 10 232 34 [facility] Social History: Smoking Status (Most current) and Tobacco Use (All prior to encounter date) This section includes the most current, and the historical, smoking and tobacco- related health factors from the [place] facility where the Encounter took place. Current Smoking Status This section includes the most current smoking, or tobacco-related health factor, from the [place] facility where the Encounter took place. Date/Time Current Smoking Status Comment [facility] Jun 08, 2023 09:30 AM VA-TOBACCO USE [place] 30 MIN OF WAKEUP [facility] Tobacco Use History This section includes a history of the smoking, or tobacco-related health factors, that were collected on or before the date of the Encounter. The data comes from the [place] facility where the Encounter took place. 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 [facility] Jun 08, 2023 09:30 AM VA-TOBACCO USE MED NO [facility] Jun 08, 2023 09:30 AM VA-TOBACCO USE WI 30 MIN OF WAKEUP [facility] [place] [facility] Jun 08, 2023 09:30 AM VA-TOBACCO USER EVERY DAY [facility] [place] [facility] Jun 23, 2022 09:00 AM VA-TOBACCO FORMER USER [facility] [place] [facility] Jun 23, 2022 09:00 AM VA-TOBACCO QUIT < 1 YEAR [facility] [place] [facility] May 18, 2021 11:00 AM VA-TOBACCO USE > 15 LESS THAN 30 YEARS [facility] [place] [facility] May 18, 2021 11:00 AM VA-TOBACCO USE ADVICE [facility] [place] [facility] May 18, 2021 11:00 AM VA-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 USE 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 [facility] [place] [facility] May 18, 2021 11:00 AM VA-TOBACCO USE MED NO [facility] [place] [facility] May 18, 2021 11:00 AM VA-TOBACCO USE WI 30 MIN OF WAKEUP [facility] [place] [facility] May 18, 2021 11:00 AM VA-TOBACCO USER SOME DAYS [facility] [place] [facility] Jul 31, 2018 08:47 AM VA-TOBACCO DOESNT USE WI 30 MIN WAKEUP [facility] [place] [facility] Jul 31, 2018 08:47 AM VA-TOBACCO USE > 15 LESS THAN 30 YEARS [facility] [place] [facility] Jul 31, 2018 08:47 AM VA-TOBACCO USE ADVICE [facility] [place] [facility] Jul 31, 2018 08:47 AM VA-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 USE 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 [facility] [place] [facility] Jul 31, 2018 08:47 AM VA-TOBACCO USE MED NO [facility] [place] [facility] Jul 31, 2018 08:47 AM VA-TOBACCO USER SOME DAYS [facility] [place] [facility] Jan 30, 2018 09:19 AM QUIT TOBACCO USE IN PAST YEAR a month ago [facility] [place] [facility] Jul 28, 2017 09:31 AM CURRENT SMOKER 2 cigarettes per day [facility] [place] [facility] Dec 08, 2016 08:49 AM CURRENT SMOKER [facility] Dec 08, 2016 08:49 AM V1-PT NOT INTERESTED IN QUIT TOBACCO USE [facility] Jun 11, 2016 10:00 AM CURRENT SMOKER [facility] Dec 10, 2015 10:39 AM V1-PT NOT INTERESTED IN QUIT TOBACCO USE [facility] Feb 06, 2015 08:34 AM CURRENT SMOKER 1 1/2 Packs per week [facility] Feb 06, 2015 08:34 AM V1-PT NOT INTERESTED IN QUIT TOBACCO USE [facility] Jul 04, 2013 09:37 AM CURRENT SMOKER pack per week [facility] Jun 24, 2011 08:10 AM V1-PT DECLINES REF TO TOBACCO CESS PRGM [facility] Jun 24, 2011 08:10 AM V1-PT READY TO QUIT TOBACCO USE [facility] Mar 31, 2011 10:12 AM V1-PT DECLINES REF TO TOBACCO CESS PRGM [facility] Mar 31, 2011 10:12 AM V1-PT DECLINES TOBACCO CESSATION MEDS [facility] Mar 31, 2011 10:12 AM V1-PT NOT INTERESTED IN QUIT TOBACCO USE [facility] September 25, 2010 11:03 AM CURRENT SMOKER [facility] September 25, 2010 11:03 AM QUIT TOBACCO USE IN PAST YEAR [facility] Encounter Notes: All associated encounter notes This section contains the clinical notes associated to the Encounter. Date/Time Encounter Note(s) Provider Source Feb 28, 2024 07:53 AM NEPHROLOGY E & M NOTE: LOCAL TITLE: NEPHROLOGY NOTE STANDARD TITLE: NEPHROLOGY E & M NOTE DATE OF NOTE: FEB 28, 2024@07:53 ENTRY DATE: FEB 28, 2024@07:53:57 AUTHOR: ROSIO MORSE COSIGNER: URGENCY: STATUS: COMPLETED Nephrology Note Follow-Up 02/28/24 08:00 Blood Pressure: 145/92 (02/28/2024 08:15) Pain: 10 (02/28/2024 08:15) Patient Height: 69 in [175.3 cm] (06/08/2023 09:18) Patient Weight: 232 lb [105.23 kg] (02/28/2024 08:15) Pulse: 62 (02/28/2024 08:15) Respiration: 16 (02/28/2024 08:15) Temperature: 98 F [36.7 C] (02/28/2024 08:15) Consultation Problems: CKD stage 2 History:49 year old male with a history of hypertension, obesity, hyperlipidemia presenting for evaluation of his renal disease and related problems. the patient denies any new problems. he denies chest pain, SOB, edema, rash or cough. Except for recurrent hand pain(02/15). He says he has been started on Metformin for his diabetes by his outside primary care Dr. Puentes. He says he is still trying to get complete control. He says he is exercising and eating better. He has no new problems. Active and Recently Outpatient Medications (including Supplies): Active Outpatient Medications Status 1) ACCU-CHEK GUIDE (GLUCOSE) TEST STRIP USE 1 STRIP TO ACTIVE TEST BLOOD SUGARS DIRECTED BY PROVIDER 2) DICLOFENAC NA 1% TOP GEL APPLY 2 GRAMS TOPICALLY FOUR ACTIVE TIMES A DAY FOR OSTEOARTHRITIS - USE DOSING CARD PROVIDED IN BOX 3) LANCET,SOFTCLIX USE 1 LANCET TOPICALLY ONCE A WEEK TO ACTIVE TEST BLOOD SUGAR 4) LIDOCAINE 5% OINT APPLY MODERATE AMOUNT TOPICALLY ACTIVE TWICE DAILY FOR NERVE PAIN 5) LISINOPRIL 5MG TAB TAKE THREE TABLETS BY MOUTH ONCE ACTIVE DAILY TO CONTROL BLOOD PRESSURE 6) METFORMIN HCL 500MG 24HR SA TAB TAKE TWO TABLETS BY ACTIVE MOUTH ONCE DAILY 7) PANTOPRAZOLE NA 40MG EC TAB TAKE ONE TABLET BY MOUTH ACTIVE EVERY MORNING 30 MINUTES BEFORE BREAKFAST 8) PREGABALIN 225MG ORAL CAP TAKE ONE CAPSULE BY MOUTH ACTIVE TWICE DAILY FOR NERVE PAIN 9) ROSUVASTATIN CA 20MG TAB TAKE ONE TABLET BY MOUTH ACTIVE ONCE DAILY FOR HIGH CHOLESTEROL NOTE DOSE Active Non-VA Medications Status 1) Non-VA ATENOLOL 100MG TAB 100MG BY MOUTH TWICE DAILY ACTIVE 10 Total Medications Allergies/Adverse Reactions: GABAPENTIN, NORTRIPTYLINE Vital Signs: As above General:Slightly Obese male [...] without uremic sx. The patient's lab drawn Feb 16, 2024 showed normal bicarb(26), potassium(4.4), creatinine(1.12), urine microalb/cr ratio 11.5 and his GFR was 80. The patient will continue his present medical regimen returning in 12 months obtaining labs for that visit. #2. Hypertension: he patient's blood pressure today 145/92(with level 10/10 pain involving his hands). He states his BP is managed by Dr. Ramone Mejia. He states he is presently on atenolol, lisinopril, and amlopine. #3. Nutritional/Obesity: The patient isobese. His weight is 235. He is encouraged to exercises and try to adjust his diet to help improve his weight. His albumin was 4.0 which is normal . #5. Hypercholesterolemia: the patient was recently started on Rosuvastatin to control his cholesterol(03/01) was 190. He is encouraged to take his statin as prescibed and to use a heart healthy low fat diet and to exercise. #6. Anemia: His H/H were normal at 15/45 with a MCV of 77(Feb). His TIBC was 385. iron 105, ferritin 275 and TSAT was 27. No evidence of iron deficiency. 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 These studies are in acceptable ranges with no indication for bone density studies. #8. Diabetes: the patient's hgbA1c was 6.8 December(no updated studies available). He is presently on Metformin which he says he is working to improve his glucose. He is exercing more and improving his diet. His diabetes is managed by Dr. Puentes an outside doctor. This was a 20 minute visit > [...] this [facility] (local) and dispensed from another [place] or [facility] facility (remote) as well as [...] instructed to update this list, discard old /ever/ ROSIO MORSE M.D. 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
--- OUTSIDE RECORDS SUMMARY | 2024-06-19 13:42 | XMS_ITS | Encounter Summary ---
Author Name [facility] [facility] [place] [facility] [place] Address [address] [place] [address] Care Team Providers Care Ticket Sales Supervisor Name Role Phone YANCYSONIA Primary Care Provider [...] Huitron's Name Patient's Relationship to Policy [facility] FIRE DEPT May 09, 2023 [id number] JAMAAL ALTMAN SE PATIENT [place] PRESCRIPT ION BCBS [facility] Nov 07, 2023 [id number] SOFÍA ALTMAN JR PATIENT SILVERNA PREFERRED PROVIDER ORGANIZAT ION (PPO) [facility] Nov 06, 2016 [id number] [phone] JAMAAL ALTMAN SE PATIENT CIGNA POINT OF SERVICE [facility] Nov 06, 2016 [id number] 0001 JAMAAL ALTMAN SE PATIENT [facility] MENTAL HEALTH [facility] Nov 06, 2016 [id number] 0001 JAMAAL ALTMAN SE PATIENT [facility] Nov 06, 2016 [id number] JAMAAL ALTMAN SE PATIENT [facility]GAN Nov 06, 2009 [id number] JAMAAL ALTMAN SE PATIENT Selected Encounter This section includes the information on record at [place] for the Encounter. Date/Time Encounter Type Encounter Description Reason Provider Source Mar 16, 2024 08:30 AM PSYTX W PT 60 MINUTES [facility] - IND ICD-10-CM F43.12 Post-traumatic stress disorder, chronic WEISMOORE,MATTIE E IHE Encounter Template Text not used by [place] Assessments - Encounter Diagnoses This section includes the primary and secondary diagnoses documented for the Encounter. Date/Time Primary/Secondary Diagnosis Diagnosis Name Provider Source Mar 28, 2024 01:40 PM PRIMARY Post-traumatic stress disorder, chronic WEISMOORE,MATTIE E [place] [facility] [place] [facility] Mar 28, 2024 01:40 PM SECONDARY Major depressive disorder, recurrent, unspecified WEISMOORE,MATTIE E [place] [facility] [place] [facility] Plan [...] 27, 2024 08:30 AM AMBULATORY - PSYCHIATRY [place] [facility] [place] [facility] May 31, 2024 10:30 AM AMBULATORY - MEDICINE [place] [facility] [place] [facility] Jun 28, 2024 10:30 AM AMBULATORY - MEDICINE [place] [facility] [place] [facility] Jul 05, 2024 09:00 AM AMBULATORY - MEDICINE [place] [facility] [place] [facility] Jul 06, 2024 08:30 AM AMBULATORY - PSYCHIATRY [facility] [place] [facility] Jul 06, 2024 09:00 AM AMBULATORY - MEDICINE [place] [facility] [place] [facility] Jul 13, 2024 08:30 AM AMBULATORY - PSYCHIATRY [facility] [place] [facility] Jul 20, 2024 08:30 AM AMBULATORY - PS[facility]CHIATRY [facility] [place] [facility] Jul 27, 2024 08:30 AM AMBULATORY - PS[facility]CHIATRY [facility] [place] [facility] September 13, 2024 01:30 PM AMBULATORY - MEDICINE [place] [facility] [place] [facility] Lab Results: +/- 30 days of [...] Range Comment Feb 23, 2024 09:43 AM [facility] VITAMIN D (25-[place]) Specimen Type: SERUM No comment entered. Ordering Provider: SADIE MORSE Report Released Date/Time: Jul 26, 2023 09:13 AM Reporting Lab: [facility] [address] [address] Performing Lab: [facility] [address] VITAMIN D (25-OH) 30 ng/mL 20-50 Feb 23, 2024 09:43 AM [facility] CALCIUM Specimen Type: SERUM No comment entered. Ordering Provider: SADIE MORSE Report Released Date/Time: Jul 26, 2023 09:13 AM Reporting Lab: [facility] [address] [address] Performing Lab: [facility] [address] CALCIUM 9.5 mg/dL 8.5-10.2 Feb 23, 2024 09:43 AM [facility] MAGNESIUM Specimen Type: SERUM No comment entered. Ordering Provider: SADIE MORSE Report Released Date/Time: Jul 26, 2023 09:13 AM Reporting Lab: [facility] [place] [facility] [address] [address] Performing Lab: [place] [facility] [place] [facility] [address] [address] MAGNESIUM 1.9 mg/dL 1.6-2.6 Feb 23, 2024 09:43 AM [facility]N [facility] PO4 Specimen Type: SERUM No comment entered. Ordering Provider: SADIE MORSE Report Released Date/Time: Jul 26, 2023 09:13 AM Reporting Lab: [facility]TR[facility] [address] [address] Performing Lab: [facility] [address] [address] PO4 3.2 mg/dL 2.5-5.0 Feb 23, 2024 09:43 AM [facility] PTH INTACT Specimen Type: SERUM No comment entered. Ordering Provider: SADIE MORSE Report Released Date/Time: Jul 26, 2023 09:13 AM Reporting Lab: [facility] [facility] [address] [address] Performing Lab: [facility] [address] [address] PTH INTACT 45.0 pg/mL 10-65 Feb 23, 2024 09:43 AM [facility] ALBUMIN Specimen Type: SERUM No comment entered. Ordering Provider: SADIE MORSE Report Released Date/Time: Jul 26, 2023 09:13 AM Reporting Lab: [facility] [place] [facility] [address] [address] Performing Lab: [facility] [address] [address] ALBUMIN 4.1 g/dL 3.5-5.0 Feb 23, 2024 09:43 AM [facility] ALKALINE PHOSPHATASE Specimen Type: SERUM No comment entered. Ordering Provider: SADIE MORSE Report Released Date/Time: Jul 26, 2023 09:13 AM Reporting Lab: [facility]ITAL[facility] [address] [address] Performing Lab: [facility]TRS[facility]ITALUS[facility] [address] [address] ALKALINE PHOSPHATASE 75 U/L 40-150 Feb 23, 2024 09:43 AM [facility] FERRITIN Specimen Type: SERUM No comment entered. Ordering Provider: SADIE MORSE Report Released Date/Time: Jan 31, 2024 09:44 AM Reporting Lab: [facility]ITALUSE[address] [address] Performing Lab: [facility] [address] FERRITIN 275 ng/mL 20-300 Feb 23, 2024 09:43 AM [facility] MICROALBUMIN CREATININE RATIO PANEL Specimen Type: URINE No comment entered. Ordering Provider: SADIE MORSE Report Released Date/Time: Jul 26, 2023 09:13 AM Reporting Lab: [facility]OSPITALUSETS [address] [address] Performing Lab: [facility]TR[facility]ITALUSETS [address] [address] MICROALBUMIN/C REATININE RATIO 11.5 mg/g 0-29.9 MICROALBUMIN,Q UANTITATIVE 1.8 mg/dL RR UNAVAIL CREATININE URINE 156.12 mg/dL Feb 23, 2024 09:43 AM [facility] LIPID PANEL, NON FASTING Specimen Type: SERUM No comment entered. Ordering Provider: SADIE MORSE Report Released Date/Time: Jul 26, 2023 09:13 AM Reporting Lab: [facility]TRPRINC[facility]TRN [facility]ITALUSETS [facility] [address] [address] Performing Lab: [facility] [address] CHOLESTEROL 190 mg/dL TRIGLYCERIDE 99 mg/dL 0-150 LDL calculated 125 mg/dL 0-129 CHOL/HDL 4.2 HDL CHOLESTEROL 45 mg/dL 40-60 Feb 23, 2024 09:43 AM [facility] IRON & TIBC PANEL Specimen Type: SERUM No comment entered. Ordering Provider: SADIE MORSE Report Released Date/Time: Jan 31, 2024 09:44 AM Reporting Lab: [facility] [address] [address] Performing Lab: [address] [address] TIBC 385 ug/dL 204-475 IRON 105 ug/dL 40-160 Transferrin Saturation 27.2 20.0-50.0 Transferrin (TRF) 292 mg/dL 200-360 Feb 23, 2024 09:43 AM [facility] BASIC METABOLIC PANEL (non-fasting) Specimen Type: SERUM No comment entered. Ordering Provider: SADIE MORSE Report Released Date/Time: Jul 26, 2023 09:13 AM Reporting Lab: [address] [address] Performing Lab: [address] [address] UREA NITROGEN 18 mg/dL 7-25 GLUCOSE 149 mg/dL H 65-100 SODIUM 139 mmol/L 135-145 POTASSIUM 4.4 mmol/L 3.5-5.0 CHLORIDE 104 mmol/L 100-110 CO2 26 meq/L 20-30 CREATININE, Serum 1.12 mg/dL 0.50-1.40 eGFR(CKD-EPI 2020) 80 mL/min >60 Feb 23, 2024 09:43 AM [facility] CBC Specimen Type: BLOOD No comment entered. Ordering Provider: SADIE MORSE Report Released Date/Time: Jan 31, 2024 09:44 AM Reporting Lab: [address] [address] Performing Lab: [address] [address] WBC 7.44 10*3/uL 4.50-11.00 RBC 5.25 10*6/uL [...] took place. Date/Time Current Smoking Status Comment [facility] Jun 08, 2023 09:30 AM VA-TOBACCO USER EVERY DAY [place] [facility] [place] [facility] Tobacco Use History This section includes a history of the smoking, or tobacco-related health factors, that were collected on or before the date of the Encounter. The data comes from the [place] facility where the Encounter took place. Date/Time Smoking Status/Tobac co Use Comment Facility Jun 08, 2023 09:30 AM VA-TOBACCO USE ADVICE [place] [facility] [place] [facility] Jun 08, 2023 09:30 AM VA-TOBACCO USE HEALTH SAFETY COORDINATOR NO [facility] [place] [facility] Jun 08, 2023 09:30 AM VA-TOBACCO USE MED NO [facility] [place] [facility] Jun 08, 2023 09:30 AM VA-TOBACCO USE WI 30 MIN OF WAKEUP [place] [facility] [place] [facility] Jun 08, 2023 09:30 [...] THAN 30 YEARS [facility] [place] [facility] May 18, 2021 11:00 AM VA-TOBACCO USE ADVICE [facility] [place] [facility] May 18, 2021 11:00 AM VA-TOBACCO USE HEALTH SAFETY COORDINATOR NO [facility] [place] [facility] May 18, 2021 11:00 AM VA-TOBACCO USE MED NO [facility] [place] [facility] May 18, 2021 11:00 AM VA-TOBACCO USE [place] 30 MIN OF WAKEUP [place] [facility] [place] [facility] May 18, 2021 11:00 AM VA-TOBACCO USER SOME DAYS [facility] [place] [facility] Jul 31, 2018 08:47 AM VA-TOBACCO DOESNT USE WI 30 MIN WAKEUP [facility] [place] [facility] Jul 31, 2018 08:47 AM VA-TOBACCO USE > 15 LESS THAN 30 YEARS [facility] [place] [facility] Jul 31, 2018 08:47 AM VA-TOBACCO USE ADVICE [facility] [place] [facility] Jul 31, 2018 08:47 AM VA-TOBACCO USE HEALTH SAFETY COORDINATOR NO [facility] [place] [facility] [...] QUIT TOBACCO USE [facility] [place] [facility] Jun 11, 2016 10:00 AM CURRENT SMOKER [facility] [place] [facility] Dec 10, 2015 10:39 AM V1-PT NOT INTERESTED IN QUIT TOBACCO USE [facility] [place] [facility] Feb 06, 2015 08:34 AM CURRENT SMOKER 1 1/2 Packs per week [facility] [place] [facility] Feb 06, 2015 08:34 AM V1-PT NOT INTERESTED IN QUIT TOBACCO USE [facility] [place] [facility] Jul 04, 2013 09:37 AM CURRENT SMOKER pack per week [facility] Jun 24, 2011 08:10 AM V1-PT DECLINES REF TO TOBACCO CESS PRGM [facility] Jun 24, 2011 08:10 AM V1-PT READY TO QUIT TOBACCO USE [facility] Mar 31, 2011 10:12 AM V1-PT DECLINES REF TO TOBACCO CESS PRGM [facility] Mar 31, 2011 10:12 AM V1-PT DECLINES TOBACCO CESSATION MEDS [facility] Mar 31, 2011 10:12 AM V1-PT NOT INTERESTED IN QUIT TOBACCO USE [facility] September 25, 2010 11:03 AM CURRENT SMOKER [facility] September 25, 2010 11:03 AM QUIT TOBACCO USE IN PAST YEAR [facility] Encounter Notes: All associated encounter notes This section contains the clinical notes associated to the Encounter. Date/Time Encounter Note(s) Provider Source Mar 16, 2024 09:29 AM PSYCHOLOGY NOTE: LOCAL TITLE: PSYCHOLOGY NOTE STANDARD TITLE: PSYCHOLOGY NOTE DATE OF NOTE: MAR 16, 2024@09:29 ENTRY DATE: MAR 16, 2024@09:29:53 AUTHOR: NOHEMI MACKEY COSIGNER: URGENCY: STATUS: COMPLETED [facility] Individual Therapy Note Procedure: The patient was seen for a 55-minute F2F individual psychotherapy session focused on treatment [...] that are consistent with his values. 2) [place] will learn about and consider trauma-focused therapy to directly address PTSD symptoms if/when clinically appropriate. Progress: [place] spoke about recent interactions with his and his choice to continue to invest in his marriage despite choices she has made that were hurtful to him. [place] considered why he is making this choice and what he needs for himself. He explored how he wants to approach invigorating their connection and romantic aspects. Explored a metaphor of the [place]ian art of rhonda. 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 He considered how he advocated for himself and how he wants to negotiate future interactions. committed to continue to invest in listening to his needs and values as well as taking intentional actions and allowing safe space for his emotional reactions. Assessment: arrived on time for session and was dressed appropriately with appropriate hygiene. He maintained appropriate eye contact and was alert. [place] spoke clearly and coherently. His thoughts were linear and related. His affect was congruent to content and appropriate in range. There was no evidence of AH/VH or delusions. There was no evidence of SI or HI. [place] was reminded of emergency resources through this [facility] and the [employer] Crisis Line number. Thus, current assessment of risk for suicide and homicide is low. DSM 5 Diagnostic Impressions: PTSD, Chronic Major Depressive Disorder, recurrent Plan: 's next visit is scheduled for Saturday, March 23, 2024 at 8:30am F2F ~~~ PCT Psychotherapy Tracking Today's psychotherapy session was part of a standardized episode of Other PTSD Psychotherapy (e.g. supportive therapy): Other: flexible mix of ACT/CBT /es/ Nohemi Mackey, PhD Clinical Psychologist, [facility] Signed: 03/16/2024 09:34 NOHEMI MACKEY [place] [facility]
--- OUTSIDE RECORDS SUMMARY | 2024-06-19 13:42 | XMS_ITS ---
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 Name Role Phone YANCY SONIA Primary Care [...] Huitron's Name Patient's Relationship to Policy Huitron [facility] CE ORGANIZAT ION [facility] FIRE DEPT May 09, 2023 [id number] [phone] JAMAAL ALTMAN SE PATIENT [place] PRESCRIPT ION [employer] Nov 07, 2023 [id number] SOFÍA ALTMAN JR PATIENT [facility] PREFERRED PROVIDER ORGANIZAT ION (PPO) [facility] Nov 06, 2016 [id number] [phone] JAMAAL ALTMAN SE PATIENT [employer] POINT OF SERVICE [facility] Nov 06, 2016 [id number] [phone] JAMAAL ALTAMN SE PATIENT [facility] Nov 06, 2016 [id number] [phone] JAMAAL ALTMAN SE PATIENT [facility] PRESCRIPT ION [facility] Nov 06, 2016 [id number] JAMAAL ALTMAN SE PATIENT [facility] ORGAN Nov 06, 2009 [id number] JAMAAL ALTMAN SE PATIENT Selected Encounter This section includes the information on record at [place] for the Encounter. Date/Time Encounter Type Encounter Description Reason Provider Source Jul 12, 2023 01:00 PM OFFICE O/P EST LOW 20 MIN PM&RS PHYSICIAN ICD-10-CM M24.541 Contracture, right hand GURINDER WICK Memo Encounter Template Text not used by [place] Assessments - Encounter Diagnoses This section includes the primary and secondary diagnoses documented for the Encounter. Date/Time Primary/Secondary Diagnosis Diagnosis Name Provider Source Aug 06, 2023 11:07 AM PRIMARY Contracture, right hand [facility]EL WICK [facility] Aug 06, 2023 11:07 AM SECONDARY Carpal tunnel syndrome, bilateral upper limbs [facility] Aug 06, 2023 11:07 AM SECONDARY Chronic pain syndrome ANJEL WICK [facility] Plan of Treatment: Future Appointments (+ 6 months) and Future Tests (+/- 45 days) The Plan of Treatment section includes future care activities for the patient from all [place] treatmentfacilities. This section includes future appointments and future orders which are active, pending or scheduled. Future Appointments This section includes appointments that were scheduled to occur 6 months from the date of the Encounter, up to a maximum of 20 appointments. The data comes from all [place] treatment facilities. Appointment Date/Time Appointment Type Appointme nt Facility Name Jul 15, 2023 09:00 AM [facility] Jul 22, 2023 09:00 AM [facility] Jul 22, 2023 11:30 AM AMBULATORY - [facility] Jul 26, 2023 09:00 AM AMBULATORY [...] - PSYCHIATRY [facility] [place] [facility] Lab Results: +/- 30 [...] 19, 2023 08:44 AM [facility] MICROALBUMIN CREATININE RATIO PANEL Specimen Type: URINE No comment entered. Ordering Provider: SADIE MORSE Report Released Date/Time: Jul 15, 2023 01:11 PM Reporting [facility] [address] [address] Performing Lab: [address] [address] MICROALBUMIN/C REATININE RATIO 5.0 mg/g 0-29.9 MICROALBUMIN,Q UANTITATIVE 1.4 mg/dL RR UNAVAIL CREATININE URINE 281.21 mg/dL Jul 19, 2023 08:38 AM [facility] IRON & TIBC PANEL Specimen Type: SERUM No comment entered. Ordering Provider: SADIE MORSE Report Released Date/Time: Jul 04, 2023 08:48 AM [facility] [address] Performing Lab: [facility] [address] TIBC 345 ug/dL 204-475 IRON 119 ug/dL 40-160 Transferrin Saturation 34.5 20.0-50.0 Jul 19, 2023 08:38 AM [facility] FERRITIN Specimen Type: SERUM No comment entered. Ordering Provider: SADIE MORSE Report Released Date/Time: Jul 04, 2023 08:48 AM Reporting Lab: [facility] [address] Performing [facility]: [facility] [address] FERRITIN 339 ng/mL H 20-300 Jul 19, 2023 08:38 AM [facility] BASIC METABOLIC PANEL (non-fasting) Specimen Type: SERUM No comment entered. Ordering Provider: SADIE MORSE Report Released Date/Time: Jul 04, 2023 08:48 AM Reporting Lab: [facility] [address] Performing Lab: [facility] [address] [address] UREA NITROGEN 17 mg/dL 7-25 GLUCOSE 138 mg/dL H 65-100 SODIUM 139 mmol/L 135-145 POTASSIUM 4.2 mmol/L 3.5-5.0 CHLORIDE 103 mmol/L 100-110 CO2 25 meq/L 20-30 CREATININE, Serum 1.19 mg/dL 0.50-1.40 eGFR(CKD-EPI 2020) 74 mL/min >60 Jul 19, 2023 08:38 AM [facility] CBC Specimen Type: BLOOD No comment entered. Ordering Provider: SADIE MORSE Report Released Date/Time: Jul 04, 2023 08:48 AM Reporting Lab: [address] [address] Performing Lab: [address] [address] WBC 9.57 10*3/uL 4.50-11.00 RBC 5.03 10*6/uL 4.23-5.66 HGB 14.6 g/dL 12.8-17 HCT 44.5 39.2-50.4 MCV 88.5 fL 82-99 MCHC 32.8 g/dL 30.8-35.1 PLT 233 10*3/uL 140-360 RDW-CV 12.3 12.0-16.0 MCH 29.0 pg 26.2-32.6 Jun 24, 2023 10:15 AM [facility] MICROALBUMIN CREATININE RATIO PANEL Specimen Type: URINE No comment entered. Ordering Provider: SADIE MORSE Report Released Date/Time: Jun 07, 2023 09:51 AM Reporting Lab: [address] [address] Performing Lab: [address] [address] MICROALBUMIN/C REATININE RATIO 5.4 mg/g 0-29.9 MICROALBUMIN,Q UANTITATIVE 0.8 mg/dL RR UNAVAIL CREATININE URINE 148.98 mg/dL Vital Signs: All taken on the encounter date This section contains inpatient and outpatient Vital Signs collected on the date of the Encounter. Date/Time Temperature Pulse Blood Pressure Respiratory Rate SP02 Pain Height Weight Body Mass Index Source Jul 12, 2023 12:54 PM 110/70 9 [place] [facility] [place] [facility] Social History: Smoking Status (Most current) and Tobacco Use (All prior to encounter date) This section includes the most current, and the historical, smoking and tobacco- related health factors from the [place] facility where the Encounter took place. Current Smoking Status This section includes the most current smoking, or tobacco-related health factor, from the [place] facility where the Encounter took place. Date/Time Current Smoking Status Comment [facility] Jun 08, 2023 09:30 AM VA-TOBACCO USER EVERY DAY [facility] Tobacco Use History This section includes a history of the smoking, or tobacco-related health factors, that were collected on or before the date of the Encounter. The data comes from the [place] facility where the Encounter took place. Date/Time Smoking Status/Tobac co Use Comment Facility Jun 08, 2023 09:30 AM VA-TOBACCO USE ADVICE [facility] [place] [facility] Jun 08, 2023 09:30 AM VA-TOBACCO USE PIPE FOREMAN NO [facility] [place] [facility] Jun 08, 2023 09:30 AM VA-TOBACCO USE MED NO [facility] [place] [facility] Jun 08, 2023 09:30 AM VA-TOBACCO USE WI 30 MIN OF WAKEUP [facility] [place] [facility] Jun 08, 2023 09:30 AM VA-TOBACCO USER EVERY DAY [facility] [place] [facility] Jun 23, 2022 09:00 AM VA-TOBACCO FORMER USER [facility] [place] [facility] Jun 23, 2022 09:00 AM VA-TOBACCO QUIT < 1 YEAR [facility] [place] [facility] May 18, 2021 11:00 AM VA-TOBACCO USE > 15 LESS THAN 30 YEARS [facility] [place] [facility] May 18, 2021 11:00 AM VA-TOBACCO USE ADVICE [facility] [place] [facility] May 18, 2021 11:00 AM VA-TOBACCO USE PIPE FOREMAN NO [facility] [place] [facility] May 18, 2021 11:00 AM VA-TOBACCO USE MED NO [facility] [place] [facility] May 18, 2021 11:00 AM VA-TOBACCO USE WI 30 MIN OF WAKEUP [facility] [place] [facility] May 18, 2021 11:00 AM VA-TOBACCO USER SOME DAYS [facility] [place] [facility] Jul 31, 2018 08:47 AM VA-TOBACCO DOESNT USE WI 30 MIN WAKEUP [facility] [place] [facility] Jul 31, 2018 08:47 AM VA-TOBACCO USE > 15 LESS THAN 30 YEARS [facility] [place] [facility] Jul 31, 2018 08:47 AM VA-TOBACCO USE ADVICE [facility] [place] [facility] Jul 31, 2018 08:47 AM VA-TOBACCO USE PIPE FOREMAN NO [facility] [place] [facility] Jul 31, 2018 08:47 AM VA-TOBACCO USE MED NO [facility] [place] [facility] Jul 31, 2018 08:47 AM VA-TOBACCO USER SOME DAYS [facility] [place] [facility] Jan 30, 2018 09:19 AM QUIT TOBACCO USE IN PAST YEAR a month ago [facility] [place] [facility] Jul 28, 2017 09:31 AM CURRENT SMOKER 2 cigarettes per day [facility] [place] [facility] Dec 08, 2016 08:49 AM CURRENT SMOKER [facility] [place] [facility] Dec 08, 2016 08:49 AM V1-PT NOT INTERESTED IN QUIT TOBACCO USE [facility] [place] [facility] Jun 11, 2016 10:00 AM CURRENT SMOKER [facility] [place] [facility] Dec 10, 2015 10:39 AM V1-PT NOT INTERESTED IN QUIT TOBACCO USE [facility] [place] [facility] Feb 06, 2015 08:34 AM CURRENT SMOKER 1 1/2 Packs per week [facility] [place] [facility] Feb 06, 2015 08:34 AM V1-PT NOT INTERESTED IN QUIT TOBACCO USE [facility] [place] [facility] Jul 04, 2013 09:37 AM CURRENT SMOKER pack per week [facility] [place] [facility] Jun 24, 2011 08:10 AM [...] Encounter. Date/Time Encounter Note(s) Provider Source Jul 12, 2023 01:10 PM PHYSICAL MEDICINE REHAB PHYSICIAN NOTE: LOCAL TITLE: PM&R FOLLOW-UP STANDARD TITLE: PHYSICAL MEDICINE REHAB PHYSICIAN NOTE DATE OF NOTE: JUL 12, 2023@13:10 ENTRY DATE: JUL 12, 2023@13:10:40 AUTHOR: GURINDER WICK COSIGNER: URGENCY: STATUS: COMPLETED JUL 12, 2023 SOFÍA ALTMAN JR is a 48 y/o MALE who presents today for follow-up of bilateral hand pain. Using TENS and Mitt. Pain is more fluctuating. Hand pain has lessened since starting at [facility]. Less busy. He notes less hand swelling. He did not submit the paperwork for disability. Taking Pregabalin 225 mg bid. He took gabapentin but had foggyness. He heard from the surgery referral. He will be seen August 10. PMHx as obtained from Chart: Active problems [...] Joint pain in right hand (SNOMED CT 7730079940484455) 11. Erectile dysfunction (SNOMED CT 658795135) 12. Smoking (SNOMED CT 324161221) 13. Other specified idiopathic peripheral neuropathy 14. Other chronic Pain 15. Degeneration of intervertebral disc 16. Contracture of hand joint 17. Hypertension (SNOMED CT 52125286) 18. Hyperlipidemia (SNOMED CT 08605076) 19. Obesity (SNOMED CT 790920431) Soc Hx: MARITAL STATUS - [employer] FROM [...] of bilateral upper and lower extremities. MUSCULOSKELETAL EXAM:deferred. Diagnostic Studies:No new studies ASSESSMENT/PLAN: Patient is a 48 year old presenting with bilateral hand pain s/p carpal tunnel x 2. He has seen some improvement with pregabalin. Will add pamelor 10 mg for nerve pain and insomnia. Continue with hand therapy. Continue with exercise. FOLLOW-UP:to be seen mid August to determine direction with surgery. Potential risks and side effects of any medication(s) prescribed today was reviewed with . Patient had many excellent questions, which I answered to the best of my ability and to patient's apparent satisfaction. MDM: __20 minutes which includes reviewing records, evaluating patient, [...] this [facility] (local) and dispensed from another [place] or [facility] facility (remote) as well as [...] VA or non-VA provider. /ever/ G[facility]INDER WICK [facility] Signed: 07/12/2023 13:29 GURINDER WICK [facility]
--- OUTSIDE RECORDS SUMMARY | 2024-06-19 13:42 | XMS_ITS ---
Author Name [facility] [facility] [place] Address [address] [place] [address] Care Team Providers Care Grating Machine Operator Name Role Phone YANCY SONIA Primary [...] Huitron's Name Patient's Relationship to Policy Huitron [facility] CE ORGANIZAT ION [facility] FIRE DEPT May 09, 2023 [id number] JAMAAL ALTMAN SE PATIENT [facility] Nov 07, 2023 [phone] SOFÍA ALTMAN JR PATIENT [employer] PREFERRED PROVIDER ORGANIZAT ION (PPO) [facility] Nov 06, 2016 [id number] [phone] JAMAAL ALTMAN SE PATIENT [employer] POINT OF SERVICE [facility] Nov 06, 2016 [id number] [phone] JAMAAL ALTMAN SE PATIENT [employer] [facility] Nov 06, 2016 [id number] [phone] ALTMAN,JO PATIENT [facility] PRES[facility] Nov 06, 2016 [id number] JAMAAL ALTMAN SE PATIENT [facility] Nov 06, 2009 [id number] [phone] JAMAAL ALTMAN SE PATIENT Selected Encounter This section includes the information on record at [place] for the Encounter. Date/Time Encounter Type Encounter Description Reason Provider Source Jul 11, 2023 11:30 AM [facility]IR[facility] MDLTY 1+ULTRASOUND EA 15 OCCUPATIONAL THERAPY ICD-10-CM M79.642 Pain in left hand IRENE GUAMAN IHE Encounter Template Text not used by [place] Assessments - Encounter Diagnoses This section includes the primary and secondary diagnoses documented for the Encounter. Date/Time Primary/Secondary Diagnosis Diagnosis Name Provider Source Jul 22, 2023 02:55 PM PRIMARY Pain in left hand ROWENAIRENE E [facility] Plan of Treatment: Future Appointments (+ 6 months) and Future Tests (+/- 45 days) The Plan of Treatment section includes future care activities for the patient from all [place] treatmentfacilities. This section includes future appointments and future orders which are active, pending or scheduled. Future Appointments This section includes appointments that were scheduled to occur 6 months from the date of the Encounter, up to a maximum of 20 appointments. The data comes from all [place] treatment facilities. Appointment Date/Time Appointment Type Appointme nt Facility Name Jul 12, 2023 01:00 PM AMBULATORY - REHAB MEDICIN E [facility] Jul 15, 2023 09:00 AM AMBULATORY - PSYCHIATRY [facility] Jul 22, 2023 09:00 AM AMBULATORY - PSYCHIATRY [facility] Jul 22, 2023 11:30 AM AMBULATORY - REHAB MEDICIN E [facility] Jul 26, 2023 09:00 AM AMBULATORY - MEDICINE [facility] Aug 05, 2023 09:00 AM AMBULATORY - PSYCHIATRY [facility] Aug 11, 2023 09:45 AM AMBULATORY - [...] AMBULATORY - PSYCHIATRY [facility] Dec 02, 2023 09:00 AM AMBULATORY - PSYCHIATRY [facility] Dec 08, 2023 09:00 AM AMBULATORY - REHAB MEDICIN E [facility] Dec 09, 2023 09:00 AM AMBULATORY - PSYCHIATRY [facility] Dec 16, 2023 08:30 AM AMBULATORY - MEDICINE [facility] Dec 23, 2023 09:00 AM AMBULATORY - PSYCHIATRY [facility] Lab Results: +/- 30 days of the encounter This section includes the Chemistry and Hematology Lab Results on record with [place] for the patient. Radiology Reports and Pathology [...] PM Reporting Lab: [facility] [address] [address] Performing Lab: [facility] [address] [address] MICROALBUMIN/C REATININE RATIO 5.0 mg/g 0-29.9 MICROALBUMIN,Q UANTITATIVE 1.4 mg/dL RR UNAVAIL CREATININE URINE 281.21 mg/dL Jul 19, 2023 08:38 AM [facility] FERRITIN Specimen Type: SERUM No comment entered. Ordering Provider: SADIE MORSE Report Released Date/Time: Jul 04, 2023 08:48 AM Reporting Lab: [address] [address] Performing Lab: [address] [address] FERRITIN 339 ng/mL H 20-300 Jul 19, 2023 08:38 AM [facility] IRON & TIBC PANEL Specimen Type: SERUM No comment entered. Ordering Provider: SADIE MORSE Report Released Date/Time: Jul 04, 2023 08:48 AM Reporting Lab: [address] [address] Performing Lab: [address] [address] TIBC 345 ug/dL 204-475 IRON 119 ug/dL 40-160 Transferrin Saturation 34.5 20.0-50.0 Jul 19, 2023 08:38 AM [facility] BASIC METABOLIC PANEL (non-fasting) Specimen Type: SERUM No comment entered. Ordering Provider: SADIE MORSE Report Released Date/Time: Jul 04, 2023 08:48 AM Reporting Lab: [address] [address] Performing Lab: [address] [address] UREA NITROGEN 17 mg/dL 7-25 GLUCOSE 138 mg/dL H 65-100 SODIUM 139 mmol/L 135-145 POTASSIUM 4.2 mmol/L 3.5-5.0 CHLORIDE 103 mmol/L 100-110 CO2 25 meq/L 20-30 CREATININE, Serum 1.19 mg/dL 0.50-1.40 eGFR(CKD-EPI 2020) 74 mL/min >60 Jul 19, 2023 08:38 AM [facility] CBC Specimen Type: BLOOD No comment entered. Ordering Provider: SADIE MORSE Report Released Date/Time: Jul 04, 2023 08:48 AM Reporting Lab: [facility] [address] [address] [address] Performing Lab: [address] [address] WBC 9.57 10*3/uL 4.50-11.00 RBC 5.03 10*6/uL 4.23-5.66 HGB 14.6 g/dL 12.8-17 HCT 44.5 39.2-50.4 MCV 88.5 fL 82-99 MCHC 32.8 g/dL 30.8-35.1 PLT 233 10*3/uL 140-360 RDW-CV 12.3 12.0-16.0 MCH 29.0 pg 26.2-32.6 Jun 24, 2023 10:15 AM [facility] MICROALBUMIN CREATININE RATIO PANEL Specimen Type: URINE No comment entered. Ordering Provider: SADIE MORSE Report Released Date/Time: Jun 07, 2023 09:51 AM Reporting Lab: [facility] [address] [address] Performing Lab: [address] [address] MICROALBUMIN/C REATININE RATIO 5.4 mg/g 0-29.9 MICROALBUMIN,Q UANTITATIVE 0.8 mg/dL RR UNAVAIL CREATININE URINE 148.98 mg/dL Social History: Smoking Status (Most current) and Tobacco Use (All prior to encounter date) This section includes the most current, and the historical, smoking and tobacco- related health factors from the [place] facility where the Encounter took place. Current Smoking Status This section includes the most current smoking, or tobacco-related health factor, from the [place] facility where the Encounter took place. Date/Time Current Smoking Status Comment [facility] it Jun 08, 2023 09:30 AM VA-TOBACCO USER EVERY DAY [place] [facility] Tobacco Use History This section includes a history of the smoking, or tobacco-related health factors, that were collected on or before the date of the Encounter. The data comes from the [place] facility where the Encounter took place. Date/Time Smoking Status/Tobac co Use Comment Facility Jun 08, 2023 09:30 AM VA-TOBACCO USE ADVICE [facility] Jun 08, 2023 09:30 AM VA-TOBACCO USE RECEIVING SPECIALIST NO [facility] Jun 08, 2023 09:30 AM VA-TOBACCO USE MED NO [facility] Jun 08, 2023 09:30 AM VA-TOBACCO USE [place] 30 MIN OF WAKEUP [facility] Jun 08, 2023 09:30 AM VA-TOBACCO USER EVERY DAY [facility] Jun 23, 2022 09:00 AM VA-TOBACCO FORMER USER [facility] Jun 23, 2022 09:00 AM VA-TOBACCO QUIT < 1 YEAR [facility] May 18, 2021 11:00 AM VA-TOBACCO USE > 15 LESS THAN 30 YEARS [facility] May 18, 2021 11:00 AM VA-TOBACCO USE ADVICE [facility] May 18, 2021 11:00 AM VA-TOBACCO USE RECEIVING SPECIALIST NO [facility] May 18, 2021 11:00 AM VA-TOBACCO USE MED NO [facility] May 18, 2021 11:00 AM VA-TOBACCO USE WI 30 MIN OF WAKEUP [facility] May 18, 2021 11:00 AM VA-TOBACCO USER SOME DAYS [facility] Jul 31, 2018 08:47 AM VA-TOBACCO DOESNT USE WI 30 MIN WAKEUP [facility] Jul 31, 2018 08:47 AM VA-TOBACCO USE > 15 LESS THAN 30 YEARS [facility] [place] [facility] Jul 31, 2018 08:47 AM VA-TOBACCO USE ADVICE [facility] Jul 31, 2018 08:47 AM VA-TOBACCO USE RECEIVING SPECIALIST [facility] Jul 31, 2018 08:47 AM VA-TOBACCO USE MED NO [facility] Jul 31, 2018 08:47 AM VA-TOBACCO USER SOME DAYS [facility] Jan 30, 2018 09:19 AM QUIT TOBACCO USE IN PAST YEAR a month ago [facility] Jul 28, 2017 09:31 AM CURRENT SMOKER 2 cigarettes per day [facility] Dec 08, 2016 08:49 AM CURRENT SMOKER [facility] Dec 08, 2016 08:49 AM V1-PT NOT INTERESTED IN QUIT [facility]BACCO [facility] [place] Jun 11, 2016 10:00 AM CURRENT SMOKER [facility] Dec 10, 2015 10:39 AM V1-PT NOT INTERESTED IN QUIT TOBACCO USE [facility] [place] [facility] Feb 06, 2015 08:34 AM CURRENT SMOKER 1 1/2 Packs per week [facility] [place] [facility] Feb 06, 2015 08:34 AM V1-PT NOT INTERESTED IN QUIT TOBACCO USE [facility] [place] [facility] Jul 04, 2013 09:37 AM CURRENT SMOKER pack per week [facility] Jun 24, 2011 08:10 AM V1-PT DECLINES REF TO TOBACCO CESS [facility] Jun 24, 2011 08:10 AM V1-PT READY TO QUIT TOBACCO [facility] Mar 31, 2011 10:12 AM V1-PT DECLINES REF TO TOBACCO CESS [facility] [place] [facility] [place] [facility] Mar 31, 2011 10:12 AM V1-PT DECLINES TOBACCO CESSATION [facility] Mar 31, 2011 10:12 AM V1-PT NOT INTERESTED IN QUIT TOBACCO USE [facility] September 25, 2010 11:03 AM CURRENT SMOKER [facility] September 25, 2010 11:03 AM QUIT TOBACCO USE IN PAST YEAR [facility] Encounter Notes: All associated encounter notes This section contains the clinical notes associated to the Encounter. Date/Time Encounter Note(s) Provider Source Jul 11, 2023 11:27 AM OCCUPATIONAL THERAPY NOTE: LOCAL TITLE: OCCUPATIONAL THERAPY STANDARD TITLE: OCCUPATIONAL THERAPY NOTE DATE OF NOTE: JUL 11, 2023@11:27 ENTRY DATE: JUL 11, 2023@11:27:21 AUTHOR: IRENE GUAMAN EXP COSIGNER: URGENCY: STATUS: COMPLETED Initial Evaluation date: Dec Progress Note Date: Treatment #: 19 Treatment time: 30 minutes Diagnosis: Pain in left Hand(ICD-10-CM M79.642) Provider: Flor ALSTON Treatment Precautions: Patient identified by full name and date of SUBJECTIVE: Pt reports that both hands have been bothering him quite a bit and he's not sure why. He still hasn't heard about scheduling. Pain Level: 9/10 OBJECTIVE: THERAPEUTIC EXERCISE: MINUTES: MANUAL THERAPY: *mob/FDM [...] ASSESSMENT: Pt tolerated tx well this date. awaiting scheduling appt at [facility]. pt reports an increase in pain in b/l hands and is not sure why. following tx, pt reported much improved pain (6-7/10). PLAN: Continue w/ POC; modify tx as needed. Pt to return in two weeks. Pt is in agreement w/ POC. /ever/ Irene Guaman, MS OTR/Sade, CHT Occupational Therapist Signed: 07/11/2023 12:22 IRENE GUAMAN [facility]
--- OUTSIDE RECORDS SUMMARY | 2024-06-19 13:42 | XMS_ITS ---
Author Name [facility] [place] [facility] [facility] [place] Address [address] [place] [address] Care Team Providers Care Wholesale Manager Name Role Phone YANCY SONIA Primary Care [...] Huitron's Name Patient's Relationship to Policy Huitron [facility] CE ORGANIZAT ION [facility] FIRE DEPT May 09, 2023 [id number] JAMAAL ALTMAN SE PATIENT [facility] PRESCRIPT ION [facility] Nov 07, 2023 [id number] SOFÍA ALTMAN JR PATIENT [employer] PREFERRED PROVIDER ORGANIZAT ION (PPO) [facility] Nov 06, 2016 [id number] [phone] JAMAAL ALTMAN SE PATIENT [employer] POINT OF SERVICE [facility] Nov 06, 2016 [id number] JAMAAL ALTMAN SE PATIENT [facility] MENTAL HEALTH [facility] Nov 06, 2016 [id number] ALTMANJAMAAL PATIENT [facility] Nov 06, 2016 [id number] JAMAAL ALTMAN SE PATIENT [facility] ORGAN Nov 06, 2009 [id number] ANUPAMAJAMAAL PATIENT Selected Encounter This section includes the information on record at [place] for the Encounter. Date/Time Encounter Type Encounter Description Reason Provider Source Jul 22, 2023 11:30 AM GIRMA MDLTY 1+ULTRASOUND EA 15 OCCUPATIONAL THERAPY ICD-10-CM M79.642 Pain in left hand KATHE GUAMANLIE Memo IHE Encounter Template Text not used by [place] Assessments - Encounter Diagnoses This section includes the primary and secondary diagnoses documented for the Encounter. Date/Time Primary/Secondary Diagnosis Diagnosis Name Provider Source Aug 06, 2023 06:37 AM PRIMARY Pain in left hand BEVERLEYSAMMIIRENE E [facility] [place] [facility] Plan of Treatment: Future Appointments (+ 6 months) and Future Tests (+/- 45 days) The Plan of Treatment section includes future care activities for the patient from all [place] [facility]. This section includes future appointments and future orders which are active, pending or scheduled. Future Appointments This section includes appointments that were scheduled to occur 6 months from the date of the Encounter, up to a maximum of 20 appointments. The data comes from all [place] treatment facilities. Appointment Date/Time Appointment Type Appointme nt Facility Name Jul 26, 2023 09:00 AM AMBULATORY - MEDICINE [facility] [place] [facility] Aug 05, 2023 09:00 AM AMBULATORY - PS[facility]CHIATRY [facility] [place] [facility] Aug 11, 2023 09:45 AM AMBULATORY - MEDICINE [facility] [place] [facility] Aug 11, 2023 11:00 AM AMBULATORY - PSYCHIATRY [facility] [place] [facility] Sep 06, 2023 09:00 AM AMBULATORY - REHAB MEDICIN E [facility] [place] [facility] September 08, 2023 11:00 AM AMBULATORY - PSYCHIATRY [facility] [place] [facility] September 22, 2023 09:00 AM AMBULATORY [...] - PSYCHIATRY [facility] [place] [facility] Jan 20, 2024 09:00 AM AMBULATORY - PSYCHIATRY [facility] [place] [facility] Lab Results: +/- 30 days of [...] Range Comment Jul 19, 2023 08:44 AM [facility] [place] [facility] MICROALBUMIN CREATININE RATIO PANEL Specimen Type: URINE No comment entered. Ordering Provider: SADIE MORSE Report Released Date/Time: Jul 15, 2023 01:11 PM Reporting Lab: [facility] [place] [facility] [address] [address] Performing [facility]: [facility] [address] [address] MICROALBUMIN/C REATININE RATIO 5.0 mg/g 0-29.9 MICROALBUMIN,Q UANTITATIVE 1.4 mg/dL RR UNAVAIL CREATININE URINE 281.21 mg/dL Jul 19, 2023 08:38 AM [facility] IRON & TIBC PANEL Specimen Type: SERUM No comment entered. Ordering Provider: SADIE MORSE Report Released Date/Time: Jul 04, 2023 08:48 AM Reporting Lab: [facility] [address] [address] Performing Lab: [address] [address] TIBC 345 ug/dL 204-475 IRON 119 ug/dL 40-160 Transferrin Saturation 34.5 20.0-50.0 Jul 19, 2023 08:38 AM [facility] FERRITIN Specimen Type: SERUM No comment entered. Ordering Provider: SADIE MORSE Report Released Date/Time: Jul 04, 2023 08:48 AM Reporting Lab: [facility] [address] [address] Performing Lab: [address] [address] FERRITIN 339 ng/mL H 20-300 Jul 19, 2023 08:38 AM [facility] BASIC METABOLIC PANEL (non-fasting) Specimen Type: SERUM No comment entered. Ordering Provider: SADIE MORSE Report Released Date/Time: Jul 04, 2023 08:48 AM Reporting Lab: [facility] [address] [address] Performing Lab: [address] [address] UREA NITROGEN 17 mg/dL 7-25 GLUCOSE 138 mg/dL H 65-100 SODIUM 139 mmol/L 135-145 POTASSIUM 4.2 mmol/L 3.5-5.0 CHLORIDE 103 mmol/L 100-110 CO2 25 meq/L 20-30 CREATININE, Serum 1.19 mg/dL 0.50-1.40 eGFR(CKD-EPI 2020) 74 mL/min >60 Jul 19, 2023 08:38 AM [facility] CBC Specimen Type: BLOOD No comment entered. Ordering Provider: SADIE MORSE Report Released Date/Time: Jul 04, 2023 08:48 AM Reporting Lab: [facility] [address] [address] Performing Lab: [address] [address] WBC 9.57 10*3/uL 4.50-11.00 RBC 5.03 10*6/uL 4.23-5.66 HGB 14.6 g/dL 12.8-17 HCT 44.5 39.2-50.4 MCV 88.5 fL 82-99 MCHC 32.8 g/dL 30.8-35.1 PLT 233 10*3/uL 140-360 RDW-CV 12.3 12.0-16.0 MCH 29.0 pg 26.2-32.6 Jun 24, 2023 10:15 AM [facility] MICROALBUMIN CREATININE RATIO PANEL Specimen Type: URINE No comment entered. Ordering Provider: SADIE MORSE Report Released Date/Time: Jun 07, 2023 09:51 AM Reporting Lab: [facility] [address] [address] Performing Lab: [address] [address] MICROALBUMIN/C REATININE RATIO 5.4 mg/g 0-29.9 MICROALBUMIN,Q UANTITATIVE 0.8 mg/dL RR UNAVAIL CREATININE URINE 148.98 mg/dL Social History: Smoking Status (Most current) and Tobacco Use (All prior to encounter date) This section includes the most current, and the historical, smoking and tobacco- related health factors from the [place] facility where the Encounter took place. Current Smoking Status This section includes the most current smoking, or tobacco-related health factor, from the [place] facility where the Encounter took place. Date/Time Current Smoking Status Comment Josr march Jun 08, 2023 09:30 AM VA-TOBACCO USE [place] 30 MIN OF WAKEUP [facility] Tobacco Use History This section includes a history of the smoking, or tobacco-related health factors, that were collected on or before the date of the Encounter. The data comes from the [place] facility where the Encounter took place. Date/Time Smoking Status/Tobac co Use Comment Facility Jun 08, 2023 09:30 AM VA-TOBACCO USE ADVICE [facility] [place] [facility] Jun 08, 2023 09:30 AM VA-TOBACCO USE BUSHLER NO [facility] [place] [facility] Jun 08, 2023 09:30 AM VA-TOBACCO USE MED NO [facility] [place] [facility] Jun 08, 2023 09:30 AM VA-TOBACCO USE [place] 30 MIN OF WAKEUP [facility] [place] [facility] Jun 08, 2023 09:30 AM VA-TOBACCO USER EVERY DAY [facility] [place] [facility] Jun 23, 2022 09:00 AM VA-TOBACCO FORMER USER [facility] [place] [facility] Jun 23, 2022 09:00 AM VA-TOBACCO QUIT < 1 YEAR [facility] [place] [facility] May 18, 2021 11:00 AM VA-TOBACCO USE > 15 LESS THAN 30 YEARS [facility] [place] [facility] May 18, 2021 11:00 AM VA-TOBACCO USE ADVICE [facility] [place] [facility] May 18, 2021 11:00 AM VA-TOBACCO USE BUSHLER NO [facility] [place] [facility] May 18, 2021 11:00 AM VA-TOBACCO USE MED NO [facility] [place] [facility] May 18, 2021 11:00 AM VA-TOBACCO USE WI 30 MIN OF WAKEUP [facility] [place] [facility] May 18, 2021 11:00 AM VA-TOBACCO USER SOME DAYS [facility] [place] [facility] Jul 31, 2018 08:47 AM VA-TOBACCO DOESNT USE WI 30 MIN WAKEUP [facility] [place] [facility] Jul 31, 2018 08:47 AM VA-TOBACCO USE > 15 LESS THAN 30 YEARS [facility] [place] [facility] Jul 31, 2018 08:47 AM VA-TOBACCO USE ADVICE [facility] [place] [facility] Jul 31, 2018 08:47 AM VA-TOBACCO USE BUSHLER NO [facility] [place] [facility] Jul 31, 2018 08:47 AM [facility] [place] [facility] Jul 31, 2018 08:47 AM VA-TOBACCO USER SOME DAYS [facility] [place] [facility] Jan 30, 2018 09:19 AM QUIT TOBACCO USE IN PAST YEAR a month ago [facility] [place] [facility] Jul 28, 2017 09:31 AM CURRENT SMOKER 2 cigarettes per day [facility] [place] [facility] Dec 08, 2016 08:49 AM CURRENT SMOKER [facility] [place] [facility] Dec 08, 2016 08:49 AM V1-PT NOT INTERESTED IN QUIT TOBACCO USE [facility] [place] [facility] Jun 11, 2016 10:00 AM CURRENT SMOKER [facility] [place] [facility] Dec 10, 2015 10:39 AM V1-PT NOT INTERESTED IN QUIT TOBACCO USE [facility] [place] [facility] Feb 06, 2015 08:34 AM CURRENT SMOKER 1 1/2 Packs per week [facility] [place] [facility] Feb 06, 2015 08:34 AM V1-PT NOT INTERESTED IN QUIT TOBACCO USE [facility] [place] [facility] Jul 04, 2013 09:37 AM CURRENT SMOKER pack per week [facility] [place] [facility] Jun 24, 2011 08:10 AM V1-PT DECLINES REF TO TOBACCO CESS PRGM [facility] [place] [facility] Jun 24, 2011 08:10 AM V1-PT READY TO QUIT TOBACCO USE [facility] [place] [facility] Mar 31, 2011 10:12 AM V1-PT DECLINES REF TO TOBACCO CESS PRGM [facility] [place] [facility] Mar 31, 2011 10:12 AM V1-PT DECLINES TOBACCO CESSATION MEDS [facility] [place] [facility] Mar 31, 2011 10:12 AM V1-PT NOT INTERESTED IN QUIT TOBACCO USE [facility] [place] [facility] September 25, 2010 11:03 AM CURRENT SMOKER [facility] [place] [facility] September 25, 2010 11:03 AM QUIT TOBACCO USE IN PAST YEAR [facility] [place] Encounter Notes: All associated encounter notes This section contains the clinical notes associated to the Encounter. Date/Time Encounter Note(s) Provider Source Jul 22, 2023 11:30 AM OCCUPATIONAL THERAPY DISCHARGE NOTE: LOCAL TITLE: OCCUPATIONAL THERAPY DISCHARGE NOTE STANDARD TITLE: OCCUPATIONAL THERAPY DISCHARGE NOTE DATE OF NOTE: JUL 22, 2023@11:30 ENTRY DATE: JUL 22, 2023@13:42:41 AUTHOR: IRENE GUAMAN COSIGNER: MARY GO URGENCY: STATUS: COMPLETED Initial Evaluation date: Dec Progress Note Date: Treatment #: 20 Treatment time: 30 minutes Diagnosis: Pain in left Hand(ICD-10-CM M79.642) Provider: Flor OT Treatment Precautions: Patient identified by full name and date of SUBJECTIVE: Pt reports that his hands have been so bad. He's barely sleeping. He's not sure why his hands are so bad. Pain Level: 02/15 OBJECTIVE: [R] [L] 03/07/2023: [L] 07/21: [L] 1. 27# (norm: 100#) 38# (norm: 95#) 35 28 2. 27# 34# 22 15 3. 35# 41# 18 29 *(+) for pain on L Prehension Strength (pinch meter/pounds per pressure) [R] [L] 03/07/2023: [L] 07/21: [L] lat: 14# (norm: 25#) 11# (norm: 25#) 10 8 2 pt: 8# (norm: 18#) 13# (norm: 18#) 5 4 3 pt: 11# (norm: 24#) 13# (norm: 24#) 6 7 *(+) for pain on L THERAPEUTIC EXERCISE: MINUTES: MANUAL THERAPY: *mob/FDM to [...] ASSESSMENT: Pt tolerated tx well this date. he continues to report very high level of pain in b/l hands. he is, fortunately, going to be seen at [facility] Hand Surgery on 08/11/2023. extreme tightness noted throughout thenar musculature and 1st dorsal interosseous. he does benefit from OT but it is very short lived. recommended continued moist heat application as well as massage until he is seem at [facility]. pt v/u. PLAN: D/C from direct OT services as pt will be seen by hand surgery in 2 weeks for potential CTR. He will reconsult to OT following his surgery for post-op care. Pt is in agreement w/ POC. /ever/ Irene Guaman, MS OTR/Sade, CHT Occupational Therapist Signed: 07/22/2023 13:47 /es/ SONIA HAINES D.O. PHYSICIAN Cosigned: 07/22/2023 13:53 for MARY GO MD STAFF PHYSICIAN IRENE GUAMAN [facility]
[2024-06-19 13:53] LABS: Estimated Average Glucose 154 mg/dL; Hemoglobin A1C 209.3694 umol/L
[2024-06-19 14:12] LABS: Alanine Aminotransferase 59 U/L (0-40); Albumin Level 4.6 g/dL (3.5-5.0); Alkaline Phosphatase 70 U/L (39-117); Anion Gap 10 (12-20); Aspartate Amino Transferase 34 U/L (5-37); Bilirubin Total 0.6 mg/dL (0.0-1.0); Blood Urea Nitrogen 13 mg/dL (9-16); Calcium 9.6 mg/dL (8.4-10.2); Carbon Dioxide 30 mmol/L (22-29); Chloride 107 mmol/L (96-108); Cholesterol 158 mg/dL (<200); Estimated Glomerular Filt Rate > 60; Glucose Fasting 94 mg/dL (60-99); HDL Cholesterol 37 mg/dL (>40); LDL Cholesterol Calculated 95 mg/dL (<100); Potassium 4.3 mmol/L (3.3-5.1); Sodium 143 mmol/L (135-145); Total Protein 8.5 g/dL (6.5-8.0); Triglycerides 134 mg/dL (<150)
[2024-06-19 14:34] LABS: Prostate Specific Antigen 0.45 ng/mL (<0.05-4.0)
== END 2024-06-19 12:36 | disposition home or self-care (01) ==
LOC: HO.LAB 12:35
PROVIDERS: PCP Internal Medicine Medical Oncology; Visit Provider Internal Medicine Medical Oncology
DX: E78.5 Hyperlipidemia, unspecified (principal); E66.01 Morbid (severe) obesity due to excess calories; Z12.5 Encounter for screening for malignant neoplasm of prostate; Z13.1 Encounter for screening for diabetes mellitus
CPT/HCPCS: 36415; 80053; 80061; 83036; 84153; 85025

== ENCOUNTER 2025-01-21 10:16 | Outpatient (REF) | payer BC, SELFPAY ==
--- NOTE | ~2025-01-21 | XR_ITS ---
EXAMINATION: XR FOOT, RIGHT CLINICAL INFORMATION: RIGHT FOOT PAIN COMPARISON: None available. TECHNIQUE: AP, lateral, and oblique views of the right foot. FINDINGS: The bones and soft tissues are normal. No fracture. Alignment is anatomic. Joint spaces are maintained. XR/XR foot RT min 3V IMPRESSION: Unremarkable right foot. Electronically signed by: Theodore Parada MD 01/21/2025 10:47 AM EDT
--- OUTSIDE RECORDS SUMMARY | 2025-01-21 13:01 | XMS_ITS | Clinical Summary ---
Author Organization [employer] [facility] ity Address [address] [place] [address] Care Team Providers Care Account Development Specialist Name Role Phone Unavailable Primary Care Provider [...] Comments DTaP,Tdap,and Td Vaccines (1 - Tdap) 02/26/1992 Hepatitis B Vaccines (1 of 3 - 19+ 3-dose series) 02/26/1992 Pneumococcal Vaccine: 50+ Ye ars (1 of 1 - PCV) 2023 Zoster Vaccines (1 of 2) 2023 Depression Screening 05/09/2024 COVID-19 Vaccine (1 - 2023-2 5 season) 2025 Influenza Vaccine (#1) 2025 HIB Vaccines Aged Out No longer eligi [...] age to complete this topic Meningococcal B Vaccine Aged Out No l onger eligible based on patient's age to complete this topic RSV Immunization Patients Un lela 20 months Aged Out No longer eligible b ased on patient's age to complete this topic Varicella Vaccines Aged Out No longer eligible based on patient's age to complete this topic
== END 2025-01-21 10:17 | disposition home or self-care (01) ==
LOC: HO.XRAY 10:16
PROVIDERS: PCP Internal Medicine Medical Oncology; Visit Provider Internal Medicine Medical Oncology
DX: M79.671 Pain in right foot (principal)
CPT/HCPCS: 73630

== ENCOUNTER → 2025-01-21 10:22 | Outpatient (BNV) | payer BC, SELFPAY | PROVIDERS: PCP Internal Medicine Medical Oncology; Visit Provider Radiology Diagnostic Radiology | DX: M79.671 Pain in right foot (principal) | CPT/HCPCS: 73630 ==